=== PATIENT | female | born 1955 | race Caucasian/White ===

== ENCOUNTER → 2018-12-15 23:55 | Outpatient (CLI) | payer OTHER, SELFPAY ==
[2018-11-06 15:00] VITALS: BMI 27.1
[2018-12-16 00:50] LABS: Thyroid Stim Hormone (TSH) 0.26 uIU/mL (0.358-3.74)
== END ==
PROVIDERS: Family Provider Nurse Practitioner; PCP Nurse Practitioner; Referring Provider Nurse Practitioner; Visit Provider Nurse Practitioner
DX: E03.9 Hypothyroidism, unspecified (principal)
CPT/HCPCS: 84443

== ENCOUNTER → 2019-11-30 | Outpatient (CLI) | payer OTHER, SELFPAY ==
[2019-11-30 15:01] VITALS: BMI 27.6
[2019-11-30 22:26] LABS: Absolute Lymphocyte Count 2.88 X10^3/uL (0.83-4.51); Basophil# 0.08 X10^3/uL; Eosinophil# 0.31 X10^3/uL; Hematocrit 40.4 % (37-47); Hemoglobin 14.1 g/dL (12.0-15.0); Lymphocyte # 2.88 X10^3/ul (4.0); Lymphocyte % 36.9 % (19-41); Mean Corp Hgb Conc 34.9 g/dL (32-36); Mean Corpuscular Hgb 33.6 pg (27.0-32.0); Mean Corpuscular Volume 96.2 fL (81-99); Mean Platelet Vol. 11.5 fl (6.2-12.0); Monocyte# 0.52 X10^3/uL; Monocyte% 6.7 % (0-10); NRBC Flagged by Analyzer 0 % (0-5); Neutrophil % 51.3 % (47-70); Platelet Count 251 K/mm3 (150-450); RBC Distribution Width CV 12.9 % (11.6-14.6); RBC Distribution Width SD 44.3 fl (35.1-43.9); White Blood Count 7.8 K/mm3 (4.4-11.0)
[2019-11-30 22:47] LABS: AST(SGOT) 18 U/L (15-37); Alanine Aminotransfer ALT/SGPT 22 U/L (13-56); Albumin, Serum 3.8 g/dL (3.2-5.0); Alkaline Phosphatase 79 U/L (45-117); Anion Gap 6 (5-15); BUN 11 mg/dL (7-18); BUN/Creat Ratio 13.8 RATIO (10-20); Calcium,Total 9.3 mg/dL (8.5-10.1); Chloride 105 mmol/L (98-107); Cholesterol 273 mg/dL (200); EST Glomerular Filtration Rate 77 mL/min (>60); Est Glom Filt Rate - Afr Amer 93 mL/min (>60); Globulin 3.7 g/dL (2.2-4.2); Glucose 99 mg/dL (74-106); High Density Lipoprotein 68 mg/dL; Potassium 4.2 mmol/L (3.5-5.1); Protein, Total 7.5 g/dL (6.4-8.2); Sodium Level 140 mmol/L (136-145); Thyroid Stim Hormone (TSH) 0.49 uIU/mL (0.358-3.74); Triglycerides 138 mg/dL; Very Low Density Lipoprotein 28 mg/dL (5-40)
== END | disposition home or self-care (01) ==
PROVIDERS: Visit Provider Nurse Practitioner
DX: E03.9 Hypothyroidism, unspecified (principal)
CPT/HCPCS: 80053; 80061; 84443; 85025

== ENCOUNTER → 2020-12-15 22:15 | Outpatient (CLI) | payer OTHER, SELFPAY ==
[2020-12-15 17:58] VITALS: BMI 27.3
== END ==
PROVIDERS: Referring Provider Nurse Practitioner; Visit Provider Nurse Practitioner
DX: E03.9 Hypothyroidism, unspecified (principal)
CPT/HCPCS: 84443

== ENCOUNTER → 2021-11-16 | Outpatient (CLI) | payer MEDICARE, SELFPAY ==
[2021-11-16 22:06] LABS: Absolute Lymphocyte Count 2.97 X10^3/uL (0.83-4.51); Absolute Neutrophil Count 3.3 X10^3/uL (2.0-7.7); Basophil# 0.08 X10^3/uL; Basophil% 1.1 % (0-1); Eosinophil# 0.27 X10^3/uL; Eosinophils% 3.9 % (0-5); Hematocrit 40.9 % (37-47); Hemoglobin 14.4 g/dL (12.0-15.0); Lymphocyte # 2.97 X10^3/ul (0.83-4.51); Lymphocyte % 42.6 % (19-41); Mean Corp Hgb Conc 35.2 g/dL (32-36); Mean Corpuscular Hgb 33.2 pg (27.0-32.0); Mean Corpuscular Volume 94.2 fL (81-99); Mean Platelet Vol. 11.2 fl (6.2-12.0); Monocyte# 0.38 X10^3/uL; Monocyte% 5.4 % (0-10); NRBC Flagged by Analyzer 0 % (0-5); Neutrophil # 3.27 X10^3/uL (2.7-7.7); Neutrophil % 46.9 % (47-70); Platelet Count 268 K/mm3 (150-450); RBC Distribution Width SD 44.4 fl (35.1-43.9); Red Blood Count 4.34 M/mm3 (4.2-5.4)
[2021-11-16 22:36] LABS: ALB/GLOB Ratio 1.1 RATIO (0.9-2.4); AST(SGOT) 19 U/L (15-37); Alanine Aminotransfer ALT/SGPT 24 U/L (13-56); Albumin, Serum 3.8 g/dL (3.2-5.0); Alkaline Phosphatase 78 U/L (45-117); Anion Gap 4 (5-15); BUN 15 mg/dL (7-18); BUN/Creat Ratio 17.1 RATIO (10-20); Calcium,Total 9.3 mg/dL (8.5-10.1); Chloride 105 mmol/L (98-107); Cholesterol 294 mg/dL (200); Creatinine, Serum 0.88 mg/dL (0.55-1.02); EST Glomerular Filtration Rate 69 mL/min (>60); Est Glom Filt Rate - Afr Amer 83 mL/min (>60); Globulin 3.6 g/dL (2.2-4.2); Glucose 99 mg/dL (74-106); High Density Lipoprotein 65 mg/dL; Protein, Total 7.4 g/dL (6.4-8.2); Sodium Level 137 mmol/L (136-145); Triglycerides 184 mg/dL; Very Low Density Lipoprotein 37 mg/dL (5-40)
[2021-11-16 22:37] LABS: Thyroid Stim Hormone (TSH) 1.09 uIU/mL (0.358-3.74)
== END | disposition home or self-care (01) ==
PROVIDERS: Visit Provider Nurse Practitioner
DX: E78.5 Hyperlipidemia, unspecified (principal); E03.9 Hypothyroidism, unspecified
CPT/HCPCS: 80053; 80061; 84443; 85025

== ENCOUNTER → 2022-11-06 | Outpatient (CLI) | payer MEDICARE, SELFPAY ==
[2022-11-06 20:48] LABS: Absolute Lymphocyte Count 2.84 X10^3/uL (0.83-4.51); Absolute Neutrophil Count 3.4 X10^3/uL (2.0-7.7); Basophil# 0.08 X10^3/uL; Basophil% 1.1 % (0-1); Eosinophil# 0.27 X10^3/uL; Eosinophils% 3.8 % (0-5); Hematocrit 44.9 % (37-47); Hemoglobin 15.8 g/dL (12.0-15.0); Lymphocyte # 2.84 X10^3/ul (0.83-4.51); Lymphocyte % 40.1 % (19-41); Mean Corp Hgb Conc 35.2 g/dL (32-36); Mean Corpuscular Hgb 33.1 pg (27.0-32.0); Mean Corpuscular Volume 94.1 fL (81-99); Mean Platelet Vol. 11.3 fl (6.2-12.0); Monocyte# 0.46 X10^3/uL; Monocyte% 6.5 % (0-10); NRBC Flagged by Analyzer 0 % (0-5); Neutrophil # 3.42 X10^3/uL (2.7-7.7); Neutrophil % 48.4 % (47-70); Platelet Count 261 K/mm3 (150-450); RBC Distribution Width CV 13.1 % (11.6-14.6); RBC Distribution Width SD 44.7 fl (35.1-43.9); Red Blood Count 4.77 M/mm3 (4.2-5.4); White Blood Count 7.1 K/mm3 (4.4-11.0)
[2022-11-06 21:09] LABS: AST(SGOT) 18 U/L (15-37); Alanine Aminotransfer ALT/SGPT 26 U/L (13-56); Albumin, Serum 3.8 g/dL (3.2-5.0); Alkaline Phosphatase 89 U/L (45-117); Anion Gap 6 (5-15); BUN 12 mg/dL (7-18); BUN/Creat Ratio 14.1 RATIO (10-20); Calcium,Total 9.7 mg/dL (8.5-10.1); Chloride 105 mmol/L (98-107); Cholesterol 289 mg/dL (200); Creatinine, Serum 0.85 mg/dL (0.55-1.02); EST Glomerular Filtration Rate 71 mL/min (>60); Est Glom Filt Rate - Afr Amer 86 mL/min (>60); Globulin 3.7 g/dL (2.2-4.2); Glucose 99 mg/dL (74-106); High Density Lipoprotein 66 mg/dL; Potassium 5.1 mmol/L (3.5-5.1); Protein, Total 7.5 g/dL (6.4-8.2); Sodium Level 139 mmol/L (136-145); Triglycerides 181 mg/dL; Very Low Density Lipoprotein 36 mg/dL (5-40)
[2022-11-08 07:08] LABS: HEPATITIS B SURFACE AG Negative (Negative); Hep B Surface Antibodies Non Reactive (.); Hepatitis B Core Ab Total Negative (Negative)
== END | disposition home or self-care (01) ==
PROVIDERS: Visit Provider Nurse Practitioner
DX: E03.9 Hypothyroidism, unspecified (principal); E78.5 Hyperlipidemia, unspecified; G47.00 Insomnia, unspecified; Z20.5 Contact with and (suspected) exposure to viral hepatitis
CPT/HCPCS: 80053; 80061; 84443; 85025; 86704; 86705; 86706; 86707; 86803; 87340; 87350

== ENCOUNTER → 2023-12-03 | Outpatient (CLI) | payer MEDICARE, SELFPAY ==
[2023-12-03 22:23] LABS: Absolute Lymphocyte Count 2.89 X10^3/uL (0.83-4.51); Absolute Neutrophil Count 3.9 X10^3/uL (2.0-7.7); Basophil# 0.07 X10^3/uL; Basophil% 0.9 % (0-1); Eosinophil# 0.24 X10^3/uL; Eosinophils% 3.2 % (0-5); Hematocrit 41.9 % (37-47); Hemoglobin 14.7 g/dL (12.0-15.0); Lymphocyte # 2.89 X10^3/ul (0.83-4.51); Lymphocyte % 38.4 % (19-41); Mean Corp Hgb Conc 35.1 g/dL (32-36); Mean Corpuscular Hgb 33.8 pg (27.0-32.0); Mean Corpuscular Volume 96.3 fL (81-99); Mean Platelet Vol. 12.6 fl (6.2-12.0); Monocyte# 0.42 X10^3/uL; Monocyte% 5.6 % (0-10); NRBC Flagged by Analyzer 0 % (0-5); Neutrophil % 51.8 % (47-70); POSITIVE COUNT YES; Platelet Count 148 K/mm3 (150-450); RBC Distribution Width CV 14.1 % (11.6-14.6); Red Blood Count 4.35 M/mm3 (4.2-5.4); White Blood Count 7.5 K/mm3 (4.4-11.0)
[2023-12-03 22:30] LABS: Differential Indicated SCAN CRITERIA MET
[2023-12-03 22:46] LABS: ALB/GLOB Ratio 1.1 RATIO (0.9-2.4); AST(SGOT) 17 U/L (15-37); Alanine Aminotransfer ALT/SGPT 19 U/L (13-56); Albumin, Serum 3.7 g/dL (3.2-5.0); Alkaline Phosphatase 78 U/L (45-117); Anion Gap 4 (5-15); BUN 12 mg/dL (7-18); BUN/Creat Ratio 14.8 RATIO (10-20); Calcium,Total 9.3 mg/dL (8.5-10.1); Chloride 106 mmol/L (98-107); Cholesterol 265 mg/dL (200); Creatinine, Serum 0.81 mg/dL (0.55-1.02); EST Glomerular Filtration Rate 75 mL/min (>60); Est Glom Filt Rate - Afr Amer 91 mL/min (>60); Globulin 3.5 g/dL (2.2-4.2); Glucose 103 mg/dL (74-106); High Density Lipoprotein 56 mg/dL; Potassium 4.6 mmol/L (3.5-5.1); Protein, Total 7.2 g/dL (6.4-8.2); Sodium Level 138 mmol/L (136-145); Thyroid Stim Hormone (TSH) 0.74 uIU/mL (0.358-3.74); Triglycerides 164 mg/dL; Very Low Density Lipoprotein 33 mg/dL (5-40)
[2023-12-03 23:02] LABS: Differential Comment SCANNED
== END | disposition home or self-care (01) ==
PROVIDERS: Visit Provider Nurse Practitioner
DX: E03.9 Hypothyroidism, unspecified (principal); E78.5 Hyperlipidemia, unspecified
CPT/HCPCS: 80053; 80061; 84443; 85025

== ENCOUNTER → 2024-11-01 | Outpatient (REF) | payer MEDICARE, SELFPAY ==
[2024-11-01 23:36] LABS: Absolute Lymphocyte Count 3.06 X10^3/uL (0.83-4.51); Absolute Neutrophil Count 3.2 X10^3/uL (2.0-7.7); Basophil# 0.09 X10^3/uL; Basophil% 1.3 % (0-1); Eosinophil# 0.24 X10^3/uL; Eosinophils% 3.4 % (0-5); Hematocrit 42.3 % (37-47); Hemoglobin 15.1 g/dL (12.0-15.0); Lymphocyte # 3.06 X10^3/ul (0.83-4.51); Lymphocyte % 43.7 % (19-41); Mean Corp Hgb Conc 35.7 g/dL (32-36); Mean Corpuscular Hgb 33.3 pg (27.0-32.0); Mean Corpuscular Volume 93.2 fL (81-99); Mean Platelet Vol. 11.6 fl (6.2-12.0); Monocyte# 0.44 X10^3/uL; Monocyte% 6.3 % (0-10); NRBC Flagged by Analyzer 0 % (0-5); Neutrophil # 3.16 X10^3/uL (2.7-7.7); Neutrophil % 45.2 % (47-70); Platelet Count 253 K/mm3 (150-450); RBC Distribution Width CV 13.1 % (11.6-14.6); RBC Distribution Width SD 44.4 fl (35.1-43.9); Red Blood Count 4.54 M/mm3 (4.2-5.4)
[2024-11-01 23:53] LABS: ALB/GLOB Ratio 1.5 RATIO (0.9-2.4); AST(SGOT) 24 U/L (<=31); Alanine Aminotransfer ALT/SGPT 19 U/L (<=34); Albumin, Serum 4.4 g/dL (3.4-4.8); Alkaline Phosphatase 85 U/L (35-104); Anion Gap 10 (5-15); BUN 10 mg/dL (4-19); BUN/Creat Ratio 12.7 RATIO (10-20); Carbon Dioxide 26.2 mmol/L (21.0-32.0); Chloride 102 mmol/L (98-108); Cholesterol 297 mg/dL (<=200); EST Glomerular Filtration Rate 80 (>60); Glucose 101 mg/dL (70-99); High Density Lipoprotein 75 mg/dL; Low Density Lipoprotein Calc. 197 mg/dL; Potassium 4.4 mmol/L (3.3-5.1); Protein, Total 7.4 g/dL (5.9-8.4); Sodium Level 139 mmol/L (133-145); Total Bilirubin 0.35 mg/dL (0.00-1.30); Triglycerides 128 mg/dL; Very Low Density Lipoprotein 26 mg/dL (5-40); cholesterol:hdl ratio screen 3.98
== END ==
LOC: OLS.AHF 23:08
PROVIDERS: Visit Provider Nurse Practitioner
DX: E03.9 Hypothyroidism, unspecified (principal); E78.5 Hyperlipidemia, unspecified; R51.9 Headache, unspecified
CPT/HCPCS: 80053; 80061; 84443; 85025

== ENCOUNTER → 2025-03-11 | Outpatient (CLI) | payer MEDICARE, SELFPAY ==
--- OUTSIDE RECORDS SUMMARY | 2025-03-11 22:46 | XMS RPT_ITS | CCD ---
Author Organization [facility] Care Team Providers Care Student Union Consultant Name Role Phone Sujatha Masterson Unavailable Gil Ashford LPN Unavailable UnavailDavidson Pastor Unavailable Unavailable Sujatha Masterson Unavailable Lety Schneider Unavailable Hoang CLERK ENTRY LEVEL.RETAIL GROCER, Vernon L Primary Care Provide r Bolton CLERK ENTRY LEVEL.RETAIL GROCER, Vernon L Primary Care Provide r Bolton CLERK ENTRY LEVEL.RETAIL GROCER, Vernon L Primary Care Provide r Bolton CLERK ENTRY LEVEL.RETAIL GROCER, Vernon L Primary Care Provide r Soheila Zuleta Unavailable Unavailable Brigid Bailon MD Unavailable Brigid Bailon MD Unavailable Chandler Red PT Unavailable HOANG, VERNON L Primary Care Unavailable BRIGID BAILON Admitting Unavailable BRIGID BAILON Attending Unavailable BOLTON, VERNON L Primary Care Unavailable DARIEN VASQUEZ Consulting Unavailable BOLTON, VERNON L Primary Care Unavailable SUJATHA MASTERSON Referring Unavailab le BOLTON, VERNON L Primary Care Unavailable DENNIS BUTTS Referring Unavailable BOLTON, VERNON L Primary Care Unavailable BRIGID BAILON Referring Unavailable BOLTON, VERNON L Primary Care Unavailable HEIDI WADDELL Referring Unavailvictorino e BOLTON, VERNON L Primary Care Unavailable BOLTON, VERNON L Primary Care Unavailable KATHLEEN PARKER Admitting Unavailable BOLTON, VERNON L Primary Care Unavailable ELENA, KATHLEEN D Attending Unavailable BOLTON, VERNON L Primary Care Unavailable ELENA, KATHLEEN D Attending Unavailable ELENA, KATHLEEN D Admitting Unavailable Bolton LIFE EDUCATOR, Vernon Attending Unavailable Bolton LIFE EDUCATOR, Vernon Attending Unavailable BRIGID BAILON Attending Unavailable BOLTON, VERNON L Primary Care Unavailable BOLTON, VERNON L Primary Care Unavailable DENNIS BUTTS Attending Unavailable BOLTON, VERNON L Primary Care Unavailable JOHANNY SANTANA Attending Unavailable HILARIO CUMMINGS Attending Unavailable BOLTON, VERNON L Primary Care Unavailable BOLTON, VERNON L Primary Care Unavailable ELENA, KATHLEEN D Attending Unavailable BOLTON, VERNON L Primary Care Unavailable ELENA, KATHLEEN D Attending Unavailable BOLTON, VERNON L Primary Care Unavailable BIRGID BAILON Attending Unavailable BOLTON, VERNON L Primary Care Unavailable BRIGID BAILON Attending Unavailable BOLTON, VERNON L Primary Care Unavailable BOLTON, VERNON L Primary Care Unavailable BRIGID BAILON Attending Unavailable ELENA, KATHLEEN D Attending Unavailable ELENA, KATHLEEN D Referring Unavailable BOLTON, VERNON L Primary Care Unavailable ELENA, KATHLEEN D Referring Unavailable BRIGID BAILON Attending Unavailable BOLTON, VERNON L Primary Care Unavailable ELENA, KATHLEEN D Referring Unavailable BOLTON, VERNON L Primary Care Unavailable ELENA, KATHLEEN D Attending Unavailable ELENA, KATHLEEN D Referring Unavailable BOLTON, VERNON L Primary Care Unavailable ELENA, KATHLEEN D Attending Unavailable BOLTON, VERNON L Primary Care Unavailable BOLTON, VERNON L Primary Care Unavailable ELENA, KATHLEEN D Attending Unavailable ELENA, KATHLEEN D Referring Unavailable BOLTON, VERNON L Primary Care Unavailable ELENA, KATHLEEN D Attending Unavailable ELENA, KATHLEEN D Referring Unavailable BOLTON, VERNON L Primary Care Unavailable ELENA, KATHLEEN D Attending Unavailable ELENA, KATHLEEN D Referring Unavailable BOLTON, VERNON L Primary Care Unavailable Allergies Allergy Classification Reported Allergen(s) Allergy Type Date of Onset Reaction(s) Facility Bee pollen (1 source) Bee pollen Drug Allergy 04-26-20 18 Anaphylaxis [facility] Corticosteroids (2 sources) Cortisone Drug Allergy 04-26-20 18 Anaphylaxis [facility] nickel (1 source) nickel Drug Allergy 09-17-19 24 Rash [facility] (1 source) Azithromycin Drug Allergy 01-18-20 21 [facility] Work Phone: (20 sources) Cortisone; Translations: [CORTISONE] Drug Allergy 04-26-20 18 Anaphylaxis [facility] (1 source) Indomethacin Drug Allergy 01-18-20 Swelling [facility] Work Phone: (1 source) Meperidine Drug Allergy 01-18-20 21 Other [facility] Work Phone: (1 source) Morphine Drug Allergy 01-18-20 21 Hives [facility] Work Phone: (1 source) Piroxicam Drug Allergy 01-18-20 Swelling [facility] Work Phone: (20 sources) WASPS; Translations: [WASPS] Allergy to substance 12-13-19 Shortness of Breath [facility] (20 sources) Bee pollen; Translations: [BEE POLLEN] Drug Allergy 04-26-20 Anaphylaxis [facility] (20 sources) Betamethasone; Translations: [BETAMETHASONE DIPROPIONATE] Drug Allergy 04-26-20 18 Anaphylaxis [facility] (20 sources) Glucocorticoid preparation; Translations: [CORTICOSTEROIDS (GLUCOCORTICOIDS) ] Drug Allergy 04-26-20 Anaphylaxis [facility] (20 sources) Non-steroidal anti-inflammatory agent; Translations: [NSAIDS (NON-STEROIDAL ANTI-INFLAMMATORY DRUG)] Drug Intolerance 04-26-20 Swelling [facility] (20 sources) Dexamethasone Phos-Lidocaine; Translations: [DEXAMETHASONE PHOS-LIDOCAINE] Drug Allergy 04-26-20 18 Anaphylaxis [facility] (20 sources) Morphinan opioid; Translations: [OPIOIDS - MORPHINE ANALOGUES] Drug Intolerance 09-17-19 Mental Status Change [facility] (20 sources) nickel; Translations: [NICKEL] Drug Allergy 09-17-19 24 Rash [facility] (1 source) Azithromycin Drug Allergy 01-18-20 [facility] (1 source) Cortisone Drug Allergy 01-18-20 [facility] (1 source) Indomethacin Drug Allergy 01-18-20 [facility] (1 source) Meperidine Drug Allergy 01-18-20 [facility] (1 source) Morphine Drug Allergy 01-18-20 [facility] (1 source) Piroxicam Drug Allergy 01-18-20 21 [facility] (1 source) venom-wasp Drug allergy (disorder) 04-15-20 22 [facility] Medications Current Medications Medication Drug Class(es) Dates Sig (Normalized) Sig (Original) albuterol 0.83 mg/ml inhalation solution (4 sources) beta2-Adrenergic Agonist Start: 12-15-2020 End: 11-16-2021 take 2.5 mg by inhalation every four hours Albuterol Sulfate Active 2.5 MG INHALATION Q4H 75 November 16, 2021 4:26pm Start: 09-15-2019 End: 11-30-2019 take 2.5 mg by inhalation every four hours Albuterol Sulfate Discontinued 2.5 MG INHALATION Q4H 75 September 15, 2019 8:39pm November 30, 2019 3:03pm apixaban 2.5 mg oral tablet (12 sources) Factor Xa Inhibitor Start: 03-17-2024 End: 04-16-2024 take 1 tablet by mouth twice daily apixaban (ELIQUIS) 2.5 mg tab(s) Take 1 tablet by mouth two times a day. 60 tablet 03/17/2024 04/16/2024 Active ascorbic acid 500 mg oral tablet (20 sources) Vitamin C Start: 03-17-2024 End: 03-31-2024 take 1 tablet by mouth twice daily at mealtime ascorbic acid, vitamin C, (VITAMIN C) 500 mg tablet Take 1 tablet by mouth two times a day with meals for 27 doses. 27 tablet 03/17/2024 11:14 AM EDT 03/17/2024 Active benoxinate hydrochloride 4 mg/ml / fluorescein sodium 3 mg/ml ophthalmic solution (8 sources) Diagnostic Dye Start: 11-02-2024 End: 11-02-2024 fluorescein-trung xinate 0.3-0.4 % 1 drop (FLURESS) Start: 11-02-2024 End: 11-02-2024 1 drop, BOTH EYES, DIRECT ED, Starting on Fri11/02/24 at 0930, Until Fri11/02/24 at 2129, Administer for applanation tonometry. In the event of a Fluress shortage, administer Salma-Fluor 1 drop into both eyes as directed for applanation tonometry Start: 08-02-2024 End: 08-02-2024 fluorescein-benoxinate 0.3-0 .4 % 1 Drop (FLURESS) Start: 06-28-2024 End: 06-28-2024 fluorescein-benoxinate 0.3-0 .4 % 1 Drop (FLURESS) Start: 06-28-2024 End: 06-28-2024 1 Drop, BOTH EYES, DIRECT ED, Starting on Fri06/28/24 at 0930, Until Fri06/28/24 at 212, Administer for applanation tonometry. In the event of a Fluress shortage, administer Salma-Fluor 1 drop into both eyes as directed for applanation tonometry Start: 06-22-2024 End: 06-22-2024 fluorescein-benoxinate 0.3-0 .4 % 1 Drop (FLURESS) Start: 06-22-2024 End: 06-22-2024 1 Drop, BOTH EYES, DIRECT ED, Starting on Fri06/22/24 at 0900, Until Fri06/22/24 at 2058, Administer for applanation tonometry. In the event of a Fluress shortage, administer Colona-Fluor 1 drop into both eyes as directed for applanation tonometry Start: 05-03-2024 End: 05-03-2024 fluorescein-benoxinate 0.3-0 .4 % 1 Drop (FLURESS) docusate sodium 100 mg oral capsule (12 sources) Start: 03-17-2024 End: 04-16-2024 take 1 capsule by mouth every twelve hours as needed docusate sodium (COLACE) 100 mg capsule Take 1 capsule by mouth two times a day as needed for constipation. 60 capsule 03/17/2024 04/16/2024 Active hydrOXYzine hydrochloride 10 mg oral tablet (20 sources) Antihistamine Start: 12-03-2023 take 1 tablet by mouth three to four times daily as needed for anxiety hydrOXYzine HCl (ATARAX) 10 mg tablet TAKE 1 TABLET BY MOUTH 3 TO 4 times DAILY NEEDED for anxiety 12/03/2023 Active Start: 08-09-2020 End: 02-27-2021 take 10 mg by mouth three to four times daily Hydroxyzine Hcl Active 10 MG PO 3 to 4 times per day February 27, 2021 4:38pm Start: 03-27-2020 End: 06-22-2020 take 10 mg by mouth three times daily Hydroxyzine Hcl Discontinued 10 MG PO THREE TIMES A DAY March 27, 2020 7:48pm June 22, 2020 1:07pm Start: 08-12-2019 End: 11-30-2019 take 10 mg by mouth three times daily Hydroxyzine Hcl Discontinued 10 MG PO THREE TIMES A DAY August 12, 2019 5:26pm November 30, 2019 3:03pm ibuprofen 200 mg oral tablet (20 sources) Nonsteroidal Anti-inflammatory Drug Start: 12-12-2016 take 400 mg by mouth at bedtime Ibuprofen Active 400 MG PO AT BEDTIME December 12, 2016 12:16pm End: 03-17-2024 Ibuprofen 200 mg cap Take by mouth every 6 hours as needed. 03/17/2024 Discontinued Comment on above: Take by mouth every 6 hours as needed. ipratropium bromide 0.2 mg/ml inhalation solution (2 sources) Anticholinergic Start: 021 End: take 1 mL by inhalation every six hours Ipratropium Cameron Active 2.5 ML INHALATION EVERY 6 HOURS 62.5 November 16, 2021 4:26pm ketorolac tromethamine 5 mg/ml ophthalmic solution (20 sources) Nonsteroidal Anti-inflammatory Drug, Cyclooxygenase Inhibitor Start: 024 End: 025 take 1 drop(s) into the eye(s) twice daily keTORolac (ACULAR) 0.5 % ophthalmic solution Use 1 Drop in the left eye two times a day. 5 mL 1 06/16/2024 07/16/2024 Active Start: 05-03-2024 take 1 drop(s) into the eye(s) twice daily keTORolac (ACULAR) 0.5 % ophthalmic solution Use 1 Drop in the right eye two times a day. 05/03/2024 Active Start: 05-03-2024 End: 06-02-2024 take 1 drop(s) into the eye(s) twice daily keTORolac (ACULAR) 0.5 % ophthalmic solution Use 1 Drop in the right eye two times a day. 5 mL 1 05/03/2024 06/02/2024 Active levothyroxine sodium 0.125 mg oral tablet (20 sources) l-Thyroxine Start: 12-12-2016 End: 11-19-2021 take 1 tablet by mouth once daily Levothyroxine (Synthroid) 125 mcg tablet Active 125 MCG PO daily November 19, 2021 5:19pm take 1 tablet by anastasia th once daily before breakfast levothyroxine (SYNTHROID) 112 mcg tablet Take 112 mcg by mouth daily before breakfast. Active Comment on above: Take 112 mcg by mout h daily before breakfast. montelukast 10 mg oral tablet (3 sources) Leukotriene Receptor Antagonist Start: take 10 mg by mouth at bedtime Montelukast Active 10 MG PO AT BEDTIME December 15, 2020 6:12pm Start: 08-25-2018 End: 11-30-2019 take 10 mg by mouth once daily in the evening Montelukast Discontinued 10 MG PO EVERY EVENING September 14, 2019 6:24pm November 30, 2019 3:04pm mupirocin 0.02 mg/mg topical ointment (2 sources) RNA Synthetase Inhibitor Antibacterial Start: 02-25-2024 End: 03-01-2024 mupirocin (BACTROBAN) 2 % ointment Indications: Pre-op evaluation two times a day for 5 days. Apply 0.5 inch with cotton swab (Q-tip) to each nostril in the morning and evening for 5 days prior to and including day of surgery. 22 g 02/25/2024 03/01/2024 Active naproxen 500 mg delayed release oral tablet (20 sources) Nonsteroidal Anti-inflammatory Drug Start: 06-14-2024 take 1 tablet by mouth every twelve hours as needed Naproxen SR (EC-NAPROSYN) 500 mg EC tablet Take 1 tablet by mouth two times a day as needed (for pain. Take with food.). 60 tablet 06/14/2024 Active Start: 02-06-2016 EC-NAPROSYN 50 0 MG TBEC take one daily by mouth as needed for pain NAPROXEN [id number] Sujatha Masterson Start: 02-06-2016 EC-NAPROSYN 50 0 MG TBEC take one daily by mouth as needed for pain NAPROXEN [id number] Sujatha Masterson ofloxacin 3 mg/ml ophthalmic solution (20 sources) Quinolone Antimicrobial Start: 06-16-2024 take 1 drop(s) into the eye(s) four times daily ofloxacin (OCUFLOX) 0.3 % ophthalmic solution Use 1 Drop in the left eye four times daily. Start 1 day before surgery 5 mL 1 06/16/2024 Active Start: 05-03-2024 End: 05-10-2024 take 1 drop(s) into the eye(s) four times daily ofloxacin (OCUFLOX) 0.3 % ophthalmic solution Use 1 Drop in the right eye four times daily for 7 days. Start one day before surgery 5 mL 1 05/03/2024 05/10/2024 Start: 11-06-2018 End: 01-05-[address] P OTIC TWICE A DAY November 06, 2018 3:07pm January 05, 2019 7:41pm R ear OFLOXACIN OPHTHA LMIC Use in eyes. Active phenylephrine hydrochloride 25 mg/ml ophthalmic solution (1 source) alpha-1 Adrenergic Agonist Start: 05-03-2024 End: 05-03-2024 PHENYLephrine 2.5 % 1 Drop (AK-DILATE, SHANNON-SYNEPHRINE) polyethylene glycol 3350 95330 mg powder for oral solution (11 sources) Osmotic Laxative Start: 03-17-2024 End: 03-31-2024 polyethylene glycol 3350 (MIRALAX) 17 gram/dose powder Take 17 g by mouth once daily as needed for constipation for up to 10 days. Dissolve dose in 4 - 8 ounces of liquid and take as directed. 238 g 03/17/2024 03/31/2024 Active prednisoLONE acetate 10 mg/ml ophthalmic suspension (20 sources) Corticosteroid Start: 05-03-2024 End: 07-16-2024 prednisoLONE acetate (PRED FORTE) 1 % ophthalmic suspension Use 1 Drop in the right eye four times daily. 05/03/2024 Active proparacaine hydrochloride 5 mg/ml ophthalmic solution (5 sources) Local Anesthetic Start: 08-02-2024 End: 08-02-2024 proparacaine 0.5 % 1 Drop (ALCAINE) Start: 06-28-2024 End: 06-28-2024 proparacaine 0.5 % 1 Drop (A LCAINE) Start: 06-28-2024 End: 06-28-2024 1 Drop, BOTH EYES, DIRECT ED, Starting on Fri06/28/24 at 0930, Until Fri06/28/24 at 2128, Administer for pneumo tonometry, tonopen tonometry, or pachymetry. In the event of a proparacaine shortage, administer tetracaine 0.5% ophthalmic drops 1 drop in the left eye as directed for pneumo tonometry, tonopen tonometry, or pachymetry Start: 06-22-2024 End: 06-22-2024 proparacaine 0.5 % 1 Drop (A LCAINE) Start: 06-22-2024 End: 06-22-2024 1 Drop, BOTH EYES, DIRECT ED, Starting on Fri06/22/24 at 0900, Until Fri06/22/24 at 2058, Administer for pneumo tonometry, tonopen tonometry, or pachymetry. In the event of a proparacaine shortage, administer tetracaine 0.5% ophthalmic drops 1 drop in the left eye as directed for pneumo tonometry, tonopen tonometry, or pachymetry tropicamide 10 mg/ml ophthalmic solution (5 sources) Anticholinergic Start: 11-02-2024 End: 11-02-2024 tropicamide 1 % 1 drop (MYDRIACYL) Start: 11-02-2024 End: 11-02-2024 1 drop, BOTH EYES, DIRECT ED, Starting on Fri11/02/24 at 0930, Until Fri11/02/24 at 2128, Administer for dilation Start: 06-28-2024 End: 06-28-2024 tropicamide 1 % 1 Drop (MYDR IACYL) Start: 06-28-2024 End: 06-28-2024 1 Drop, LEFT EYE, DIRECTE D, Starting on Fri06/28/24 at 0930, Until Fri06/28/24 at 2128, Administer for dilation Start: 05-03-2024 End: 05-03-2024 tropicamide 1 % 1 Drop (MYDR IACYL) Completed/Discontinued Medications Medication Drug Class(es) Dates Sig (Normalized) Sig (Original) acetaminophen 500 mg oral tablet (6 sources) Start: 03-17-2024 End: 03-23-2024 take 2 tablets by mouth every eight hours as needed acetaminophen (TYLENOL) 500 mg tablet Take 2 tablets by mouth every 8 hours as needed for pain. 90 tablet 03/17/2024 03/23/2024 Discontinued acetaminophen 325 mg / HYDROcodone bitartrate 5 mg oral tablet (7 sources) Opioid Agonist Start: 03-23-2024 End: 03-30-2024 take 1-2 tablets by mouth every six hours as needed for pain HYDROcodone-acetami nophen (NORCO) 5-325 mg per tablet Indications: S/P total knee arthroplasty, right Take 1-2 tablets by mouth every 6 hours as needed for pain for up to 7 days. 50 tablet 03/23/2024 03/30/2024 Start: 12-18-2016 End: 01-05-2019 take 1 tablet by mouth every six hours as needed Hydrocodone-Acetaminophen Discontinued 1 - 2 TABLET PO EVERY 6 HOURS NEEDED December 18, 2016 10:41am January 05, 2019 7:40pm acetaminophen 250 mg / ibuprofen 125 mg oral tablet (5 sources) Nonsteroidal Anti-inflammatory Drug End: 05-26-2024 take 1 tablet by mouth twice daily ibuprofen-acetaminophen (ADVIL DUAL ACTION) 125-250 mg tab Take 1 tablet by mouth two times a day. 05/26/2024 Discontinued amoxicillin 875 mg / clavulanate 125 mg oral tablet (7 sources) Penicillin-class Antibacterial Start: 03-27-2020 End: 06-22-2020 take 1 tablet by mouth twice daily Amoxicillin-Pot Clavulanate Discontinued 1 TABLET PO TWICE A DAY March 27, 2020 7:46pm June 22, 2020 1:07pm Start: 05-08-2019 End: 11-30-2019 take 1 tablet by mouth twice daily Amoxicillin-Pot Clavulanate Discontinued 1 TABLET PO TWICE A DAY October 13, 2019 4:07pm November 30, 2019 3:03pm Start: 02-19-2018 End: 01-05-2019 take 1 tablet by mouth twice daily Amoxicillin-Pot Clavulanate Discontinued 1 TABLET PO TWICE A DAY November 06, 2018 3:08pm January 05, 2019 7:40pm cefdinir 300 mg oral capsule (1 source) Cephalosporin Antibacterial Start: 06-19-2021 End: 11-16-2021 take 300 mg by mouth twice daily Cefdinir Discontinued 300 MG PO TWICE A DAY June 19, 2021 4:31pm November 16, 2021 4:21pm ciprofloxacin 500 mg oral tablet (1 source) Quinolone Antimicrobial Start: 06-25-2021 End: 11-16-2021 take 1 tablet by mouth twice daily Ciprofloxacin Hcl (Cipro) 500 mg tablet Discontinued 500 MG PO TWICE A DAY June 25, 2021 1:50pm November 16, 2021 4:21pm cyclobenzaprine hydrochloride 10 mg oral tablet (20 sources) Muscle Relaxant Start: 05-17-2022 End: 03-17-2024 take 1 tablet by mouth three times daily cyclobenzaprine (FLEXERIL) 10 mg tablet Take 1 tablet by mouth three times daily. 20 tablet 1 05/17/2022 03/17/2024 Discontinued Comment on above: Take 1 tablet by [facility] three times daily. 2 ml sodium hyaluronate 10 mg/ml prefilled syringe (20 sources) Start: 09-05-2023 End: 09-05-2023 sodium hyaluronate 20 mg injection (EUFLEXXA) Start: 03-03-2023 End: 03-03-2023 Sodium Hyaluronate 30 mg (OR THOVISC) Start: 02-24-2023 End: 02-24-2023 Sodium Hyaluronate 30 mg (OR THOVISC) Start: 02-17-2023 End: 02-17-2023 Sodium Hyaluronate 30 mg (OR THOVISC) Start: 07-31-2022 End: 07-31-2022 Sodium Hyaluronate 30 mg (OR THOVISC) Start: 07-19-2022 End: 07-19-2022 Sodium Hyaluronate 30 mg (OR THOVISC) Start: 01-24-2021 End: 01-24-2021 Euflexxa (sodium hyaluronate (viscosup)) Discontinued 10 MG INTRAARTIC ONCE January 24, 2021 7:44am January 24, 2021 7:57am Start: 01-17-2021 End: 01-17-2021 Euflexxa (sodium hyaluronate (viscosup)) Discontinued 10 MG INTRAARTIC ONCE January 17, 2021 7:56am January 17, 2021 8:11am Start: 01-10-2021 End: 01-10-2021 Euflexxa (sodium hyaluronate (viscosup)) Discontinued 10 MG INTRAARTIC ONCE January 10, 2021 3:43pm January 10, 2021 4:03pm Start: 07-06-2020 End: 07-06-2020 Euflexxa (sodium hyaluronate (viscosup)) Discontinued 10 MG INTRAARTIC ONCE July 06, 2020 1:39pm July 06, 2020 2:02pm Start: 06-22-2020 End: 06-22-2020 Euflexxa (sodium hyaluronate (viscosup)) Discontinued 10 MG INTRAARTIC ONCE June 22, 2020 12:49pm June 22, 2020 1:34pm Start: 06-15-2020 End: 06-15-2020 Euflexxa (sodium hyaluronate (viscosup)) Discontinued 20 MG INTRAARTIC ONCE June 15, 2020 9:05am June 15, 2020 9:20am Start: 12-30-2019 End: 12-30-2019 Euflexxa (sodium hyaluronate (viscosup)) Discontinued 10 MG INTRAARTIC ONCE December 30, 2019 8:36am December 30, 2019 8:49am Start: 12-23-2019 End: 12-23-2019 Euflexxa (sodium hyaluronate (viscosup)) Discontinued 10 MG INTRAARTIC ONCE December 23, 2019 8:28am December 23, 2019 8:38am Start: 12-16-2019 End: 12-16-2019 Euflexxa (sodium hyaluronate (viscosup)) Discontinued 30 MG INTRAARTIC ONCE December 16, 2019 8:04am December 16, 2019 8:17am Start: 04-29-2019 End: 04-29-2019 Euflexxa (sodium hyaluronate (viscosup)) Discontinued 10 MG INTRAARTIC ONCE April 29, 2019 2:36pm April 29, 2019 3:01pm Start: 04-22-2019 End: 04-22-2019 Euflexxa (sodium hyaluronate (viscosup)) Discontinued 10 MG INTRAARTIC ONCE April 22, 2019 2:55pm April 22, 2019 3:21pm Start: 04-15-2019 End: 04-15-2019 Euflexxa (sodium hyaluronate (viscosup)) Discontinued 10 MG INTRAARTIC ONCE April 15, 2019 3:42pm April 15, 2019 4:23pm Start: 05-19-2018 End: 05-19-2018 ORTHOVISC (sodium hyaluronat e (viscosup)) 30 mg/2 mL intra-articular syringe Discontinued 30 MG INTRAARTIC ONCE May 19, 2018 2:15pm May 19, 2018 2:43pm Start: 05-12-2018 End: 05-12-2018 ORTHOVISC (sodium hyaluronat e (viscosup)) 30 mg/2 mL intra-articular syringe Discontinued 30 MG INTRAARTIC ONCE May 12, 2018 8:57am May 12, 2018 9:28am Start: 10-30-2017 End: 10-30-2017 hyaluronate sod, cross-linke d 30 mg/3 mL intra-articular syringe Discontinued 3 ML INTRAARTIC ONCE October 30, 2017 1:43pm October 30, 2017 2:21pm Start: 10-23-2017 End: 10-23-2017 hyaluronate sod, cross-linke d 30 mg/3 mL intra-articular syringe Discontinued 3 ML INTRAARTIC ONCE October 23, 2017 9:09am October 23, 2017 9:25am Start: 10-14-2017 End: 10-14-2017 hyaluronate sod, cross-linke d 30 mg/3 mL intra-articular syringe Discontinued 3 ML INTRAARTIC ONCE October 14, 2017 2:31pm October 14, 2017 2:45pm 2 ml hylan g-f 20 8 mg/ml prefilled syringe (2 sources) Start: 09-19-2023 End: 09-19-2023 hylan G-F 20 2 mL injection (SYNVISC) Start: 09-05-2023 End: 09-05-2023 hylan G-F 20 2 mL injection (SYNVISC) levoFLOXacin 500 mg oral tablet (3 sources) Quinolone Antimicrobial Start: 12-15-2020 End: 06-19-2021 take 500 mg by mouth once daily Levofloxacin Discontinued 500 MG PO DAILY December 15, 2020 6:16pm June 19, 2021 4:30pm Start: 10-29-2019 End: 11-30-2019 take 1 tablet by mouth once daily Levofloxacin (Levaquin) 500 mg tablet Discontinued 500 MG PO DAILY October 29, 2019 11:04am November 30, 2019 3:03pm Start: 09-14-2019 End: 10-13-2019 take 1 tablet by mouth once daily Levofloxacin (Levaquin) 500 mg tablet Discontinued 500 MG PO DAILY September 14, 2019 6:25pm October 13, 2019 4:09pm meloxicam 15 mg oral tablet (7 sources) Nonsteroidal Anti-inflammatory Drug Start: 05-26-2024 End: 06-25-2024 take 1 tablet by mouth once daily meloxicam (MOBIC) 15 mg tablet Take 1 tablet by mouth once daily. 30 tablet 05/26/2024 06/25/2024 oseltamivir 75 mg oral capsule (1 source) Neuraminidase Inhibitor Start: 09-03-2018 End: 09-13-2018 take 75 mg by mouth once daily Oseltamivir Discontinued 75 MG PO DAILY 04 15September 03, 2018 7:25pm September 13, 2018 1:09am polymyxin b 70680 unt/ml / trimethoprim 1 mg/ml ophthalmic solution (1 source) Dihydrofolate Reductase Inhibitor Antibacterial, Polymyxin-class Antibacterial Start: 08-09-2020 End: 12-15-2020 Polymyxin B Sulf-Trimethoprim (Polytrim) 10,000 unit- 1 mg/mL drops Discontinued 2 DRP OPHTHALMIC Q4H August 09, 2020 8:09pm December 15, 2020 6:11pm To the Right eye while awake; do not exceed 6 doses in 24 hours 20 ml ropivacaine hydrochloride 5 mg/ml injection (1 source) Amide Local Anesthetic Start: 07-31-2022 End: 07-31-2022 ropivacaine (PF) 5 mg/mL (0.5 %) 8 mL injection (NAROPIN) Start: 07-31-2022 End: 07-31-2022 ropivacaine (PF) 5 mg/mL (0. 5 %) 8 mL injection (NAROPIN) traMADol hydrochloride 50 mg oral tablet (6 sources) Opioid Agonist Start: 03-17-2024 End: 03-24-2024 take 1-2 tablets by mouth every six hours as needed for pain traMADol (ULTRAM) 50 mg tablet Indications: S/P total knee arthroplasty, right Take 1-2 tablets by mouth every 6 hours as needed for pain for up to 7 days. 50 tablet 03/17/2024 03/23/2024 Discontinued 1 ml triamcinolone acetonide 40 mg/ml injection (2 sources) Corticosteroid Start: 07-31-2022 End: 07-31-2022 triamcinolone acetonide 80 mg injection (KeNALog 40) Start: 01-05-2019 End: 11-30-2019 Triamcinolone Acetonide Disc ontinued 1 APPLIC TOPICAL daily January 05, 2019 7:43pm November 30, 2019 3:04pm Problems Active Problems Problem Classification Problem Date Documented Date Episodic/Chronic Blindness and vision defects (2 sources) Bilateral myopia of eyes; Translations: [Myopia, bilateral] 11-20-2023 Episodic Cataract (14 sources) Nuclear sclerosis; Translations: [Age-related nuclear cataract, bilateral] Onset: 06-09-2024 11-20-2023 Chronic Chronic obstructive pulmonary disease and bronchiectasis (1 source) Bronchitis; Translations: [Bronchitis, not specified as acute or chronic] Episodic Complications of surgical procedures or medical care (20 sources) Postoperative hypothyroidism; Translations: [Postprocedural hypothyroidism] Onset: 02-24-2024 02-24-2024 Chronic Disorders of lipid metabolism (20 sources) Hyperlipidemia; Translations: [Hyperlipidemia, unspecified] Onset: 02-24-2024 02-24-2024 Chronic Headache; including migraine (1 source) Frequent headache; Translations: [Frequent headaches] Episodic Headache; including migraine (1 source) Headache; including migraine; Translations: [Headache, unspecified] Onset: 11-05-2024 Open wounds of extremities (2 sources) Open wound of lower leg with complication; Translations: [Unspecified open wound, unspecified lower leg, subsequent encounter] Episodic Osteoarthritis (20 sources) Osteoarthritis of knee; Translations: [Localized, primary osteoarthritis] Onset: 12-26-2015 03-26-2016 Chronic Other aftercare (2 sources) Patient encounter status; Translations: [Aftercare following joint replacement surgery] 06-02-2024 Chronic Other connective tissue disease (20 sources) History of total knee arthroplasty; Translations: [Presence of right artificial knee joint] Onset: 03-17-2024 03-17-2024 Chronic Other connective tissue disease (2 sources) Presence of right artificial knee joint; Translations: [Status post total right knee replacement] Onset: 03-17-2024 Chronic Other eye disorders (3 sources) Bilateral vitreous degeneration of eyes; Translations: [Vitreous degeneration, bilateral] 11-20-2023 Chronic Other eye disorders (1 source) Vitreous degeneration, bilateral; Translations: [Vitreous degeneration, bilateral] Onset: 11-02-2024 Chronic Other eye disorders (1 source) Pain in eye; Translations: [Ocular pain, right eye] Episodic Other eye disorders (1 source) Contact lens related corneal abrasion; Translations: [Corneal disorder due to contact lens, right eye] Episodic Other eye disorders (3 sources) Conjunctival cyst of left eye; Translations: [Conjunctival cysts, left eye] 07-20-2024 Episodic Other eye disorders (1 source) Conjunctival cysts, left eye; Translations: [Conjunctival cyst of left eye] Onset: 11-02-2024 Episodic Other inflammatory condition of skin (1 source) Pruritus of skin; Translations: [Pruritus, unspecified] Episodic Other injuries and conditions due to external causes (1 source) Open wound with complication; Translations: [Other injury of unspecified body region, initial encounter] Episodic Other lower respiratory disease (1 source) Cough; Translations: [Cough] Episodic Other non-traumatic joint disorders (1 source) Pain in right hip joint; Translations: [Pain in right hip] Episodic Other non-traumatic joint disorders (3 sources) Pain in right knee; Translations: [Pain in joint, lower leg] Onset: 03-29-2024 Episodic Other non-traumatic joint disorders (3 sources) Hip pain; Translations: [Pain in right hip] 05-17-2022 Episodic Other non-traumatic joint disorders (1 source) Pain in right hip; Translations: [Pain in right hip] Onset: 06-14-2024 Episodic Other upper respiratory infections (1 source) Acute maxillary sinusitis; Translations: [Acute maxillary sinusitis, unspecified] Episodic Otitis media and related conditions (4 sources) Acute left otitis media; Translations: [Otitis media, unspecified, left ear] Episodic Residual codes; unclassified (1 source) Insomnia; Translations: [Insomnia, unspecified] Episodic Substance-related disorders (20 sources) Nicotine dependence; Translations: [Nicotine dependence, cigarettes, uncomplicated] Onset: 02-25-2024 02-25-2024 Chronic Thyroid disorders (20 sources) Hypothyroidism; Translations: [Hypothyroidism, unspecified] Onset: 12-11-2023 02-24-2024 Chronic Past or Other Problems Problem Classification Problem Date Documented Da te Episodic/Chronic Allergic reactions (20 sources) Contact dermatitis; Translations: [Unspecified contact dermatitis, unspecified cause] Onset: 11-17-2023 09-22-2023 Episodic Joint disorders and dislocations; trauma-related (20 sources) Other tear of medial meniscus, current injury, left knee, initial encounter; Translations: [Other tear of lateral meniscus, current injury, left knee, initial encounter] Onset: 03-26-2016 03-26-2016 Episodic Other aftercare (4 sources) Surgical follow-up; Translations: [Encounter for other specified surgical aftercare] Onset: 01-02-2017 01-02-2017 Episodic Other bone disease and musculoskeletal deformities (20 sources) Chondromalacia; Translations: [Chondromalacia, left knee] Onset: 05-14-2016 05-14-2016 Episodic Other circulatory disease (20 sources) Elevated blood-pressure reading without diagnosis of hypertension; Translations: [Elevated blood-pressure reading, without diagnosis of hypertension] Onset: 02-25-2024 02-25-2024 Episodic Other circulatory disease (1 source) Elevated blood-pressure reading, without diagnosis of hypertension; Translations: [Elevated BP without diagnosis of hypertension] Onset: 02-25-2024 Episodic Other connective tissue disease (20 sources) Synovial cyst of popliteal space [Galvin], left knee; Translations: [Synovial cyst of popliteal space [Galvin], left knee] Onset: 05-14-2016 05-14-2016 Episodic Other non-traumatic joint disorders (20 sources) Knee pain; Translations: [Pain in left knee] Onset: 12-26-2015 03-26-2016 Episodic Results Test Name Value Interpretation Reference Range Facility CBC W/Diff, Automatedon - Absolute Lymph 3.06 X10 3/uL Normal 0.83-4.51 [facility] Comment on above: Performed By: #### L 501.9520, L500.4050, L500.4100, L100.0100 #### [facility] [place], [address] Absolute Neut 3.2 X10 3/uL Normal 2.0-7.7 [facility] Comment on above: Performed By: #### L 501.9520, L500.4050, L500.4100, L100.0100 #### [facility] [address] [place], [address] Basophils/100 WBC (Bld) 1.3 % High 0-1 [facility] Comment on above: Performed By: #### L 501.9520, L500.4050, L500.4100, L100.0100 #### [facility] [address] [place], [address] Eosinophils/100 WBC (Bld) 3.4 % Normal 0-5 [facility] Comment on above: Performed By: #### L 501.9520, L500.4050, L500.4100, L100.0100 #### [facility] [address] [place], [address] Erythrocyte distribution width (RBC) [Ratio] 13.1 % Normal 11.6-14.6 [facility] Comment on above: Performed By: #### L 501.9520, L500.4050, L500.4100, L100.0100 #### [facility] [address] [place], [address] Hematocrit (Bld) [Volume fraction] 42.3 % Normal 37-47 [facility] Comment on above: Performed By: #### L 501.9520, L500.4050, L500.4100, L100.0100 #### [facility] [address] [place], [address] Hemoglobin (Bld) [Mass/Vol] 15.1 g/dL High 12.0-15.0 [facility] Comment on above: Performed By: #### L 501.9520, L500.4050, L500.4100, L100.0100 #### [facility] [address] [place], [address] IG% 0.100 Normal 0.0-0.9 [facility] Comment on above: Result Comment: IG% - Immature Granulocytes (promyelocytes, myelocytes and metamyelocytes) > 1% indicates that a LEFT SHIFT is Present. Performed By: #### L 501.9520, L500.4050, L500.4100, L100.0100 #### [facility] [address] [place], [address] Lymphocytes/100 WBC (Bld) 43.7 % High 19-41 [facility] Comment on above: Performed By: #### L 501.9520, L500.4050, L500.4100, L100.0100 #### [facility] [address] [place], [address] MCH (RBC) [Entitic mass] 33.3 pg High 27.0-32.0 [facility] Comment on above: Performed By: #### L 501.9520, L500.4050, L500.4100, L100.0100 #### [facility] [address] [place], [address] MCHC (RBC) [Mass/Vol] 35.7 g/dL Normal 32-36 [facility] Comment on above: Performed By: #### L 501.9520, L500.4050, L500.4100, L100.0100 #### [facility] [address] [place], [address] MCV (RBC) [Entitic vol] 93.2 fL Normal 81-99 [facility] Comment on above: Performed By: #### L 501.9520, L500.4050, L500.4100, L100.0100 #### [facility] [address] [place], [address] Monocytes/100 WBC (Bld) 6.3 % Normal 0-10 [facility] Comment on above: Performed By: #### L 501.9520, L500.4050, L500.4100, L100.0100 #### [facility] [address] [place], [address] Neutrophils/100 WBC (Bld) 45.2 % Low 47-70 [facility] Comment on above: Performed By: #### L 501.9520, L500.4050, L500.4100, L100.0100 #### [facility] [address] [place], [address] Nucleated RBC (Bld) [#/Vol] 0 10*3/uL Normal 0-5 [facility] Comment on above: Performed By: #### L 501.9520, L500.4050, L500.4100, L100.0100 #### [facility] [address] [place], [address] Platelet mean volume (Bld) [Entitic vol] 11.6 fL Normal 6.2-12.0 [facility] Comment on above: Performed By: #### L 501.9520, L500.4050, L500.4100, L100.0100 #### [facility] [address] [place], [address] Platelets (Bld) [#/Vol] 253 10*3/uL Normal 150-450 [facility] Comment on above: Performed By: #### L 501.9520, L500.4050, L500.4100, L100.0100 #### [facility] [address] [place], [address] RBC (Bld) [#/Vol] 4.54 10*6/uL Normal 4.2-5.4 [facility] Comment on above: Performed By: #### L 501.9520, L500.4050, L500.4100, L100.0100 #### [facility] [address] [place], [address] RDW SD 44.4 fl High 35.1-43.9 [facility] Comment on above: Performed By: #### L 501.9520, L500.4050, L500.4100, L100.0100 #### [facility] [address] [place], [address] WBC (Bld) [#/Vol] 7.0 10*3/uL Normal 4.4-11.0 [facility] Comment on above: Performed By: #### L 501.9520, L500.4050, L500.4100, L100.0100 #### [facility] [address] [place], [address] Comprehensive Metabolic Prof scon 11-01-2024 Albumin [Mass/Vol] 4.4 g/dL Normal 3.4-4.8 [facility] Comment on above: Performed By: #### L 501.9520, L500.4050, L500.4100, L100.0100 #### [facility] [address] [place], [address] Albumin/Globulin [Mass ratio] 1.5 {ratio} Normal 0.9-2.4 [facility] Comment on above: Performed By: #### L 501.9520, L500.4050, L500.4100, L100.0100 #### [facility] [address] [place], [address] ALK PHOS 85 U/L Normal 35-104 [facility] Comment on above: Performed By: #### L 501.9520, L500.4050, L500.4100, L100.0100 #### [facility] [address] [place], [address] ALT [Catalytic activity/Vol] 19 U/L Normal <=34 [facility] Comment on above: Performed By: #### L 501.9520, L500.4050, L500.4100, L100.0100 #### [facility] [address] [place], [address] AST [Catalytic activity/Vol] 24 U/L Normal <=31 [facility] Comment on above: Performed By: #### L 501.9520, L500.4050, L500.4100, L100.0100 #### [facility] [address] [place], [address] Bilirubin [Mass/Vol] 0.35 mg/dL Normal 0.00-1.30 [facility] Comment on above: Performed By: #### L 501.9520, L500.4050, L500.4100, L100.0100 #### [facility] [address] [place], [address] BUN/CRE 12.7 RATIO Normal 10-20 [facility] Comment on above: Performed By: #### L 501.9520, L500.4050, L500.4100, L100.0100 #### [facility] [address] [place], [address] Calcium [Mass/Vol] 10.0 mg/dL Normal 7.6-11.0 [facility] Comment on above: Performed By: #### L 501.9520, L500.4050, L500.4100, L100.0100 #### [facility] [address] [place], [address] Chloride [Moles/Vol] 102 mmol/L Normal 98-108 [facility] Comment on above: Performed By: #### L 501.9520, L500.4050, L500.4100, L100.0100 #### [facility] [address] [place], [address] CO2 [Moles/Vol] 26.2 mmol/L Normal 21.0-32.0 [facility] Comment on above: Performed By: #### L 501.9520, L500.4050, L500.4100, L100.0100 #### [facility] [address] [place], [address] Creatinine [Mass/Vol] 0.80 mg/dL Normal 0.70-1.20 [facility] Comment on above: Performed By: #### L 501.9520, L500.4050, L500.4100, L100.0100 #### [facility] [address] [place], [address] GAP 10 Normal 5-15 [facility] Comment on above: Performed By: #### L 501.9520, L500.4050, L500.4100, L100.0100 #### [facility] [address] [place], [address] GFR/1.73 sq M.predicted among non-blacks MDRD (S/P/Bld) [Vol rate/Area] 80 mL/min/{1.73_m2} Normal >60 [facility] Comment on above: Result Comment: mL/m in/1.73m2 CKD-EPI Creatinine Equation (2020) Performed By: #### L 501.9520, L500.4050, L500.4100, L100.0100 #### [facility] [address] [place], [address] Globulin (S) [Mass/Vol] 3.0 g/dL Normal 2.2-4.2 [facility] Comment on above: Performed By: #### L 501.9520, L500.4050, L500.4100, L100.0100 #### [facility] [address] [place], [address] Glucose [Mass/Vol] 101 mg/dL High 70-99 [facility] Comment on above: Performed By: #### L 501.9520, L500.4050, L500.4100, L100.0100 #### [facility] [address] [place], [address] Potassium [Moles/Vol] 4.4 mmol/L Normal 3.3-5.1 [facility] Comment on above: Performed By: #### L 501.9520, L500.4050, L500.4100, L100.0100 #### [facility] [address] [place], [address] Sodium [Moles/Vol] 139 mmol/L Normal 133-145 [facility] Comment on above: Performed By: #### L 501.9520, L500.4050, L500.4100, L100.0100 #### [facility] [address] [place], [address] T PROT 7.4 g/dL Normal 5.9-8.4 [facility] Comment on above: Performed By: #### L 501.9520, L500.4050, L500.4100, L100.0100 #### [facility] [address] [place], [address] Urea nitrogen [Mass/Vol] 10 mg/dL Normal 4-19 [facility] Comment on above: Performed By: #### L 501.9520, L500.4050, L500.4100, L100.0100 #### [facility] [address] [place], [address] Lipid Profileon 11-01-2024 CHOL:HDL 3.98 Normal [facility] Comment on above: Performed By: #### L 501.9520, L500.4050, L500.4100, L100.0100 #### [facility] [address] [place], [address] Cholesterol [Mass/Vol] 297 mg/dL High <=200 [facility] Comment on above: Result Comment: Chol esterol level, Desirable <200 mg/dL Borderline high cholesterol 200-239 mg/dL High cholesterol >=240 mg/dL Recommendations of the NCEP Adult Treatment Panel for the following risk-cutoff thresholds for the [place] population. Performed By: #### L 501.9520, L500.4050, L500.4100, L100.0100 #### [facility] [address] [place], [address] Cholesterol in HDL [Mass/Vol] 75 mg/dL Normal [facility] Comment on above: Result Comment: [place] onal Cholesterol Education Program (NCEP) guidelines: <40 mg/dL: Low HDL-cholesterol (major risk factor for CHD) >= 60 mg/dL: High HDL-cholesterol (negative risk factor for CHD) HDL-cholesterol is affected by a number of factors, e.g. smoking, exercise, hormones, sex and age. Performed By: #### L 501.9520, L500.4050, L500.4100, L100.0100 #### [facility] [address] [place], [address] Cholesterol in LDL [Mass/Vol] 197 mg/dL Normal [facility] Comment on above: Result Comment: Bord wogawj=998-295 mg/dL Higher Hzdy=901 mg/dL or greater Performed By: #### L 501.9520, L500.4050, L500.4100, L100.0100 #### [facility] [address] [place], [address] Cholesterol in VLDL [Mass/Vol] 26 mg/dL Normal 5-40 [facility] Comment on above: Performed By: #### L 501.9520, L500.4050, L500.4100, L100.0100 #### [facility] [address] [place], [address] Triglyceride [Mass/Vol] 128 mg/dL Normal [facility] Comment on above: Result Comment: The drugs N-Acetylcysteine and Metamizole may falsely depress this assay. Normal range: <150 mg/dL Borderline High: 150-199 mg/dL High: 200-499 mg/dL Very High: >500 mg/dL Performed By: #### L 501.9520, L500.4050, L500.4100, L100.0100 #### [facility] [address] [place], [place], [address] Thyroid Stim Hormone (TSH)on 11-01-2024 TSH 1.280 uIU/mL Normal 0.300-4.200 [facility] Comment on above: Performed By: #### L 501.9520, L500.4050, L500.4100, L100.0100 #### [facility] [address] [place], [address] CNOVon 07-30-2024 CNOV Office Visit (ORNA ) LEILANI FARRAR ([id number]) 1955 F Date Time Provider Department 07/30/24 8:15 AM BRIGID BAILON During your visit today, we recorded the following information about you: Brigid Bailon MD 08/27/2024 10:[address] BAILON- POST-OP KNEE ======== Post-Op F/U Office Visit ======== Leilani Farrar presents today for a 4-1/2 months status post Right TKA. Post-operative recovery was uneventful. Patient's rating of condition: improving Comments: None Does the Pt. still experience pain? PAIN EVALUATION 07/30/2024 0804 Pain Location: Knee-Right Description: Pressure Frequency: Intermittent Functional difficulties: Stair climbing Physical Therapy: Yes Pain Medication: None Ambulating with assistance. Medications and Allergies reviewed and verified. ======== EXAM: ======== GEN: AANDO x3, NAD SKIN:Appropriate postop appearance Incision intact Incision well healed RightKnee: ROM: Flexion/Extension:0 degrees to 110 degrees Pain with ROM:No Mal-alignment: No Effusion: None Tender to palpation of the medial joint line(s). Stability:Anterior/Pos terior- Yes, stable and Varus/Valgus- Yes, stable Quad strength: normal HIP: range of motion no loss ROM NV: intact and Raghu's negative ======== IMAGING: ======== Xrays: No x-rays today ====== IMPRESSION/PLAN: ====== 68 year old female s/p Right TKA At normal post-operative stage of recovery. Plan: 1. Continue independent range of motion/strengthening exercises 2. Continue total knee precautions 3. Follow-up in 8 months for repeat clinical evaluation or sooner should she develop any new orthopedic issues Brigid Bailon MD Electronic Signature Allergies As of Date: 07/30/2024 Noted Allergy Reaction BEE POLLEN 04/26/2018 10 - Anaphylaxis CORTISONE 04/26/2018 10 - Anaphylaxis NARCOTICS (OPIOIDS - MORPHINE LEO*09/17/2023 1 - Mental Status Change Comments: Can only tolerate vicodin NICKEL 09/17/2023 2 - Rash Comments: Nickel, bridger silver, some gold NSAIDS (NON-STEROIDAL ANTI-INFLAM*04/26/2018 7 - Swelling Comments: Tolerated Toradol 03/16/24 STEROIDS (BETAMETHASONE DIPROPION*04/26/2018 10 - Anaphylaxis STEROIDS (CORTICOSTEROIDS (GLUCOC*04/26/2018 10 - Anaphylaxis STEROIDS (DEXAMETHASONE PHOS-LIDO*04/26/2018 10 - Anaphylaxis WASPS 12/12/2016 12 - Shortness of Breath Date Reviewed: 07/20/2024 Reviewed by: Johanny Santana OD - Fully Assessed Reason for Visit: Established Patient [175] Follow Up [171] Post Op [174] Knee Replacement [363] Primary Visit Diagnosis:Aftercare following right knee joint replacement surgery [Z47.1, Z96.651] Prescriptions as of 08/27/2024 - ofloxacin (OCUFLOX) 0.3 % ophthalmic solution Use 1 Drop in the left eye four times daily. Start 1 day before surgery - Naproxen SR (EC-NAPROSYN) 500 mg EC tablet Take 1 tablet by mouth two times a day as needed (for pain. Take with food.). - keTORolac (ACULAR) 0.5 % ophthalmic solution Use 1 Drop in the right eye two times a day. - prednisoLONE acetate (PRED FORTE) 1 % ophthalmic suspension Use 1 Drop in the right eye four times daily. - OFLOXACIN OPHTHALMIC Use in eyes. - ascorbic acid, vitamin C, (VITAMIN C) 500 mg tablet Take 1 tablet by mouth two times a day with meals for 27 doses. - hydrOXYzine HCl (ATARAX) 10 mg tablet TAKE 1 TABLET BY MOUTH 3 TO 4 times DAILY NEEDED for anxiety - levothyroxine (SYNTHROID) 112 mcg tablet Take 112 mcg by mouth daily before breakfast. Problem List As Of Date 07/30/2024 Noted Resolved Primary osteoarthritis of right knee [M17.11] 08/02/2022 Hyperlipidemia [E78.5] 02/24/2024 Hypothyroidism [E03.9] 12/11/2023 Postoperative hypothyroidism [E89.0] 02/24/2024 Cigarette nicotine dependence [F17.210] 02/25/2024 Elevated BP without diagnosis of hypertension [*02/25/2024 S/P total knee arthroplasty, right [Z96.651] 03/17/2024 Idiopathic urticaria [L50.1] 05/24/2024 Encounter Status:Closed by BRIGID BAILON on 08/27/24 [facility] 07-19-2024 [facility] LEILANI FARRAR ([id number]) 1955 F Date Time Provider Department 07/19/24 KATHLEEN PARKER OPHTCR During your visit today, we recorded the following information about you: Fredo Tejada 07/19/2024 9:15 AM Signed Patient states OS was bubbling on the white of the eye, appeared to jose like a blister. She states OS bloodshot, blurry and watering. She reports no pain or discharge. Please advise, thank you. Millie Harris 07/19/2024 12:42 PM Signed Appt scheduled with Dr. Santana for 07/20/24. Allergies As of Date: 07/19/2024 Noted Allergy Reaction BEE POLLEN 04/26/2018 10 - Anaphylaxis CORTISONE 04/26/2018 10 - Anaphylaxis NARCOTICS (OPIOIDS - MORPHINE LEO*09/17/2023 1 - Mental Status Change Comments: Can only tolerate vicodin NICKEL 09/17/2023 2 - Rash Comments: Nickel, bridger silver, some gold NSAIDS (NON-STEROIDAL ANTI-INFLAM*04/26/2018 7 - Swelling Comments: Tolerated Toradol 03/16/24 STEROIDS (BETAMETHASONE DIPROPION*04/26/2018 10 - Anaphylaxis STEROIDS (CORTICOSTEROIDS (GLUCOC*04/26/2018 10 - Anaphylaxis STEROIDS (DEXAMETHASONE PHOS-LIDO*04/26/2018 10 - Anaphylaxis WASPS 12/12/2016 12 - Shortness of Breath Date Reviewed: 07/17/2024 Reviewed by: April Mayorga, PATRIZIA - Fully Assessed Reason for Visit: Patient Question [5007] Prescriptions as of 07/27/2024 - ofloxacin (OCUFLOX) 0.3 % ophthalmic solution Use 1 Drop in the left eye four times daily. Start 1 day before surgery - Naproxen SR (EC-NAPROSYN) 500 mg EC tablet Take 1 tablet by mouth two times a day as needed (for pain. Take with food.). - keTORolac (ACULAR) 0.5 % ophthalmic solution Use 1 Drop in the right eye two times a day. - prednisoLONE acetate (PRED FORTE) 1 % ophthalmic suspension Use 1 Drop in the right eye four times daily. - OFLOXACIN OPHTHALMIC Use in eyes. - ascorbic acid, vitamin C, (VITAMIN C) 500 mg tablet Take 1 tablet by mouth two times a day with meals for 27 doses. - hydrOXYzine HCl (ATARAX) 10 mg tablet TAKE 1 TABLET BY MOUTH 3 TO 4 times DAILY NEEDED for anxiety - levothyroxine (SYNTHROID) 112 mcg tablet Take 112 mcg by mouth daily before breakfast. Problem List As Of Date 07/19/2024 Noted Resolved Primary osteoarthritis of right knee [M17.11] 08/02/2022 Hyperlipidemia [E78.5] 02/24/2024 Hypothyroidism [E03.9] 12/11/2023 Postoperative hypothyroidism [E89.0] 02/24/2024 Cigarette nicotine dependence [F17.210] 02/25/2024 Elevated BP without diagnosis of hypertension [*02/25/2024 S/P total knee arthroplasty, right [Z96.651] 03/17/2024 Idiopathic urticaria [L50.1] 05/24/2024 Encounter Status:Closed by FREDO TEJADA on 07/27/24 [facility] Musa 07-17-2024 [facility] LEILANI [facility]ARRAR ([id number]) 1955 F Date Time Provider Department 07/17/24 [facility] During your visit today, we recorded the following information about you: Je Washington MD 07/17/2024 10:02 AM Signed Patient notes development of nasal chemosis in the left eye. She noticed it yesterday. She feels it has gotten flatter today but may be more spread out away from the colored part. She denies pain, but feels her distance vision is slightly less crisp. She notes she is using prednisolone + ketorolac. Discussed importance of continuing these drops. Recommended supplementing with artificial tears. Discussed that area should continue to resolve with conservative management. Instructed patient to call in if she notices any worsening of symptoms, development of pain, or significant vision changes. Je Washington MD Ophthalmology Resident, PGY-3 Allergies As of Date: 07/17/2024 Noted Allergy Reaction BEE POLLEN 04/26/2018 10 - Anaphylaxis CORTISONE 04/26/2018 10 - Anaphylaxis NARCOTICS (OPIOIDS - MORPHINE LEO*09/17/2023 1 - Mental Status Change Comments: Can only tolerate vicodin NICKEL 09/17/2023 2 - Rash Comments: Nickel, bridger silver, some gold NSAIDS (NON-STEROIDAL ANTI-INFLAM*04/26/2018 7 - Swelling Comments: Tolerated Toradol 03/16/24 STEROIDS (BETAMETHASONE DIPROPION*04/26/2018 10 - Anaphylaxis STEROIDS (CORTICOSTEROIDS (GLUCOC*04/26/2018 10 - Anaphylaxis STEROIDS (DEXAMETHASONE PHOS-LIDO*04/26/2018 10 - Anaphylaxis WASPS 12/12/2016 12 - Shortness of Breath Date Reviewed: 07/17/2024 Reviewed by: April Mayorga RN - Fully Assessed Prescriptions as of 07/17/2024 - ofloxacin (OCUFLOX) 0.3 % ophthalmic solution Use 1 Drop in the left eye four times daily. Start 1 day before surgery - Naproxen SR (EC-NAPROSYN) 500 mg EC tablet Take 1 tablet by mouth two times a day as needed (for pain. Take with food.). - keTORolac (ACULAR) 0.5 % ophthalmic solution Use 1 Drop in the right eye two times a day. - prednisoLONE acetate (PRED FORTE) 1 % ophthalmic suspension Use 1 Drop in the right eye four times daily. - OFLOXACIN OPHTHALMIC Use in eyes. - ascorbic acid, vitamin C, (VITAMIN C) 500 mg tablet Take 1 tablet by mouth two times a day with meals for 27 doses. - hydrOXYzine HCl (ATARAX) 10 mg tablet TAKE 1 TABLET BY MOUTH 3 TO 4 times DAILY NEEDED for anxiety - levothyroxine (SYNTHROID) 112 mcg tablet Take 112 mcg by mouth daily before breakfast. Problem List As Of Date 07/17/2024 Noted Resolved Primary osteoarthritis of right knee [M17.11] 08/02/2022 Hyperlipidemia [E78.5] 02/24/2024 Hypothyroidism [E03.9] 12/11/2023 Postoperative hypothyroidism [E89.0] 02/24/2024 Cigarette nicotine dependence [F17.210] 02/25/2024 Elevated BP without diagnosis of hypertension [*02/25/2024 S/P total knee arthroplasty, right [Z96.651] 03/17/2024 Idiopathic urticaria [L50.1] 05/24/2024 Encounter Status:Closed by JE WASHINGTON on 07/17/24 [facility] ANES POSTPROC EVALon 024 ANES POSTPROC EVAL HNO ID: [id number] Author: MYNOR PATEL MD Service: Anesthesiology Author Type: Anesthesiologist Type: Anesthesia Postprocedure Evaluation Filed: 06/21/2024 11:46 Note Text: POST ANESTHESIA EVALUATION NOTE : 1955 Procedure Summary Date: 06/21/24 Room / Location: [address] Anesthesia Start: 1100 Anesthesia Stop: 1123 Procedures: PHACOEMULSIFICATION CATARACT IMPLANT INTRAOCULAR LENS W/O ENDOSCOPIC CYCLOPHOTOCOAGULATION (Left: Eye) OPHTHALMIC BIOMETRY BY PARTIAL COHERENCE INTERFEROMETRY W/INTRAOCULAR LENS POWER CALCULATION (Left: Eye) REFRACTIVE SERVICES RELATED TO INTRAOCCULAR LENS IMPLANT (Left: Eye) Diagnosis: Nuclear sclerosis of both eyes (Nuclear sclerosis of both eyes [H25.13]) Surgeons: Kathleen Parker MD Responsible Provider: Mynor Patel MD Anesthesia Type: MAC ASA Status: 2 Anesthesia Type: MAC Last Vitals Vitals Value Taken Time BP 140/73 06/21/24 1138 Temp 36.1 ?C (97 ?F) 06/21/24 1121 HR SpO2 59 06/21/24 1138 Resp 16 06/21/24 1138 SpO2 100 % 06/21/24 1138 Post Anesthesia Patient Status Patient Evaluation: PACU. PACU/ICU Patient Condition: stable. Anticipated Disposition: phase 2 then home. Neurological Status: aware and responsive. Pulmonary Status: breathing comfortably on room air Airway Control: returned to baseline unsupported. Cardiovascular Status: stable. Pain Management: clinically adequate Postoperative Hydration: acceptable. Intraoperative Events: no significant anesthesia events Recommendation: continue current plan of care and further care per PACU/ICU/floor team. Anesthesia Observations No Documentation SIGNATURE: Mynor Patel MD PATIENT NAME: Leilani Farrar DATE: June 21, 2024 TIME: 11:46 AM CSN: [id number] [facility] ANES PRE-OPon 06-21-2024 ANES PRE-OP HNO ID: [id number] Author: MYNOR PATEL MD Service: Anesthesiology Author Type: Anesthesiologist Type: Anesthesia Preprocedure Evaluation Filed: 06/21/2024 10:03 Note Text: ANESTHESIOLOGY DAY OF SURGERY NOTE : 1955 Procedure Information Date/Time: 06/21/24 1105 Procedures: PHACOEMULSIFICATION CATARACT IMPLANT INTRAOCULAR LENS W/O ENDOSCOPIC CYCLOPHOTOCOAGULATION (Left: Eye) OPHTHALMIC BIOMETRY BY PARTIAL COHERENCE INTERFEROMETRY W/INTRAOCULAR LENS POWER CALCULATION (Left: Eye) REFRACTIVE SERVICES RELATED TO INTRAOCCULAR LENS IMPLANT (Left: Eye) Location: [address] / [facility] Surgeons: Kathleen Parker MD Estimated body mass index is 24.62 kg/m? as calculated from the following: Height as of 05/24/24: 165.1 cm (5' 5). Weight as of 05/24/24: 67.1 kg (147 lb 14.9 oz). Most recent hematocrit and potassium results: Hematocrit 37.2 03/17/2024 Potassium 4.2 03/17/2024 Relevant Problems ENDO (+) Hypothyroidism (+) Postoperative hypothyroidism I - PHYSICAL EVALUATION AIRWAY Patient intubated: No. Tracheostomy tube not present Mallampati: II. TM distance: >3 FB. Neck ROM: full ROM without neurological symptoms. Mouth opening: adequate. Short neck: no. Thick neck: no Ferguson present: no DENTAL Dental findings: teeth intact. Additional exam findings: yes. CARDIOVASCULAR Normal cardiovascular observations. Rhythm: regular Rate: normal PULMONARY Normal pulmonary observations. Breath sounds clear to auscultation. II - ANESTHESIA PLAN ASA Score: 2 Anesthetic Plan: MAC NPO Status: adequate Beta Remigio Monitoring Plan Monitoring plan: Standard ASA. Post Procedure Analgesic Plan Postoperative analgesic plan: multimodal analgesia. Informed Consent Anesthetic risks, benefits, alternatives, personnel and consent discussed: yes. Patient / Responsible [employer] Party agrees to proceed: yes Patient / Surrogate agrees to blood products: blood products not planned Significant changes in the patient condition since the History and Physical, not otherwise documented in primary service progress note: no. Potential Anesthesia issues that may suggest increased risk of complications or contraindication to planned procedure: none. Vitals Value Taken Time BP 155/92 06/21/24946 Pulse 60 06/21/24946 Resp 16 06/21/24946 Temp 36.5 ?C (97.7 ?F) 06/21/24946 SpO2 100 % 06/21/24946 Facility-Administered Medications as of 06/21/2024 Medication Dose Route Frequency lactated ringers iv infusion 30 mL/hr INTRAVENOUS CONTINUOUS [COMPLETED] topical mac solution 1 mL 1 mL RIGHT EYE ONCE moxifloxacin intraocular injection 5 mg/mL (PF) 0.1 mL RIGHT EYE As Directed [COMPLETED] topical mac solution 1 mL 1 mL RIGHT EYE ONCE Outpatient Medications as of 06/21/2024 Medication Sig hydrOXYzine HCl (ATARAX) 10 mg tablet TAKE 1 TABLET BY MOUTH 3 TO 4 times DAILY NEEDED for anxiety levothyroxine (SYNTHROID) 112 mcg tablet Take 112 mcg by mouth daily before breakfast. keTORolac (ACULAR) 0.5 % ophthalmic solution Use 1 Drop in the right eye two times a day. prednisoLONE acetate (PRED FORTE) 1 % ophthalmic suspension Use 1 Drop in the right eye four times daily. ascorbic acid, vitamin C, (VITAMIN C) 500 mg tablet Take 1 tablet by mouth two times a day with meals for 27 doses. (Patient not taking: Reported on 05/03/2024) I have interviewed and examined the patient. I have reviewed the medical record and/or the pre-anesthesia evaluation, pertinent labs, and test results. This contains updated information obtained within 48 hours of Surgery/Procedure. SIGNATURE: Mynor Patel MD PATIENT NAME: Leilani Farrar DATE: June 21, 2024 TIME: 10:03 AM CSN: [id number] [facility] OPERATIVE NOon 06-21-2024 OPERATIVE NO HNO ID: [id number] Author: KATHLEEN PARKER MD Service: ? Author Type: Physician Type: Operative Report Filed: 06/21/2024 11:22 Note Text: [place] [id number] [place] OPERATIVE REPORT LOG ID: [id number] Surgery/Procedure Date: 06/21/2024 Incision/Procedure Start Time: 11:05 AM Incision Close/Procedure End Time: 11:19 AM NAME: Leilani Harris [facility] #: [id number] Surgeon(s)/Procedurali st(s) and Line Dancer(s): Surgeons and Role: * Kathleen Parker MD - Primary ANESTHESIA: Monitored Anesthesia Care OPERATIONS: Phacoemulsification with Posterior Chamber Lens Implant Left eye. PREOPERATIVE DIAGNOSIS: Nuclear Sclerotic Cataract, Left Eye. POSTOPERATIVE DIAGNOSIS: Nuclear Sclerotic Cataract, Left Eye. OPERATIVE INDICATIONS: The patient has a history of progressive visual loss, severely limiting activities of daily living. Preoperative visual acuity was significantly reduced. There was evidence of a visually significant cataract. Based upon the clinical examination and discussion with the patient, there was substantial evidence that cataract surgery would significantly improve the patient's vision, and thereby, improve quality of life. Potential risks, benefits, alternatives, personnel and complications of cataract extraction with lens implantation were explained to the patient who appeared to understand and asked that I proceed with plans for cataract surgery. OPERATIVE PROCEDURE: The patient was admitted to the operating suite where intravenous access was obtained and appropriate monitors placed.The patient was pretreated with tropicamide 0.5%, cyclopentolate 0.5%, phenylephrine 2.5 %, and nonsteroidal antiinflammatory eyedrops. The local anesthetic comprised of 4% Xylocaine was applied topically to the eye. The patient was prepped and draped in routine fashion for intraocular surgery. The eyelid speculum was placed. A stab incision paracentesis was created, through which 1 mL of nonpreserved Xylocaine 1% and Viscoat were injected. Using a 2.4 mm keratome, a clear corneal incision was made. Using a bent 27-gauge cystotome needle, the anterior capsule was opened centrally. Utrata forceps were used to create a continuous, curvilinear capsulorrhexis. Balanced salt solution was used to create a hydrodissection plane. The lens nucleus was then phacoemulsified. Irrigation-aspiration was then performed using the I/A unit. All cortical lens material was removed without difficulty. Provisc was then used to inflate the capsular bag and a posterior chamber intraocular lens was inserted into the capsular bag and rotated into position. Viscoelastic was removed from the anterior segment using the irrigation-aspiration unit. The corneal stroma was hydrated at the wound margins. Moxifloxacin in 0.1 mL of normal saline was injected into the anterior chamber. The wound was checked for its integrity and was water-tight. The eyelid speculum was removed. Topical timolol and maxitrol was placed onto the eye. The patient tolerated the procedure well and was discharged from the operating room and transferred to the recovery area in good condition. I have reviewed the images and report from the Ophthalmic Biometry June 21, 2024 to determine the Intraocular lens Power Calculation for the IOL lens implant. I have interpreted and agree with the calculation of the IOL as listed below. Implant Name Type Inv. Item Serial No. Claim Investigator Lot No. LRB No. Used Action Model No. TECNIS EYHANCE W/TECNIS SIMPLICITY IOL 17.5D Intraocular Lens [id number] [employer] Left 1 Implanted [id number] Estimated Blood Loss: None Specimens: None Drains: None Complications: None Closure Technique: Primary Participation: I/primary surgeon/proceduralist performed the entire procedure. Kathleen Parker MD 06/21/2024 , 11:22 AM [facility] 06-14-2024 [facility] Office Visit (CARLANA ) LEILANI FARRAR ([id number]) 1955 F Date Time Provider Department 06/14/24 1:45 PM BRIGID BAILON During your visit today, we recorded the following information about you: Brigid Bailon MD 07/12/2024 9:[address] BAILON- POST-OP KNEE ======== Post-Op F/U Office Visit ======== Leilani Frarar presents today for a 13 weeks status post Right TKA. Post-operative recovery was uneventful. Patient's rating of condition: worsening Comments: She feels as if the knee is becoming more stiff she is losing motion. She stopped taking her Mobic last week. She completed her physical therapy 3 days ago Does the Pt. still experience pain? PAIN EVALUATION 06/14/2024 1346 Pain Location: Knee-Right Description: Pressure;Stiffness;Sha rp;Shooting Frequency: Intermittent Intervention/Comfort measure: Exercise;Heat mobic-stopped taking it on 06/08/24 Comments: PT completed on 06/11/24 Functional difficulties: Prolonged standing, Stair climbing, and Walking Physical Therapy: Completed course of therapy Pain Medication: Yes Ambulating without assistance. Medications and Allergies reviewed and verified. ======== EXAM: ======== GEN: AANDO x3, NAD SKIN:Appropriate postop appearance Incision intact Incision well healed RightKnee: ROM: Flexion/Extension:0 degrees to 105 degrees Pain with ROM:No Mal-alignment: No Effusion: None Tender to palpation of the medial joint line(s). Stability:Anterior/Pos terior- Yes, stable and Varus/Valgus- Yes, stable Quad strength: normal HIP: range of motion mild decreased range of motion particularly to internal/external rotation NV: intact and Raghu's negative ======== IMAGING: ======== XR KNEE POST OP 3V AP/LAT/MERCHANT RIGHT Narrative: * * *Final Report* * * DATE OF EXAM: Jun 14 2024 2:19PM HIEN 5209 - XR KNEE 3V AP/LAT/MERCHANT RT / PROCEDURE REASON: Z96.651-Status post total right knee replacement * * * * Physician Interpretation * * * * EXAM(s): XR KNEE 3V AP/LAT/MERCHANT RT EXAM DATE/TIME: 06/14/2024 2:19 PM HISTORY: 68 years old Clinical information: Status post total right knee replacement right knee post op evaluation TECHNIQUE: Images: XR KNEE 3V AP/LAT/MERCHANT RT Comparison: 03/29/2024 RESULT: Findings: Right :No fractures or dislocations are seen. The components of the RIGHT total knee arthroplasty appear stable.. There is no evidence of loosening of the components. There is a low erosive change in the distal medial femur just proximal to the knee component of the arthroplasty Left :No fractures or dislocations are seen. Severe narrowing of the medial compartment Impression: IMPRESSION: 1. Small lucency in the distal medial femur of the RIGHT knee etiology uncertain discussed 2. RIGHT total knee arthroplasty appears stable Harbor Department Manager: LINDA Transcribe Date/Time: Jun 14 2024 4:51P Dictated by : EZIO MCKEON DO This examination was interpreted and the report reviewed and electronically signed by: EZIO MCKEON DO on Jun 14 2024 4:55PM EST XR HIP GENERAL 3V PELV/AP/LAT RIGHT Narrative: * * *Final Report* * * DATE OF EXAM: Jun 14 2024 2:19PM HIEN 5352 - XR HIP 3V PELV+ AP/LAT RT / PROCEDURE REASON: M25.551-Pain in right hip * * * * Physician Interpretation * * * * Pelvis and right hip HISTORY: Indication: Pain in right hip TECHNIQUE: Images: XR HIP 3V PELV+ AP/LAT RT Comparison: 05/17/2022 RESULT: Findings: Moderate bony demineralization. Marked disc space narrowing L5-S1 level. Pelvis: No fractures or dislocations are seen. Mild narrowing of the LEFT hip joint. Right hip: No fractures or dislocations are seen. There is marked narrowing of the RIGHT hip joint. Impression: IMPRESSION: Marked degenerative changes in the RIGHT hip Harbor Department Manager: LINDA Transcribe Date/Time: Jun 14 2024 4:50P Dictated by : EZIO MCKEON DO This examination was interpreted and the report reviewed and electronically signed by: EZIO MCKEON DO on Jun 14 2024 4:51PM EST ====== IMPRESSION/PLAN: ====== 68 year old female s/p Right TKA Slow post-operative recovery. Some of her symptoms may be referred from the osteoarthritis of her right hip. I have recommended that we start her back up on her Naprosyn which she reports has provided her with better relief in the past. Would also have her continue her independent range of motion/strengthening exercises. Will repeat clinical evaluation .If the hip remains a concern, consideration for image guided corticosteroid injection will be given. Plan: 1. As noted above 2. Follow-up for repeat c (more content not included)... Normal [facility] No Panel Informationon 06-14 Radiology Study observation (narrative) [facility] XR HIP 3V PELV+ AP/LAT RTon 06-14-2024 XR HIP 3V PELV+ AP/LAT RT * * *Final Report* * * DATE OF EXAM: Jun 14 2024 2:19PM HIEN 5352 - XR HIP 3V PELV+ AP/LAT RT / PROCEDURE REASON: M25.551-Pain in right hip * * * * Physician Interpretation * * * * Pelvis and right hip HISTORY: Indication: Pain in right hip TECHNIQUE: Images: XR HIP 3V PELV+ AP/LAT RT Comparison: 05/17/2022 RESULT: Findings: Moderate bony demineralization. Marked disc space narrowing L5-S1 level. Pelvis: No fractures or dislocations are seen. Mild narrowing of the LEFT hip joint. Right hip: No fractures or dislocations are seen. There is marked narrowing of the RIGHT hip joint. IMPRESSION: Marked degenerative changes in the RIGHT hip Harbor Department Manager: PSCB Transcribe Date/Time: Jun 14 2024 4:50P Dictated by : EZIO MCKEON DO This examination was interpreted and the report reviewed and electronically signed by: EZIO MCKEON DO on Jun 14 2024 4:51PM EST [id number] [facility] XR KNEE 3V AP/LAT/MERCHANT R Ton 06-14-2024 XR KNEE 3V AP/LAT/MERCHANT RT * * *Final Report* * * DATE OF EXAM: Jun 14 2024 2:19PM HIEN 5209 - XR KNEE 3V AP/LAT/MERCHANT RT / PROCEDURE REASON: Z96.651-Status post total right knee replacement * * * * Physician Interpretation * * * * EXAM(s): XR KNEE 3V AP/LAT/MERCHANT RT EXAM DATE/TIME: 06/14/2024 2:19 PM HISTORY: 68 years old Clinical information: Status post total right knee replacement right knee post op evaluation TECHNIQUE: Images: XR KNEE 3V AP/LAT/MERCHANT RT Comparison: 03/29/2024 RESULT: Findings: Right :No fractures or dislocations are seen. The components of the RIGHT total knee arthroplasty appear stable.. There is no evidence of loosening of the components. There is a low erosive change in the distal medial femur just proximal to the knee component of the arthroplasty Left :No fractures or dislocations are seen. Severe narrowing of the medial compartment IMPRESSION: 1. Small lucency in the distal medial femur of the RIGHT knee etiology uncertain discussed 2. RIGHT total knee arthroplasty appears stable Harbor Department Manager: LINDA Transcribe Date/Time: Jun 14 2024 4:51P Dictated by : EZIO MCKEON DO This examination was interpreted and the report reviewed and electronically signed by: EZIO MCKEON DO on Jun 14 2024 4:55PM EST [id number] [facility] XR Knee AP and Lateral and M erchantson 06-14-2024 IMPRESSION: 1. Small lucency in the distal medial femur of the RIGHT knee etiology uncertain discussed 2. RIGHT total knee arthroplasty appears stable Harbor Department Manager: LINDA Transcribe Date/Time: Jun 14 2024 4:51P Dictated by : EZIO MCKEON DO This examination was interpreted and the report reviewed and electronically signed by: EZIO MCKEON DO on Jun 14 2024 4:55PM EST [facility] * * *Final Report* * * DATE OF EXAM: Jun 14 2024 2:19PM HIEN 5209 - XR KNEE 3V AP/LAT/MERCHANT RT / PROCEDURE REASON: Z96.651-Status post total right knee replacement * * * * Physician Interpretation * * * * EXAM(s): XR KNEE 3V AP/LAT/MERCHANT RT EXAM DATE/TIME: 06/14/2024 2:19 PM HISTORY: 68 years old Clinical information: Status post total right knee replacement right knee post op evaluation TECHNIQUE: Images: XR KNEE 3V AP/LAT/MERCHANT RT Comparison: 03/29/2024 RESULT: Findings: Right :No fractures or dislocations are seen. The components of the RIGHT total knee arthroplasty appear stable.. There is no evidence of loosening of the components. There is a low erosive change in the distal medial femur just proximal to the knee component of the arthroplasty Left :No fractures or dislocations are seen. Severe narrowing of the medial compartment [facility] * * *Final Report* * * DATE OF EXAM: Jun 14 2024 2:19PM HIEN 5209 - XR KNEE 3V AP/LAT/MERCHANT RT / PROCEDURE REASON: Z96.651-Status post total right knee replacement * * * * Physician Interpretation * * * * EXAM(s): XR KNEE 3V AP/LAT/MERCHANT RT EXAM DATE/TIME: 06/14/2024 2:19 PM HISTORY: 68 years old Clinical information: Status post total right knee replacement right knee post op evaluation TECHNIQUE: Images: XR KNEE 3V AP/LAT/MERCHANT RT Comparison: 03/29/2024 RESULT: Findings: Right :No fractures or dislocations are seen. The components of the RIGHT total knee arthroplasty appear stable.. There is no evidence of loosening of the components. There is a low erosive change in the distal medial femur just proximal to the knee component of the arthroplasty Left :No fractures or dislocations are seen. Severe narrowing of the medial compartment IMPRESSION IMPRESSION: 1. Small lucency in the distal medial femur of the RIGHT knee etiology uncertain discussed 2. RIGHT total knee arthroplasty appears stable Harbor Department Manager: PSCB Transcribe Date/Time: Jun 14 2024 4:51P Dictated by : EZIO MCKEON DO This examination was interpreted and the report reviewed and electronically signed by: EZIO MCKEON DO on Jun 14 2024 4:55PM [facility] XR Knee AP and Lateral and M erchantsOrdered By: [facility] Provider on 06-14-2024 [facility] XR Pelvis and Hip - right AP and Lateral frogon 06-14-2024 IMPRESSION: Marked degenerative changes in the RIGHT hip Harbor Department Manager: LINDA Transcribe Date/Time: Jun 14 2024 4:50P Dictated by : EZIO MCKEON DO This examination was interpreted and the report reviewed and electronically signed by: EZIO MCKEON DO on Jun 14 2024 4:51PM EST [facility] * * *Final Report* * * DATE OF EXAM: Jun 14 2024 2:19PM MDO 5352 - XR HIP 3V PELV+ AP/LAT RT / PROCEDURE REASON: M25.551-Pain in right hip * * * * Physician Interpretation * * * * Pelvis and right hip HISTORY: Indication: Pain in right hip TECHNIQUE: Images: XR HIP 3V PELV+ AP/LAT RT Comparison: 05/17/2022 RESULT: Findings: Moderate bony demineralization. Marked disc space narrowing L5-S1 level. Pelvis: No fractures or dislocations are seen. Mild narrowing of the LEFT hip joint. Right hip: No fractures or dislocations are seen. There is marked narrowing of the RIGHT hip joint. [facility] Provider, Cc [facility] - 06/14/2024 * * *Final Report* * * DATE OF EXAM: Jun 14 2024 2:19PM MDO [id number] - XR HIP 3V PELV+ AP/LAT RT / PROCEDURE REASON: M25.551-Pain in right hip * * * * Physician Interpretation * * * * Pelvis and right hip HISTORY: Indication: Pain in right hip TECHNIQUE: Images: XR HIP 3V PELV+ AP/LAT RT Comparison: 05/17/2022 RESULT: Findings: Moderate bony demineralization. Marked disc space narrowing L5-S1 level. Pelvis: No fractures or dislocations are seen. Mild narrowing of the LEFT hip joint. Right hip: No fractures or dislocations are seen. There is marked narrowing of the RIGHT hip joint. IMPRESSION IMPRESSION: Marked degenerative changes in the RIGHT hip [place] Department Manager: LINDA Transcribe Date/Time: Jun 14 2024 4:50P Dictated by : EZIO MCKEON DO This examination was interpreted and the report reviewed and electronically signed by: EZIO MCKEON DO on Jun 14 2024 4:51PM EST [facility] ANES POSTPROC EVALon 024 ANES POSTPROC EVAL HNO ID: [id number] Author: MYNOR PATEL MD Service: Anesthesiology Author Type: Anesthesiologist Type: Anesthesia Postprocedure Evaluation Filed: 06/09/2024 10:49 Note Text: POST ANESTHESIA EVALUATION NOTE : 1955 Procedure Summary Date: 06/09/24 Room / Location: [address] / [facility] Anesthesia Start: 957 Anesthesia Stop: 1020 Procedures: PHACOEMULSIFICATION CATARACT IMPLANT INTRAOCULAR LENS W/O ENDOSCOPIC CYCLOPHOTOCOAGULATION (Right: Eye) OPHTHALMIC BIOMETRY BY PARTIAL COHERENCE INTERFEROMETRY W/INTRAOCULAR LENS POWER CALCULATION (Right: Eye) REFRACTIVE SERVICES RELATED TO INTRAOCCULAR LENS IMPLANT (Right: Eye) Diagnosis: Nuclear sclerosis of both eyes Cortical age-related cataract of both eyes (Nuclear sclerosis of both eyes [H25.13]) (Cortical age-related cataract of both eyes [H25.013]) Surgeons: Kathleen Parker MD Responsible Provider: Mynor Patel MD Anesthesia Type: MAC ASA Status: 2 Anesthesia Type: MAC Last Vitals Vitals Value Taken Time BP 102/92 06/09/24 1040 Temp 36.5 ?C (97.7 ?F) 06/09/24 1022 HR SpO2 62 06/09/24 1040 Resp 15 06/09/24 1040 SpO2 100 % 06/09/24 1040 Post Anesthesia Patient Status Patient Evaluation: PACU. PACU/ICU Patient Condition: stable. Anticipated Disposition: phase 2 then home. Neurological Status: aware and responsive. Pulmonary Status: breathing comfortably on room air Airway Control: returned to baseline unsupported. Cardiovascular Status: stable. Pain Management: clinically adequate Postoperative Hydration: acceptable. Intraoperative Events: no significant anesthesia events Recommendation: continue current plan of care and further care per PACU/ICU/floor team. Anesthesia Observations No Documentation SIGNATURE: Mynor Patel MD PATIENT NAME: Leilani Farrar DATE: June 09, 2024 TIME: 10:49 AM CSN: [id number] [facility] ANES PRE-OPon 06-09-2024 ANES PRE-OP HNO ID: [id number] Author: MYNOR PATEL MD Service: Anesthesiology Author Type: Anesthesiologist Type: Anesthesia Preprocedure Evaluation Filed: 06/09/2024 09:25 Note Text: ANESTHESIOLOGY DAY OF SURGERY NOTE : 1955 Procedure Information Date/Time: 06/09/24 0953 Procedures: PHACOEMULSIFICATION CATARACT IMPLANT INTRAOCULAR LENS W/O ENDOSCOPIC CYCLOPHOTOCOAGULATION (Right: Eye) OPHTHALMIC BIOMETRY BY PARTIAL COHERENCE INTERFEROMETRY W/INTRAOCULAR LENS POWER CALCULATION (Right: Eye) REFRACTIVE SERVICES RELATED TO INTRAOCCULAR LENS IMPLANT (Right: Eye) Location: [address] / [facility] Surgeons: Kathleen Parker MD Estimated body mass index is 24.62 kg/m? as calculated from the following: Height as of 05/24/24: 165.1 cm (5' 5). Weight as of 05/24/24: 67.1 kg (147 lb 14.9 oz). Most recent hematocrit and potassium results: Hematocrit 37.2 03/17/2024 Potassium 4.2 03/17/2024 Relevant Problems ENDO (+) Hypothyroidism (+) Postoperative hypothyroidism I - PHYSICAL EVALUATION AIRWAY Patient intubated: No. Tracheostomy tube not present Mallampati: II. TM distance: >3 FB. Neck ROM: full ROM without neurological symptoms. Mouth opening: adequate. Short neck: no. Thick neck: no Ferguson present: no DENTAL Dental findings: teeth intact. Additional exam findings: yes. CARDIOVASCULAR Normal cardiovascular observations. Rhythm: regular Rate: normal PULMONARY Normal pulmonary observations. Breath sounds clear to auscultation. II - ANESTHESIA PLAN ASA Score: 2 Anesthetic Plan: MAC NPO Status: adequate Beta Remigio Monitoring Plan Monitoring plan: Standard ASA. Post Procedure Analgesic Plan Postoperative analgesic plan: multimodal analgesia. Informed Consent Anesthetic risks, benefits, alternatives, personnel and consent discussed: yes. Patient / Responsible Green Party agrees to proceed: yes Patient / Surrogate agrees to blood products: blood products not planned Significant changes in the patient condition since the History and Physical, not otherwise documented in primary service progress note: no. Potential Anesthesia issues that may suggest increased risk of complications or contraindication to planned procedure: none. Vitals Value Taken Time BP 152/87 06/09/24 0920 Pulse 86 06/09/24 0920 Resp 18 06/09/24 0920 Temp 36.3 ?C (97.3 ?F) 06/09/24 0920 SpO2 100 % 06/09/24 0920 Facility-Administered Medications as of 06/09/2024 Medication Dose Route Frequency lactated ringers iv infusion 30 mL/hr INTRAVENOUS CONTINUOUS [COMPLETED] topical mac solution 1 mL 1 mL RIGHT EYE ONCE moxifloxacin intraocular injection 5 mg/mL (PF) 0.1 mL RIGHT EYE As Directed Outpatient Medications as of 06/09/2024 Medication Sig hydrOXYzine HCl (ATARAX) 10 mg tablet TAKE 1 TABLET BY MOUTH 3 TO 4 times DAILY NEEDED for anxiety levothyroxine (SYNTHROID) 112 mcg tablet Take 112 mcg by mouth daily before breakfast. ascorbic acid, vitamin C, (VITAMIN C) 500 mg tablet Take 1 tablet by mouth two times a day with meals for 27 doses. (Patient not taking: Reported on 05/03/2024) I have interviewed and examined the patient. I have reviewed the medical record and/or the pre-anesthesia evaluation, pertinent labs, and test results. This contains updated information obtained within 48 hours of Surgery/Procedure. SIGNATURE: Mynor Patel MD PATIENT NAME: Leilani Farrar DATE: June 09, 2024 TIME: 9:24 AM CSN: [id number] [facility] OPERATIVE NOon 06-09-2024 OPERATIVE NO HNO ID: [id number] Author: KATHLEEN PARKER MD Service: ? Author Type: Physician Type: Operative Report Filed: 06/09/2024 10:22 Note Text: OPERATIVE REPORT LOG ID: [id number] Surgery/Procedure Date: 06/09/2024 Incision/Procedure Start Time: 10:03 AM Incision Close/Procedure End Time: 10:17 AM NAME: Leilani Farrar CLINIC #: [id number] Surgeon(s)/Procedurali st(s) and Line Dancer(s): Surgeons and Role: * Kathleen Parker MD - Primary ANESTHESIA: Monitored Anesthesia Care OPERATIONS: Phacoemulsification with Posterior Chamber Lens Implant Right eye. PREOPERATIVE DIAGNOSIS: Nuclear Sclerotic Cataract, Right Eye. POSTOPERATIVE DIAGNOSIS: Nuclear Sclerotic Cataract, Right Eye. OPERATIVE INDICATIONS: The patient has a history of progressive visual loss, severely limiting activities of daily living. Preoperative visual acuity was significantly reduced. There was evidence of a visually significant cataract. Based upon the clinical examination and discussion with the patient, there was substantial evidence that cataract surgery would significantly improve the patient's vision, and thereby, improve quality of life. Potential risks, benefits, alternatives, personnel and complications of cataract extraction with lens implantation were explained to the patient who appeared to understand and asked that I proceed with plans for cataract surgery. OPERATIVE PROCEDURE: The patient was admitted to the operating suite where intravenous access was obtained and appropriate monitors placed.The patient was pretreated with tropicamide 0.5%, cyclopentolate 0.5%, phenylephrine 2.5 %, and nonsteroidal antiinflammatory eyedrops. The local anesthetic comprised of 4% Xylocaine was applied topically to the eye. The patient was prepped and draped in routine fashion for intraocular surgery. The eyelid speculum was placed. A stab incision paracentesis was created, through which 1 mL of nonpreserved Xylocaine 1% and Viscoat were injected. Using a 2.4 mm keratome, a clear corneal incision was made. Using a bent 27-gauge cystotome needle, the anterior capsule was opened centrally. Utrata forceps were used to create a continuous, curvilinear capsulorrhexis. Balanced salt solution was used to create a hydrodissection plane. The lens nucleus was then phacoemulsified. Irrigation-aspiration was then performed using the I/A unit. All cortical lens material was removed without difficulty. Provisc was then used to inflate the capsular bag and a posterior chamber intraocular lens was inserted into the capsular bag and rotated into position. Viscoelastic was removed from the anterior segment using the irrigation-aspiration unit. The corneal stroma was hydrated at the wound margins. Moxifloxacin in 0.1 mL of normal saline was injected into the anterior chamber. The wound was checked for its integrity and was water-tight. The eyelid speculum was removed. Topical timolol and maxitrol was placed on the eye. The patient tolerated the procedure well and was discharged from the operating room and transferred to the recovery area in good condition. I have reviewed the images and report from the Ophthalmic Biometry June 09, 2024 to determine the Intraocular lens Power Calculation for the IOL lens implant. I have interpreted and agree with the calculation of the IOL as listed below. Implant Name Type Inv. Item Serial No. Claim Investigator Lot No. LRB No. Used Action Model No. TECNIS EYHANCE W/TECNIS SIMPLICITY IOL 17.5D Implant [id number] [employer] Right 1 Implanted [id number] Estimated Blood Loss: None Specimens: None Drains: None Complications: None Participation: I/primary surgeon/proceduralist performed the entire procedure. Kathleen Parker MD 06/09/2024 , 10:22 AM [facility] 05-27-2024 CNP Telephone (OPHTCR) LEILANI FARRAR ([id number]) 1955 F Date Time Provider Department 05/27/24 GAVI LUNDY OPHTCR During your visit today, we recorded the following information about you: Rayna Richmond 05/27/2024 11:04 AM Signed Patient called and stated she is having cataract surgery 06-09-2024 She had a knee replacement surgery a month ago and is currently having swelling , unable to bend she started physical therapy including using a pushing and pulling machine ( 20lbs weights) and electro therapy she would like to know if she is ok to do at least the electro therapy or does she have to reschedule cataract surgery ?? Rayna Quinones 05/28/2024 3:49 PM Signed Spoke with the patent per Dr Chavez no need to reschedule cataract surgery Brigitte Richmond Allergies As of Date: 05/27/2024 Noted Allergy Reaction BEE POLLEN 04/26/2018 10 - Anaphylaxis CORTISONE 04/26/2018 10 - Anaphylaxis NARCOTICS (OPIOIDS - MORPHINE LEO*09/17/2023 1 - Mental Status Change Comments: Can only tolerate vicodin NICKEL 09/17/2023 2 - Rash Comments: Nickel, bridger silver, some gold NSAIDS (NON-STEROIDAL ANTI-INFLAM*04/26/2018 7 - Swelling Comments: Tolerated Toradol 03/16/24 STEROIDS (BETAMETHASONE DIPROPION*04/26/2018 10 - Anaphylaxis STEROIDS (CORTICOSTEROIDS (GLUCOC*04/26/2018 10 - Anaphylaxis STEROIDS (DEXAMETHASONE PHOS-LIDO*04/26/2018 10 - Anaphylaxis WASPS 12/12/2016 12 - Shortness of Breath Date Reviewed: 05/24/2024 Reviewed by: Roselyn Reagan APRN.RETAIL GROCER - Fully Assessed Reason for Visit: Patient Question [2885] Prescriptions as of 05/28/2024 - meloxicam (MOBIC) 15 mg tablet Take 1 tablet by mouth once daily. - keTORolac (ACULAR) 0.5 % ophthalmic solution Use 1 Drop in the right eye two times a day. - prednisoLONE acetate (PRED FORTE) 1 % ophthalmic suspension Use 1 Drop in the right eye four times daily. - ascorbic acid, vitamin C, (VITAMIN C) 500 mg tablet Take 1 tablet by mouth two times a day with meals for 27 doses. - hydrOXYzine HCl (ATARAX) 10 mg tablet TAKE 1 TABLET BY MOUTH 3 TO 4 times DAILY NEEDED for anxiety - levothyroxine (SYNTHROID) 112 mcg tablet Take 112 mcg by mouth daily before breakfast. Problem List As Of Date 05/27/2024 Noted Resolved Primary osteoarthritis of right knee [M17.11] 08/02/2022 Hyperlipidemia [E78.5] 02/24/2024 Hypothyroidism [E03.9] 12/11/2023 Postoperative hypothyroidism [E89.0] 02/24/2024 Cigarette nicotine dependence [F17.210] 02/25/2024 Elevated BP without diagnosis of hypertension [*02/25/2024 S/P total knee arthroplasty, right [Z96.651] 03/17/2024 Idiopathic urticaria [L50.1] 05/24/2024 Encounter Status:Closed by RAYNA RICHMOND on 05/28/24 [facility] 05-25-2024 DIPTI Telephone (ME2E) LEILANI FARRAR ([id number]) 1955 F Date Time Provider Department 05/25/24 BRIGID BAILON ME2E During your visit today, we recorded the following information about you: Soheila Pisano PSS 05/25/2024 8:39 AM Signed Pt calling to discuss her recovery. She still has quite a bit of swelling that is impeding her ROM. Swelling up into her thigh and she is wondering if you would order an anti-inflammatory for her. She is taking the ibuprofen duel, but it doesn't seem to be working too much. She is getting frustrated with her recovery and is willing to be seen if need be since she doesn't have an appt until 06/14. DDM on chart Dennis Butts PA-C 05/26/2024 2:01 PM Signed Discussed with patient on the phone. She reports recent overactivity (cleaning carpet, moving furniture, etc.) Recommend knee sleeve and initiating anti-inflammatory. Discussed with patient she has NSAIDs listed as allergy in chart. The patient states she has previously tolerated taking meloxicam without issue. Meloxicam Rx has been sent to her requested pharmacy. Allergies As of Date: 05/25/2024 Noted Allergy Reaction BEE POLLEN 04/26/2018 10 - Anaphylaxis CORTISONE 04/26/2018 10 - Anaphylaxis NARCOTICS (OPIOIDS - MORPHINE LEO*09/17/2023 1 - Mental Status Change Comments: Can only tolerate vicodin NICKEL 09/17/2023 2 - Rash Comments: Nickel, bridger silver, some gold NSAIDS (NON-STEROIDAL ANTI-INFLAM*04/26/2018 7 - Swelling Comments: Tolerated Toradol 03/16/24 STEROIDS (BETAMETHASONE DIPROPION*04/26/2018 10 - Anaphylaxis STEROIDS (CORTICOSTEROIDS (GLUCOC*04/26/2018 10 - Anaphylaxis STEROIDS (DEXAMETHASONE PHOS-LIDO*04/26/2018 10 - Anaphylaxis WASPS 12/12/2016 12 - Shortness of Breath Date Reviewed: 05/24/2024 Reviewed by: Roselyn Reagan APRN.RETAIL GROCER - Fully Assessed Reason for Visit: Patient Question [8037] Order(s):Order #: [id number] Prescriptions as of 05/31/2024 - meloxicam (MOBIC) 15 mg tablet Take 1 tablet by mouth once daily. - keTORolac (ACULAR) 0.5 % ophthalmic solution Use 1 Drop in the right eye two times a day. - prednisoLONE acetate (PRED FORTE) 1 % ophthalmic suspension Use 1 Drop in the right eye four times daily. - ascorbic acid, vitamin C, (VITAMIN C) 500 mg tablet Take 1 tablet by mouth two times a day with meals for 27 doses. - hydrOXYzine HCl (ATARAX) 10 mg tablet TAKE 1 TABLET BY MOUTH 3 TO 4 times DAILY NEEDED for anxiety - levothyroxine (SYNTHROID) 112 mcg tablet Take 112 mcg by mouth daily before breakfast. Problem List As Of Date 05/25/2024 Noted Resolved Primary osteoarthritis of right knee [M17.11] 08/02/2022 Hyperlipidemia [E78.5] 02/24/2024 Hypothyroidism [E03.9] 12/11/2023 Postoperative hypothyroidism [E89.0] 02/24/2024 Cigarette nicotine dependence [F17.210] 02/25/2024 Elevated BP without diagnosis of hypertension [*02/25/2024 S/P total knee arthroplasty, right [Z96.651] 03/17/2024 Idiopathic urticaria [L50.1] 05/24/2024 Prescriptions ordered this encounter Disp Refills Start End MELOXICAM 15 MG TABLET 30 t* 0 05/26/2024 06/25/2024 Route: ORAL Sig: Take 1 tablet by mouth once daily. Medications Discontinued During This Encounter Prescriptions - ibuprofen-acetaminophe n (ADVIL DUAL ACTION) 125-250 mg tab (Discontinued) Reported on 05/24/2024 Encounter Status:Closed by SOHEILA PISANO on 05/31/24 [facility] HISTORY PHYSICALon HISTORY PHYSICAL HNO ID: [id number] Author: ROSELYN REAGAN APRN.RETAIL GROCER Service: ? Author Type: Nurse Practitioner Type: H&P Filed: 05/24/2024 11:25 Note Text: [facility] HISTORY AND PHYSICAL EXAMINATION SERVICE DATE: 05/24/2024 SERVICE TIME: 11:25 AM PRIMARY CARE PHYSICIAN: Vernon Bolton APRN.RETAIL GROCER Assessment Patient has the following medical conditions which may affect jenelle-operative course: Hyperlipidemia Assessment: Compliant on statin therapy. Encouraged lifestyle modifications. Hypothyroidism Assessment: Compliant on levothyroxine. Denies recent dose adjustments. Following with PCP. S/p thyroidectomy. Idiopathic urticaria Assessment: chronic, on atarax. Cigarette nicotine dependence Assessment: Smokes 1/2/day. Advised cessation. No smoking DOS. Fontanez Activity Status Index: METS: Walk indoors, such as around the house (1.75 METs) Do light work around the house, such as dusting or washing dishes (2.70 METs) Take care of self; that is eating, dressing, bathing, using the toilet (2.75 METs) Walk a block or two on level ground (2.75 METs) Do moderate work around the house, such as vacuuming, sweeping floors, or carrying in groceries (3.50 METs) Do yardwork, such as raking leaves, weeding, or pushing a power mower (4.50 METs) Have sexual relations (5.25 METs) Climb a flight of stairs or walk up a hill (5.50 METs) DASI Score: 28.7 Patient denies any chest pain or undue shortness of breath with the above physical activity. Clinical Frailty Scale: 3. Well, with treated comorbid disease STOP-Bang Score: Patient over 50 years old Denies snoring loudly Denies feeling tired, fatigued, or sleepy during the daytime Has not been observed to stop breathing or choking/gasping during sleep Denies having high blood pressure BMI less than or equal to 35 kg/m2 Does not have a large neck Non-male patient STOP-Bang Score: 1 ANESTHESIA FINDINGS: Intubation History: No history of difficult intubation. No abnormal airway history Significant Anesthesia Considerations: none Airway History: No history of difficult airway No abnormal airway history I - PHYSICAL EVALUATION AIRWAY Patient intubated: No. Tracheostomy tube not present Mallampati: IV. TM distance: >3 FB. Neck ROM: full ROM without neurological symptoms. Mouth opening: adequate. Short neck: no. Thick neck: no Microretrognathia/Micr onagthia/Recessed Chin: No DENTAL Dental findings: missing tooth/teeth. II - ANESTHESIA PLAN Anesthetic plan additional comments: *PACC/TCI - anesthesia choice. Beta Remigio Monitoring Plan Post Procedure Analgesic Plan Prepared for Surgery: optimally prepared for surgery. CONSULTS: Patient does not require consults for optimization at this time Planned Anesthetic: anesthesia choice The Following Tests/Procedures Have Been Initiated: No orders of the defined types were placed in this encounter. REASON FOR VISIT: Leilani Farrar is a 68 year old female who is scheduled for * No surgery found * at the request of Kathleen Cobb MD for consultation. My final recommendation will be communicated back to the requesting physician by way of shared medical record or letter. Subjective The patient has the following: COVID-19 Immunization Status Overdue - Covid-19 Vaccine (2023- season) Never done No completion, postpone, frequency change, or communication history exists for this topic. CHIEF COMPLAINT: cataract HPI: Patient is a 68 year old female presenting with b/l catarcts for the past 2 years. C/o blurry vision, floaters, difficulty seeing at night, halos. Denies any eye injury or infection. Patient denies other specific radiating, alleviating, or aggravating factors. REVIEW OF SYSTEMS: General: No weight loss, malaise or fevers. Neurological: Negative for: dementia, headaches, impaired sensorium, peripheral neuropathy, seizures, TIA and strokes. Respiratory: Positive for: tobacco use. Negative for: asthma, bronchitis, COPD, current cough, bronchodilator used daily for the last 3 months, dyspnea, home oxygen, orthopnea, pneumonia within 6 weeks, URI < 2 weeks and obstructive sleep apnea. Cardiovascular: Denies dizziness or syncope. Positive for: hyperlipidemia Negative for: abdominal aortic aneurysm, AICD/PPM, angina, anticoagulation therapy, arrhythmia, atrial fibrillation, CAD, chest pain, CHF, congenital heart defect, DVT/PE, hypertension, recent UT, murmur/valvular heart disease, PTCA, PVD, open heart surgery and valve surgery. GI: Negative for: abdominal pain, GERD, GI bleed <30 days, hepatitis, liver disease, nausea and vomiting. : Denies kidney disease Negative for: on dialysis, dysuria, frequent urination, hematuria, renal failure and urinary tract infection. 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 Endocrine: Pos (more content not included)... [facility] 05-10-2024 [facility] Telephone (ME2E) VALERIELEILANI Cavazos ([id number]) 1955 F Date Time Provider Department 05/10/24 BRIGID BAILON During your visit today, we recorded the following information about you: Soheila Pisano, PSS 05/10/2024 8:13 AM Signed Lauren developed an abscess tooth over weekend. Dentist put her on Amox 1500 and most likely will need to pull the tooth at her appt today. She is wondering if this antibiotic is ok or if you would like her on something else. Please advise. Thanks. Dennis Butts PA-C 05/10/2024 11:35 AM Signed We will defer treatment of dental abscess to dentist. Soheila Pisano PSS 05/10/2024 11:42 AM Signed Patient notified. She just got back from dentist and will be having a root canal tomorrow. Allergies As of Date: 05/10/2024 Noted Allergy Reaction BEE POLLEN 04/26/2018 10 - Anaphylaxis CORTISONE 04/26/2018 10 - Anaphylaxis NARCOTICS (OPIOIDS - MORPHINE LEO*09/17/2023 1 - Mental Status Change Comments: Can only tolerate vicodin NICKEL 09/17/2023 2 - Rash Comments: Nickel, bridger silver, some gold NSAIDS (NON-STEROIDAL ANTI-INFLAM*04/26/2018 7 - Swelling Comments: Tolerated Toradol 03/16/24 STEROIDS (BETAMETHASONE DIPROPION*04/26/2018 10 - Anaphylaxis STEROIDS (CORTICOSTEROIDS (GLUCOC*04/26/2018 10 - Anaphylaxis STEROIDS (DEXAMETHASONE PHOS-LIDO*04/26/2018 10 - Anaphylaxis WASPS 12/12/2016 12 - Shortness of Breath Date Reviewed: 05/05/2024 Reviewed by: Yelena Alvarenga OCCA - Fully Assessed Reason for Visit: Patient Question [6407] Prescriptions as of 05/12/2024 - ibuprofen-acetaminophe n (ADVIL DUAL ACTION) 125-250 mg tab Take 1 tablet by mouth two times a day. - keTORolac (ACULAR) 0.5 % ophthalmic solution Use 1 Drop in the right eye two times a day. - prednisoLONE acetate (PRED FORTE) 1 % ophthalmic suspension Use 1 Drop in the right eye four times daily. - ascorbic acid, vitamin C, (VITAMIN C) 500 mg tablet Take 1 tablet by mouth two times a day with meals for 27 doses. - hydrOXYzine HCl (ATARAX) 10 mg tablet TAKE 1 TABLET BY MOUTH 3 TO 4 times DAILY NEEDED for anxiety - levothyroxine (SYNTHROID) 112 mcg tablet Take 112 mcg by mouth daily before breakfast. Problem List As Of Date 05/10/2024 Noted Resolved Primary osteoarthritis of right knee [M17.11] 08/02/2022 Hyperlipidemia [E78.5] 02/24/2024 Hypothyroidism [E03.9] 12/11/2023 Postoperative hypothyroidism [E89.0] 02/24/2024 Cigarette nicotine dependence [F17.210] 02/25/2024 Elevated BP without diagnosis of hypertension [*02/25/2024 S/P total knee arthroplasty, right [Z96.651] 03/17/2024 Encounter Status:Closed by SOHEILA PISANO on 05/12/24 [facility] 05-05-2024 [facility] Office Visit (ORCM ) LEILANI FARRAR ([id number]) 1955 F Date Time Provider Department 05/05/24 4:15 PM BRIGID BAILON During your visit today, we recorded the following information about you: Brigid Bailon MD 06/02/2024 5:[address] BAILON- POST-OP KNEE ======== Post-Op F/U Office Visit ======== Leilani Farrar presents today for a 7 weeks status post Right TKA. Post-operative recovery was uneventful. Patient's rating of condition: improving Comments: Patient is experiencing some sciatica type pain in the posterior pelvis Does the Pt. still experience pain? PAIN EVALUATION 05/05/2024 1609 Pain Level: 0 Pain Location: Knee-Right Functional difficulties: Stair climbing Physical Therapy: Yes Pain Medication: None narcotic ambulating without assistance. Medications and Allergies reviewed and verified. ======== EXAM: ======== GEN: AANDO x3, NAD SKIN:Appropriate postop appearance Incision intact Incision well healed RightKnee: ROM: Flexion/Extension:0 degrees to 105 degrees Pain with ROM:No Mal-alignment: No Effusion: None Tender to palpation of the medial and patellofemoral joint line(s). Stability:Anterior/Pos terior- Yes, stable and Varus/Valgus- Yes, stable Quad strength: normal HIP: range of motion no loss ROM NV: intact and Raghu's negative ======== IMAGING: ======== Xrays: No x-rays today ====== IMPRESSION/PLAN: ====== 68 year old female s/p Right TKA At normal post-operative stage of recovery. Plan: 1. Continue range of motion/strengthening exercises 2. Continue total knee precautions 3. Follow-up 7 weeks for repeat clinical evaluation Brigid Bailon MD Electronic Signature Referring Provider: KATHLEEN PARKER [[id number]] Allergies As of Date: 05/05/2024 Noted Allergy Reaction BEE POLLEN 04/26/2018 10 - Anaphylaxis CORTISONE 04/26/2018 10 - Anaphylaxis NARCOTICS (OPIOIDS - MORPHINE LEO*09/17/2023 1 - Mental Status Change Comments: Can only tolerate vicodin NICKEL 09/17/2023 2 - Rash Comments: Nickel, bridger silver, some gold NSAIDS (NON-STEROIDAL ANTI-INFLAM*04/26/2018 7 - Swelling Comments: Tolerated Toradol 03/16/24 STEROIDS (BETAMETHASONE DIPROPION*04/26/2018 10 - Anaphylaxis STEROIDS (CORTICOSTEROIDS (GLUCOC*04/26/2018 10 - Anaphylaxis STEROIDS (DEXAMETHASONE PHOS-LIDO*04/26/2018 10 - Anaphylaxis WASPS 12/12/2016 12 - Shortness of Breath Date Reviewed: 05/05/2024 Reviewed by: Yelena Alvarenga OCCA - Fully Assessed Reason for Visit: Post Op [174] Knee Replacement [363] Primary Visit Diagnosis:Aftercare following right knee joint replacement surgery [Z47.1, Z96.651] Prescriptions as of 06/02/2024 - meloxicam (MOBIC) 15 mg tablet Take 1 tablet by mouth once daily. - keTORolac (ACULAR) 0.5 % ophthalmic solution Use 1 Drop in the right eye two times a day. - prednisoLONE acetate (PRED FORTE) 1 % ophthalmic suspension Use 1 Drop in the right eye four times daily. - ascorbic acid, vitamin C, (VITAMIN C) 500 mg tablet Take 1 tablet by mouth two times a day with meals for 27 doses. - hydrOXYzine HCl (ATARAX) 10 mg tablet TAKE 1 TABLET BY MOUTH 3 TO 4 times DAILY NEEDED for anxiety - levothyroxine (SYNTHROID) 112 mcg tablet Take 112 mcg by mouth daily before breakfast. Problem List As Of Date 05/05/2024 Noted Resolved Primary osteoarthritis of right knee [M17.11] 08/02/2022 Hyperlipidemia [E78.5] 02/24/2024 Hypothyroidism [E03.9] 12/11/2023 Postoperative hypothyroidism [E89.0] 02/24/2024 Cigarette nicotine dependence [F17.210] 02/25/2024 Elevated BP without diagnosis of hypertension [*02/25/2024 S/P total knee arthroplasty, right [Z96.651] 03/17/2024 Disposition: Return in about 7 weeks (around 06/23/2024). Follow-up and Disposition History for Encounter Date Provider Department Center 05/05/2024 [id number] BAILON [facility] Encounter Status:Closed by BRIGID BAILON on 06/02/24 Normal [facility] CORNEAL TOPOGRAPHY PENTACAM OU (BOTH EYES)on 05-03-2024 [facility] Radiology Study observation (narrative) [facility] IOL BIOMETRY W/ IOL CALC OU (BOTH EYES)on 05-03-2024 [facility] Radiology Study observation (narrative) [facility] OCT MACULA CIRRUS OU (BOTH E YES)on 05-03-2024 [facility] Radiology Study observation (narrative) [facility] CNOVon 03-29-2024 CNOV Office Visit (SEBASTIÁN ) LEILANI FARRAR ([id number]) 1955 F Date Time Provider Department 03/29/24 1:00 PM DENNIS BUTTS During your visit today, we recorded the following information about you: Dennis Butts PA-C 03/29/2024 1:39 PM Signed Post-op Office Visit Leilani Farrar 68 year old March 29, 2024 12:56 PM Surgery Date: 03/16/2024 History: Leilani Harris Valeriedirk is now 2 weeks out from robotic assisted right TKA. Post-operative course has been without complication. No readmissions. The patient was discharged from [facility] to home with home health care on 03/17/2024. Subjective: Patient reports mild knee pain. Overall is doing well. Using walker ambulatory aid She is taking Hibernia one to two times per day. Patients rates her condition as improving. Reports compliance with DVT ppx (eliquis). Participating in home PT. Objective: Right knee: Ambulates with walker Incision well-approximated, no drainage, well-healing. Suture tails trimmed today. Knee ROM 2 - 90 degrees Distally DP/PT palpable Distally SILT S/S/SP/DP/T intact at baseline Distally DF/PF motor intact at baseline Negative raghu/calf tenderness Xrays: Well-positioned total knee replacement in appropriate alignment with no evidence of loosening Assessment and Plan: 68 year old female 2 weeks status post robotic assisted right total knee arthroplasty - continue ice, rest, and use of non-narcotic analgesia as needed - reviewed antibiotic prophylactic protocols - discussed home exercises and therapy - continue Eliquis DVT prophylaxis for 4 weeks total - WBAT on operative extremity - discussed driving requirement: 4 weeks post-op, off narcotic pain medication, adequate brake time - follow up in 4 weeks for repeat clinical evaluation with Dr. Bailon Normal post-operative course discussed with patient. Patient reassured and supported. All questions answered. Rolo Butts PA-C Orthopaedic Surgery Allergies As of Date: 03/29/2024 Noted Allergy Reaction BEE POLLEN 04/26/2018 10 - Anaphylaxis CORTISONE 04/26/2018 10 - Anaphylaxis NARCOTICS (OPIOIDS - MORPHINE LEO*09/17/2023 1 - Mental Status Change Comments: Can only tolerate vicodin NICKEL 09/17/2023 2 - Rash Comments: Nickel, bridger silver, some gold NSAIDS (NON-STEROIDAL ANTI-INFLAM*04/26/2018 7 - Swelling Comments: Tolerated Toradol 03/16/24 STEROIDS (BETAMETHASONE DIPROPION*04/26/2018 10 - Anaphylaxis STEROIDS (CORTICOSTEROIDS (GLUCOC*04/26/2018 10 - Anaphylaxis STEROIDS (DEXAMETHASONE PHOS-LIDO*04/26/2018 10 - Anaphylaxis WASPS 12/12/2016 12 - Shortness of Breath Date Reviewed: 03/26/2024 Reviewed by: Chandler Red, PT - Fully Assessed Reason for Visit: Established Patient [175] Follow Up [171] Knee Replacement [363] Post Op [174] Primary Visit Diagnosis:S/P total knee arthroplasty, right [Z96.651] Order(s):CONSULT TO PHYSICAL THERAPY [0633] Order #: [id number]: 1 FUTURE Prescriptions as of 03/29/2024 - HYDROcodone-acetaminop hen (NORCO) 5-325 mg per tablet Take 1-2 tablets by mouth every 6 hours as needed for pain for up to 7 days. - apixaban (ELIQUIS) 2.5 mg tab(s) Take 1 tablet by mouth two times a day. - ascorbic acid, vitamin C, (VITAMIN C) 500 mg tablet Take 1 tablet by mouth two times a day with meals for 27 doses. - docusate sodium (COLACE) 100 mg capsule Take 1 capsule by mouth two times a day as needed for constipation. - polyethylene glycol 3350 (MIRALAX) 17 gram/dose powder Take 17 g by mouth once daily as needed for constipation for up to 10 days. Dissolve dose in 4 - 8 ounces of liquid and take as directed. - hydrOXYzine HCl (ATARAX) 10 mg tablet TAKE 1 TABLET BY MOUTH 3 TO 4 times DAILY NEEDED for anxiety - levothyroxine (SYNTHROID) 112 mcg tablet Take 112 mcg by mouth daily before breakfast. Problem List As Of Date 03/29/2024 Noted Resolved Primary osteoarthritis of right knee [M17.11] 08/02/2022 Hyperlipidemia [E78.5] 02/24/2024 Hypothyroidism [E03.9] 12/11/2023 Postoperative hypothyroidism [E89.0] 02/24/2024 Cigarette nicotine dependence [F17.210] 02/25/2024 Elevated BP without diagnosis of hypertension [*02/25/2024 S/P total knee arthroplasty, right [Z96.651] 03/17/2024 Encounter Status:Closed by DENNIS BUTTS on 03/29/24 [facility] XR KNEE 3V AP/LAT/MERCHANT R Ton 03-29-2024 XR KNEE 3V AP/LAT/MERCHANT RT * * *Final Report* * * DATE OF EXAM: Mar 29 2024 12:44PM HIEN 5209 - XR KNEE 3V AP/LAT/MERCHANT RT / PROCEDURE REASON: M25.561-Right knee pain, unspecified chronicity * * * * Physician Interpretation * * * * EXAM(s): XR KNEE 3V AP/LAT/MERCHANT RT EXAM DATE/TIME: 03/29/2024 12:44 PM HISTORY: 68 years old Clinical information: Right knee pain, unspecified chronicity Follow-up for right knee replacement Bilateral wt bearing AP and bilateral merchant TECHNIQUE: Images: XR KNEE 3V AP/LAT/MERCHANT RT Comparison: 03/16/2024. RESULT: Findings: Right :No fractures or dislocations are seen. The components of the RIGHT total knee arthroplasty appear stable.. There is no evidence of loosening of the components. Left :No fractures or dislocations are seen. Marked narrowing of the medial compartment Small tubular device is seen projecting over the LEFT knee in the merchants view. It is not present on the AP view. IMPRESSION: 1. Findings as discussed in results portion of report 2. Small tubular device is seen projecting over the LEFT knee and one view only. Harbor Department Manager: PSCB Transcribe Date/Time: Mar 31 2024 4:27P Dictated by : EZIO MCKEON DO This examination was interpreted and the report reviewed and electronically signed by: EZIO MCKEON DO on Mar 31 2024 4:29PM EST [id number] [facility] 03-23-2024 [facility] Telephone (ME2E) LEILANI FARRAR ([id number]) 1955 F Date Time Provider Department 03/23/24 BRIGID BAILON ME2E During your visit today, we recorded the following information about you: Soheila Pisano, SHARDA 03/23/2024 10:24 AM Signed Leilani calling to see if she can get something else for pain. Tramadol is making her sick to her stomach. She has had norco in past and it worked well and wondering if that could be called to her DDM on chart. She also c/o difficult sleeping and swelling in her foot. Swelling was fine when woke up but gets worse as she is up and moving. Trying to elevate during day but hasn't been able to get comfortable with just taking tylenol. Please advise. Dennis Butts PA-C 03/23/2024 11:18 AM Signed Discontinue tramadol. PDMP website reviewed and validated. Patient has been compliant and taking medication appropriately without evidence of suspicious activity. Will send Hibernia Rx. Please remind patient Hibernia has Tylenol in the ingredient list. She must be careful not to exceed 3000mg (3 grams) of Tylenol, from all sources, within a single 24-hr period. Rolo Butts PA-C March 23, 2024 11:16 AM Soheila Pisano PSS 03/23/2024 11:25 AM Signed Pt notified and is agreeable. Allergies As of Date: 03/23/2024 Noted Allergy Reaction BEE POLLEN 04/26/2018 10 - Anaphylaxis CORTISONE 04/26/2018 10 - Anaphylaxis NARCOTICS (OPIOIDS - MORPHINE LEO*09/17/2023 1 - Mental Status Change Comments: Can only tolerate vicodin NICKEL 09/17/2023 2 - Rash Comments: Nickel, bridger silver, some gold NSAIDS (NON-STEROIDAL ANTI-INFLAM*04/26/2018 7 - Swelling Comments: Tolerated Toradol 03/16/24 STEROIDS (BETAMETHASONE DIPROPION*04/26/2018 10 - Anaphylaxis STEROIDS (CORTICOSTEROIDS (GLUCOC*04/26/2018 10 - Anaphylaxis STEROIDS (DEXAMETHASONE PHOS-LIDO*04/26/2018 10 - Anaphylaxis WASPS 12/12/2016 12 - Shortness of Breath Date Reviewed: 03/22/2024 Reviewed by: Chandler Red, PT - Fully Assessed Reason for Visit: Patient Question [1507] Primary Visit Diagnosis:S/P total knee arthroplasty, right [Z96.651] Order(s):Order #: [id number] Prescriptions as of 03/23/2024 - HYDROcodone-acetaminop hen (NORCO) 5-325 mg per tablet Take 1-2 tablets by mouth every 6 hours as needed for pain for up to 7 days. - apixaban (ELIQUIS) 2.5 mg tab(s) Take 1 tablet by mouth two times a day. - ascorbic acid, vitamin C, (VITAMIN C) 500 mg tablet Take 1 tablet by mouth two times a day with meals for 27 doses. - docusate sodium (COLACE) 100 mg capsule Take 1 capsule by mouth two times a day as needed for constipation. - polyethylene glycol 3350 (MIRALAX) 17 gram/dose powder Take 17 g by mouth once daily as needed for constipation for up to 10 days. Dissolve dose in 4 - 8 ounces of liquid and take as directed. - hydrOXYzine HCl (ATARAX) 10 mg tablet TAKE 1 TABLET BY MOUTH 3 TO 4 times DAILY NEEDED for anxiety - levothyroxine (SYNTHROID) 112 mcg tablet Take 112 mcg by mouth daily before breakfast. Problem List As Of Date 03/23/2024 Noted Resolved Primary osteoarthritis of right knee [M17.11] 08/02/2022 Hyperlipidemia [E78.5] 02/24/2024 Hypothyroidism [E03.9] 12/11/2023 Postoperative hypothyroidism [E89.0] 02/24/2024 Cigarette nicotine dependence [F17.210] 02/25/2024 Elevated BP without diagnosis of hypertension [*02/25/2024 S/P total knee arthroplasty, right [Z96.651] 03/17/2024 Prescriptions ordered this encounter Disp Refills Start End HYDROCODONE 5 MG-ACETAMINOPHEN 325 M* 50 t* 0 03/23/2024 03/30/2024 Route: ORAL Sig: Take 1-2 tablets by mouth every 6 hours as needed for pain for up to 7 days. Medications Discontinued During This Encounter Prescriptions - traMADol (ULTRAM) 50 mg tablet (Discontinued) Take 1-2 tablets by mouth every 6 hours as needed for pain for up to 7 days. - acetaminophen (TYLENOL) 500 mg tablet (Discontinued) Take 2 tablets by mouth every 8 hours as needed for pain. Encounter Status:Closed by SOHEILA PISANO on 03/23/24 Normal [facility] CNCOon 03-18-2024 CNCO Letter Text Normal [facility] Basic metabolic 2000 panelon 03-17-2024 Anion gap [Moles/Vol] 9 mmol/L Normal 8-15 [facility] Comment on above: Order Comment: Speci men Type: BLOOD SPECIMENOrdering Facility: [facility] Address: [address] [place] [address] Performed By: #### 2 4321-2 ####[facility] LABORATORYCLIA [id number] [place] [address] [place] Calcium [Mass/Vol] 8.7 mg/dL Normal 8.5-10.2 [facility] Comment on above: Order Comment: Speci men Type: BLOOD SPECIMENOrdering Facility: [facility] Address: [address] [place] [address] Performed By: #### 2 4321-2 ####[facility] LABORATORYCLIA [id number] [address] Chloride [Moles/Vol] 103 mmol/L Normal 98-107 [facility] Comment on above: Order Comment: Speci men Type: BLOOD SPECIMENOrdering Facility: [facility] Address: [address] [place] [address] Performed By: #### 2 4321-2 ####[facility] LABORATORYCLIA [id number] [address] CO2 [Moles/Vol] 25 mmol/L Normal 22-30 [facility] Comment on above: Order Comment: Mariama men Type: BLOOD SPECIMENOrdering Facility: [facility] Address: [address] [place] [address] Performed By: #### 2 4321-2 ####[facility] LABORATORYCLIA [id number] [address] Creatinine [Mass/Vol] 0.78 mg/dL Normal 0.58-0.96 [facility] Comment on above: Order Comment: Speci men Type: BLOOD SPECIMENOrdering Facility: [facility] Address: [address] [place] [address] Performed By: #### 2 4321-2 ####ON[facility] LABORATORYCLIA [id number] [address] Creatinine and Glomerular filtration rate.predicted panel (S/P/Bld) 83 mL/min/1.73m??? Normal >=60 [facility] Comment on above: Order Comment: Mariama men Type: BLOOD SPECIMENOrdering Facility: [facility] Address: [address] [place] [address] Result Comment: Marie mated Glomerular Filtration Rate (eGFR) is calculated using the 2020 CKD-EPI creatinine equation. This equation utilizes serum creatinine, sex, and age as parameters. The creatinine assay has traceable calibration to isotope dilution-mass spectrometry. Refer to KDIGO guidelines for clinical interpretation. In patients with unstable renal function, e.g. those with acute kidney injury, the eGFR may not accurately reflect actual GFR. Performed By: #### 2 4321-2 ####NOL[facility] LABORATORYCLIA [id number] [place] [id number] [place] Glucose [Mass/Vol] 120 mg/dL High 74-99 [facility] Comment on above: Order Comment: Mariama newell Type: BLOOD SPECIMENOrdering Facility: [facility] Address: [address] [place] [address] Result Comment: The [place] Diabetes Association (ADA) provides guidance for cutoff values for fasting glucose and random glucose. The ADA defines fasting as no caloric intake for at least 8 hours. Fasting plasma glucose results between 100 to 125 mg/dL indicate increased risk for diabetes (prediabetes). Fasting plasma glucose results greater than or equal to 126 mg/dL meet the criteria for diagnosis of diabetes. In the absence of unequivocal hyperglycemia, results should be confirmed by repeat testing. In a patient with classic symptoms of hyperglycemia or hyperglycemic crisis, random plasma glucose results greater than or equal to 200 mg/dL meet the criteria for diagnosis of diabetes. Reference: Standards of Medical Care in Diabetes 2016, [place] [employer] Association. Diabetes Care. 2016.39(Suppl 1). Performed By: #### 2 4321-2 ####NOLAN LABORATORYCLIA [id number] [place] [address] [place] Potassium [Moles/Vol] 4.2 mmol/L Normal 3.7-5.1 [facility] Comment on above: Order Comment: Mariama newell Type: BLOOD SPECIMENOrdering Facility: [facility] Address: [address] [place] [address] Performed By: #### 2 4321-2 ####NOLAN LABORATORYCLIA [id number] [place] [id number] [place] Sodium [Moles/Vol] 137 mmol/L Normal 136-144 [facility] Comment on above: Order Comment: Mariama newell Type: BLOOD SPECIMENOrdering Facility: [facility] Address: [address] [place] [address] Performed By: #### 2 4321-2 ####NOLAN LABORATORYCLIA [id number] [place] [address] [place] Urea nitrogen [Mass/Vol] 10 mg/dL Normal 7-21 [facility] Comment on above: Order Comment: Speci men Type: BLOOD SPECIMENOrdering Facility: [facility] Address: [facility] [place] [address] Performed By: #### 2 4321-2 ####[facility] LABORATORYCLIA [id number] [place] [address] [place] CASE MANAGEMon 03-17-2024 CASE MANAGEM HNO ID: [id number] Author: RITA KUMARI RN Service: ? Author Type: Registered Nurse Type: Care Mgt Progress Note Filed: 03/17/2024 09:54 Note Text: CARE MANAGEMENT DISCHARGE NOTE SERVICE DATE: March 17, 2024 SERVICE TIME: 9:53 AM Admission Date: 03/16/2024 LOS: 0 days Discharge Arrangement Discharge Arrangement: Home with Home Health Services Arranged Medical Services: Skilled Home Health Care Type: Home Health Agency, Physical Therapy Provider Name: [facility] Caregiver Assessment Caregiver is ready, willing and able to meet the patient's needs as recommended by the inter-professional team: Yes Name of Caregiver: Transportation Arrangements Transportation Arrangements: Car- to transport Handoff Communication: Handoff to: Primary Care Physician Primary Care Physician Name/Phone: Vernon Bolton, CLERK ENTRY LEVEL- [phone] Additional Information: Discharge order written for today. [facility] will be seeing the patient for Home PT with a start of care date within 24-48 hours. Notified [facility] of the patients discharge home today. Discharge Information Row Name Admission (Current) from 03/16/[address] Agency [facility] Home Care Start of Care -- Within 24-48 hours SIGNATURE: Rita Kumari RN PATIENT NAME: Leilani Farrar DATE: March 17, 2024 TIME: 9:53 AM CONTACT #: [phone] Normal [facility] CASE MGT INIT VERÓNICAdru 2023 CASE MGT INIT VERÓNICA HNO ID: [id number] Author: RITA KUMARI RN Service: ? Author Type: Registered Nurse Type: Care Mgt Initial Assessment Filed: 03/17/2024 09:19 Note Text: CARE MANAGEMENT: ASSESSMENT AND DISCHARGE PLAN SERVICE DATE: March 17, 2024 SERVICE TIME: 8:48 AM PCP: Vernon Bolton APRN.CNP Primary Contact: Extended Emergency Contact Information Primary Emergency Contact: Matthew Farrar Address: [address] [place] [id number] [facility] Mobile Relation: Spouse Admission Status: Ambulatory Surgery Insurance Provider: [employer] PPO Discharge Planning requested by: Per Department Practice Potential Transition Plans Home OT/PT Advance Directives Current Advance Directive: Health Care Power of Cat Swamper In Chart: No Current Living Arrangements and Support Lives with: Spouse/significant other Type of Residence: Private Residence (House) Does the patient have to climb stairs at home?: Yes;stairs outside the home Support: Spouse/significant other How do you manage to accomplish the following: Independent: Ambulation;Bathe/Showe r;Dress;Meals/Meal Prep;Going to the bathroom;Medication Management;Transportat ion to appointments/community Current Services/Equipment Current Post-Acute Service(s): DME Current DME Type: Walker, Cane, Crutches, Other: See Comment (3 in 1 commode) Discharge Planning Patient Goal(s): Be able to go home Gruver of Choice Explained: Gruver of Choice Given: Yes Level of Care Discussed: Home Care Are you interested in bedside delivery of your medications? Yes Discharge Planning Participant(s): Patient Patient/Family Comments: Caregiver Assessment: Caregiver is ready, willing and able to meet the patient's needs as recommended by the inter-professional team: Yes Name of Caregiver: Transport at Discharge: Transportation Arrangements: Car Needs Prior to Discharge: Needs Prior to Discharge: Other: See Comment (Accepting [facility]) Post-Acute Discharge Plan: Review of the chart and met with the patient. The patient lives with her in a ranch home. PT- Home PT. Discussed PT recommendations with the patient. Referral to [facility]. department will continue to follow for DC needs. 9:19 am- [facility] able to accept. SIGNATURE: Rita Kumari RN PATIENT NAME: Leilani Farrar DATE: March 17, 2024 TIME: 8:48 AM CONTACT #: [phone] [facility] CBC panel Auto (Bld)on 03-17 Erythrocyte distribution width (RBC) [Ratio] 13.0 % Normal 11.5-15.0 [facility] Comment on above: Order Comment: Speci men Type: BLOOD SPECIMEN Ordering Facility: [facility] Address: [address] [place] [address] Performed By: #### 5 8410-2 #### [facility] CLIA [id number] [address] Hematocrit (Bld) [Volume fraction] 37.2 % Normal 36.0-46.0 [facility] Comment on above: Order Comment: Speci men Type: BLOOD SPECIMEN Ordering Facility: [facility] Address: [address] [place] [address] Performed By: #### 5 8410-2 #### [facility] CLIA [id number] [address] [facility] Hemoglobin (Bld) [Mass/Vol] 12.9 g/dL Normal 11.5-15.5 [facility] Comment on above: Order Comment: Speci men Type: BLOOD SPECIMEN [facility] [facility] Address: [address] [place] [address] Performed By: #### 5 8410-2 #### [facility] CLIA [id number] [address] MCH (RBC) [Entitic mass] 31.8 pg Normal 26.0-34.0 [facility] Comment on above: Order Comment: Speci men Type: BLOOD SPECIMEN Ordering Facility: [facility] Address: [address] [place] [address] Performed By: #### 5 8410-2 #### [facility] CLIA [id number] [address] MCHC (RBC) [Mass/Vol] 34.7 g/dL Normal 30.5-36.0 [facility] Comment on above: Order Comment: Speci men Type: BLOOD SPECIMEN Ordering Facility: [facility] Address: [address] [place] [address] Performed By: #### 5 8410-2 #### [facility] CLIA [id number] [address] [place] [address] [place] MCV (RBC) [Entitic vol] 91.6 fL Normal 80.0-100.0 [facility] Comment on above: Order Comment: Speci men Type: BLOOD SPECIMEN Ordering Facility: [facility] Address: [address] [place] [address] Performed By: #### 5 8410-2 #### [facility] CLIA [id number] [address] [place] [address] [place] Nucleated RBC (Bld) [#/Vol] 10*3/uL Normal <0.01 [facility] Comment on above: Order Comment: Speci men Type: BLOOD SPECIMEN Ordering Facility: [facility] Address: [address] [place] [address] Performed By: #### 5 8410-2 #### [facility] CLIA [id number] [address] [place] Platelet mean volume (Bld) [Entitic vol] 11.1 fL Normal 9.0-12.7 [facility] Comment on above: Order Comment: Speci men Type: BLOOD SPECIMEN Ordering Facility: [facility] Address: [address] [place] [address] Performed By: #### 5 8410-2 #### [facility] CLIA [id number] [address] [place] Platelets (Bld) [#/Vol] 215 10*3/uL Normal 150-400 [facility] Comment on above: Order Comment: Speci men Type: BLOOD SPECIMEN Ordering Facility: [facility] Address: [address] [place] [address] Performed By: #### 5 8410-2 #### [facility] CLIA [id number] [address] [place] [address] [place] RBC (Bld) [#/Vol] 4.06 10*6/uL Normal 3.90-5.20 [facility] Comment on above: Order Comment: Speci men Type: BLOOD SPECIMEN Ordering Facility: [facility] Address: [address] [place] [address] Performed By: #### 5 8410-2 #### [facility] CLIA [id number] [address] [place] [address] [place] WBC (Bld) [#/Vol] 6.40 10*3/uL Normal 3.70-11.00 [facility] Comment on above: Order Comment: Speci men Type: BLOOD SPECIMEN Ordering Facility: [facility] Address: [address] [place] [address] Performed By: #### 5 8410-2 #### [facility] CLIA [id number] [address] [place] [address] [facility] [place] CNCOon 03-17-2024 CNCO Letter Text Normal [facility] CNDSon 03-17-2024 CNDS HNO ID: [id number] Author: BRIGID BAILON MD Service: Orthopaedic Surgery Author Type: Physician Line Dancer Type: Discharge Summary Filed: 03/18/2024 10:35 Note Text: Attestation signed by Brigid Bailon MD at 03/18/2024 10:35 AM Agree with above DISCHARGE SUMMARY PATIENT NAME: Leilani Farrar ADMISSION DATE: 03/16/2024 DISCHARGE DATE: 03/17/2024 PATIENT DISCHARGE SUMMARY C O N F I D E N T I A L I N F O R M A T I O N The following is a brief overview of your hospitalization. Some of the information contained on this summary may be confidential. This information should be kept in your records and should be shared with your regular doctor. These instructions explain what you or your home health care physician need to do to continue your care at home or at another healthcare facility Please go over these instructions with your nurse and home health care physician. If you are not sure about something, please ask. Highest Readmission Risk Score: 11 The 30 day readmissions risk score is derived from an internally validated risk model which evaluates patient level characteristics, utilization history, medication orders and lab results up until the day of discharge. Patients with a score of 40 or above are considered highest risk for readmission. Specific patient level drivers will be listed at the bottom of the summary. The 30 day readmissions risk score is derived from an internally validated risk model which evaluates patient level characteristics, utilization history, medication orders and lab results up until the day of discharge. Patients with a score of 40 or above are considered highest risk for readmission. Where I Will be Going after Discharge: Home with Home Health My Condition at Discharge: Stable PRINCIPAL DIAGNOSIS: (Reason after study for this admission): Procedure(s): ROBOTIC ASSISTED TOTAL KNEE ARTHROPLASTY OTHER DIAGNOSES: Patient Active Hospital Problem List: No active hospital problems. OPERATIONS PERFORMED: Procedure(s): ROBOTIC ASSISTED TOTAL KNEE ARTHROPLASTY My Doctors and Medical Team: My Main Hospital Doctor: Brigid Will MD PHYSICAL EXAM: See daily progress note Vitals: BP 118/63 Pulse 68 Temp 36.8 ?C (98.2 ?F) (Axillary) Resp 18 SpO2 97% SUMMARY OF WHAT HAPPENED WHILE PATIENT WAS IN THE HOSPITAL: The patient was followed by Dr. Bailon in clinic for right knee osteoarthritis. It was determined the patient would benefit from right total knee arthroplasty. The procedure, its risks, benefits, and potential complications were discussed in detail prior to surgery. The patient conveyed understanding of all topics and consented to surgery. The patient was admitted to the hospital. Underwent an elective right total knee arthroplasty on 03/16/[address] Bailon. The patient tolerated the procedure well and was returned to the Post Anesthesia Care Unit in stable condition. Vital signs per PACU protocol. VTE risk assessment performed. O2 therapy monitored by Respiratory Therapy to include incentive spirometry, ADL, wound and support per physician order set postop protocol. PT and OT to evaluate and treat. IV antibiotics, antiemetics, Eliquis for DVT prophylaxis and pain medication were given. The patient progressed with physical therapy. Lab values and vital signs were monitored and remained stable. The incision remained clean, dry and intact. Thigh and calf are not swollen. No signs of DVT or infection. The patient progressed with physical therapy towards goal of safety and independence. Patient was determined safe for discharge to home with home health care on 03/17/2024. TREATMENT / WOUND CARE: If you have any concerns about your wound, please contact the office. Keep wound and incision area clean and dry. You may remove your dressing on POD #7-10 (7 to 10 days after surgery). If it remains drainage-free, you may leave the dressing off, keeping the wound open to air. If there is any drainage please contact the office You may not submerge the wound under standing water for 6 weeks time after surgery (i.e. no baths, no hot tubs, no swimming pools). Do not rub the wound, but rather pat dry. If you have non-absorbable sutures in place, these will be taken out on your 1st follow-up appointment. Observe the wound for signs of infection, including increased redness, swelling, or persistent drainage around the incision site. It is normal for your wound to be warmer immediately after surgery (even up to 4-6 weeks after surgery). If you begin to experience fevers, chills, night sweats, or flu-like symptoms and your wound shows signs concerning for woun (more content not included)... Normal [facility] 03-17-2024 [facility] Telephone ([facility]) LEILANI FARRAR ([id number]) 1955 F Date Time Provider Department 03/17/24 [facility] During your visit today, we recorded the following information about you: Aime Fajardo PSS 03/17/2024 10:27 AM Signed Date/Time: 03/17/2024 10:26 AM Spoke with Patient @ phone #: - Preferred # for contact: Have you received help from a home care company in the last 60 days? no Are you agreeable to [facility] services? Yes What address will we be seeing you at? [address] [facility] [address] Do you have any upcoming appointments or things we need to schedule around? No Do you have a teachable CG or can you manage your care independently? Yes spouse and sister in law will help patient at home Allergies As of Date: 03/17/2024 Noted Allergy Reaction BEE POLLEN 04/26/2018 10 - Anaphylaxis CORTISONE 04/26/2018 10 - Anaphylaxis NARCOTICS (OPIOIDS - MORPHINE LEO*09/17/2023 1 - Mental Status Change Comments: Can only tolerate vicodin NICKEL 09/17/2023 2 - Rash Comments: Nickel, bridger silver, some gold NSAIDS (NON-STEROIDAL ANTI-INFLAM*04/26/2018 7 - Swelling Comments: Tolerated Toradol 03/16/24 STEROIDS (BETAMETHASONE DIPROPION*04/26/2018 10 - Anaphylaxis STEROIDS (CORTICOSTEROIDS (GLUCOC*04/26/2018 10 - Anaphylaxis STEROIDS (DEXAMETHASONE PHOS-LIDO*04/26/2018 10 - Anaphylaxis WASPS 12/12/2016 12 - Shortness of Breath Date Reviewed: 03/17/2024 Reviewed by: Laura Lai, RN - Fully Assessed Reason for Visit: Home Care [4073] Cmt: Confirmation Call Prescriptions as of 03/17/2024 - acetaminophen (TYLENOL) 500 mg tablet Take 2 tablets by mouth every 8 hours as needed for pain. - apixaban (ELIQUIS) 2.5 mg tab(s) Take 1 tablet by mouth two times a day. - ascorbic acid, vitamin C, (VITAMIN C) 500 mg tablet Take 1 tablet by mouth two times a day with meals for 27 doses. - docusate sodium (COLACE) 100 mg capsule Take 1 capsule by mouth two times a day as needed for constipation. - traMADol (ULTRAM) 50 mg tablet Take 1-2 tablets by mouth every 6 hours as needed for pain for up to 7 days. - polyethylene glycol 3350 (MIRALAX) 17 gram/dose powder Take 17 g by mouth once daily as needed for constipation for up to 10 days. Dissolve dose in 4 - 8 ounces of liquid and take as directed. - hydrOXYzine HCl (ATARAX) 10 mg tablet TAKE 1 TABLET BY MOUTH 3 TO 4 times DAILY NEEDED for anxiety - levothyroxine (SYNTHROID) 112 mcg tablet Take 112 mcg by mouth daily before breakfast. Facility-Administered Medications as of 03/17/2024 - hydrOXYzine HCl 10 mg tab(s) (ATARAX) - acetaminophen 1,000 mg tab(s) (TYLENOL) - ondansetron orally disintegrating 4 mg tab(s) (ZOFRAN ODT) - ondansetron (PF) 4 mg injection (ZOFRAN) - magnesium hydroxide 400 mg/5 mL 30 mL (MOM) - bisacodyl EC 10 mg tab(s) (DULCOLAX) - aluminum-magnesium hydroxide-simethicone 200-200-20 mg/5 mL 30 mL - ascorbic acid (vitamin C) 500 mg tab(s) (VITAMIN C) - docusate sodium 100 mg cap(s) (COLACE) - senna 17.2 mg tab(s) (SENOKOT) - apixaban 2.5 mg tab(s) (ELIQUIS) - lactated ringers iv infusion - HYDROmorphone 0.4 mg injection (DILAUDID) - keTORolac 15 mg injection (Toradol) - traMADol 50-100 mg tab(s) (ULTRAM) Problem List As Of Date 03/17/2024 Noted Resolved Primary osteoarthritis of right knee [M17.11] 08/02/2022 Hyperlipidemia [E78.5] 02/24/2024 Hypothyroidism [E03.9] 12/11/2023 Postoperative hypothyroidism [E89.0] 02/24/2024 Cigarette nicotine dependence [F17.210] 02/25/2024 Elevated BP without diagnosis of hypertension [*02/25/2024 S/P total knee arthroplasty, right [Z96.651] 03/17/2024 Encounter Status:Closed by AIME FAJARDO on 03/17/24 [facility] CONSULT PROGon 03-17-2024 CONSULT PROG HNO ID: [id number] Author: NAYANA PEÑA MD Service: General Internal Medicine Author Type: Physician Type: Consult Progress Note Filed: 03/17/2024 09:42 Note Text: INTERNAL MEDICINE CONSULT PROGRESS NOTE Subjective INTERVAL HPI: Feels better No nausea, fever Pain controlled MEDICATIONS: Reviewed Current Facility-Administered Medications Medication Dose Route Frequency hydrOXYzine HCl 10 mg tab(s) (ATARAX) 10 mg ORAL q 6 H PRN acetaminophen 1,000 mg tab(s) (TYLENOL) 1,000 mg ORAL q 8 H ondansetron orally disintegrating 4 mg tab(s) (ZOFRAN ODT) 4 mg ORAL q 6 H PRN Or ondansetron (PF) 4 mg injection (ZOFRAN) 4 mg INTRAVENOUS q 6 H PRN magnesium hydroxide 400 mg/5 mL 30 mL (MOM) 30 mL ORAL DAILY PRN [START ON 03/18/2024] bisacodyl EC 10 mg tab(s) (DULCOLAX) 10 mg ORAL DAILY aluminum-magnesium hydroxide-simethicone 200-200-20 mg/5 mL 30 mL 30 mL ORAL q 2 H PRN ascorbic acid (vitamin C) 500 mg tab(s) (VITAMIN C) 500 mg ORAL BID w MEALS docusate sodium 100 mg cap(s) (COLACE) 100 mg ORAL BID senna 17.2 mg tab(s) (SENOKOT) 17.2 mg ORAL AT BEDTIME apixaban 2.5 mg tab(s) (ELIQUIS) 2.5 mg ORAL BID lactated ringers iv infusion 100 mL/hr INTRAVENOUS CONTINUOUS HYDROmorphone 0.4 mg injection (DILAUDID) 0.4 mg INTRAVENOUS q 3 H PRN keTORolac 15 mg injection (Toradol) 15 mg INTRAVENOUS q 6 H PRN traMADol 50-100 mg tab(s) (ULTRAM) 50-100 mg ORAL q 6 H PRN Objective PHYSICAL EXAM: BP 118/63 Pulse 68 Temp (Src) 98.2 (Axillary) Resp 18 SpO2 97% O2 Therapy: Room Air Physical Exam Performed: LUNGS: Lungs clear to auscultation, Good diaphragmatic excursion CARDIAC: Normal S1 and S2; no rubs, murmurs, or gallops ABDOMEN: Abdomen soft, non-tender, BS normal, No masses or organomegaly EXTREMITIES: Extremities normal, no deformities, edema, clubbing or skin discoloration. Good capillary refill., No ulcers WOUND: Clean, dry and intact DATA: Diagnostic tests reviewed for today's visit: Most recent labs Impression/Recommendat ions Active Problems: OA knee s/p R TKR Nicotine dependence Hyperlipidemia Hypothyroidism PLAN: Pain control PT/OT DVT prophylaxis Resume home meds Monitor clinically Medically ready for discharge Patient and RN SIGNATURE: Nayana Peña MD PATIENT NAME: Leilani Farrar DATE: March 17, 2024 TIME: 9:40 AM [facility] THERAPY NTon 03-17-2024 THERAPY NT HNO ID: [id number] Author: ROLAN KHAN PTA Service: Physical Therapy Author Type: Drilling Engineering Manager Type: Therapy (PT/OT/Speech/Resp) Filed: 03/17/2024 08:20 Note Text: Attestation signed by Maya Hong PT at 03/17/2024 4:27 PM I reviewed and agree with the documentation corresponding to this therapy visit. SIGNATURE: MAYA HONG, PT DATE: March 17, 2024 TIME: 4:27 PM Physical Therapy Treatment Summary SERVICE DATE: 03/17/2024 SERVICE TIME: 723 to 746 ROOM: [id number] PT 6 Clicks Score: 23 Total Joint Replacement Discharge Readiness: Cleared from Physical Therapy DISCHARGE RECOMMENDATIONS Home PT Recommended Discharge Disposition Comments: to ensure safety with all mobility in home setting, functional progression of ROM and strengthening post- R TKA Recommended Discharge Equipment: No equipment needs anticipated ASSESSMENT Response to Therapy Interventions: Good Participation in Activities, Improved Tolerance for Activity, On-Track to Achieve Discharge Goals, Pain Patient successfully able to progress ambulation distance and initiate stair training with no adverse effects. Patient slightly impulsive and requires no more than SBA-CGA with all functional mobility and gait training. Patient is safe for DC home. PRECAUTIONS Fall Risk, Lines/Tubes/Drains, Weight Bearing Restrictions, Total Knee Replacement, Other: See Comments, Impulsive with Activity standard Right Lower Extremity Weight Bearing Status: WBAT CURRENT HOSPITAL COURSE Pt admitted for primary OA of R knee, s/p robotic assisted R TKA Relevant Past Medical History: corneal abrasion, myopia, thyroid disease HOME LIVING Patient Lives With: Spouse Assistance Available: 24-Hour (between spouse and sister in law (spouse retired)) Entry To Home: Stairs, With Rail Number Of Stairs Into Home: 5 (2 railings, can reach and utilize simultaneously) Number Of Stairs To Bed/Bath: 0 Tub/Shower Type: walk in shower on main level, + grab bars and hand held shower Laundry: main level, spouse can assist as needed Equipment Owned: Grab Bars- Shower, Hand Held Shower, Cane, Crutch(es), Walker- Wheeled, Commode- 3 in 1 PRIOR FUNCTIONAL LEVEL Within Functional Limits 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 Ok per RN. THERAPY DIAGNOSIS Reduced mobility-other TREATMENT INTERVENTIONS Therapeutic Exercise (15468), Therapeutic Activity (80474), Gait Training (34355) Timed Code Treatment (minutes): 23 Skilled Treatment Time (minutes): 23 Therapeutic Exercise (53231) Treatment Minutes: 10 $ Therapeutic Exercise (38517) Billed Units: 1 unit Exercise Heel Slides (number of reps): x10 on surgical leg LAQ (number of reps): x10 on surgical leg Exercise: Reviewed HEP, patient verbalizes understanding Therapeutic Activity (36407) Treatment Minutes: 3 $ Therapeutic Activity (75266) Billed Units: 0 units Gait Training (89222) Treatment Minutes: 10 $ Gait Training (73004) Billed Units: 1 unit TRAINING AND EDUCATION PROVIDED Advanced Balance Activities, Anatomy and Impact on Deficits, Assistive Device Use, Bed Mobility, Benefits of In-Hospital Mobility, Car Transfers, Discharge Planning, Equipment, Exercise Program, Expected Functional Level, Falls Prevention, Gait Pattern, Reduction of Deviations, Handout Issued, Home Set-up/Modifications, Home Safety, Positioning, Patient Exercise/Therapy Program Support Needs, Role of Physical Therapy, Stair Navigation, Standing Balance THERAPEUTIC SKILLS USED Activity Dosing, Cues for Sequencing/Proper Technique for Activity, Cuing Tactile, Facilitation of Joint Range of Motion, Movement Facilitation, Muscle Activation Facilitation, Physical Assist, Postural Alignment Correction FUNCTIONAL STATUS Bed Mobility Supine To Sit: Contact Guard Assistance HOB flat, no use of rails Sit to Supine: Additional Information Patietn in bed side chair at end of treatment Scooting: Stand By Assistance in sitting forward to EOB Transfers Sit To Stand: Stand By Assistance x1 trial from chair Stand To Sit: Stand By Assistance Cues for safe approach, vinson dplacement and controlled/eccentric Bed to Chair Gait Stand By Assistance Step-to gait, cues for upright posture, safety. Patient noted to be slightly impulsive Gait Device: Wheeled Walker General Deviations/Observation s: Rekha decreased, Step length decreased Gait Distance (feet): 70'x1 Gait Deviations Right Lower Extremity: Foot clearance decreased, Heel strike during i (more content not included)... [facility] THERAPY NT HNO ID: [id number] Author: GISSELLE MCKEON OT/L Service: ? Author Type: Occupational Therapist Type: Therapy (PT/OT/Speech/Resp) Filed: 03/17/2024 08:44 Note Text: Summary: OT Evaluation Occupational Therapy Evaluation Summary SERVICE DATE: 03/17/2024 SERVICE TIME: 4 to 08 ROOM: [place] [address] OT 6 Clicks Score: 21 Total Joint Replacement Discharge Readiness: Cleared from Occupational Therapy DISCHARGE RECOMMENDATIONS Home Anticipated Discharge Needs: Supervision at Home, Physical Assist at Home Physical Assist at Home for: Cleaning, Laundry, Meals, Self Care, Shopping, Transportation Supervision at Home due to: Decreased safety awareness Recommended Discharge Equipment: Shower Chair, Patient to Obtain ASSESSMENT Response to Therapy Interventions: Good Participation in Activities, On-Track to Achieve Discharge Goals, Pain OT provided patient with total knee handout and educated on use of DME, pt is intermittently impulsive throughout session requiring cueing/re-instruction to maintain safety/precautions throughout, pt reports no quesions/concerns for d/c home, pain well-controlled PRECAUTIONS Fall Risk, Lines/Tubes/Drains, Weight Bearing Restrictions, Total Knee Replacement, Other: See Comments, Impulsive with Activity standard Right Lower Extremity Weight Bearing Status: WBAT CURRENT HOSPITAL COURSE Pt admitted for primary OA of R knee, s/p robotic assisted R TKA Relevant Past Medical History: corneal abrasion, myopia, thyroid disease HOME LIVING Patient Lives With: Spouse Assistance Available: 24-Hour (between spouse and sister in law (spouse retired)) Entry To Home: Stairs, With Rail Number Of Stairs Into Home: 5 (2 railings, can reach and utilize simultaneously) Number Of Stairs To Bed/Bath: 0 Tub/Shower Type: walk in shower on main level, + grab bars and hand held shower Laundry: main level, spouse can assist as needed Equipment Owned: Grab Bars- Shower, Hand Held Shower, Cane, Crutch(es), Walker- Wheeled, Commode- 3 in 1 PRIOR FUNCTIONAL LEVEL Within Functional Limits GUM REMOVER pt reports indep with amb without device, was however wearing a hinged knee brace for support due to instability and pain from R TKA OA; indep with ADLs, IADLs, + driving, sleeps in regular flat bed, retired, denies any falls in the past 6 months Baseline Cognition: Oriented to self, Oriented to time, Oriented to place, Oriented to situation SUBJECTIVE RN cleared to work with, patient pleasant and agreeable to this session COGNITION Responsiveness: Alert, Awake Follows Commands: 2-step Commands, Cueing Needed Cueing to Follow Commands: Minimum Executive Function Deficits: Safety Awareness, Insight to Deficits THERAPY DIAGNOSIS Reduced mobility-other, Decreased activities of daily living (ADL), Muscle Weakness (generalized) TREATMENT INTERVENTIONS Evaluation Skilled Treatment Time (minutes): 19 TRAINING AND EDUCATION PROVIDED Activity Adaptation/Dietary Cook y Strategies, Adaptive Equipment/DME, Benefits of In-Hospital Mobility, Bed Mobility, Command Following, Discharge Planning, Expected Functional Level, Functional Mobility Involving ADLs, Grooming Tasks, Insight into Deficits, Lower Extremity Bathing, Lower Extremity Dressing, Memory/Attention, Positioning, Precautions/Restrictio ns, Role of Occupational Therapy, Safety/Judgment, Pain Management, Sitting Balance to Improve [place] with ADLs/Self-Care, Standing Balance to Improve [place] with ADLs/Self-Care, Toileting , Transfer - Sit to Stand, Transfer - Toilet/Commode, Upper Extremity Dressing THERAPEUTIC SKILLS USED Activity Dosing, Cues for Sequencing/Proper Technique for Activity, Cuing Tactile, Cuing Verbal, Cuing Visual, Facilitation of Joint Range of Motion, Movement Facilitation, Muscle Activation Facilitation, Physical Assist, Task Analysis Learning, Teach-Back for Education, Therapeutic Use of Self FUNCTIONAL STATUS Activities of Daily Living Assist Level Additional Information Feeding Independent Grooming Contact Guard Assistance, Additional Information standing at the sink/counter Bathing Upper Body Stand By Assistance Bathing Lower Body Contact Guard Assistance Dressing Upper Body Stand By Assistance Dressing Lower Body Contact Guard Assistance Toileting Stand By Assistance Mobility Assist Level Additional Information Bed Mobility Supine To Sit: Additional Information Pt sitting in the chair upon OT arrival Sit To Supine: Additional Information Pt sitting in the chair upon OT departure Sit to Stand Contact Guard Assistance, Additional Information From chair and commode to FWW level, pt is impulsive with activity, requires cueing for positioning within walker and pushing off of stable surfaces Stand (more content not included)... [facility] POSTPROC EVAL HNO ID: [id number] Author: ALIDA NELSON MD Service: Anesthesiology Author Type: Anesthesiologist Type: Anesthesia Postprocedure Evaluation Filed: 03/16/2024 14:21 Note Text: POST ANESTHESIA EVALUATION NOTE : 1955 Procedure Summary Date: 03/16/24 Room / Location: [place] OR04 / [place] Anesthesia Start: 1045 Anesthesia Stop: 1302 Procedure: ROBOTIC ASSISTED TOTAL KNEE ARTHROPLASTY (Right: Knee) Diagnosis: Primary osteoarthritis of right knee (Primary osteoarthritis of right knee [M17.11]) Surgeons: Brigid Bailon MD Responsible Provider: Alida Nelson MD Anesthesia Type: general, regional ASA Status: 3 Anesthesia Type: general, regional Airway Type: LMA Last Vitals Vitals Value Taken Time BP 165/87 03/16/24 1415 Temp 36.7 ?C (98.1 ?F) 03/16/24 1300 Pulse 69 03/16/24 1420 Resp 18 03/16/24 1420 SpO2 100 % 03/16/24 1420 Vitals shown include unfiled device data. Post Anesthesia Patient Status Patient Evaluation: PACU. PACU/ICU Patient Condition: stable. Anticipated Disposition: inpatient floor planned admission. Neurological Status: aware and responsive. Pulmonary Status: breathing comfortably on room air Airway Control: returned to baseline unsupported. Cardiovascular Status: stable. Pain Management: clinically adequate - multimodal analgesia pain management approach Postoperative Hydration: acceptable. Intraoperative Events: no significant anesthesia events Post Operative Nausea/Vomiting Status: no significant post operative nausea or vomiting Recommendation: continue current plan of care and further care per PACU/ICU/floor team. Anesthesia Observations No Documentation SIGNATURE: Alida Nelson MD PATIENT NAME: Leilani Farrar DATE: March 16, 2024 TIME: 2:21 PM CSN: [id number] [facility] ANES PRE-OPon 03-16-2024 ANES PRE-OP HNO ID: [id number] Author: ALIDA NELSON MD Service: Anesthesiology Author Type: Anesthesiologist Type: Anesthesia Preprocedure Evaluation Filed: 03/16/2024 09:31 Note Text: ANESTHESIOLOGY DAY OF SURGERY NOTE : 1955 Procedure Information Date/Time: 03/16/24 1015 Procedure: ROBOTIC ASSISTED TOTAL KNEE ARTHROPLASTY (Right: Knee) Location: [place] OR04 / [place] OR Surgeons: Brigid Bailon MD Estimated body mass index is 25.39 kg/m? as calculated from the following: Height as of 02/25/24: 165.1 cm (5' 5). Weight as of 02/25/24: 69.2 kg (152 lb 8.9 oz). Most recent hematocrit and potassium results: Hematocrit 45.4 02/25/2024 Potassium 5.2 02/25/2024 Relevant Problems No relevant active problems I - PHYSICAL EVALUATION AIRWAY Patient intubated: No. Tracheostomy tube not present Mallampati: II. TM distance: >3 FB. Neck ROM: full ROM without neurological symptoms. Mouth opening: adequate. Short neck: no. Thick neck: no DENTAL Dental findings: teeth intact. Additional exam findings: no II - ANESTHESIA PLAN ASA Score: 3 Anesthetic Plan: general and regional Airway type: LMA The patient is a current smoker. NPO Status: adequate Anesthetic plan additional comments: She refuses spinal and after several surgeries her BP drops to 50 and she only responds when she actually gets up . Plan intra-op ketamine and IM ephedrine if needed. Beta Remigio Monitoring Plan Monitoring plan: Standard ASA. Post Procedure Analgesic Plan Postoperative analgesic plan: parenteral or oral opioids, peripheral nerve block and multimodal analgesia. Informed Consent Anesthetic risks, benefits, alternatives and personnel discussed. Consent obtained from: patient. Anesthetic risks, benefits, alternatives, personnel and consent discussed: yes. Patient / Responsible [employer] Party agrees to proceed: yes Patient / Surrogate agrees to blood products: yes DNR status not reviewed with patient and/or family prior to surgery. Significant changes in the patient condition since the History and Physical, not otherwise documented in primary service progress note: no. Potential Anesthesia issues that may suggest increased risk of complications or contraindication to planned procedure: none. Vitals Value Taken Time BP 138/78 03/16/24 0853 Pulse 62 03/16/2428 Resp 35 03/16/24927 Temp 36 ?C (96.8 ?F) 03/16/24 0853 SpO2 100 % 03/16/2428 Vitals shown include unfiled device data. Facility-Administered Medications as of 03/16/2024 Medication Dose Route Frequency lactated ringers iv infusion 5-30 mL/hr INTRAVENOUS CONTINUOUS NaCl 0.9% iv flush bag 20 mL INTRAVENOUS PRN ceFAZolin iv piggyback 2 g in D5W (iso-osmotic) 100 mL (ANCEF) 2 g INTRAVENOUS Pre-Op Once tranexamic acid (CYKLOKAPRON) in NaCl 0.7% 1,000 mg 100 mL 1,000 mg INTRAVENOUS Pre-Op Once tranexamic acid (CYKLOKAPRON) in NaCl 0.7% 1,000 mg 100 mL 1,000 mg INTRAVENOUS ONCE [COMPLETED] acetaminophen 1,000 mg tab(s) (TYLENOL) 1,000 mg ORAL Pre-Op Once [COMPLETED] promethazine 12.5 mg tab(s) (PHENERGAN) 12.5 mg ORAL Pre-Op Once lactated ringers iv infusion 30 mL/hr INTRAVENOUS CONTINUOUS midazolam (PF) 2 mg injection (VERSED) 2 mg INTRAVENOUS ONCE Outpatient Medications as of 03/16/2024 Medication Sig hydrOXYzine HCl (ATARAX) 10 mg tablet TAKE 1 TABLET BY MOUTH 3 TO 4 times DAILY NEEDED for anxiety levothyroxine (SYNTHROID) 112 mcg tablet Take 112 mcg by mouth daily before breakfast. cyclobenzaprine (FLEXERIL) 10 mg tablet Take 1 tablet by mouth three times daily. (Patient not taking: Reported on 02/25/2024) Ibuprofen 200 mg cap Take by mouth every 6 hours as needed. (Patient not taking: Reported on 02/11/2024) I have interviewed and examined the patient. I have reviewed the medical record and/or the pre-anesthesia evaluation, pertinent labs, and test results. This contains updated information obtained within 48 hours of Surgery/Procedure. SIGNATURE: Alida Nelson MD PATIENT NAME: Leilani Farrar DATE: March 16, 2024 TIME: 9:30 AM CSN: [id number] [facility] BRIEF OP NOTon 03-16-2024 BRIEF OP NOT HNO ID: [id number] Author: BRIGID BAILON MD Service: Orthopaedic Surgery Author Type: Physician Type: Brief Op Note Filed: 03/16/2024 13:14 Note Text: TOTAL KNEE ARTHROPLASTY BRIEF OPERATIVE / PROCEDURE NOTE LOG ID: [id number] Surgery/Procedure Date: 03/16/2024 Incision/Procedure Start Time: 11:12 AM Incision Close/Procedure End Time: 12:50 PM Surgeon(s)/Procedurali st(s) and Line Dancer(s): Surgeons and Role: * Brigid Bailon MD - Primary Physician Line Dancer: Minerva Gr PA-C; Tin Null PA-C Procedure(s): Procedure(s) (LRB): ROBOTIC ASSISTED TOTAL KNEE ARTHROPLASTY (Right) Anesthesia: General Peripheral Block Type: Saphenous/Adductor Approach: Median parapatellar Findings: full thickness osteoarticular lateral compartment and patellofemoral joint 10 degree fixed valgus contracture Estimated Blood Loss: 30 mls Specimens: bone cuttings Complications: None Closure Technique: Primary Total Joint Arthroplasty (TJA) Surgical Risk Procedure: Primary total Knee replacement Date assessed: risk assessed on 02/11/2024 02/11/2024 TJA Risk Procedure Primary total Knee replacement Estimated Length of Stay (# of days) 1 Chance of NOT Returning Home at Discharge 6.81 30 Day Chance of Readmission 1.29 Implant: * No implants in log * Bearing Surface: Fixed Fixation: Cementless SSI Risk Factors: Previous surgery Constraint: Retaining Option for Deep [facility]/AP Constrained Other: None Pre-Op/Pre-Procedure Diagnosis: Primary osteoarthritis of right knee [M17.11] Post-Op/Post-Procedure Diagnosis: Primary osteoarthritis of right knee [M17.11] Weight Bearing Status: Weight Bearing As Tolerated Patient was accompanied to the next level of care by a licensed practitioner from the surgical team pending completion of this brief op note (or operative note) SIGNATURE: Brigid Bailon MD PATIENT NAME: Leilani Farrar DATE: March 16, 2024 TIME: 12:42 PM [facility] CONSULTon 03-16-2024 CONSULT HNO ID: [id number] Author: NAYANA PEÑA MD Service: General Internal Medicine Author Type: Physician Type: Consults Filed: 03/16/2024 16:51 Note Text: INTERNAL MEDICINE INITIAL CONSULT SERVICE DATE: 03/16/2024 SERVICE TIME: 4:48 PM REASON FOR CONSULT: Medical management REQUESTING PHYSICIAN: Brigid Bailon MD Subjective CHIEF COMPLAINT: Knee pain HPI: This is a 68 year old female who presents with knee pain for an elective R TKA that was done today. The post-op course so far has been uneventful. Pain is controlled. No nausea, vomiting, fever, difficulty breathing. PAST MEDICAL HISTORY No date: Astigmatism No date: Corneal abrasion, right No date: Myopia No date: Presbyopia of both eyes No date: Thyroid disease PAST SURGICAL HISTORY No date: ORTHOPEDICS SURGERY HX Comment: shoulder,knees,foot,ca rpal tunnel,trigger finger No date: THYROIDECTOMY FAMILY HISTORY Problem Relation Age of Onset Anesthesia Problems No Family History Social History Tobacco Use Smoking status: Every Day Current packs/day: 0.50 Average packs/day: 0.5 packs/day for 40.1 years (20.0 ttl pk-yrs) Types: Cigarettes Start date: 02/25/1984 Smokeless tobacco: Never Tobacco comments: 0.5 pack a day Substance Use Topics Alcohol use: No Comment: 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 , Disp: , Rfl: , 03/16/2024 cyclobenzaprine (FLEXERIL) 10 mg tablet, Take 1 tablet by mouth three times daily. (Patient not taking: Reported on 02/25/2024), Disp: 20 tablet, Rfl: 1, Unknown Ibuprofen 200 mg cap, Take by mouth every 6 hours as needed. (Patient not taking: Reported on 02/11/2024), Disp: , Rfl: , Unknown Current Facility-Administered Medications Medication Dose Route Frequency hydrOXYzine HCl 10 mg tab(s) (ATARAX) 10 mg ORAL q 6 H PRN acetaminophen 1,000 mg tab(s) (TYLENOL) 1,000 mg ORAL q 8 H ondansetron orally disintegrating 4 mg tab(s) (ZOFRAN ODT) 4 mg ORAL q 6 H PRN Or ondansetron (PF) 4 mg injection (ZOFRAN) 4 mg INTRAVENOUS q 6 H PRN [START ON 03/17/2024] magnesium hydroxide 400 mg/5 mL 30 mL (MOM) 30 mL ORAL DAILY PRN [START ON 03/18/2024] bisacodyl EC 10 mg tab(s) (DULCOLAX) 10 mg ORAL DAILY aluminum-magnesium hydroxide-simethicone 200-200-20 mg/5 mL 30 mL 30 mL ORAL q 2 H PRN [START ON 03/17/2024] ascorbic acid (vitamin C) 500 mg tab(s) (VITAMIN C) 500 mg ORAL BID w MEALS [START ON 03/17/2024] docusate sodium 100 mg cap(s) (COLACE) 100 mg ORAL BID senna 17.2 mg tab(s) (SENOKOT) 17.2 mg ORAL AT BEDTIME [START ON 03/17/2024] apixaban 2.5 mg tab(s) (ELIQUIS) 2.5 mg ORAL BID lactated ringers iv infusion 100 mL/hr INTRAVENOUS CONTINUOUS ceFAZolin iv piggyback 1 g in D5W (iso-osmotic) 50 mL (ANCEF) 1 g INTRAVENOUS q 8 HR HYDROmorphone 0.4 mg injection (DILAUDID) 0.4 mg INTRAVENOUS q 3 H PRN keTORolac 15 mg injection (Toradol) 15 mg INTRAVENOUS q 6 H PRN traMADol 50-100 mg tab(s) (ULTRAM) 50-100 mg ORAL q 6 H PRN . ALLERGIES Allergen Reactions Bee Pollen Anaphylaxis Cortisone Anaphylaxis Narcotics [Opioids * Mental Status Change Can only tolerate vicodin Nickel Rash Nickel, bridger silver, some gold Nsaids (Non-Steroid* Swelling Tolerated Toradol 03/16/24 Steroids [Betametha* Anaphylaxis Steroids [Corticost* Anaphylaxis Steroids [Dexametha* Anaphylaxis Wasps Shortness of Breath REVIEW OF SYSTEMS: All systems reviewed and negative except as noted above. Objective PHYSICAL EXAM: BP 131/69 Pulse 66 Temp (Src) 97.7 (Oral) Resp 16 SpO2 98% O2 Therapy: Room Air, Liters: 2 GENERAL: Alert, no distress, cooperative SKIN: Skin color, texture, turgor normal. No rashes or lesions. HEAD/SINUSES: No significant findings EYES: PERRLA, EOMI EARS: External ears normal, canals clear NOSE: Nares normal. Septum midline. OROPHARYNX: Lips, mucosa, and tongue normal. Teeth and gums normal. Oropharynx normal. NECK: No jugulovenous distention, No carotid bruits, Carotid pulse normal contour, Supple BACK: Back symmetric, Normal curvature, ROM normal, No CVAT. LUNGS: Lungs clear to auscultation, Good diaphragmatic excursion CARDIAC: Normal S1 and S2; no rubs, murmurs, or gallops ABDOMEN: Abdomen soft, non-tender, BS normal, No masses or organomegaly EXTREMITIES: Extremities normal, no deformities, edema, clubbing or skin discoloration. Good capillary refill., No ulcers NEURO: Cranial nerves II-XII intact PULSES: 2+ radial, 2+ carotid WOUND: Clean, dry and intact DATA: Diagnostic tests reviewed for today's visit: Most recent labs Most recent imaging Most recent EKG Impression/Recommendat ions Active Problems: OA knee s/p R TKR Nicotine dependence Hyperlipidemia Hypothyroidism PL (more content not included)... Normal [facility] Hematocrit Auto (Bld) [Volum e fraction]on 03-16-2024 Hematocrit (Bld) [Volume fraction] 40.3 % Normal 36.0-46.0 [facility] Comment on above: Order Comment: Madisoni osiris Type: BLOOD SPECIMENOrdering Facility: [facility] Address: [address] [place] [address] Performed By: #### 7 18-7, 4544-3 ####[facility]ORY[facility] [id number] [address] OF [place] Hgb Bld-mCncon 03-16-2024 Hemoglobin (Bld) [Mass/Vol] 13.7 g/dL Normal 11.5-15.5 [facility] Comment on above: Order Comment: Mariama newell Type: BLOOD SPECIMENOrdering Facility: [facility] Address: [address] [place] [address] Performed By: #### 7 18-7, 4544-3 ####[facility]ORYCLIA [id number] [place] [id number] [place] NURSING PROGon 03-16-2024 NURSING PROG HNO ID: [id number] Author: REED CANCHOLA, PATRIZIA Service: ? Author Type: Registered Nurse Type: Nursing Progress Note Filed: 03/16/2024 10:42 Note Text: Dr. nelson at bedside for Right adductor nerve block. RN at bedside, pt monitored throughout, BP 138/65 Pulse 60 Temp 36 ?C (96.8 ?F) (Temporal) Resp 28 SpO2 100% .Pt tolerated procedure without difficulty. Normal [facility] OPERATIVE NOon 03-16-2024 OPERATIVE NO HNO ID: [id number] Author: BRIGID BAILON MD Service: Orthopaedic Surgery Author Type: Physician Type: Operative Report Filed: 03/18/2024 13:43 Note Text: [facility] OPERATIVE REPORT PATIENT NAME: Leilani Farrar CSN: [id number] LOG ID: [id number] Surgery Date: 03/16/2024 Surgeon(s) and Line Dancer(s): Surgeons and Role: * Brigid Bailon MD - Primary- surgeon * Tin Null PA -[employer] Consultant No qualified orthopedic resident available. The PA was utilized for soft tissue retraction and to hold the limb in proper alignment to allow me to correctly implant the final arthroplasty components. BMI: Estimated body mass index is 25.39 kg/m? as calculated from the following: Height as of 02/25/24: 165.1 cm (5' 5). Weight as of 02/25/24: 69.2 kg (152 lb 8.9 oz). Procedure(s): Procedure(s) (LRB): ROBOTIC ASSISTED TOTAL KNEE ARTHROPLASTY (Right) Anesthesia: General Incision Start: 11:12 AM Incision Stop: 12:50 PM Attestation: I was present for all of the critical portions of the operation and performed all critical portions. The resident/fellow/PA assisted during exposure, implantation of the device, and deep closure. The PA /TANK WELDER performed the closure of the subcutaneous tissue and skin. I was scrubbed from skin incision through the closure of the extensor mechanism and was immediately available for the duration of the entire case. Preop Diagnosis: Pre-Op Diagnosis Codes: * Primary osteoarthritis of right knee [M17.11] Postop Diagnosis: Same as Pre-Op Diagnosis Codes: * Primary osteoarthritis of right knee [M17.11] Implants: Implant Name Type Inv. Item Serial No. Claim Investigator Lot No. LRB No. Used Action BASEPLATE TRIATHALON 4 TRITANIUM TIBIAL COATED STERILE KNEE - [id number] Joint - Knee BASEPLATE TRIATHALON 4 TRITANIUM TIBIAL COATED STERILE KNEE [facility] [id number] Right 1 Implanted COMPONENT TRIATHLON 4 PA FEMORAL CRUCIATE RETAIN BEAD KNEE RIGHT - [id number] Joint - Knee COMPONENT TRIATHLON 4 PA FEMORAL CRUCIATE RETAIN BEAD KNEE RIGHT [facility] [id number] Right 1 Implanted COMPONENT TRITANIUM 29MM METAL 9MM PATELLAR ASYMMETRIC KNEE - [id number] Joint - Knee COMPONENT TRITANIUM 29MM METAL 9MM PATELLAR ASYMMETRIC KNEE [facility] [id number] Right 1 Implanted INSERT TRIATHLON 4 12MM TIBIAL BEARING CONDYLAR STABILIZE STERILE KNEE - [id number] Joint - Knee INSERT TRIATHLON 4 12MM TIBIAL BEARING CONDYLAR STABILIZE STERILE KNEE [facility] [id number] Right 1 Implanted OPERATIVE INDICATIONS: The patient has a long history of progressive right knee pain, arthritis, and degeneration. Non-operative treatment has been attempted but has not improved or controlled the symptoms and pain that occurs during normal daily activities. Knee motion has also become limited and is restricting the patient. Total knee arthroplasty was recommended. The risks, benefits and potential complications of the arthroplasty surgery were discussed with the patient in detail. Specific details of the surgical procedure, hospitalization, recovery, rehabilitation, and long-term precautions were also presented. Pre-operative teaching was provided. Implant/prosthesis selection wasoutlined, and the many options available were explained; the final choice will be made at the time of the procedure to match the anatomy and condition of the bone, ligaments, tendons, and muscles. The patient was evaluated medically for pre-operative optimization, and risk assessment. Jenelle-operative blood management and the potential for blood transfusion were discussed with risks and options clearly outlined. Understanding of all topics was conveyed to me by the patient pre-operatively, and patient consent was given to proceed with the robotically assisted right total knee replacement. OPERATIVE PROCEDURE: The patient was identified and brought into the Operating Room by the anesthesia and nursing teams. Anesthesia was successfully performed. The patient was then positioned supine on the operating room table, and all bony prominences were padded. Intravenous antibiotic prophylaxis dosing was confirmed. A tourniquet was applied to the upper thigh. A full knee exam was done after anesthesia was in full effect. The patient had developed a valgus deformity in the knee from cartilage wear and bone loss. Flexion contracture was mild. The leg was prepped and draped in the usual sterile fashion. A surgical time-out was performed immediately preceding the incision with all personnel in the operating room; the patient identity was again confirmed, the correct knee surgical site and extremity were identified and confirmed, X-rays were reviewed, and availability of the appropriate surgical equipment was established. A surgical time-out was performed immediately preceding the incision with all personnel in the operating room; the patient identity was again confirmed, the [facility] (more content not included)... Normal [facility] SURGICAL PATHOLOGYon 024 CASE REPORT [facility] Comment on above: Order Comment: Madisoni osiris Type: TISSUE SPECIMENOrdering Facility: [facility] Address: [address] [place] [address] Result Comment: Surg ica Pathology Report Case: [id number] Authorizing Provider: Brigid Bailon MD Collected: 03/16/2024 09:11 AM Ordering Location: [facility] Surgery Received: 03/16/2024 01:51 PM Pathologist: Hilario Paredes MD Specimen: Knee, Right, Arthroplasty, right knee bone cuttings Performed By: #### S ####[facility] [id number] [address] [facility]FF[facility] [id number] [address] OF [place] CLINICAL HISTORY [facility] Comment on above: Order Comment: Mariama newell Type: TISSUE SPECIMENOrdering Facility: [facility] Address: [address] [place] [address] Result Comment: Pre- op diagnosis: Primary osteoarthritis of right knee [M17.11] Performed By: #### S ####[facility] [id number] [address] LABCLIA [id number] [address] FINAL DIAGNOSIS [facility] Comment on above: Order Comment: Mariama newell Type: TISSUE SPECIMENOrdering Facility: [facility] Address: [address] [place] [address] Result Comment: A. R ight knee, arthroplasty: - Degenerative joint disease. Performed By: #### S ####[facility] [id number] [address] [facility] [address]C[facility] LABCLIA [id number] [address] FINAL PERFORMING LAB Normal [facility] Comment on above: Order Comment: Mariama newell Type: TISSUE SPECIMENOrdering Facility: [facility] Address: [address] [place] [address] Result Comment: Diag nostic interpretation performed at [place] [address] CLIA# [id number] Supervisor Porcelain Department: Mac Donnelly M.D. Performed By: #### S ####[facility] LABORATORYCLIA [id number] [place] [id number] [facility] LABCLIA [id number] [address] GROSS DESCRIPTION [facility] Comment on above: Order Comment: Mariama newell Type: TISSUE SPECIMENOrdering Facility: [facility] Address: [address] [place] [address] Result Comment: Myles Cavazos roselyn, Right, Arthroplasty Received in formalin labeled right knee bone cuttings is a 8.7 x 6.9 x 3.5 cm aggregate of bone and cartilage. The identifiable tibail plateau and fragments consistent with femoral condyles display pitting on the articular surfaces. Eburnation is also identified on the articular surface of the tibial plateau. Pulp Machine Operator sections are submitted as follows: A1. Tibial plateau, after decalcification A2. Femoral condyles, after decalcification [place] [address] JXM 03/16/24 4:53 PM Performed By: #### S ####[facility]ITAL[facility] [id number] [place] [id number] [facility] LABCLIA [id number] [address] THERAPY NTon 03-16-2024 THERAPY NT HNO ID: [id number] Author: VALERIE CAMPOS, PT Service: Physical Therapy Author Type: Physical Therapist Type: Therapy (PT/OT/Speech/Resp) Filed: 03/16/2024 17:44 Note Text: Summary: PT evaluation Physical Therapy Evaluation Summary SERVICE DATE: 03/16/2024 SERVICE TIME: 1629 to 1715 ROOM: [place] [address] PT 6 Clicks Score: 19 Total Joint Replacement Discharge Readiness: Pending Physical Therapy Clearance DISCHARGE RECOMMENDATIONS Home PT Recommended Discharge Disposition Comments: to ensure safety with all mobility in home setting, functional progression of ROM and strengthening post- R TKA Recommended Discharge Equipment: No equipment needs anticipated ASSESSMENT Response to Therapy Interventions: Good Participation in Activities, Improved Tolerance for Activity, On-Track to Achieve Discharge Goals, Pain, Notable Progression with Functional Activities/Skills, Requires Additional Time to Complete Activities pt is pleasant and cooperative throughout, slight impulsive at times briefly, assist x 1 with FWW, appropriately follows cues overall throughout; overall reports tolerable R knee pain, denies lightheadedness/dizzin ess with vitals stable; family present initially for a period of time and supportive and attentive to pt needs PRECAUTIONS Fall Risk, Lines/Tubes/Drains, Weight Bearing Restrictions, Total Knee Replacement, Other: See Comments standard Right Lower Extremity Weight Bearing Status: WBAT CURRENT HOSPITAL COURSE Pt admitted for primary OA of R knee, s/p robotic assisted R TKA Relevant Past Medical History: corneal abrasion, myopia, thyroid disease HOME LIVING Patient Lives With: Spouse Assistance Available: 24-Hour (between spouse and sister in law (spouse retired)) Entry To Home: Stairs, With Rail Number Of Stairs Into Home: 5 (2 railings, can reach and utilize simultaneously) Number Of Stairs To Bed/Bath: 0 Tub/Shower Type: walk in shower on main level, + grab bars and hand held shower Laundry: main level, spouse can assist as needed Equipment Owned: Grab Bars- Shower, Hand Held Shower, Cane, Crutch(es), Walker- Wheeled, Commode- 3 in 1 PRIOR FUNCTIONAL LEVEL Within Functional Limits GUM REMOVER pt reports indep with amb without device, was however wearing a hinged knee brace for support due to instability and pain from R TKA OA; indep with ADLs, IADLs, + driving, sleeps in regular flat bed, retired, denies any falls in the past 6 months SUBJECTIVE Pt sitting up in bed eating dinner, pleasant and cooperative, no acute distress noted, reports 5/10 pain at rest, up to 8/10 with attempts for movement of R LE in supine position, described as cramping primarily R calf, ortho LIFE EDUCATOR aware per RN and feels is it related to limited mobility, described to improve with movement, cleared for PT THERAPY DIAGNOSIS Reduced mobility-other TREATMENT INTERVENTIONS Evaluation, Therapeutic Exercise (59412), Therapeutic Activity (52741), Gait Training (61973) Timed Code Treatment (minutes): 31 Skilled Treatment Time (minutes): 46 Completes 15 repetitions (unless otherwise indicated) of the following supine therapeutic exercises on R LE with assistance as indicated: ankle pumps ( B, no assistance), quad sets x 3-5 second hold with minimal tactile cues as well as cues to avoid ankle substitution, glut sets x 3-5 second hold, heel slides (AROM only, contact assistance), SAQs (minimal assistance), hip abduction with quad set (minimal assistance) , SLR with quad set (minimal assistance). verbal, visual and tactile cues throughout for technique, deep breathing/relaxation and for patient to assist as able throughout. Requires assistance as indicated secondary to recent surgery and functional weakness. Appropriately follows cues throughout. *Rest breaks provided throughout secondary to pain. Education to patient on benefits/rationale for exercises Skilled judgment was provided in selection of appropriate interventions. Issued to patient handout of total joint packet supine TKA exercises for post-acute stay with frequency, repetitions and techniques indicated. Education to patient on safe techniques and functional progression. Patient verbalizes understanding. Provided written instruction for home exercise program to facilitate proper performance and compliance. TRAINING AND EDUCATION PROVIDED Anatomy and Impact on Deficits, Assistive Device Use, Bed Mobility, Benefits of In-Hospital Mobility, Discharge Planning, Equipment, Exercise Program, Expected Functional Level, Falls Prevention, Gait Pattern, Reduction of Deviations, Handout Issued, Home Safety, Modalities, Precautions/Restrictio ns, Role of Physical Therapy, Standing Balance, Transfers, Stair Navigation, Treatment Protocol THERAPEUTIC SKILLS (more content not included)... [facility] XR KNEE 2V AP/LAT RTon 03-16 XR KNEE 2V AP/LAT RT * * *Final Report* * * DATE OF EXAM: Mar 16 2024 1:35PM MDX 5207 - XR KNEE 2V AP/LAT RT / PROCEDURE REASON: Post Operative Assessment * * * * Physician Interpretation * * * * EXAM(s): XR KNEE 2V AP/LAT RT..... HISTORY: 68 years old Clinical information: Post Operative Assessment POST OP LEFT KNEE TECHNIQUE: Images: XR KNEE 2V AP/LAT RT Comparison: 09/05/2023. RESULT: Findings: Interval placement of RIGHT total knee Arthroplasty. The components of the arthroplasty are in good alignment with respect to bones and each other. No fractures or dislocations are seen. * There is a tubular shaped structure projecting along the lateral aspect of the proximal fibula. I am uncertain what this represents. Clinical correlation IMPRESSION: 1. Findings as discussed in results portion of report 2. Tubular shaped structure projecting along the lateral aspect of the proximal tibia. Clinical correlation recommended Harbor Department Manager: LINDA Transcribe Date/Time: Mar 16 2024 1:51P Dictated by : EZIO MCKEON DO This examination was interpreted and the report reviewed and electronically signed by: EZIO MCKEON DO on Mar 18 2024 2:59PM EST [id number] [facility] Basic metabolic 2000 panelon 02-25-2024 Anion gap [Moles/Vol] 8 mmol/L 8 - 15 mmol/L [facility] Calcium [Mass/Vol] 9.7 mg/dL 8.5 - 10. 2 mg/dL [facility] Chloride [Moles/Vol] 103 mmol/L 98 - 10 7 mmol/L [facility] CO2 [Moles/Vol] 28 mmol/L 22 - 30 mmol/L [facility] Creatinine [Mass/Vol] 0.78 mg/dL 0.58 - 0.96 mg/dL [facility] GFR/1.73 sq M.predicted among non-blacks MDRD (S/P/Bld) [Vol rate/Area] 83 mL/min/{1.73_m2} - PINF [facility] Comment on above: Estimated Glomerular Filtration Rate (eGFR) is calculated using the 2020 CKD-EPI creatinine equation. This equation utilizes serum creatinine, sex, and age as parameters. The creatinine assay has traceable calibration to isotope dilution-mass spectrometry. Refer to KDIGO guidelines for clinical interpretation. In patients with unstable renal function, e.g. those with acute kidney injury, the eGFR may not accurately reflect actual GFR. Glucose [Mass/Vol] 103 mg/dL High 74 - 99 mg/dL [facility] Comment on above: The [place] Diab[employer] Association (ADA) provides guidance for cutoff values for fasting glucose and random glucose. The ADA defines fasting as no caloric intake for at least 8 hours. Fasting plasma glucose results between 100 to 125 mg/dL indicate increased risk for diabetes (prediabetes). Fasting plasma glucose results greater than or equal to 126 mg/dL meet the criteria for diagnosis of diabetes. In the absence of unequivocal hyperglycemia, results should be confirmed by repeat testing. In a patient with classic symptoms of hyperglycemia or hyperglycemic crisis, random plasma glucose results greater than or equal to 200 mg/dL meet the criteria for diagnosis of diabetes. Reference: Standards of Medical Care in Diabetes 2016, [place] [employer]. Diabetes Care. 2016.39(Suppl 1). Interpretation and review of laboratory results Abnormal [facility] Potassium [Moles/Vol] 5.2 mmol/L High 3.7 - 5.1 mmol/L [facility] Sodium [Moles/Vol] 139 mmol/L 136 - 144 mmol/L [facility] Urea nitrogen [Mass/Vol] 9 mg/dL 7 - 21 mg/dL [facility] Anion gap [Moles/Vol] 8 mmol/L Normal 8-15 [facility] Comment on above: Order Comment: Speci men Type: BLOOD SPECIMENOrdering Facility: [facility] Address: [address] [address] Performed By: #### 2 4321-2 ####[facility] LABORATORYCLIA [id number] [place] [address] [place] Calcium [Mass/Vol] 9.7 mg/dL Normal 8.5-10.2 [facility] Comment on above: Order Comment: Speci men Type: BLOOD SPECIMENOrdering Facility: [facility] Address: [facility] [place] [address] Performed By: #### 2 4321-2 ####NOLAN LABORATORYCLIA [id number] [place] [address] [facility] [place] Chloride [Moles/Vol] 103 mmol/L Normal 98-107 [facility] Comment on above: Order Comment: Speci men Type: BLOOD SPECIMENOrdering Facility: [facility] Address: [address] [place] [address] Performed By: #### 2 4321-2 ####NOLAN LABORATORYCLIA [id number] [place] [address] [place] CO2 [Moles/Vol] 28 mmol/L Normal 22-30 [facility] Comment on above: Order Comment: Speci men Type: BLOOD SPECIMENOrdering Facility: [facility] Address: [address] [place] [address] Performed By: #### 2 4321-2 ####NOLAN LABORATORYCLIA [id number] [address] STATES [place] Creatinine [Mass/Vol] 0.78 mg/dL Normal 0.58-0.96 [facility] Comment on above: Order Comment: Speci men Type: BLOOD SPECIMENOrdering Facility: [facility] Address: [address] [place] [address] Performed By: #### 2 4321-2 ####NOLAN LABORATORYCLIA [id number] [address] Creatinine and Glomerular filtration rate.predicted panel (S/P/Bld) 83 mL/min/1.73m??? Normal >=60 [facility] Comment on above: Order Comment: Speci men Type: BLOOD SPECIMENOrdering Facility: [facility] Address: [address] [place] [address] Result Comment: Marie mated Glomerular Filtration Rate (eGFR) is calculated using the 2020 CKD-EPI creatinine equation. This equation utilizes serum creatinine, sex, and age as parameters. The creatinine assay has traceable calibration to isotope dilution-mass spectrometry. Refer to KDIGO guidelines for clinical interpretation. In patients with unstable renal function, e.g. those with acute kidney injury, the eGFR may not accurately reflect actual GFR. Performed By: #### 2 4321-2 ####NOLAN LABORATORYCLIA [id number] [place] [address] [place] Glucose [Mass/Vol] 103 mg/dL High 74-99 [facility] Comment on above: Order Comment: Mariama newell Type: BLOOD SPECIMENOrdering Facility: [facility] Address: [address] [place] [address] Result Comment: The [place] Diabetes Association (ADA) provides guidance for cutoff values for fasting glucose and random glucose. The ADA defines fasting as no caloric intake for at least 8 hours. Fasting plasma glucose results between 100 to 125 mg/dL indicate increased risk for diabetes (prediabetes). Fasting plasma glucose results greater than or equal to 126 mg/dL meet the criteria for diagnosis of diabetes. In the absence of unequivocal hyperglycemia, results should be confirmed by repeat testing. In a patient with classic symptoms of hyperglycemia or hyperglycemic crisis, random plasma glucose results greater than or equal to 200 mg/dL meet the criteria for diagnosis of diabetes. Reference: Standards of Medical Care in Diabetes 2016, [place] Diabetes [employer]. Diabetes Care. 2016.39(Suppl 1). Performed By: #### 2 4321-2 ####NOLAN LABORATORYCLIA [id number] [place] [address] [place] Potassium [Moles/Vol] 5.2 mmol/L High 3.7-5.1 [facility] Comment on above: Order Comment: Mariama newell Type: BLOOD SPECIMENOrdering Facility: [facility] Address: [address] [id number] Performed By: #### 2 4321-2 ####NOLAN LABORATORYCLIA [id number] [place] [address] [place] Sodium [Moles/Vol] 139 mmol/L Normal 136-144 [facility] Comment on above: Order Comment: Mariama newell Type: BLOOD SPECIMENOrdering Facility: [facility] Address: [address] [place] [address] Performed By: #### 2 4321-2 ####FULT[facility] LABORATORYCLIA [id number] [address] STATES [facility] Urea nitrogen [Mass/Vol] 9 mg/dL Normal - [facility] Comment on above: Order Comment: Speci men Type: BLOOD SPECIMENOrdering Facility: [facility] Address: [address] [place] [address] Performed By: #### 2 4321-2 ####FULTONDALE LABORATORYCLIA [id number] [address] STATES OF [facility] CBC W Auto Differential pane l (Bld)on 02-25-2024 Basophils (Bld) [#/Vol] 0.06 10*3/uL [facility] Basophils/100 WBC (Bld) 1.0 % [facility] Differential cell count method Nom (Bld) Auto [facility] Eosinophils (Bld) [#/Vol] 0.17 10*3/uL [facility] Eosinophils/100 WBC (Bld) 2.9 % [facility] Erythrocyte distribution width (RBC) [Ratio] 13.2 % 11.5 - 15.0 % [facility] Hematocrit (Bld) [Volume fraction] 45.4 % 36.0 - 46.0 % [facility] Hemoglobin (Bld) [Mass/Vol] 15.5 g/dL 11.5 - 15.5 g/dL [facility] Immature granulocytes (Bld) [#/Vol] [facility] Immature granulocytes/100 WBC (Bld) 0.2 % [facility] Lymphocytes (Bld) [#/Vol] 2.03 10*3/uL [facility] Lymphocytes/100 WBC (Bld) 35.2 % [facility] MCH (RBC) [Entitic mass] 31.8 pg 26.0 - 34.0 pg [facility] MCHC (RBC) [Mass/Vol] 34.1 g/dL 30.5 - 36.0 g/dL [facility] MCV (RBC) [Entitic vol] 93.0 fL 80.0 - 100.0 fL [facility] Monocytes (Bld) [#/Vol] 0.31 10*3/uL [facility] Monocytes/100 WBC (Bld) 5.4 % [facility] Neutrophils (Bld) [#/Vol] 3.19 10*3/uL [facility] Neutrophils/100 WBC (Bld) 55.3 % [facility] Nucleated RBC (Bld) [#/Vol] NINF [facility] Nucleated RBC/100 WBC (Bld) [Ratio] 0.0 % /100 WBC [facility] Platelet mean volume (Bld) [Entitic vol] 11.9 fL 9.0 - 12.7 fL [facility] Platelets (Bld) [#/Vol] 252 10*3/uL [facility] RBC (Bld) [#/Vol] 4.88 10*6/uL 3.90 - 5.2 0 m/uL [facility] WBC (Bld) [#/Vol] 5.77 10*3/uL [facility] Basophils (Bld) [#/Vol] 0.06 10*3/uL Normal <0.11 [facility] Comment on above: Order Comment: Speci men Type: BLOOD SPECIMENOrdering Facility: [facility] Address: [address] [place] [address] Performed By: #### 5 7021-8 ####NOLAN LABORATORYCLIA [id number] [place] [address] [place] Basophils/100 WBC (Bld) 1.0 % Normal [facility] Comment on above: Order Comment: Speci men Type: BLOOD SPECIMENOrdering Facility: [facility] Address: [address] [place] [address] Performed By: #### 5 7021-8 ####NOLAN LABORATORYCLIA [id number] [place] [address] [place] Differential cell count method Nom (Bld) Auto Normal [facility] Comment on above: Order Comment: Speci men Type: BLOOD SPECIMENOrdering Facility: [facility] Address: [address] [place] [address] Performed By: #### 5 7021-8 ####NOLAN LABORATORYCLIA [id number] [place] [address] [place] Eosinophils (Bld) [#/Vol] 0.17 10*3/uL Normal <0.46 [facility] Comment on above: Order Comment: Speci men Type: BLOOD SPECIMENOrdering Facility: [facility] Address: [address] [place] [address] Performed By: #### 5 7021-8 ####NOLAN LABORATORYCLIA [id number] [place] [address] [place] Eosinophils/100 WBC (Bld) 2.9 % Normal [facility] Comment on above: Order Comment: Speci men Type: BLOOD SPECIMENOrdering Facility: [facility] Address: [address] [place] [address] Performed By: #### 5 7021-8 ####NOLAN LABORATORYCLIA [id number] [address] [place] Erythrocyte distribution width (RBC) [Ratio] 13.2 % Normal 11.5-15.0 [facility] Comment on above: Order Comment: Speci men Type: BLOOD SPECIMENOrdering Facility: [facility] Address: [address] [place] [address] Performed By: #### 5 7021-8 ####NOLAN LABORATORYCLIA [id number] [address] [place] Hematocrit (Bld) [Volume fraction] 45.4 % Normal 36.0-46.0 [facility] Comment on above: Order Comment: Speci men Type: BLOOD SPECIMENOrdering Facility: [facility] Address: [address] [place] [address] Performed By: #### 5 7021-8 ####NOLAN LABORATORYCLIA [id number] [place] [address] [place] Hemoglobin (Bld) [Mass/Vol] 15.5 g/dL Normal 11.5-15.5 [facility] Comment on above: Order Comment: Speci men Type: BLOOD SPECIMENOrdering Facility: [facility] Address: [address] [place] [address] Performed By: #### 5 7021-8 ####NOLAN LABORATORYCLIA [id number] [address] OF [place] Immature granulocytes (Bld) [#/Vol] 10*3/uL Normal <0.10 [facility] Comment on above: Order Comment: Speci men Type: BLOOD SPECIMENOrdering Facility: [facility] Address: [address] [place] [address] Performed By: #### 5 7021-8 ####NOLAN LABORATORYCLIA [id number] [address] Immature granulocytes/100 WBC (Bld) 0.2 % Normal [facility] Comment on above: Order Comment: Speci men Type: BLOOD SPECIMENOrdering Facility: [facility] Address: [address] [place] [address] Performed By: #### 5 7021-8 ####NOLAN LABORATORYCLIA [id number] [address] [place] Lymphocytes (Bld) [#/Vol] 2.03 10*3/uL Normal 1.00-4.00 [facility] Comment on above: Order Comment: Speci men Type: BLOOD SPECIMENOrdering Facility: [facility] Address: [address] [place] [address] Performed By: #### 5 7021-8 ####NOLAN LABORATORYCLIA [id number] [address] Lymphocytes/100 WBC (Bld) 35.2 % Normal [facility] Comment on above: Order Comment: Speci men Type: BLOOD SPECIMENOrdering Facility: [facility] Address: [address] [place] [address] Performed By: #### 5 7021-8 ####NOLAN LABORATORYCLIA [id number] [address] STATES [facility] MCH (RBC) [Entitic mass] 31.8 pg Normal 26.0-34.0 [facility] Comment on above: Order Comment: Speci men Type: BLOOD SPECIMENOrdering Facility: [facility] Address: [address] [place] [address] Performed By: #### 5 7021-8 ####NOLAN LABORATORYCLIA [id number] [address] MCHC (RBC) [Mass/Vol] 34.1 g/dL Normal 30.5-36.0 [facility] Comment on above: Order Comment: Speci men Type: BLOOD SPECIMENOrdering Facility: [facility] Address: [address] [place] [address] Performed By: #### 5 7021-8 ####NOLAN LABORATORYCLIA [id number] [place] [address] [place] MCV (RBC) [Entitic vol] 93.0 fL Normal 80.0-100.0 [facility] Comment on above: Order Comment: Speci men Type: BLOOD SPECIMENOrdering Facility: [facility] Address: [address] [place] [address] Performed By: #### 5 7021-8 ####NOLAN LABORATORYCLIA [id number] [place] [address] [place] Monocytes (Bld) [#/Vol] 0.31 10*3/uL Normal <0.87 [facility] Comment on above: Order Comment: Speci men Type: BLOOD SPECIMENOrdering Facility: [facility] Address: [address] [place] [address] Performed By: #### 5 7021-8 ####NOLAN LABORATORYCLIA [id number] [place] [address] [place] Monocytes/100 WBC (Bld) 5.4 % Normal [facility] Comment on above: Order Comment: Speci men Type: BLOOD SPECIMENOrdering Facility: [facility] Address: [address] [place] [address] Performed By: #### 5 7021-8 ####NOLAN LABORATORYCLIA [id number] [place] [address] [place] Neutrophils (Bld) [#/Vol] 3.19 10*3/uL Normal 1.45-7.50 [facility] Comment on above: Order Comment: Speci men Type: BLOOD SPECIMENOrdering Facility: [facility] Address: [address] [place] [address] Performed By: #### 5 7021-8 ####NOLAN LABORATORYCLIA [id number] [place] [address] [place] Neutrophils/100 WBC (Bld) 55.3 % Normal [facility] Comment on above: Order Comment: Speci men Type: BLOOD SPECIMENOrdering Facility: [facility] Address: [address] [place] [address] Performed By: #### 5 7021-8 ####NOLAN LABORATORYCLIA [id number] [place] [address] [place] Nucleated RBC (Bld) [#/Vol] 10*3/uL Normal <0.01 [facility] Comment on above: Order Comment: Speci men Type: BLOOD SPECIMENOrdering Facility: [facility] Address: [address] [place] [address] Performed By: #### 5 7021-8 ####NOLAN LABORATORYCLIA [id number] [place] [address] [place] Nucleated RBC/100 WBC (Bld) [Ratio] 0.0 /100 WBC Normal [facility] Comment on above: Order Comment: Speci men Type: BLOOD SPECIMENOrdering Facility: [facility] Address: [address] [place] [address] Performed By: #### 5 7021-8 ####NOLAN LABORATORYCLIA [id number] [place] [address] [place] Platelet mean volume (Bld) [Entitic vol] 11.9 fL Normal 9.0-12.7 [facility] Comment on above: Order Comment: Speci men Type: BLOOD SPECIMENOrdering Facility: [facility] Address: [address] [place] [address] Performed By: #### 5 7021-8 ####NOLAN LABORATORYCLIA [id number] [place] [address] [place] Platelets (Bld) [#/Vol] 252 10*3/uL Normal 150-400 [facility] Comment on above: Order Comment: Speci men Type: BLOOD SPECIMENOrdering Facility: [facility] Address: [address] [place] [address] Performed By: #### 5 7021-8 ####NOLAN LABORATORYCLIA [id number] [place] [address] [place] RBC (Bld) [#/Vol] 4.88 10*6/uL Normal 3.90-5.20 [facility] Comment on above: Order Comment: Speci men Type: BLOOD SPECIMENOrdering Facility: [facility] Address: [address] [place] [id number] Performed By: #### 5 7021-8 ####NOLAN LABORATORYCLIA [id number] [place] [address] [facility] [place] WBC (Bld) [#/Vol] 5.77 10*3/uL Normal 3.70-11.00 [facility] Comment on above: Order Comment: Speci men Type: BLOOD SPECIMENOrdering Facility: [facility] Address: [address] [place], [place] [address] Performed By: #### 5 7021-8 ####NOLAN LABORATORYCLIA [id number] [address] CNPNon 02-25-2024 CNPN Telephone (ME2E) LEILANI FARRAR ([id number]) 1955 F Date Time Provider Department 02/25/24 BRIGID BAILON KS2E During your visit today, we recorded the following information about you: Soheila Pisano PSS 03/01/2024 9:25 AM Signed TOTAL JOINT COMPLETE CARE PROGRAM PRE-OPERATIVE TEACHING Service Date: 02/25/2024 Service Time: 9:03 AM Date of : 1955 Gender: female Date of Surgery: 03/16/24 Procedure: Right Total Knee Replacement Complete Care Program was discussed with the patient: Therapeutic Case Manager Identification: Patient identified a home health care physician to help when discharged to home: and sister in law. Home Environment: Home Layout: 2 story, Entry Steps: 5 with bilat rails, Bedroom Location: 1st floor, Bathroom Location: 1st floor, and walk in shower. Pt owns potty chair, grab bars in shower, walker, crutches, cane. Discussed with patient importance of attending joint education class and provided date and times of class: YES declined Patient received Joint Education Binder: Yes Patient plans discharge home with [facility] [place]. SIGNATURE: SHARDA Mendoza PATIENT NAME: Leilani Farrar DATE: February 25, 2024 TIME: 10:01 AM Allergies As of Date: 02/25/2024 Noted Allergy Reaction BEE POLLEN 04/26/2018 10 - Anaphylaxis CORTISONE 04/26/2018 10 - Anaphylaxis NARCOTICS (OPIOIDS - MORPHINE LEO*09/17/2023 1 - Mental Status Change Comments: Can only tolerate vicodin NICKEL 09/17/2023 2 - Rash Comments: Nickel, bridger silver, some gold NSAIDS (NON-STEROIDAL ANTI-INFLAM*04/26/2018 7 - Swelling STEROIDS (BETAMETHASONE DIPROPION*04/26/2018 10 - Anaphylaxis STEROIDS (CORTICOSTEROIDS (GLUCOC*04/26/2018 10 - Anaphylaxis STEROIDS (DEXAMETHASONE PHOS-LIDO*04/26/2018 10 - Anaphylaxis WASPS 12/12/2016 12 - Shortness of Breath Date Reviewed: 02/25/2024 Reviewed by: Heidi Waddell PA-C - Fully Assessed Reason for Visit: Pre-Op Teaching [134] Prescriptions as of 03/01/2024 - mupirocin (BACTROBAN) 2 % ointment two times a day for 5 days. Apply 0.5 inch with cotton swab (Q-tip) to each nostril in the morning and evening for 5 days prior to and including day of surgery. - hydrOXYzine HCl (ATARAX) 10 mg tablet TAKE 1 TABLET BY MOUTH 3 TO 4 times DAILY NEEDED for anxiety - cyclobenzaprine (FLEXERIL) 10 mg tablet Take 1 tablet by mouth three times daily. - Ibuprofen 200 mg cap Take by mouth every 6 hours as needed. - levothyroxine (SYNTHROID) 112 mcg tablet Take 112 mcg by mouth daily before breakfast. Problem List As Of Date 02/25/2024 Noted Resolved Primary osteoarthritis of right knee [M17.11] 08/02/2022 Hyperlipidemia [E78.5] 02/24/2024 Hypothyroidism [E03.9] 12/11/2023 Postoperative hypothyroidism [E89.0] 02/24/2024 Cigarette nicotine dependence [F17.210] 02/25/2024 Elevated BP without diagnosis of hypertension [*02/25/2024 Encounter Status:Closed by SOHEILA PISANO on 03/01/24 Normal [facility] ECG COMPLETEon 02-25-2024 Atrial Rate 59 BPM [facility] Calculated P [place] 60 degrees [facility] Calculated R [place] 10 degrees [facility] Calculated T [place] 40 degrees [facility] P-R Interval 140 ms [facility] QRS Duration 80 ms [facility] QT Interval 430 ms [facility] QTC Calculation (Bazett) 425 ms [facility] Ventricular Rate 59 BPM [facility] SINUS BRADYCARDIA POSSIBLE LEFT ATRIAL ENLARGEMENT LOW VOLTAGE QRS BORDERLINE ECG NO PREVIOUS ECGS AVAILABLE Confirmed by MD HIGHTOWER QARAB ([id number]) on 02/25/2024 4:11:09 PM [facility] NAME : ROXANNE FARRAR PID : [id number] : 1955 Gender : Female Race : ORD : [id number] Procedure Date : Feb 25 2024 09:09:40 Edit Date : Feb 25 2024 16:11:10 Diagnosis: SINUS BRADYCARDIA POSSIBLE LEFT ATRIAL ENLARGEMENT LOW VOLTAGE QRS BORDERLINE ECG NO PREVIOUS ECGS AVAILABLE Confirmed by MD HIGHTOWER QARAB ([id number]) on 02/25/2024 4:11:09 PM Test Reason : [facility] Location : [address] [place] [address] Overread By : MD HIGHTOWER QARAB Edited By : MD HIGHTOWER QARAB Referred By : BRIGID BAILON Acquired by : TAYLER [facility] ECG COMPLETE Ventricular Rate : 5 9 BPM Atrial Rate : 59 BPM P-R Interval : 140 ms QRS Duration : 80 ms Q-T Interval : 430 ms QTC Calculation(Bazett) : 425 ms Calculated P [place] : 60 degrees Calculated R [place] : 10 degrees Calculated T [place] : 40 degrees SINUS BRADYCARDIA POSSIBLE LEFT ATRIAL ENLARGEMENT LOW VOLTAGE QRS BORDERLINE ECG NO PREVIOUS ECGS AVAILABLE Confirmed by MD HIGHTOWER QARAB ([id number]) on 02/25/2024 4:11:09 PM NAME : VALERIEDirkLEILANI PID : [id number] : 1955 Gender : Female Race : ORD : [id number] Procedure Date : Feb 25 2024 09:09:40 Edit Date : Feb 25 2024 16:11:10 Diagnosis: SINUS BRADYCARDIA POSSIBLE LEFT ATRIAL ENLARGEMENT LOW VOLTAGE QRS BORDERLINE ECG NO PREVIOUS ECGS AVAILABLE Confirmed by MD HIGHTOWER QARAB ([id number]) on 02/25/2024 4:11:09 PM Test Reason : [facility] Location : 10 : PAT/LB Overread By : MD HIGHTOWER QARAB Edited By : MD HIGHTOWER QARAB Referred By : BRIGID BAILON Acquired by : TAYLER [facility] CT KNEE WO IVCON RTon 2023 CT KNEE WO IVCON RT * * *Final Report* * * DATE OF EXAM: Feb 24 2024 9:06AM [facility] [place] - [place] KNEE WO IVCON RT / PROCEDURE REASON: multiple diagnoses * * * * Physician Interpretation * * * * EXAMINATION: CT KNEE WO IVCON RT PATIENT/TECHNOLOGIST PROVIDED HISTORY: RT [place] KNEE CLINICAL HISTORY: 68 years old Female with Primary osteoarthritis of right knee. Preoperative testing. [place] protocol for robotic assisted total knee arthroplasty TECHNIQUE: CT RIGHT knee without contrast [facility] protocol, knee 0.62 mm axial slices, hip and ankle 2.5 mm axial slices obtained for the purposes of presurgical planning. CT Radiation dose: Integrated Dose-length product (DLP) for this visit = 1291 mGy*cm. CT Dose Reduction Employed: Automated exposure control(AEC) and iterative recon COMPARISON: Radiographs 09/05/2023 RESULT: Limited CT images for the purposes of presurgical planning. Right knee: Tricompartmental osteoarthritis, severe in the lateral compartment and moderate-severe in the medial and patellar femoral compartments. Chondrocalcinosis. Moderate joint effusion with calcifications. Right hip: Moderate-severe RIGHT hip osteoarthritis. Degenerative changes at the pubic symphysis with chondrocalcinosis. Calcifications in the RIGHT proximal hamstring tendons. Area of fatty atrophy within the RIGHT rectus femoris muscle. Sigmoid diverticulosis. Right ankle and imaged foot: Osteoarthritis with degenerative subchondral cystic change at the tibiotalar joint. Productive changes at the medial malleolus. First MTP osteoarthritis. Ossification in the proximal plantar fascia. Calcaneal spurs. [employer] Developer: No significant finding. IMPRESSION: Limited CT images for the purposes of presurgical planning. [place] Department Manager: LINDA Transcribe Date/Time: Feb 25 2024 1:49P Dictated by : STARR COFFMAN DO This examination was interpreted and the report reviewed and electronically signed by: STARR COFFMAN DO on Feb 25 2024 1:54PM EST [id number] Normal [facility] HISTORY PHYSICALon HISTORY PHYSICAL HNO ID: [id number] Author: HEIDI WADDELL PA-C Service: ? Author Type: Physician Line Dancer Type: H&P Filed: 02/25/2024 13:42 Note Text: HISTORY AND PHYSICAL EXAMINATION SERVICE DATE: 02/25/2024 SERVICE TIME: 1:41 PM PRIMARY CARE PHYSICIAN: Vernon Bolton APRN.RETAIL GROCER REASON FOR VISIT: Leilani Farrar is a 68 year old female who is scheduled for ROBOTIC ASSISTED TOTAL KNEE ARTHROPLASTY - Right at the request of Brigid Mukherjee MD for consultation. My final recommendation will be communicated back to the requesting physician by way of shared medical record or letter. Subjective The patient has the following: ACTIVE PROBLEM LIST Primary Osteoarthritis of Right Knee Hyperlipidemia Hypothyroidism Postoperative Hypothyroidism Cigarette Nicotine Dependence Elevated Bp Without Diagnosis of Hypertension COVID-19 Immunization Status Overdue - Covid-19 Vaccine ( season) Never done No completion, postpone, frequency change, or communication history exists for this topic. CHIEF COMPLAINT: pre op HPI: Leilani Farrar is a 68 year old female presenting for pre-anesthesia consultation. Pt has history of right knee OA. Above procedure recommended to manage symptoms. Procedure scheduled on 03/16 at [facility]. REVIEW OF SYSTEMS: General: No weight loss, malaise or fevers. Neurological: Negative for: headaches, peripheral neuropathy, seizures, TIA and strokes. Respiratory: Negative for: asthma, COPD, current cough, dyspnea, home oxygen, tobacco use, URI < 2 weeks and obstructive sleep apnea. Cardiovascular: Denies dizziness or syncope. Palpitations occ Positive for: hyperlipidemia Negative for: AICD/PPM, arrhythmia, CAD, chest pain, CHF, DVT/PE, recent UT, murmur/valvular heart disease, open heart surgery and valve surgery. GI: Negative for: abdominal pain, GERD, GI bleed <30 days, hepatitis, liver disease, nausea and vomiting. : Denies kidney disease Negative for: dysuria, frequent urination, hematuria and urinary tract infection. Endocrine: Positive for: hypothyroidism. Negative for: diabetes mellitus and hyperthyroidism. Hematology: Negative for: anemia, bruises/bleeds easily, factor V Leiden, hemophilia, thrombocytopenia and von Willebrand disease. Oncology: No history of CA metastasis, chemo within 30 days, or radiotherapy within 90 days. No history of oncological symptoms or problems. Psych: Negative for: anxiety, bipolar disorder and depression. Musculoskeletal: See HPI. Skin: Negative for lesions, rash and itching. PAST MEDICAL HISTORY No date: Astigmatism No date: Corneal abrasion, right No date: Myopia No date: Presbyopia of both eyes No date: Thyroid disease PAST SURGICAL HISTORY No date: ORTHOPEDICS SURGERY HX Comment: shoulder,knees,foot,ca rpal tunnel,trigger finger No date: THYROIDECTOMY FAMILY HISTORY Problem Relation Age of Onset Anesthesia Problems No Family History Social History Tobacco Use Smoking status: Every Day Current packs/day: 0.50 Average packs/day: 0.5 packs/day for 40.0 years (20.0 ttl pk-yrs) Types: Cigarettes Start date: 02/25/1984 Smokeless tobacco: Never Tobacco comments: 0.5 pack a day Substance Use Topics Alcohol use: No Comment: 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 Taking Yes mupirocin (BACTROBAN) 2 % ointment two times a day for 5 days. Apply 0.5 inch with cotton swab (Q-tip) to each nostril in the morning and evening for 5 days prior to and including day of surgery. cyclobenzaprine (FLEXERIL) 10 mg tablet Take 1 tablet by mouth three times daily. Patient not taking: Reported on 02/25/2024 Not Taking Ibuprofen 200 mg cap Take by mouth every 6 hours as needed. Patient not taking: Reported on 02/11/2024 Not Taking No medication comments found. ALLERGIES Allergen Reactions Bee Pollen Anaphylaxis Cortisone Anaphylaxis Narcotics [Opioids * Mental Status Change Can only tolerate vicodin Nickel Rash Nickel, bridger silver, some gold Nsaids (Non-Steroid* Swelling Steroids [Betametha* Anaphylaxis Steroids [Corticost* Anaphylaxis Steroids [Dexametha* Anaphylaxis Wasps Shortness of Breath Objective PHYSICAL EXAM: General: alert and oriented and healthy appearance. Pertinent negatives noted - not distressed. Skin: normal color, no rash or lesions. HEENT: EOM intact, pupils equal round and pupils reactive to light. Pertinent negatives noted - no carotid bruit. Cardiovascular: regular rate and rhythm, normal S1 and S2, no rub, murmurs, or gallop. Respiratory: normal breath sounds, no wheezes or crackles. No chest (more content not included)... Normal [facility] 02-17-2024 [facility] Telephone (pluriSelectNA) LEILANI FARRAR ([id number]) 1955 F Date Time Provider Department 02/17/24 BRIGID BAILON During your visit today, we recorded the following information about you: Tiffanie Loja 02/17/2024 10:[address] order and schedule ct scan for 03/16/24 Rt tka [place]. Dennis Butts PA-C 02/17/2024 11:[address] order entered. Deep Aleman 02/17/2024 11:28 AM Signed Patient scheduled for CT on 02/24/2024 Deep Aleman Allergies As of Date: 02/17/2024 Noted Allergy Reaction BEE POLLEN 04/26/2018 10 - Anaphylaxis CORTISONE 04/26/2018 10 - Anaphylaxis NARCOTICS (OPIOIDS - MORPHINE LEO*09/17/2023 1 - Mental Status Change Comments: Can only tolerate vicodin NICKEL 09/17/2023 2 - Rash Comments: Nickel, bridger silver, some gold NSAIDS (NON-STEROIDAL ANTI-INFLAM*04/26/2018 7 - Swelling STEROIDS (BETAMETHASONE DIPROPION*04/26/2018 10 - Anaphylaxis STEROIDS (CORTICOSTEROIDS (GLUCOC*04/26/2018 10 - Anaphylaxis STEROIDS (DEXAMETHASONE PHOS-LIDO*04/26/2018 10 - Anaphylaxis WASPS 12/12/2016 12 - Shortness of Breath Date Reviewed: 02/11/2024 Reviewed by: Yelena Alvarenga OCCA - Fully Assessed Reason for Visit: Appointment [186] Primary Visit Diagnosis:Primary osteoarthritis of right knee [M17.11] Other Visit Diagnosis:Preoperative testing [Z01.818] Order(s):CT KNEE WO IVCON RIGHT [[id number]] Order #: [id number] FUTURE Prescriptions as of 02/17/2024 - hydrOXYzine HCl (ATARAX) 10 mg tablet TAKE 1 TABLET BY MOUTH 3 TO 4 times DAILY NEEDED for anxiety - cyclobenzaprine (FLEXERIL) 10 mg tablet Take 1 tablet by mouth three times daily. - Ibuprofen 200 mg cap Take by mouth every 6 hours as needed. - levothyroxine (SYNTHROID) 112 mcg tablet Take 112 mcg by mouth daily before breakfast. Problem List As Of Date 02/17/2024 Noted Resolved Primary osteoarthritis of right knee [M17.11] 08/02/2022 Encounter Status:Closed by DEEP ALEMAN on 02/17/24 [facility] 02-11-2024 CNOV Office Visit (ORMDNA ) LEILANI FARRAR ([id number]) 1955 F Date Time Provider Department 02/11/24 8:15 AM BRIGID BAILON During your visit today, we recorded the following information about you: Brigid Bailon MD 03/02/2024 2:20 PM Signed CONSULT ORTHOPAEDIC: KNEE PRIMARY CARE PHYSICIAN: Vernon Bolton APRN.RETAIL GROCER REFERRING PROVIDER: No referring provider defined for this encounter. ASSESSMENT AND PLAN Impression: Right Knee Severe Degenerative Osteoarthritis, Primary Diagnoses: Osteoarthritis right knee Based upon the evaluation today and after discussions with Leilani Juanjanetdirk, Leilani Farrar has significant, worsening pain at the knee. This pain is increased with activity and weight bearing, and interferes with activities of daily living. These symptoms have continued despite a number of non-surgical measures, including a trial of oral pain medication and attempted physical therapy/ structured exercise program and/or use of an assistive device/ bracing (for at least 12 weeks unless the patient was unable to tolerate these measures as discussed above). At this point, the patient will not benefit from further PT due to the severity of their condition. The patient's physical examination is consistent with limitations in range of motion, pain with passive range of motion, crepitus, and effusion/ synovitis. These examination findings are corroborated by imaging findings of joint space narrowing, periarticular osteophyte formation, and subchondral sclerosis. The patient has been treated by the practice and all reasonable treatments have failed to control the disease, which causes significant pain and limits activities of daily living. The patient has failed conservative treatment and joint replacement surgery was discussed and agreed upon by both provider and patient. We will proceed with surgical management to improve function and relieve pain refractory to non-surgical measures. Right Primary Total Knee Arthroplasty as evidenced by progressive symptoms. Progressive Symptoms Include: Pain impacting sleep or causing fatigue Pain worsened by weight bearing Pain effecting living situation Pain limiting ability to stay fit and healthy. Surgery Details Date and Location: At [facility] on date to be determined. Implants: Deb Robotic: Yes Predicted LOS: 1 day (Outpatient candidate) Informed consent obtained in the office today. The risks and benefits of surgery were discussed at length including but not limited to the risks of infection, bleeding, nerve or blood vessel injury, deep venous thrombosis, pulmonary embolism, arthrofibrosis, reflex sympathetic dystrophy, , paralysis, knee or patellar dislocation, extensor mechanism injury, bone fracture, component loosening or failure requiring re-operation or amputation. Informed consent was obtained and the patient was scheduled for surgery. We also discussed fixation strategies including cement and cementless fixation and advantages and disadvantages of each. We discussed the details of the surgery as well as rehabilitation. All questions were answered, and the patient wishes to proceed with surgery.. The patient has been ordered: Office Visit on 02/11/24 hydrOXYzine HCl (ATARAX) 10 mg tablet No orders placed today. CONSULTS: IMPACT/PACE Consult for preoperative clearance. Total Joint Arthroplasty: Risk Calculator Leilani Farrar has a 6.81% chance of NOT returning home at discharge for a Primary total Knee replacement. Leilani's estimated Length of Stay is 1 day (Outpatient candidate). Leilani's 30 day chance of readmission is 1.29%. Readmission Probability 1.29 % (within 30 days following surgery) Estimated LOS 1 day Discharge Disposition Probability D/C to Home 93.19 % D/C to SNF 6.81 % These calculations are based on the following factors: - 68 years of age - sex is not male - BMI of 25.39 kg/m2 - NarxCare score of 0 - 0 hospitalizations in the last 12 months - no history of heart disease - no history of diabetes - no history of COPD - no history of anemia - preoperative ambulation: impaired community distances - 5 step(s) to enter home - bed location is on the first floor - bath location is on the first floor - caregiver is consistent - home is not more than 150 miles away - PROMIS-10 Mental Health T score not available - Marital status: Risk Factors for Total Knee Arthroplasty (TKA) Major Risk Factors Obesity normal High: BMI > 40 Moderate: BMI 30-40 Normal: BMI < 30 Diabetes normal High: A1C > 8 Moderate: A1C 7-8 Normal: A1C < 7 Hx of DVT / PE normal High: dx of DVT / PE Normal: no dx of DVT / PE Smoking High Risk High: Current smoker Normal: Non smoker Narcotics Use normal High:NarxCare >=300 Moderate: 100-299 Normal: 0-99 Depression Unknow (more content not included)... Normal [facility] CBC W/Diff, Automatedon - SMEAR COMMENT SCANNED Normal [facility] Comment on above: Performed By: #### L 501.9520, L100.0100, L500.4100, L500.4050 #### [facility] [address] [place], [place], [id number] Comprehensive Metabolic Prof ilon 12-03-2023 Albumin [Mass/Vol] 3.7 g/dL Normal 3.2-5.0 [facility] Comment on above: Performed By: #### L 501.9520, L100.0100, L500.4100, L500.4050 #### [facility] [address] [place], [address] Albumin/Globulin [Mass ratio] 1.1 {ratio} Normal 0.9-2.4 [facility] Comment on above: Performed By: #### L 501.9520, L100.0100, L500.4100, L500.4050 #### [facility] [address] [place], [address] ALK P 78 U/L Normal 45-117 [facility] Comment on above: Performed By: #### L 501.9520, L100.0100, L500.4100, L500.4050 #### [facility] [address] [place], [address] ALT [Catalytic activity/Vol] 19 U/L Normal 13-56 [facility] Comment on above: Performed By: #### L 501.9520, L100.0100, L500.4100, L500.4050 #### [facility] [address] [place], [address] AST [Catalytic activity/Vol] 17 U/L Normal 15-37 [facility] Comment on above: Performed By: #### L 501.9520, L100.0100, L500.4100, L500.4050 #### [facility] [address] [place], [address] Bilirubin [Mass/Vol] 0.30 mg/dL Normal 0.20-1.00 [facility] Comment on above: Result Comment: For patients on eltrombopag therapy, use of Dimension Rogers TBIL is not recommended. Performed By: #### L 501.9520, L100.0100, L500.4100, L500.4050 #### [facility] [address] [place], [address] BUN/CRE 14.8 RATIO Normal 10-20 [facility] Comment on above: Performed By: #### L 501.9520, L100.0100, L500.4100, L500.4050 #### [facility] [address] [place], [address] CA,Total 9.3 mg/dL Normal 8.5-10.1 [facility] Comment on above: Performed By: #### L 501.9520, L100.0100, L500.4100, L500.4050 #### [facility] [address] [place], [address] Chloride [Moles/Vol] 106 mmol/L Normal 98-107 [facility] Comment on above: Performed By: #### L 501.9520, L100.0100, L500.4100, L500.4050 #### [facility] [address] [place], [address] CO2 [Moles/Vol] 28.0 mmol/L Normal 21.0-32.0 [facility] Comment on above: Performed By: #### L 501.9520, L100.0100, L500.4100, L500.4050 #### [facility] [address] [place], [address] Creatinine [Mass/Vol] 0.81 mg/dL Normal 0.55-1.02 [facility] Comment on above: Result Comment: The validity of the calculated GFR GFRAA in patients over 70 years has not been determined. Clinical correlation is essential. Performed By: #### L 501.9520, L100.0100, L500.4100, L500.4050 #### [facility] [address] [place], [address] EST GFR - AA 91 mL/min Normal >60 [facility] Comment on above: Result Comment: Afri can Yemeni GFR Calc Performed By: #### L 501.9520, L100.0100, L500.4100, L500.4050 #### [facility] [address] [place], [address] GAP 4 Low 5-15 [facility] Comment on above: Performed By: #### L 501.9520, L100.0100, L500.4100, L500.4050 #### [facility] [address] [place], [address] GFR/1.73 sq M.predicted among non-blacks MDRD (S/P/Bld) [Vol rate/Area] 75 mL/min/{1.73_m2} Normal >60 [facility] Comment on above: Result Comment: Non- GFR Calc Performed By: #### L 501.9520, L100.0100, L500.4100, L500.4050 #### [facility] [address] [place], [address] Globulin (S) [Mass/Vol] 3.5 g/dL Normal 2.2-4.2 [facility] Comment on above: Performed By: #### L 501.9520, L100.0100, L500.4100, L500.4050 #### [facility] [address] [place], [address] Glucose [Mass/Vol] 103 mg/dL Normal 74-106 [facility] Comment on above: Result Comment: Fast ing Glucose result from 100 to 125 mg/dL suggests IMPAIRED HOMEOSTASIS per A.D.A. criteria. Performed By: #### L 501.9520, L100.0100, L500.4100, L500.4050 #### [facility] [address] [place], [address] Potassium [Moles/Vol] 4.6 mmol/L Normal 3.5-5.1 [facility] Comment on above: Performed By: #### L 501.9520, L100.0100, L500.4100, L500.4050 #### [facility] [address] [place], [address] Sodium [Moles/Vol] 138 mmol/L Normal 136-145 [facility] Comment on above: Performed By: #### L 501.9520, L100.0100, L500.4100, L500.4050 #### [facility] [address] [place], [address] T PROT 7.2 g/dL Normal 6.4-8.2 [facility] Comment on above: Performed By: #### L 501.9520, L100.0100, L500.4100, L500.4050 #### [facility] [address] [place], [address] Urea nitrogen [Mass/Vol] 12 mg/dL Normal 7-18 [facility] Comment on above: Performed By: #### L 501.9520, L100.0100, L500.4100, L500.4050 #### [facility] [address] [place], [address] Lipid Profileon 12-03-2023 Cholesterol [Mass/Vol] 265 mg/dL High 200 [facility] Comment on above: Result Comment: <200 mg/dL Desirable 200-240 mg/dL Borderline >240 mg/dL High Risk Performed By: #### L 501.9520, L100.0100, L500.4100, L500.4050 #### [facility] [address] [place], [address] Cholesterol in HDL [Mass/Vol] 56 mg/dL Normal [facility] Comment on above: Result Comment: The drugs N-Acetylcysteine and Metamizole may falsely depress this assay. Reference Range HDL <40 mg/dL Low HDL Cholesterol HDL >or= 60 mg/dL High HDL Cholesterol Performed By: #### L 501.9520, L100.0100, L500.4100, L500.4050 #### [facility] [address] [place], [address] Cholesterol in LDL [Mass/Vol] 176 mg/dL High 0-130 [facility] Comment on above: Performed By: #### L 501.9520, L100.0100, L500.4100, L500.4050 #### [facility] [address] [place], [address] Cholesterol in VLDL [Mass/Vol] 33 mg/dL Normal 5-40 [facility] Comment on above: Performed By: #### L 501.9520, L100.0100, L500.4100, L500.4050 #### [facility] [address] [place], [address] Triglyceride [Mass/Vol] 164 mg/dL Normal [facility] Comment on above: Result Comment: The drugs N-Acetylcysteine and Metamizole may falsely depress this assay. Serum Triglycerides Reference Interval Normal <150 mg/dL Borderline high 150 - 199 mg/dL High 200 - 499 mg/dL Very High > or = 500 mg/dL Performed By: #### L [id number], L100.0100, L500.4100, L500.4050 #### [facility] [address] [place], [address] Thyroid Stim Hormone (TSH)on 12-03-2023 TSH 0.74 uIU/mL Normal 0.358-3.74 [facility] Comment on above: Performed By: #### L [id number], L100.0100, L500.4100, L500.4050 #### [facility] [address] [place], [address] CNOVon 11-21-2023 CNOV Office Visit (DERMMN ) LEILANI FARRAR ([id number]) 1955 F Date Time Provider Department 11/21/23 10:30 AM HILARIO CUMMINGS DERMMN During your visit today, we recorded the following information about you: Hilario Cummings MD 12/10/2023 11:10 AM Signed Department of Dermatology [facility]. 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 Medication Management: N/A -Discussed that sensitivity of patch testing is not 100%. -Also discussed possibility that nickel senescence could have occurred. -Would avoid scrubbing all ink from back and watch for a delayed reaction as this can occur with metals. If testing remains negative, options include: 1) Serum test for nickel allergy (not covered by insurance, ~$600) 2) Per patient preference, presume nickel allergy despite negative testing and opt for nickel-free joint 3) Opt for joint with trace nickel Additional instructions: Patient Instructions Thank you for allowing us to perform patch testing for you! It has been a pleasure to meet you. Our entire staff hopes that the information we discovered during your patch testing will help your referring physician or other health care provider to better plan any needed future treatment. We recommend that you make sure you arrange follow-up with your referring provider in the next several months to discuss your results. While you can certainly shower after today's visit, we recommend that you avoid scrubbing the ink off the back for the next several days. In the rare chance that a new reaction occurs (a late reaction), residual ink can help us identify the allergen. If you notice a new small area of rash within the patch testing sites, please take several photos of the area and contact our office for additional instructions. Our telephone number is [phone]. My patch testing was negative. Now what? Negative patch testing means that we either: 1) found no positive reactions, or 2) there were no reactions that are relevant for your current problem. In these situations, the patch testing did not identify an allergic cause of your current or past dermatology problem. While this can be frustrating, be assured that your test administrator or referring provider can make use of this information as your future treatment is planned. It can help rule-out certain causes for your problem, and allow other treatments to be considered. We recommend that you follow-up with the doctor or other medical provider who referred you for patch testing for ongoing follow-up. If you were referred from an office from a specialty other than dermatology and you would like to see a test administrator for your ongoing skin complaint, we recommend you discuss an appointment with our front office java developer ([id number]) before you leave the building today. Return for follow up with Dr. Bailon. ____ CC: Final patch test reading and interpretation. HPI: Ms. Farrar presents for final patch test reading. Patches removed 2 days ago. Tolerated the patch test process well. No flare of dermatitis. PMH: Unchanged from previous visit ROS: Patient feels generally well. No additional skin complaints. PE: Patient appears generally well. Results from Patch Tests are documented in the photos and in the Results Smartform links below. 48 hour photograph hyperlinks (if submitted by patient or obtained in the office: On patient's phone Photographs from today's visit (96 hours) Hyperlinks to Results Smartform: Allergy Testing Row Name 11/21/23 1053 11/19/23 1055 Test Information Select Antigens Select -MO Select -MO Environmental Allergen Environmental Allergen -- -MO -- Environmental Allergen -- -MO -- All Metals Tray Vancomycin 10% aq. Negative -MO Negative -MO Tobramycin 20% aq Negative -MO Negative -MO Benzoyl peroxide 1% pet. Negative -MO Negative -MO Hydroquinone 1% pet. Negative -MO Negative -MO N,C-gdtpropc-j-toluidi ne 2% pet. Negative -MO Negative -MO Ethyl cyanoacrylate 10% pet. Negative -MO Negative -MO Aluminum chloride hexahydrate 2% Negative -MO Negative -MO Aluminum hydroxide 10% pet. Negative -MO Negative -MO Potassium dichromate 0.5% pet. Negative -MO Negative -MO Copper (II) Sulfate Pentahydrate 2% pet Negative -MO Negative -MO Gallium Oxide 1% pet Negative -MO Negative -MO Ferric (III) Chloride 2% aq Negative -MO Negative -MO Ethyl acrylate 0.1% pet. Negative -MO Negative -MO Molybdenum Chloride 0.5% pet. Negative -MO Negative -MO Ammonium Heptamolybdate (IV) 1% pet Negative -MO Negative -MO Nickel Sulfate Hexahydrate 5% pet. Negative -MO Negative -MO Niobium (V) Chloride 0.2% pet Negative -MO Negative - (more content not included)... Normal [facility] CNOVon 11-17-2023 CNOV Office Visit (DERMMN ) LEILANI FARRAR ([id number]) 1955 F Date Time Provider Department 11/17/23 10:30 AM NURSE PATCH TEST DERMMN During your visit today, we recorded the following information about you: Lucila Calero RN 11/17/2023 10:48 AM Signed Patient presents today for patch test application. A total of 44 patches applied to patient's upper back. Advised patient to keep back dry until after Friday appointment. Patch test procedure and removal of patches reviewed. Print offs of instruction provided to patient. All questions/concerns addressed. Lucila Calero RN Allergies As of Date: 11/17/2023 Noted Allergy Reaction BEE POLLEN 04/26/2018 10 - Anaphylaxis CORTISONE 04/26/2018 10 - Anaphylaxis NARCOTICS (OPIOIDS - MORPHINE LEO*09/17/2023 1 - Mental Status Change Comments: Can only tolerate vicodin NICKEL 09/17/2023 2 - Rash Comments: Nickel, bridger silver, some gold NSAIDS (NON-STEROIDAL ANTI-INFLAM*04/26/2018 7 - Swelling STEROIDS (BETAMETHASONE DIPROPION*04/26/2018 10 - Anaphylaxis STEROIDS (CORTICOSTEROIDS (GLUCOC*04/26/2018 10 - Anaphylaxis STEROIDS (DEXAMETHASONE PHOS-LIDO*04/26/2018 10 - Anaphylaxis WASPS 12/12/2016 12 - Shortness of Breath Date Reviewed: 11/17/2023 Reviewed by: Lucila Calero RN - Fully Assessed Reason for Visit: Patch Testing (allergy) [1102] Primary Visit Diagnosis:Contact dermatitis and other eczema, due to unspecified cause [L25.9] Prescriptions as of 11/17/2023 - cyclobenzaprine (FLEXERIL) 10 mg tablet Take 1 tablet by mouth three times daily. - Ibuprofen 200 mg cap Take by mouth every 6 hours as needed. - levothyroxine (SYNTHROID) 112 mcg tablet Take 112 mcg by mouth daily before breakfast. Problem List As Of Date 11/17/2023 Noted Resolved Primary osteoarthritis of right knee [M17.11] 08/02/2022 Encounter Status:Closed by LUCILA CALERO on 11/17/23 [facility] XR KNEE 4V AP/PA BOTH+LAT/ME R RTon 09-05-2023 XR KNEE 4V AP/PA BOTH+LAT/QUINN RT * * *Final Report* * * DATE OF EXAM: Sep 05 2023 9:25AM HIEN Beavers - XR KNEE 4V AP/PA BOTH+LAT/QUINN RT / PROCEDURE REASON: M17.11-Primary osteoarthritis of right knee * * * * Physician Interpretation * * * * PROCEDURE: Right knee INDICATION: Primary osteoarthritis of right knee .RIGHT KNEE PAIN TECHNIQUE: XR KNEE 4V AP/PA BOTH+LAT/QUINN RT COMPARISON: 05/18/2021 FINDINGS: Severe lateral joint compartment narrowing with bcio-eg-mqqu and remodeling. Moderate medial and patellofemoral joint compartment narrowing. Tricompartment spur formation and chondrocalcinosis. No fracture. Small joint effusion. Left knee osteoarthrosis with significant medial joint compartment narrowing. IMPRESSION: Advanced tricompartment osteoarthritis, only slightly progressed since previous. Harbor Department Manager: PSCB Transcribe Date/Time: Sep 05 2023 9:45A Dictated by : RAJ PHILIP MD This examination was interpreted and the report reviewed and electronically signed by: RAJ PHILIP MD on Sep 05 2023 9:46AM EST [id number] [facility] XR Knee - right 4 Viewson * * *Final Report* * * DATE OF EXAM: Sep 05 2023 9:25AM HIEN Beavers - XR KNEE 4V AP/PA BOTH+LAT/QUINN RT / PROCEDURE REASON: M17.11-Primary osteoarthritis of right knee * * * * Physician Interpretation * * * * PROCEDURE: Right knee INDICATION: Primary osteoarthritis of right knee .RIGHT KNEE PAIN TECHNIQUE: XR KNEE 4V AP/PA BOTH+LAT/QUINN RT COMPARISON: 05/18/2021 FINDINGS: Severe lateral joint compartment narrowing with xbfq-gq-eusm and remodeling. Moderate medial and patellofemoral joint compartment narrowing. Tricompartment spur formation and chondrocalcinosis. No fracture. Small joint effusion. Left knee osteoarthrosis with significant medial joint compartment narrowing. [facility] Provider, Osmani Marie Lockney - 09/05/2023 * * *Final Report* * * DATE OF EXAM: Sep 05 2023 9:25AM HIEN 5203 - XR KNEE 4V AP/PA BOTH+LAT/QUINN RT / PROCEDURE REASON: M17.11-Primary osteoarthritis of right knee * * * * Physician Interpretation * * * * PROCEDURE: Right knee INDICATION: Primary osteoarthritis of right knee .RIGHT KNEE PAIN TECHNIQUE: XR KNEE 4V AP/PA BOTH+LAT/QUINN RT COMPARISON: 05/18/2021 FINDINGS: Severe lateral joint compartment narrowing with trqz-lv-styp and remodeling. Moderate medial and patellofemoral joint compartment narrowing. Tricompartment spur formation and chondrocalcinosis. No fracture. Small joint effusion. Left knee osteoarthrosis with significant medial joint compartment narrowing. IMPRESSION IMPRESSION: Advanced tricompartment osteoarthritis, only slightly progressed since previous. Harbor Department Manager: LINDA Transcribe Date/Time: Sep 05 2023 9:45A Dictated by : RAJ PHILIP MD This examination was interpreted and the report reviewed and electronically signed by: RAJ PHILIP MD on Sep 05 2023 9:46AM EST [facility] Radiology Study observation (narrative) [facility] XR Knee - right 4 ViewsOrder ed By: Ccf Provider on 09-05-2023 [facility] XR HIP GENERAL 3V PELV/AP/LA T RIGHTon 05-17-2022 [facility] XR Pelvis and Hip - right AP and Lateral frogon 05-17-2022 IMPRESSION: Degenerative changes as discussed Harbor Department Manager: LINDA Transcribe Date/Time: May 17 2022 12:05P Dictated by : EZIO MCKEON DO This examination was interpreted and the report reviewed and electronically signed by: EZIO MCKEON DO on May 17 2022 12:05PM EST [facility] * * *Final Report* * * DATE OF EXAM: May 17 2022 10:47AM MDO 5352 - XR HIP 3V PELV+ AP/LAT RT / PROCEDURE REASON: M25.551-Pain in right hip * * * * Physician Interpretation * * * * Pelvis and right hip HISTORY: Indication: Pain in right hip TECHNIQUE: Images: XR HIP 3V PELV+ AP/LAT RT Comparison: None. RESULT: Findings: Pelvis: No fractures or dislocations are seen. Mild narrowing of both hip joints. Right hip: No fractures or dislocations are seen. Mild spurring around the superior lateral inferior medial aspect of the RIGHT hip joint. [facility] Provider, Osmani [facility] - 05/17/2022 * * *Final Report* * * DATE OF EXAM: May 17 2022 10:47AM MDO 5352 - XR HIP 3V PELV+ AP/LAT RT / PROCEDURE REASON: M25.551-Pain in right hip * * * * Physician Interpretation * * * * Pelvis and right hip HISTORY: Indication: Pain in right hip TECHNIQUE: Images: XR HIP 3V PELV+ AP/LAT RT Comparison: None. RESULT: Findings: Pelvis: No fractures or dislocations are seen. Mild narrowing of both hip joints. Right hip: No fractures or dislocations are seen. Mild spurring around the superior lateral inferior medial aspect of the RIGHT hip joint. IMPRESSION IMPRESSION: Degenerative changes as discussed Harbor Department Manager: LINDA Transcribe Date/Time: May 17 2022 12:05P Dictated by : EZIO MCKEON DO This examination was interpreted and the report reviewed and electronically signed by: EZIO MCKEON DO on May 17 2022 12:05PM EST [facility] Radiology Study observation (narrative) [facility] XR Pelvis and Hip - right AP and Lateral frogOrdered By: Ccf Provider on 05-17-2022 [facility] Absolute lymphocyte counton 11-16-2021 Lymphocytes Auto (Unsp spec) [#/Vol] 2.97 10*3/uL 0.83-4.51 [facility] Work Phone: Basophil percentageon 2021 Basophils/100 WBC (Bld) 1.1 % 0-1 [facility] Work Phone: Bilirubin [Mass/Vol] 0.40 mg/dL 0.20-1.00 [facility] Work Phone: Comment on above: For patients on eltr ombopag therapy, use of Dimension Rogers TBIL is not recommended. Chloride [Moles/Vol] 105 mmol/L 98-107 [facility] Work Phone: Cholesterol [Mass/Vol] 294 mg/dL <200 [facility] Work Phone: Comment on above: <200 mg/dL Desirable 200-240 mg/dL Borderline >240 mg/dL High Risk Eosinophils/100 WBC (Bld) 3.9 % 0-5 [facility] Work Phone: Glucose [Mass/Vol] 99 mg/dL 74-106 [facility] Work Phone: Neutrophils (Bld) [#/Vol] 3.3 10*3/uL 2.0-7.7 [facility] Work Phone: Neutrophils/100 WBC (Bld) 46.9 % 47-70 [facility] Work Phone: Potassium [Moles/Vol] 5.0 mmol/L 3.5-5.1 [facility] Work Phone: Protein [Mass/Vol] 7.4 g/dL 6.4-8.2 [facility] Work Phone: Sodium [Moles/Vol] 137 mmol/L 136-145 [facility] Work Phone: Triglyceride [Mass/Vol] 184 mg/dL [facility] Work Phone: Comment on above: The drugs N-Acetylcy steine and Metamizole may falsely depress this assay.Serum Triglycerides Reference Interval Normal <150 mg/dL Borderline high 150 - 199 mg/dL High 200 - 499 mg/dL Very High > or = 500 mg/dL WBC (Bld) [#/Vol] 7.0 10*3/uL 4.4-11.0 [facility] Work Phone: Blood erythrocytes count (nu mber/volume)on 11-16-2021 RBC (Bld) [#/Vol] 4.34 10*6/uL 4.2-5.4 [facility] Work Phone: Blood hemoglobin measurement (mass/volume)on 11-16-2021 Hemoglobin (Bld) [Mass/Vol] 14.4 g/dL 12.0-15.0 [facility] Work Phone: Blood lymphocytes/100 leukoc yteson 11-16-2021 Lymphocytes/100 WBC (Bld) 42.6 % 19-41 [facility] Work Phone: Blood monocytes/100 leukocyt eson 11-16-2021 Monocytes/100 WBC (Bld) 5.4 % 0-10 [facility] Work Phone: Blood platelet mean volumeon 11-16-2021 Platelet mean volume (Bld) [Entitic vol] 11.2 fL 6.2-12.0 [facility] Work Phone: Determination of erythrocyte mean corpuscular volume (MCV)on 11-16-2021 MCV (RBC) [Entitic vol] 94.2 fL 81-99 [facility] Work Phone: Hematocrit Auto (Bld) [Volum e fraction]on 11-16-2021 Hematocrit (Bld) [Volume fraction] 40.9 % 37-47 [facility] Work Phone: Laboratory - Chemistry and C hemistry - challengeon 11-16-2021 ALP [Catalytic activity/Vol] 78 U/L 45-117 [facility] Work Phone: ALT [Catalytic activity/Vol] 24 U/L 13-56 [facility] Work Phone: CO2 [Moles/Vol] 28.0 mmol/L 21.0-32.0 [facility] Work Phone: Globulin (S) [Mass/Vol] 3.6 g/dL 2.2-4.2 [facility] Work Phone: Urea nitrogen/Creatinine [Mass ratio] 17.1 mg/mg 10-20 [facility] Work Phone: Laboratory - Hematology and Cell countson 11-16-2021 Erythrocyte distribution width (RBC) [Entitic vol] 44.4 fL 35.1-43.9 [facility] Work Phone: Erythrocyte distribution width (RBC) [Ratio] 13.0 % 11.6-14.6 [facility] Work Phone: Immature granulocytes/100 WBC (Bld) 0.100 % 0.0-0.9 [facility] Work Phone: Comment on above: IG% - Immature Granu locytes (promyelocytes, myelocytes and metamyelocytes) > 1% indicates that a LEFT SHIFT is Present. MCH (RBC) [Entitic mass] 33.2 pg 27.0-32.0 [facility] Work Phone: Nucleated RBC/100 WBC (Bld) [Ratio] 0 % 0-5 [facility] Work Phone: MCHC Auto (RBC) [Mass/Vol]on 11-16-2021 MCHC (RBC) [Mass/Vol] 35.2 g/dL 32-36 [facility] Work Phone: No Panel Informationon 11-16 Estimated GFR (MDRD) Amer 83 mL/min >60 [facility] Work Phone: Comment on above: GFR Calc Estimated GFR (MDRD) Non-Af Amer 69 mL/min >60 [facility] Work Phone: Comment on above: Non- GFR Calc Thyroid Stimulating Hormone (TSH) 1.09 uIU/mL 0.358-3.74 [facility] Work Phone: Platelets bldon 11-16-2021 Platelets (Bld) [#/Vol] 268 10*3/uL 150-450 [facility] Work Phone: Serum or plasma albumin nitin urement (mass/volume)on 11-16-2021 Albumin [Mass/Vol] 3.8 g/dL 3.2-5.0 [facility] Work Phone: Serum or plasma albumin/glob ulin mass ratioon 11-16-2021 Albumin/Globulin [Mass ratio] 1.1 {ratio} 0.9-2.4 [facility] Work Phone: Serum or plasma calcium nitin urement (mass/volume)on 11-16-2021 Calcium [Mass/Vol] 9.3 mg/dL 8.5-10.1 [facility] Work Phone: Serum or plasma cholesterol in HDL measurement (mass/volume)on 11-16-2021 Cholesterol in HDL [Mass/Vol] 65 mg/dL [facility] Work Phone: Comment on above: The drugs N-Acetylcy steine and Metamizole may falsely depress this assay. Reference Range HDL <40 mg/dL Low HDL Cholesterol HDL >or= 60 mg/dL High HDL Cholesterol Serum or plasma cholesterol in VLDL measurement (mass/volume)on 11-16-2021 Cholesterol in VLDL [Mass/Vol] 37 mg/dL 5-40 [facility] Work Phone: Serum or plasma creatinine m easurement (mass/volume)on 11-16-2021 Creatinine [Mass/Vol] 0.88 mg/dL 0.55-1.02 [facility] Work Phone: Comment on above: The validity of the calculated GFR & GFRAA in patients over 70 years has not been determined. Clinical correlation is essential. Serum or plasma low density lipoprotein (LDL) cholesterol measurement (mass/volume)on 11-16-2021 Cholesterol in LDL [Mass/Vol] 192 mg/dL 0-130 [facility] Work Phone: Serum or plasma urea nitroge n measurement (mass/volume)on 11-16-2021 Urea nitrogen [Mass/Vol] 15 mg/dL 7-18 [facility] Work Phone: Thin prep Papanicolaou smear with manual screeningon 11-16-2021 Thin prep Papanicolaou smear with manual screening 19 U/L 15-37 [facility] Work Phone: Thin prep Papanicolaou smear with manual screening 4 5-15 [facility] Work Phone: Phone Msgon 11-12-2019 Phone Msg - From: Lydia Rudd To: ESLI FUNEZ DO; Sent: 11/11/2019 14:42:11 EDT 09-09-19 CALLING FOR RESULTS OF CT (RESULTS IN POWERCHART) SHE IS NOT SURE IS YOU WANT TO SEE HER OR NOT. LEILANI - [phone] OK TO LEAVE MESSAGE From: ELSI FUNEZ DO To: Lydia Rudd; Sent: 11/12/2019 11:39:31 EDT Subject: RE: CT scan was normal we should recheck her in 3 months 11/12/19 - ADVISED PATIENT (DIANE) Normal [facility] CT BRAIN HEAD WO CONTRASTon 11-07-2019 CT BRAIN HEAD WO CONTRAST Clinical Indication: Right-sided hearing loss/tinnitus Comparison study: None Thin section continuous spiral images of the brain were obtained from the base of the skull to the vertex without the administration of contrast material. The study was reviewed in both soft tissue and bone windows. Coronal and sagittal reconstructions were performed. Findings: Brain The humza calvarium is unremarkable. The temporal bone is normal in appearance, the mastoid air cells are clear. There is no evidence of intra-axial or extra-axial density to suggest hemorrhage. There is no evidence of intra-axial mass or edema. The ventricles are midline and are non-dilated. The sulci and sylvian fissures are intact and normal in appearance. There are no low attenuation areas to suggest infarction. Total exposure DLP: 505.30 mGy-cm Impression: Negative unenhanced CT scan of the brain. Electronically signed by: Norberto Wing MD 11/07/2019 12:34 PM CDT [facility] Comment on above: Order Comment: Order ed on Fin# [id number] Result Comment: Tech nologist: DW Dictated By: NORBERTO WING MD Signed By: NORBERTO WING MD Signed Out: 11/07/19 13:34:29 Phone Msgon 09-20-2019 Phone Msg - From: Deep Carty To: ELSI FUNEZ DO; Sent: 09/20/2019 12:13:25 EDT Subject: ct question You ordered a ct of the brain. She now has bronchitis. How long should she wait to have this done? l.v. 09-09-19 (ok to leave message) From: ELSI FUNEZ DO To: Deep Carty; Sent: 09/20/2019 12:41:07 EDT Subject: RE: ct question at least 2 weeks after she is better from the bronchitis Spoke to patient. She will schedule the ct when she feels better. Normal [facility] Office Visiton 01-30-2017 Documentation of current medications (procedure) Done Invalid Interpretation Code [facility] Work Phone: Protein mass conc Done Invalid Interpretation Code [facility] Work Phone: Protein mass conc yes Invalid Interpretation Code [facility] Work Phone: Smoking cessation education (procedure) yes Invalid Interpretation Code [facility] Work Phone: Tobacco smoking status NHIS Current every day smoker Invalid Interpretation Code [facility] Work Phone: Tobacco use CPHS Current every day smoker Invalid Interpretation Code [facility] Work Phone: Office Visiton 01-02-2017 Documentation of current medications (procedure) Done Invalid Interpretation Code [facility] Work Phone: Smoking cessation education (procedure) yes Invalid Interpretation Code [facility] Work Phone: Tobacco use CPHS Current every day smoker Invalid Interpretation Code [facility] Work Phone: Microbiology: Culture, Body Fluidon 01-01-2017 body fluid culture . Invalid Interpretation Code [facility] Work Phone: CUBF . Invalid Interpretation Code [facility] Work Phone: Microbiology: (P) Culture, B yulia Fluidon 12-27-2016 CUBF . [facility] Work Phone: Microbiology: (P) Culture, B yulia Fluidon 12-26-2016 CUBF . [facility] Work Phone: Microbiology: (P) Culture, B yulia Fluidon 12-25-2016 CUBF . [facility] Work Phone: Microbiology: (P) Culture, B yulia Fluidon 12-24-2016 body fluid culture . Invalid Interpretation Code [facility] Work Phone: Microbiology: (P) Culture, B yulia Fluidon 12-20-2016 body fluid culture Cult, AnaerobicNo growth in 48 hours. Invalid Interpretation Code [facility] Work Phone: Microbiology: (P) Culture, B yulia Fluidon 12-19-2016 CUBF . [facility] Work Phone: Lab Report: (P) Body Fluid C ell Count+Diffon 12-18-2016 BF MN WBC% 70.0 % Invalid Interpretation Code [facility] Work Phone: BF PMN WBC% 30.0 % Invalid Interpretation Code [facility] Work Phone: BFTC# 0.086 10 3/ul High 0.000-0.000 [facility] ([place], [place]) [facility] Work Phone: Cell Count, Synovial Fluid 0.086 10 3/ul High 0.000-0.000 [facility] Work Phone: mononuclear cells, synovial fluid as percent of leukocytes 70.0 % Invalid Interpretation Code [facility] Work Phone: neutrophils, polymorphonuclear as percent of synovial fluid leukocytes 30.0 % Invalid Interpretation Code [facility] Work Phone: WBC Manual cnt #/vol (Body fld) 0.080 10 3/UL Invalid Interpretation Code [facility] Work Phone: Lab Report: Body Fluid Cell Count+Diffon 12-18-2016 BFM 2ND SPEC SEE COMMENT Invalid Interpretation Code [facility] Work Phone: GE use only - for LinkLogic import when terms are not otherwise specified SEE COMMENT Invalid Interpretation Code [facility] Work Phone: Lymphocytes/100 leukocytes 67 % Invalid Interpretation Code [facility] Work Phone: Lymphocytes/100 WBC (Bld) 67 % [facility] Work Phone: MONO/BF 7 % Invalid Interpretation Code [facility] Work Phone: Monocytes/100 leukocytes 7 % Invalid Interpretation Code [facility] Work Phone: neutrophils, polymorphonuclear as percent of body fluid leukocytes 27 % Invalid Interpretation Code [facility] Work Phone: PMN 27 % Invalid Interpretation Code [facility] Work Phone: Microbiology: (P) Culture, B yulia Fluidon 12-18-2016 CUBF . [facility] Work Phone: Replaced Document: (P) Body Fluid Cell Count+Diffon 12-18-2016 Appearance Nom (Body fld) SL CLDY Invalid Interpretation Code [facility] Work Phone: color, body fluid LT YEL Invalid Interpretation Code [facility] Work Phone: COLOR/BF LT YEL Invalid Interpretation Code [facility] Work Phone: Erythrocytes (RBC) 22 /mm3 Invalid Interpretation Code [facility] Work Phone: RBC Manual cnt #/vol (Body fld) 22 /mm3 Invalid Interpretation Code [facility] Work Phone: source of sample OTHER Invalid Interpretation Code [facility] Work Phone: SOURCE/BF OTHER Invalid Interpretation Code [facility] Work Phone: Office Visiton 12-03-2016 Documentation of current medications (procedure) Done Invalid Interpretation Code [facility] Work Phone: Protein mass conc Done [facility] Work Phone: Protein mass conc yes [facility] Work Phone: Smoking cessation education (procedure) yes Invalid Interpretation Code [facility] Work Phone: Tobacco smoking status NHIS Current every day smoker [facility] Work Phone: Tobacco use CPHS Current every day smoker Invalid Interpretation Code [facility] Work Phone: Office Visiton 11-14-2016 Tobacco smoking status NHIS Current every day smoker [facility] Work Phone: Office Visiton 11-05-2016 Documentation of current medications (procedure) Done Invalid Interpretation Code [facility] Work Phone: Smoking cessation education (procedure) yes Invalid Interpretation Code [facility] Work Phone: Tobacco use CPHS Current every day smoker Invalid Interpretation Code [facility] Work Phone: Office Visiton 10-29-2016 Documentation of current medications (procedure) Done Invalid Interpretation Code [facility] Work Phone: Smoking cessation education (procedure) yes Invalid Interpretation Code [facility] Work Phone: Tobacco use CPHS Current every day smoker Invalid Interpretation Code [facility] Work Phone: Microbiology: Culture, Body Fluidon 05-28-2016 body fluid culture Body Fluid CultNO GROWTH IN 14 DAYS Invalid Interpretation Code [facility] Work Phone: CUBF Body Fluid CultNO GROWTH IN 14 DAYS [facility] Work Phone: Lab Report: GLUCOSE, SYNOVIA L FLUIDon 05-16-2016 GE use only - for LinkLogic import when terms are not otherwise specified 107 mg/dL Invalid Interpretation Code . [facility] Work Phone: GLU, SYN FLD 107 mg/dL . [facility] Work Phone: Lab Report: (P) Synovial Flu id RBC, WBC AND Diffon 05-14-2016 Erythrocytes (RBC) 0.58690 10*6/uL High 0 [facility] Work Phone: SYNOVIAL RBC 18 /uL High 0 [facility] Work Phone: SYNOVIAL WBC 0.2350 10 3UL High 0.000-0.002 [facility] Work Phone: WBC, Fluid 0.2350 10 3UL High 0.000-0.002 [facility] Work Phone: Cell Count, Synovial Fluid 0.2510 10 3 uL High 0.000-0.000 [facility] Work Phone: mononuclear cells, synovial fluid as percent of leukocytes 73.6 % Invalid Interpretation Code [facility] Work Phone: neutrophils, polymorphonuclear as percent of synovial fluid leukocytes 26.4 % Invalid Interpretation Code [facility] Work Phone: SYBF MN WBC% 73.6 % [facility] Work Phone: SYBF PMN WBC% 26.4 % [facility] Work Phone: SYN Tot Cell Ct 0.2510 10 3 uL High 0.000-0.000 [facility] Work Phone: Lab Report: Crystals, Body F luidon 05-14-2016 crystals, body fluid SYNOVIAL Invalid Interpretation Code [facility] Work Phone: CRYSTALS/BF SYNOVIAL Invalid Interpretation Code [facility] Work Phone: PATH REV Will follow Invalid Interpretation Code [facility] Work Phone: Pathology comment Will follow Invalid Interpretation Code [facility] Work Phone: Replaced Document: Synovial Fluid RBC, WBC AND Diffon 05-14-2016 appearance, body fluid Sl hazy CLEAR [facility] Work Phone: color, synovial fluid Yellow Invalid Interpretation Code Pale Yellow [facility] Work Phone: Lymphocytes/100 leukocytes 32 % Invalid Interpretation Code [facility] Work Phone: Lymphocytes/100 WBC (Bld) 32 % [facility] Work Phone: Monocytes 56 % Invalid Interpretation Code [facility] Work Phone: Monocytes (Bld) [#/Vol] 56 % [facility] Work Phone: NEUTROPHIL 12 % Invalid Interpretation Code 0-25 [facility] Work Phone: neutrophils as percent of body fluid leukocytes 12 % Invalid Interpretation Code 0-25 [facility] Work Phone: source of sample LT KNEE Invalid Interpretation Code [facility] Work Phone: SYNOVIAL COLOR Yellow Invalid Interpretation Code Pale Yellow [facility] Work Phone: SYNOVIAL SOURCE LT KNEE [facility] Work Phone: Replaced Document: (P) Synov ial Fluid RBC, WBC AND Diffon 02-06-2016 OTHER CELL /SYN 61 % Invalid Interpretation Code [facility] Work Phone: other Cells 61 % Invalid Interpretation Code [facility] Work Phone: body fluids, viscosity Liquid Invalid Interpretation Code [facility] Work Phone: VISCOSITY/SYFL Liquid Invalid Interpretation Code [facility] Work Phone: No Panel Information [facility] Vital Signs Date Time Vital Sign Value Performing Clinician Facility 05-24-2024 11:03-0500 Body height 165.1 cm Pacc 1 Work Phone: [facility] 05-24-2024 11:03-0500 Body mass index (BMI) [Ratio] 24.62 kg/m2 Pacc 1 Work Phone: [facility] 05-24-2024 11:03-0500 Body temperature 97.11 [degF] Pacc 1 Work Phone: [facility] 05-24-2024 11:03-0500 Body weight 67.1 kg Pacc 1 Work Phone: [facility] 05-24-2024 11:03-0500 Diastolic blood pressure 79 mm[Hg] Pacc 1 Work Phone: [facility] 05-24-2024 11:03-0500 Heart rate 72 /min Pacc 1 Work Phone: [facility] 05-24-2024 11:03-0500 Respiratory rate 16 /min Pacc 1 Work Phone: [facility] 05-24-2024 11:03-0500 SaO2% (BldA) [Mass fraction] 97 % Pacc 1 Work Phone: [facility] 05-24-2024 11:03-0500 Systolic blood pressure 145 mm[Hg] Pacc 1 Work Phone: [facility] 04-02-2024 09:32-0400 Body temperature 98.2 [degF] Chandler Rufener PT Work Phone: [facility] 04-02-2024 09:32-0400 Diastolic blood pressure 70 mm[Hg] Chandler Rufener PT Work Phone: [facility] 04-02-2024 09:32-0400 Heart rate 72 /min Chandler Rufener PT Work Phone: [facility] 04-02-2024 09:32-0400 Respiratory rate 16 /min Chandler Rufener PT Work Phone: [facility] 04-02-2024 09:32-0400 SaO2% (BldA) [Mass fraction] 98 % Chandler Rufener PT Work Phone: [facility] 04-02-2024 09:32-0400 Systolic blood pressure 128 mm[Hg] Chandler Rufener PT Work Phone: [facility] 03-30-2024 14:45-0400 Diastolic blood pressure 74 mm[Hg] Prinston Pruitt [employer] Work Phone: [facility] 03-30-2024 14:45-0400 Heart rate 80 /min Prinston Pruitt [employer] Work Phone: [facility] 03-30-2024 14:45-0400 Respiratory rate 18 /min Prinston Pruitt [employer] Work Phone: [facility] 03-30-2024 14:45-0400 SaO2% (BldA) [Mass fraction] 98 % Prinston Pruitt [employer] Work Phone: [facility] 03-30-2024 14:45-0400 Systolic blood pressure 124 mm[Hg] Prinston Pruitt [employer] Work Phone: [facility] 03-30-2024 14:16-0400 Body temperature 98.4 [degF] Prinston Pruitt [employer] Work Phone: [facility] 03-26-2024 09:43-0400 Body temperature 98.2 [degF] Chandler Rufener PT Work Phone: [facility] 03-26-2024 09:43-0400 Diastolic blood pressure 72 mm[Hg] Chandler Rufener PT Work Phone: [facility] 03-26-2024 09:43-0400 Heart rate 77 /min Chandler Rufener PT Work Phone: [facility] 03-26-2024 09:43-0400 Respiratory rate 16 /min Chandler Rufener PT Work Phone: [facility] 03-26-2024 09:43-0400 SaO2% (BldA) [Mass fraction] 98 % Chandler Rufener PT Work Phone: [facility] 03-26-2024 09:43-0400 Systolic blood pressure 124 mm[Hg] Chnadler Rufener PT Work Phone: [facility] 03-24-2024 09:38-0400 Body temperature 97.81 [degF] Chandler Rufener PT Work Phone: [facility] 03-24-2024 09:38-0400 Diastolic blood pressure 70 mm[Hg] Chandler Rufener PT Work Phone: [facility] 03-24-2024 09:38-0400 Heart rate 72 /min Chandler Rufener PT Work Phone: [facility] 03-24-2024 09:38-0400 Respiratory rate 16 /min Chandler Rufener PT Work Phone: [facility] 03-24-2024 09:38-0400 SaO2% (BldA) [Mass fraction] 98 % Chandler Rufener PT Work Phone: [facility] 03-24-2024 09:38-0400 Systolic blood pressure 128 mm[Hg] Chandler Rufener PT Work Phone: [facility] 03-22-2024 10:37-0400 Body temperature 97.81 [degF] Chandler Rufener PT Work Phone: [facility] 03-22-2024 10:37-0400 Diastolic blood pressure 78 mm[Hg] Chandler Rufener PT Work Phone: [facility] 03-22-2024 10:37-0400 Heart rate 77 /min Chandler Rufener PT Work Phone: [facility] 03-22-2024 10:37-0400 Respiratory rate 16 /min Chandler Rufener PT Work Phone: [facility] 03-22-2024 10:37-0400 SaO2% (BldA) [Mass fraction] 98 % Chandler Rufener PT Work Phone: [facility] 03-22-2024 10:37-0400 Systolic blood pressure 132 mm[Hg] Chandler Rufener PT Work Phone: [facility] 03-20-2024 10:30-0400 Body temperature 98.29 [degF] Chantal Merna [employer] Work Phone: [facility] 03-20-2024 10:30-0400 Diastolic blood pressure 78 mm[Hg] Chantal Merna [employer] Work Phone: [facility] 03-20-2024 10:30-0400 Heart rate 88 /min Chantal Merna [employer] Work Phone: [facility] 03-20-2024 10:30-0400 Respiratory rate 18 /min Chantal Merna [employer] Work Phone: [facility] 03-20-2024 10:30-0400 SaO2% (BldA) [Mass fraction] 98 % Chantal Merna [employer] Work Phone: [facility] 03-20-2024 10:30-0400 Systolic blood pressure 130 mm[Hg] Chantal Merna [employer] Work Phone: [facility] 03-18-2024 11:33-0400 Diastolic blood pressure 70 mm[Hg] Chandler Rufener PT Work Phone: [facility] 03-18-2024 11:33-0400 Heart rate 78 /min Chandler Rufener PT Work Phone: [facility] 03-18-2024 11:33-0400 Respiratory rate 16 /min Chandler Dylonfener PT Work Phone: [facility] 03-18-2024 11:33-0400 SaO2% (BldA) [Mass fraction] 98 % Chandler Rufener PT Work Phone: [facility] 03-18-2024 11:33-0400 Systolic blood pressure 132 mm[Hg] Chandler Rufener PT Work Phone: [facility] 03-18-2024 11:02-0400 Body temperature 97.7 [degF] Chandler Rufener PT Work Phone: [facility] 02-25-2024 09:41-0400 Diastolic blood pressure 77 mm[Hg] Pacc 2 Work Phone: [facility] 02-25-2024 09:41-0400 Systolic blood pressure 146 mm[Hg] Pacc 2 Work Phone: [facility] 02-25-2024 09:20-0400 Body height 165.1 cm Pacc 2 Work Phone: [facility] 02-25-2024 09:20-0400 Body mass index (BMI) [Ratio] 25.39 kg/m2 Pacc 2 Work Phone: [facility] 02-25-2024 09:20-0400 Body temperature 98.2 [degF] Pacc 2 Work Phone: [facility] 02-25-2024 09:20-0400 Body weight 69.2 kg Pacc 2 Work Phone: [facility] 02-25-2024 09:20-0400 Heart rate 67 /min Pacc 2 Work Phone: [facility] 02-25-2024 09:20-0400 Respiratory rate 16 /min Pacc 2 Work Phone: [facility] 02-25-2024 09:20-0400 SaO2% (BldA) [Mass fraction] 98 % Pacc 2 Work Phone: [facility] 09-17-2023 08:30-0400 Body height 165.1 cm Brigid Bailon MD Work Phone: [facility] 09-17-2023 08:30-0400 Body weight 70 kg Brigid Bailon MD Work Phone: [facility] 11-16-2021 16:19-0400 Body height 161.93 cm [facility] Work Phone: 11-16-2021 16:19-0400 Body mass index (BMI) [Ratio] 27.1 kg/m2 [facility] Work Phone: 11-16-2021 16:19-0400 Body temperature 97.7 [degF] [facility] Work Phone: 11-16-2021 16:19-0400 Body weight 71.21 kg [facility] Work Phone: 11-16-2021 16:19-0400 Diastolic blood pressure 70 mm[Hg] [facility] Work Phone: 11-16-2021 16:19-0400 Heart rate 78 /min [facility] Work Phone: 11-16-2021 16:19-0400 Respiratory rate 18 /min [facility] Work Phone: 11-16-2021 16:19-0400 SaO2% (BldA) [Mass fraction] 96 % [facility] Work Phone: 11-16-2021 16:19-0400 Systolic blood pressure 140 mm[Hg] [facility] Work Phone: 12-26-2015 10:21-0400 BMI (Body Mass Index) 29.62 kg/m2 Gil Ashford LPN [facility] Work Phone: 12-26-2015 10:21-0400 Body weight 80.74 kg Sujatha Masterson [facility] Work Phone: 12-26-2015 10:040 Height 165.1 cm Gil Ashford [employer] [facility] Work Phone: 12-26-2015 10: Weight 80.74 kg Gil Ashford [employer] Work Phone: Encounters Encounter Date Encounter Type Care Provider Facility Start: 11-02-2024 End: 11-02-2024 Patient encounter procedure Kathleen Parker MD Work Phone: Ophthalmology Comment on above: Pseudophakia of both eyes (Primary Dx); Conjunctival cyst of left eye; Vitreous degeneration, bilateral Start: 11-02-2024 End: 11-02-2024 ambulatory VERNON L BOLTON Facility:[facility] Start: 11-01-2024 End: 11-01-2024 ambulatory Vernon Bolton [employer] Facility:[facility] Start: 08-02-2024 End: 08-02-2024 ambulatory VERNON L BOLTON Facility:[facility] Start: 08-02-2024 End: 08-02-2024 Patient encounter procedure Kathleen Parker MD Work Phone: Ophthalmology Comment on above: Pseudophakia of both eyes (Primary Dx); Conjunctival cyst of left eye Start: 07-30-2024 End: 07-30-2024 ambulatory VERNON L BOLTON Facility:[facility] Start: 07-30-2024 End: 07-30-2024 Patient encounter procedure Brigid Bailon MD Work Phone: Orthopaedics Comment on above: Aftercare following right knee joint replacement surgery (Primary Dx) Start: 07-20-2024 End: 07-20-2024 ambulatory VERNON L BOLTON Facility:[facility] Start: 07-20-2024 End: 07-20-2024 Patient encounter procedure Johanny Santana OD Work Phone: Ophthalmology Comment on above: Presence of intraocu lar lens (Primary Dx); Conjunctival cyst of left eye Start: 07-19-2024 End: 07-27-2024 Telephone encounter Kathleen Parker MD Work Phone: Ophthalmology Comment on above: Patient Question Start: 07-17-2024 End: 07-17-2024 ambulatory April Mayorga RN NURSE LACQUER SIZER Comment on above: Eye Problem Start: 07-17-2024 End: 07-17-2024 Telephone encounter Je Washington MD Work Phone: Ophthalmology Start: 06-28-2024 End: 06-28-2024 ambulatory KATHLEEN PARKER Facility:[facility] Start: 06-28-2024 End: 06-28-2024 Patient encounter procedure Kathleen Parker MD Work Phone: Ophthalmology Comment on above: Pseudophakia of both eyes (Primary Dx) Start: 06-22-2024 End: 06-22-2024 ambulatory KATHLEEN PARKER Facility:[facility] Start: 06-22-2024 End: 06-22-2024 Patient encounter procedure Kathleen Parker MD Work Phone: Ophthalmology Comment on above: Pseudophakia (Primar y Dx) Start: 06-21-2024 End: 06-21-2024 ambulatory VERNON BOLTON Facility:[facility] Start: 06-16-2024 End: 06-16-2024 ambulatory KATHLEEN PARKER Facility:[facility] Start: 06-16-2024 End: 06-16-2024 Patient encounter procedure Kathleen Parker MD Work Phone: Ophthalmology Comment on above: Pseudophakia (Primar y Dx) Start: 06-14-2024 End: 06-14-2024 Subsequent hospital visit by physician Radio Esquivel [facility] Work Phone: Radiology Comment on above: Status post total ri ght knee replacement [Z96.651] Start: 06-14-2024 End: 06-14-2024 ambulatory VERNON BOLTON Facility:[facility] Start: 06-14-2024 End: 06-14-2024 Patient encounter procedure Brigid Bailon MD Work Phone: Orthopaedics Comment on above: Status post total ri ght knee replacement (Primary Dx); Pain in right hip Start: 06-10-2024 End: 06-10-2024 ambulatory KATHLEEN PARKER Facility:[facility] Start: 06-10-2024 End: 06-10-2024 Patient encounter procedure Kathleen Parker MD Work Phone: Ophthalmology Comment on above: Pseudophakia (Primar y Dx) Start: 06-09-2024 End: 06-09-2024 ambulatory KATHLEEN PARKER Facility:[facility] Start: 05-27-2024 End: 05-28-2024 Telephone encounter Gavi Freeman MD Work Phone: Ophthalmology Comment on above: Patient Question Start: 05-25-2024 End: 05-31-2024 Telephone encounter Brigid Bailon MD Work Phone: [address] Comment on above: Patient Question Start: 05-24-2024 End: 05-24-2024 Admission to establishment [place] [id number] Work Phone: Pre Anesthesia Start: 05-24-2024 End: 05-24-2024 Anesthesia consultation [place] [id number] Work Phone: Pre Anesthesia Comment on above: Pre-op evaluation (P rimary Dx); Hyperlipidemia, unspecified hyperlipidemia type; Postoperative hypothyroidism; Idiopathic urticaria; Cigarette nicotine dependence without complication Start: 05-24-2024 End: 05-24-2024 Preprocedural examination done [place] [id number] Work Phone: [facility] Work Phone: Start: 05-24-2024 End: 05-24-2024 ambulatory VERNON Harris BOLTON Facility:[facility] Start: 05-24-2024 Encounter for other preprocedural examination VERNON [facility] Start: 05-17-2024 End: 05-17-2024 ambulatory VERNON BOLTON Facility:[facility] Start: 05-10-2024 End: 05-12-2024 Telephone encounter Brigid Bailon MD Work Phone: [address] Comment on above: Patient Question Start: 05-05-2024 End: 05-05-2024 ambulatory KATHLEEN PARKER Facility:[facility] Start: 05-05-2024 End: 05-05-2024 Patient encounter procedure Brigid Bailon MD Work Phone: Orthopaedics Comment on above: Aftercare following right knee joint replacement surgery (Primary Dx) Start: 05-03-2024 End: 05-03-2024 Patient encounter procedure Kathleen Parker MD Work Phone: Ophthalmology Comment on above: Nuclear sclerosis of both eyes (Primary Dx); Cortical age-related cataract of both eyes; Vitreous degeneration, bilateral Start: 05-03-2024 End: 05-03-2024 ambulatory KATHLEEN PARKER Facility:[facility] Start: 04-26-2024 ambulatory VERNON BOLTON [facility] ity:[facility] Start: 04-02-2024 End: 04-02-2024 Home visit Chandler Red PT Work Phone: [facility] Comment on above: PT AGENCY DC W VISIT Start: 03-30-2024 End: 03-30-2024 Home visit Pippa Pruitt GUM REMOVER Work Phone: [facility] Comment on above: GUM REMOVER ROUTINE Start: 03-29-2024 End: 03-29-2024 Patient encounter procedure Dennis Butts PA-C Work Phone: Orthopaedics Comment on above: S/P total knee arthr oplasty, right (Primary Dx) Start: 03-29-2024 End: 03-29-2024 ambulatory VERNON BOLTON Facility:[facility] Start: 03-29-2024 End: 03-29-2024 Subsequent hospital visit by physician [facility] Work Phone: Radiology Comment on above: Right knee pain, uns pecified chronicity [M25.561] Start: 03-26-2024 End: 03-26-2024 Home visit Chandler Red PT Work Phone: [facility] Comment on above: PT ROUTINE Start: 03-24-2024 End: 03-24-2024 Home visit Chandler Red PT Work Phone: [facility] Comment on above: PT ROUTINE Start: 03-23-2024 End: 03-23-2024 Telephone encounter Brigid Bailon MD Work Phone: [address] Comment on above: Patient Question Start: 03-22-2024 End: 03-22-2024 Home visit Chandler Red PT Work Phone: [facility] Comment on above: PT ROUTINE Start: 03-20-2024 End: 03-20-2024 Home visit Chantal Bauman GUM REMOVER Work Phone: [facility] Comment on above: GUM REMOVER ROUTINE Start: 03-19-2024 End: 03-19-2024 Home visit Elvira Lopez RN Work Phone: [facility] Comment on above: CARE COORDINATION Start: 03-18-2024 End: 03-18-2024 Home visit Chandler Red PT Work Phone: [facility] Comment on above: PT SOC Start: 03-17-2024 End: 03-17-2024 Telephone encounter Aime Fajardo PSS [facility] Comment on above: Home Care (Confirmat ion Call ) Start: 03-16-2024 End: 03-17-2024 ambulatory BRIGID BAILON Facility:[facility] Start: 02-25-2024 End: 03-01-2024 Telephone encounter Brigid Bailon MD Work Phone: [address] Comment on above: Pre-Op Teaching Start: 02-25-2024 End: 02-25-2024 Admission to establishment [place] [id number] Work Phone: Pre Anesthesia Start: 02-25-2024 End: 02-25-2024 Anesthesia consultation [place] [phone] Work Phone: Pre Anesthesia Comment on above: Pre-op evaluation (P rimary Dx); Postoperative hypothyroidism; Cigarette nicotine dependence without complication; Elevated BP without diagnosis of hypertension; Hyperlipidemia, unspecified hyperlipidemia type Start: 02-25-2024 End: 02-25-2024 Preprocedural examination done [place] [id number] Work Phone: [facility] Work Phone: Start: 02-25-2024 End: 02-25-2024 ambulatory HEIDI Pereira RAMIRO Facility:[facility] Start: 02-24-2024 ambulatory DENNIS BUTTS Facility:[facility] Start: 02-24-2024 Encounter for other preprocedural examination VERNON BOLTON [facility] Start: 02-24-2024 End: 02-24-2024 Patient encounter status [facility] Start: 02-24-2024 End: 02-24-2024 Subsequent hospital visit by physician [facility] Radiology Comment on above: Primary osteoarthrit is of right knee [M17.11] Start: 02-17-2024 Patient encounter status Shantell Bailon MD Work Phone: [facility] Start: 02-17-2024 Telephone encounter Brigid Bailon MD Work Phone: Orthopaedics Comment on above: Appointment Start: 02-16-2024 Orders Only Brigid valdez MD Work Phone: Orthopaedics Comment on above: Primary osteoarthrit is of right knee (Primary Dx) Start: 02-11-2024 End: 02-11-2024 ambulatory VERNON BOLTON Facility:[facility] Start: 02-11-2024 End: 02-11-2024 Patient encounter procedure Brigid Bailon MD Work Phone: Orthopaedics Comment on above: Primary osteoarthrit is of right knee (Primary Dx) Start: 12-03-2023 End: 12-03-2023 ambulatory Vernon Bolton LIFE EDUCATOR Facility:[facility] Start: 11-21-2023 End: 11-21-2023 Patient encounter procedure Hilario Cummings MD Work Phone: Dermatology Comment on above: 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); History of nickel allergy Start: 11-21-2023 End: 11-21-2023 ambulatory HILARIO CUMMINGS Facility:[facility] Start: 11-20-2023 End: 11-20-2023 ambulatory KATHLEEN PARKER Facility:[facility] Start: 11-20-2023 End: 11-20-2023 Patient encounter procedure Kathleen Parker MD Work Phone: Ophthalmology Comment on above: Nuclear sclerosis of both eyes (Primary Dx); Cortical age-related cataract of both eyes; Vitreous degeneration, bilateral; Myopia of both eyes; Presbyopia Start: 11-17-2023 End: 11-17-2023 Patient encounter procedure Nurse Patch Test Work Phone: Dermatology Comment on above: Contact dermatitis a nd other eczema, due to unspecified cause (Primary Dx) Start: 11-17-2023 End: 11-17-2023 ambulatory VERNON BOLTON Facility:[facility] Start: 09-22-2023 End: 09-22-2023 Patient encounter procedure Hilario Cummings MD Work Phone: Dermatology Comment on above: Contact dermatitis a nd other eczema, due to unspecified cause (Primary Dx) Start: 09-19-2023 Telephone encounter Brigid Bailon MD Work Phone: Orthopaedics Start: 09-19-2023 End: 09-19-2023 Patient encounter procedure Sujatha Masterson DO Work Phone: Orthopaedics Comment on above: Primary osteoarthrit is of right knee (Primary Dx) Start: 09-18-2023 Telephone encounter Hilario dietrich MD Work Phone: Dermatology Start: 09-17-2023 End: 09-17-2023 Patient encounter procedure Brigid Bailon MD Work Phone: Orthopaedics Comment on above: History of metal all ergy (Primary Dx); Primary osteoarthritis of right knee Start: 09-05-2023 End: 09-05-2023 Patient encounter procedure Sujatha Masterson DO Work Phone: Orthopaedics Comment on above: Primary osteoarthrit is of right knee (Primary Dx) Start: 09-05-2023 ambulatory SUJATHA Manuel acility:[facility] Start: 09-05-2023 End: 09-05-2023 Subsequent hospital visit by physician [facility] Es[facility] Work Phone: Radiology Comment on above: Primary osteoarthrit is of right knee [M17.11] Start: 08-07-2023 Telephone encounter Sujatha Albrechtcarloesteban DO Work Phone: Orthopaedics Comment on above: Injections Start: 03-03-2023 End: 03-03-2023 Patient encounter procedure Nidia Humphreys PA-C Work Phone: Orthopaedics Comment on above: Primary osteoarthrit is of right knee (Primary Dx) Start: 02-24-2023 End: 02-24-2023 Patient encounter procedure Nidia Conneri PA-C Work Phone: Orthopaedics Comment on above: Primary osteoarthrit is of right knee (Primary Dx) Start: 02-17-2023 End: 02-17-2023 Patient encounter procedure Nidia Humphreys PA-C Work Phone: Orthopaedics Comment on above: Primary osteoarthrit is of right knee (Primary Dx) Start: 02-06-2023 Telephone encounter Sujatha Ramirez Aleja DO Work Phone: [facility] Comment on above: Patient Question Start: 07-26-2022 End: 07-26-2022 Patient encounter procedure Sujatha Ramirez Aleja DO Work Phone: Orthopaedics Comment on above: Chronic pain of righ t knee (Primary Dx); Arthritis of knee Start: 07-19-2022 End: 07-19-2022 Patient encounter procedure Emilyparag Masterson DO Work Phone: Orthopaedics Comment on above: Arthritis of knee (P rimary Dx); Primary osteoarthritis of right hip Start: 06-18-2022 Telephone encounter Emilyparag Masterson DO Work Phone: [facility] Comment on above: Patient Question Start: 06-03-2022 Telephone encounter Emilyparag Masterson DO Work Phone: Orthopaedics Comment on above: Injections (/) Start: 05-17-2022 End: 05-17-2022 Patient encounter procedure Emilyparag Masterson DO Work Phone: Orthopaedics Comment on above: Pain in right hip (P rimary Dx); Arthritis of knee; Primary osteoarthritis of right hip Start: 05-17-2022 End: 05-17-2022 Subsequent hospital visit by physician [facility] Work Phone: Radiology Comment on above: Pain in right hip [M 25.551] Start: 11-16-2021 End: 11-16-2021 Patient encounter procedure [facility], Specimen Procedures Date Procedure Procedure Detail Performing Clinician Start: 06-14-2024 Radex hip unilateral with pelvis 2-3 views Brigid Bailon MD Work Phone: Start: 05-03-2024 IOL BIOMETRY W/ IOL CALC OU (BOTH EYES) Kathleen Parker MD Work Phone: Start: 05-03-2024 End: 05-03-2024 Computerized ophthalmic imaging retina Kathleen Parker MD Work Phone: Start: 02-25-2024 Ecg routine ecg w/le ast 12 lds i&r only Heidi Waddell PACristinaC Work Phone: Start: 09-19-2023 Arthrocentesis aspir &/inj major jt/bursa w/o us Sujatha Masterson DO Work Phone: Start: 09-05-2023 Arthrocentesis aspir &/inj major jt/bursa w/o us Sujatha Masterson DO Work Phone: Start: 09-05-2023 Radiologic exam knee complete 4/more views Sujatha Masterson DO Work Phone: Start: 03-03-2023 Arthrocentesis aspir &/inj major jt/bursa w/o us Nidia Humphreys PA-C Work Phone: Start: 02-24-2023 Arthrocentesis aspir &/inj major jt/bursa w/o us Nidia Humphreys PA-C Work Phone: Start: 02-17-2023 Arthrocentesis aspir &/inj major jt/bursa w/o us Nidia Humphreys PA-C Work Phone: Start: 07-31-2022 Arthrocentesis aspir &/inj major jt/bursa w/o us Sujatha Ramirez Heroesteban DO Work Phone: Start: 07-19-2022 Arthrocentesis aspir &/inj major jt/bursa w/o us Sujatha Albrechtcarloesteban DO Work Phone: Start: 05-17-2022 Radex hip unilateral with pelvis 2-3 views Emilyparag Masterson DO Work Phone: Start: 11-14-2016 End: 11-14-2016 Documentation of current medications Sujatha Masterson Start: 11-14-2016 End: 11-14-2016 Smoking cessation education Suajtha webster Start: 07-22-2016 End: 07-29-2016 Arthrocentesis aspir&/inj major jt/bursa w/o us Hank Arteaga Work Phone: Start: 07-22-2016 End: 07-29-2016 Drain/inject, joint/bursa Hank Arteaga Work Phone: Start: 05-14-2016 End: 12-19-2016 *BFRW - Body Fluid RBC, WBC & DIFF Sujatha Masterson Work Phone: Start: 05-14-2016 End: 12-19-2016 Bacteria identified in Body fluid by Culture Sujatha Masterson Work Phone: Start: 05-14-2016 End: 12-19-2016 Crystals [type] in Body fluid by Light microscopy Sujatha Masterson Work Phone: Start: 05-14-2016 End: 12-19-2016 Glucose [Mass/volume] in Body fluid Sujatha Masterson Work Phone: Start: 05-14-2016 End: 12-19-2016 Protein [Mass/volume] in Body fluid Sujatha Masterson Work Phone: Start: 05-14-2016 End: 12-19-2016 *BFRW - Body Fluid RBC, WBC & DIFF Sujatha Masterson Work Phone: Start: 05-14-2016 End: 12-19-2016 Bacteria identified in Body fluid by Culture Sujatha Masterson Work Phone: Start: 05-14-2016 End: 12-19-2016 Crystals [type] in Body fluid by Light microscopy Sujatha Masterson Work Phone: Start: 05-14-2016 End: 12-19-2016 Glucose Sujatha Lam i Work Phone: Start: 05-14-2016 End: 12-19-2016 Glucose [Mass/volume] in Body fluid Sujatha Masterson Work Phone: Start: 05-14-2016 End: 12-19-2016 Protein in fluid Sujatha Albrechtjavier tommy Work Phone: Start: 03-26-2016 End: 05-16-2016 Mri any jt lower extrem w/o contrast matrl Sujatha Masterson Work Phone: Start: 03-26-2016 End: 05-16-2016 Radiologic exam knee complete 4/more views Sujatha Ramirez Aleja Work Phone: Start: 03-26-2016 End: 05-16-2016 Mri jnt of lwr extre w/o dye Sujatha Ramirez Aleja Work Phone: Start: 03-26-2016 End: 05-16-2016 X-ray exam, knee, 4 or more Emilyparag connolly Work Phone: Start: 02-06-2016 End: 05-16-2016 *BFRW - Body Fluid RBC, WBC & DIFF Sujatha Albrechtdanyelle Work Phone: Start: 02-06-2016 End: 05-16-2016 Bacteria identified in Body fluid by Culture Emilyparag Masterson Work Phone: Start: 02-06-2016 End: 05-16-2016 Crystals [type] in Body fluid by Light microscopy Sujatha Albrechtdanyelle Work Phone: Start: 02-06-2016 End: 05-16-2016 Glucose [Mass/volume] in Body fluid Sujatha Ramirez Aleja Work Phone: Start: 02-06-2016 End: 05-16-2016 Protein [Mass/volume] in Body fluid Emilyparag Masterson Work Phone: Start: 02-06-2016 End: 05-16-2016 *BFRW - Body Fluid RBC, WBC & DIFF Emilyparag Masterson Work Phone: Start: 02-06-2016 End: 05-16-2016 Bacteria identified in Body fluid by Culture Sujatha Masterson Work Phone: Start: 02-06-2016 End: 05-16-2016 Crystals [type] in Body fluid by Light microscopy Sujatha Masterson Work Phone: Start: 02-06-2016 End: 05-16-2016 Glucose Emilyparag Lam tommy Work Phone: Start: 02-06-2016 End: 05-16-2016 Glucose [Mass/volume] in Body fluid Emilyparag Masterson Work Phone: Start: 02-06-2016 End: 05-16-2016 Protein in fluid Sujatha Lam i Work Phone: Start: 12-26-2015 End: 02-06-2016 Radiologic exam knee complete 4/more views Sujatha Masterson Work Phone: Start: 12-26-2015 End: 02-06-2016 X-ray exam, knee, 4 or more Sujatha connolly Work Phone: Plan of Treatment Date Care Activity Detail Author Start: 04-26-2028 Urine microalbumin profile [facility] Start: 03-17-2027 Diabetes Screening Diabetes Screening [facility] Start: 02-24-2027 Diabetes Screening Diabetes Screening [facility] Start: 11-08-2025 End: 11-08-2025 Patient encounter procedure 11/08/2025 10:30 AM EDT Office Visit [facility] Ophthalmology [address] [place] [address] Kathleen Parker MD [address] [place] [address] Return for 1 year dfe/refract . Ophthalmology Comment on above: Return for 1 year dfe/refract . Start: 03-30-2025 End: 03-30-2025 Patient encounter procedure 03/30/2025 9:15 AM EDT Office Visit Orthopaedics [address] [address] Brigid Bailon MD [address] [address] 8 mo follow up- Rt [place]ka [place] 03/16/24 Orthopaedics Comment on above: 8 mo follow up- Rt tka [place] 03/16/24 Start: 11-02-2024 End: 11-02-2024 Patient encounter procedure 11/02/2024 9:15 AM EDT Office Visit [facility] Ophthalmology [address] [place] [address] Kathleen Parker MD [address] [place] [address] 3 months dfe . Ophthalmology Comment on above: 3 months dfe . Start: 08-02-2024 End: 08-02-2024 Patient encounter procedure 08/02/2024 9:30 AM EST Office Visit [facility] Op[facility]mology [address] [place] [address] Kathleen Parker MD [address] [place] [address] Return for 4 weeks va/ta/refarct . Ophthalmology Comment on above: Return for 4 weeks va/ta/refarct . Start: 07-30-2024 End: 07-30-2024 Patient encounter procedure 07/30/2024 8:15 AM EST Office Visit Orthopaedics [address] [address] Brigid Bailon MD [address] [address] [address] [facility] 03/16/24 Orthopaedics Comment on above: post op Rt tka [facility] 03/16/24 Start: 07-07-2024 Advance Directive Discussion Advance Directive Discussion [facility] Start: 06-28-2024 End: 06-28-2024 Patient encounter procedure 06/28/2024 9:15 AM EST Office Visit [facility] Ophthalmology [address] [place] [address] Kathleen Parker MD [address] [place] [address] 1 Week Post OP Ophthalmology Comment on above: 1 Week Post OP Start: 06-22-2024 End: 06-22-2024 Patient encounter procedure Ophthalmolog y Comment on above: 1 Day Post OP Start: 06-21-2024 End: 06-21-2024 Admission to same day surgery center [facility] Comment on above: PHACOEMULSIFICATION CATARACT IMPLANT INT RAOCULAR LENS W/O ENDOSCOPIC CYCLOPHOTOCOAGULATION Start: 06-21-2024 End: 06-21-2024 Oph bmtry prtl coher intrfrmtry io lens pwr binh [facility] Start: 06-21-2024 Subsequent hospital visit by physician [facility] Comment on above: Nuclear sclerosis of both eyes [H25.13] Start: 06-21-2024 End: 06-21-2024 Unlisted ophthalmological service/procedure [facility] Start: 06-21-2024 End: 06-21-2024 Xcapsl ctrc rmvl insj io lens prosth w/o ecp [facility] Start: 06-16-2024 End: 06-16-2024 Patient encounter procedure 06/16/2024 8:15 AM EST Office Visit [facility] Ophthalmology [address] [place] [address] Kathleen Parker MD [address] [facility] [address] [place] [address] 1 Week Post OP Ophthalmology Comment on above: 1 Week Post OP Start: 06-14-2024 End: 06-14-2024 Patient encounter procedure 06/14/2024 1:45 PM EST Office Visit Orthopaedics [facility] [address] [address] Brigid Bailon MD [address] [address] 3rd post op Rt tka [facility] 03/16/24 Orthopaedics Comment on above: 3rd post op Rt tka [facility] 03/16/24 Start: 06-10-2024 End: 06-10-2024 Patient encounter procedure 06/10/2024 8:15 AM EST Office Visit [facility] Ophthalmology [address] [address] Kathleen Parker MD [address] [address] 1 Day Post OP Ophthalmology Comment on above: 1 Day Post OP Start: 06-09-2024 End: 06-09-2024 Admission to same day surgery center [facility] Comment on above: PHACOEMULSIFICATION CATARACT IMPLANT INT RAOCULAR LENS W/O ENDOSCOPIC CYCLOPHOTOCOAGULATION Start: 06-09-2024 End: 06-09-2024 Oph bmtry prtl coher intrfrmtry io lens pwr binh [facility] Start: 06-09-2024 Subsequent hospital visit by physician [facility] Comment on above: Nuclear sclerosis of both eyes [H25.13], Cortical age-related cataract of both eyes [H25.013] Start: 06-09-2024 End: 06-09-2024 Unlisted ophthalmological service/procedure [facility] Start: 06-09-2024 End: 06-09-2024 Xcapsl ctrc rmvl insj io lens prosth w/o ecp [facility] Start: 05-24-2024 End: 05-24-2024 Admission to same day surgery center 05/24/2024 11:20 AM EST PAT Pre Anesthesia [address] [place] [address] 1, Pacc [place] [address] [place] [address] PACC // Prior to Cataract Surgery Pre Anesthesia Comment on above: PACC // Prior to Cataract Surgery Start: 05-17-2024 End: 05-17-2024 Patient encounter procedure 05/17/2024 1:15 PM EST Office [place] [address] Pre registration prior to catarac surgery [employer] [facility] Comment on above: Pre registration prior to catarac surger y Start: 05-05-2024 End: 05-05-2024 Patient encounter procedure 05/05/2024 4:15 PM EDT Office Visit Orthopaedics [address] [id number] Brigid Bailon MD [address] [id number] 2nd post op Rt tka [facility] 03/16/24 Orthopaedics Comment on above: 2nd post op Rt tka [facility] 03/16/24 Start: 05-03-2024 End: 05-03-2024 Patient encounter procedure Ophthalmolog y Comment on above: Ultrasound // DFE // Patient to see Dr Doris mulligan after measurements Review measurements / sign consents Start: 04-26-2024 End: 04-26-2024 Patient encounter procedure 04/26/2024 2:45 PM EDT Office Visit Orthopaedics [address] [address] Brigid Bailon MD [address] [id number] 2nd post op Rt [place] 03/16/24 Orthopaedics Comment on above: 2nd post op Rt tka [place] 03/16/24 Start: 03-29-2024 End: 03-29-2024 Patient encounter procedure Orthopaedics Comment on above: 1st post op Rt tka [facility] 03/16/24 R knee Start: 03-16-2024 End: 03-16-2024 Admission to same day surgery center 03/16/2024 10:15 AM EDT - 03/16/2024 1:09 PM EDT Surgery [facility] Surgery [address] [place] [address] Brigid Bailon MD [address] [address] ROBOTIC ASSISTED TOTAL KNEE ARTHROPLASTY [facility] Surgery Comment on above: ROBOTIC ASSISTED TOTAL KNEE ARTHROPLASTY Start: 03-16-2024 End: 03-16-2024 Arthrp kne condyle&platu medial&lat compartments ROBOTIC ASSISTED TOTAL KNEE ARTHROPLASTY Primary osteoarthritis of right knee 03/16/2024 10:15 AM EDT ME OR Start: 03-16-2024 Subsequent hospital visit by physician [facility] Surgery Comment on above: Primary osteoarthritis of right knee [M1 7.11] Start: 03-07-2024 Covid-19 Vaccine ( season) Covid-19 Vaccine ( season) [facility] Start: 03-07-2024 Covid-19 Vaccine ( season) Covid-19 Vaccine ( season) [facility] Start: 03-07-2024 Influenza vaccination [facility] Start: 02-25-2024 End: 02-25-2024 Anesthesia consultation 02/25/2024 9:20 AM EDT PAT Pre Anesthesia [address] [place] [address] 2, Pacc [place] [address] [place] [address] Pre-op evaluation (Primary Dx) Pre Anesthesia Comment on above: Pre-op evaluation (Primary Dx) Start: 02-24-2024 End: 02-24-2024 Patient encounter procedure 02/24/2024 9:00 AM EDT Appointment Radiology [address] [place] [address] R KNEE Radiology Comment on above: [place] [facility] R KNEE Start: 11-21-2023 End: 11-21-2023 Patient encounter procedure 11/21/2023 10:30 AM EDT Office Visit Dermatology [address] [address] [place] [address] [place] [address] patch testing Dermatology Comment on above: patch testing Start: 11-20-2023 End: 11-20-2023 Patient encounter procedure 11/20/2023 9:30 AM EDT Office Visit [facility] Ophthalmology [address] [facility] [address] [place] [address] Katlheen Parker MD [address] [facility] [address] [place] [address] DFE REF - cat eval holley pt Ophthalmology Comment on above: DFE REF - cat eval holley pt Start: 07-07-2023 Advance Directive Discussion Advance Directive Discussion [facility] Start: 07-07-2023 Behavioral Health Screening Behavioral Health Screening [facility] Start: 07-07-2023 Depression Assessment Depression Assessment [facility] Start: 03-07-2023 Covid-19 Vaccine ( season) Covid-19 Vaccine ( season) [facility] Start: 03-07-2023 Influenza vaccination [facility] Start: 07-07-2022 ADVANCE DIRECTIVE DISCUSSION ADVANCE DIRECTIVE DISCUSSION [facility] Start: 07-07-2022 DEPRESSION ASSESSMENT DEPRESSION ASSESSMENT [facility] Start: 03-07-2022 Influenza vaccination INFLUENZA (#1) [facility] Start: 2021 ADVANCE DIRECTIVE DISCUSSION ADVANCE DIRECTIVE DISCUSSION [facility] Start: 2021 BONE DENSITY BONE DENSITY [facility] Start: 2021 Screening for osteoporosis Bone Density Screening [facility] Start: 07-07-2021 DEPRESSION ASSESSMENT DEPRESSION ASSESSMENT [facility] Start: 01-30-2017 End: 01-30-2017 Appointment Appointment [facility] Work Phone: Start: 01-02-2017 End: 01-02-2017 Appointment Appointment [facility] Work Phone: Start: 12-18-2016 End: 12-18-2016 Appointment Appointment [facility] Work Phone: Start: 12-03-2016 End: 12-03-2016 Appointment Appointment [facility] Work Phone: Start: 11-14-2016 End: 11-14-2016 Appointment Appointment [facility] Work Phone: Start: 2016 RSV Vaccine (1 - 1-dose 60+ series) RSV Vaccine (1 - 1-dose 60+ series) [facility] Start: 2016 RSV Vaccine (1 - Risk 60-74 years 1-dose series) RSV Vaccine (1 - Risk 60-74 years 1-dose series) [facility] Start: 05-14-2016 End: 12-19-2016 *BFRW - Body Fluid RBC, WBC & DIFF *BFRW - Body Fluid RBC, WBC & DIFF [facility] Work Phone: Start: 05-14-2016 End: 12-19-2016 Bacteria identified Cx Nom (Body fld) *CUBF- Culture, Body Fluid [facility] Work Phone: Start: 05-14-2016 End: 12-19-2016 Crystals LM Nom (Body fld) *PATRICIA - Crystals, Body Fluid [facility] Work Phone: Start: 05-14-2016 End: 12-19-2016 Glucose mass conc (Body fld) *GLUBF - Glucose, Body Fluid [facility] Work Phone: Start: 05-14-2016 End: 12-19-2016 Protein mass conc (Body fld) *PROBF - Protein, Body Fluid [facility] Work Phone: Start: 05-14-2016 End: 12-19-2016 *BFRW - Body Fluid RBC, WBC & DIFF *BFRW - Body Fluid RBC, WBC & DIFF [facility] Work Phone: Start: 05-14-2016 End: 12-19-2016 Bacteria identified in Body fluid by Culture *CUBF- Culture, Body Fluid [facility] Work Phone: Start: 05-14-2016 End: 12-19-2016 Crystals [type] in Body fluid by Light microscopy *PATRICIA - Crystals, Body Fluid [facility] Work Phone: Start: 05-14-2016 End: 12-19-2016 Glucose *GLUBF - Glucose, Body Fluid [facility] Work Phone: Start: 05-14-2016 End: 12-19-2016 Glucose mass conc (Body fld) *GLUBF - Glucose, Body Fluid [facility] Work Phone: Start: 05-14-2016 End: 12-19-2016 Protein in fluid *PROBF - Protein, Body Fluid [facility] Work Phone: Start: 03-26-2016 End: 05-16-2016 Mri any jt lower extrem w/o contrast matrl MRI Joint Lower Extremity [facility] Work Phone: Start: 03-26-2016 End: 05-16-2016 Radiologic exam knee complete 4/more views X-Ray, Knee [facility] Work Phone: Start: 03-26-2016 End: 05-16-2016 Mri jnt of lwr extre w/o dye MRI Joint Lower Extremity [facility] Work Phone: Start: 03-26-2016 End: 05-16-2016 X-ray exam, knee, 4 or more X-Ray, Knee [facility] Work Phone: Start: 02-06-2016 End: 05-16-2016 *BFRW - Body Fluid RBC, WBC & DIFF *BFRW - Body Fluid RBC, WBC & DIFF [facility] Work Phone: Start: 02-06-2016 End: 05-16-2016 Bacteria identified Cx Nom (Body fld) *CUBF- Culture, Body Fluid [facility] Work Phone: Start: 02-06-2016 End: 05-16-2016 Crystals LM Nom (Body fld) *PATRICIA - Crystals, Body Fluid [facility] Work Phone: Start: 02-06-2016 End: 05-16-2016 Glucose mass conc (Body fld) *GLUBF - Glucose, Body Fluid [facility] Work Phone: Start: 02-06-2016 End: 05-16-2016 Protein mass conc (Body fld) *PROBF - Protein, Body Fluid [facility] Work Phone: Start: 02-06-2016 End: 05-16-2016 *BFRW - Body Fluid RBC, WBC & DIFF *BFRW - Body Fluid RBC, WBC & DIFF [facility] Work Phone: Start: 02-06-2016 End: 05-16-2016 Bacteria identified in Body fluid by Culture *CUBF- Culture, Body Fluid [facility] Work Phone: Start: 02-06-2016 End: 05-16-2016 Crystals [type] in Body fluid by Light microscopy *PATRICIA - Crystals, Body Fluid [facility] Work Phone: Start: 02-06-2016 End: 05-16-2016 Glucose *GLUBF - Glucose, Body Fluid [facility] Work Phone: Start: 02-06-2016 End: 05-16-2016 Glucose mass conc (Body fld) *GLUBF - Glucose, Body Fluid [facility] Work Phone: Start: 02-06-2016 End: 05-16-2016 Protein in fluid *PROBF - Protein, Body Fluid [facility] Work Phone: Start: 12-26-2015 End: 02-06-2016 Radiologic exam knee complete 4/more views X-Ray, Knee [facility] Work Phone: Start: 12-26-2015 End: 02-06-2016 X-ray exam, knee, 4 or more X-Ray, Knee [facility] Work Phone: Start: 2006 Screening for malignant neoplasm of lung Lung Cancer Screening [facility] Start: 2006 SHINGRIX VACCINE (1 of 2) SHINGRIX VACCINE (1 of 2) [facility] Start: 2001 COLOGUARD (FIT-DNA) COLOGUARD (FIT-DNA) [facility] Start: 2001 Colonoscopy COLONOSCOPY [facility] Start: 2001 COLORECTAL CANCER SCREENING COLORECTAL CANCER SCREENING [facility] Start: [address] COLONOGRAPHY [facility] Start: 2001 DIABETES SCREEN DIABETES SCREEN [facility] Start: 2001 Diabetes Screening Diabetes Screening [facility] Start: 2001 FECAL OCCULT BLOOD FECAL OCCULT BLOOD [facility] Start: 2001 Lipid panel Lipid Screening [facility] Start: 2001 LIPID SCREEN LIPID SCREEN [facility] Start: 2001 Screening for malignant neoplasm of colon [facility] Start: 2001 SIGMOIDOSCOPY SIGMOIDOSCOPY [facility] Start: 1996 Mammography MAMMOGRAM [facility] Start: 1996 Screening for malignant neoplasm of breast Mammogram Screening [facility] Start: 10-19-1975 Pneumococcal Vaccine: 50+ (1 of 2 - PCV) Pneumococcal Vaccine: 50+ (1 of 2 - PCV) [facility] Start: 1974 Annual PCP Team Chronic Disease Visit Annual PCP Team Chronic Disease Visit [facility] Start: 1974 Anxiety Screening Anxiety Screening [facility] Start: 1974 Depression Screening Depression Screening [facility] Start: 1974 HEPATITIS C SCREENING HEPATITIS C SCREENING [facility] Start: 1974 Hepatitis C screening Hepatitis C Screening [facility] Start: 1974 HIV SCREENING HIV SCREENING [facility] Start: 1962 Pneumococcal Vaccine: 65+ (1 of 2 - PCV) Pneumococcal Vaccine: 65+ (1 of 2 - PCV) [facility] Start: 1962 PNEUMOCOCCAL: 65+ (1 - PCV) PNEUMOCOCCAL: 65+ (1 - PCV) [facility] Start: 04-19-1957 COVID-19 VACCINE (#1) COVID-19 VACCINE (#1) [facility] Arthrp kne condyle&p latu medial&lat compartments ROBOTIC ASSISTED TOTAL KNEE ARTHROPLASTY Primary osteoarthritis of right knee [facility] End: 03-18-2025 CT Knee - right WO contrast CT KNEE WO IVCON RIGHT Radiology Routine Primary osteoarthritis of right knee Preoperative testing 1 Occurrences starting 02/17/2024 until 03/18/2025 [facility] Work Phone: Comment on above: 1 Occurrences starting 02/17/2024 until 03/18/2025 CT Knee - right WO contrast CT K NEE WO IVCON RIGHT Radiology Routine Primary osteoarthritis of right knee Preoperative testing 02/24/2024 9:06 AM EDT [facility] Work Phone: Oph bmtry prtl coher intrfrmtry io lens pwr binh OPHTHALMIC BIOMETRY BY PARTIAL COHERENCE INTERFEROMETRY W/INTRAOCULAR LENS POWER CALCULATION Nuclear sclerosis of both eyes Cortical age-related cataract of both eyes [facility] Unlisted ophthalmolo gical service/procedure REFRACTIVE SERVICES RELATED TO INTRAOCCULAR LENS IMPLANT Nuclear sclerosis of both eyes Cortical age-related cataract of both eyes [facility] Xcapsl ctrc rmvl ins j io lens prosth w/o ecp PHACOEMULSIFICATION CATARACT IMPLANT INTRAOCULAR LENS W/O ENDOSCOPIC CYCLOPHOTOCOAGULATION Nuclear sclerosis of both eyes Cortical age-related cataract of both eyes [facility] XR Knee AP and Later al and Merchants XR KNEE POST OP 3V AP/LAT/MERCHANT RIGHT Radiology Routine Right knee pain, unspecified chronicity 03/29/2024 12:44 PM EDT [facility] Work Phone: [facility] Immunizations Immunization Date Immunization Notes Care Provider Tutu butler 04-26-2018 tetanus toxoid, redu zofia diphtheria toxoid, and acellular pertussis vaccine, adsorbed Sujatha Masterson DO Work Phone: [facility] Payers Date Payer Category Payer Self-pay [id number] 2021 Medicare [id number] 2021 Medicare (Managed Care) [employer] [id number] 2021 Private Health Insurance 101 [id number] 2015 Unknown SELF PAY INSURANCE [id number] Unknown [id number] Unknown [id number] Social History Date Type Detail Facility Start: 01-24-2021 Tobacco smoking stat [facility] Unknown if ever smoked [facility] Work Phone: Start: 1955 Sex Assigned At Female W [facility] Work Phone: Start: 02-25-1984 End: 02-25-2024 Tobacco smoking status [facility] Smokes tobacco daily [facility] Start: 02-25-1984 History of tobacco use Cigarette Smo ker [facility] Start: 05-17-2022 End: 02-17-2023 Cigarettes smoked current (pack per day) - Reported 1 [facility] Start: 05-17-2022 End: 02-25-2024 Tobacco use and exposure Smokeless tobacco non-user [facility] Start: 05-17-2022 End: 11-02-2024 Alcohol intake Current non-drinker of alcohol (finding) [facility] Start: 04-26-2018 Alcohol Comment 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 [facility] Start: 1955 Sex Assigned At Not on file [facility] Start: 05-07-2022 End: 05-17-2022 Exposure to SARS-CoV-2 (event) Not sure [facility] Start: 10-25-2022 End: 02-17-2023 Tobacco use panel [facility] National Score (1-10 0), lower number is lower risk 52 [facility] Start: 02-25-2024 Tobacco Comment 0.5 pack a day [facility] Start: 02-25-2024 Alcohol Comment recoverring al coholic of 44 years [facility] Has the [employer], [employer], or water [employer] threatened to shut off services in your home in past 12Mo No [facility] (I/We) worried jesus er (my/our) food would run out before (I/we) got money to buy more. Never true [facility] Medical Equipment Procedure Code Equipment Code Equipment Origin al Text Equipment Identifier Dates Baseplate Triathalon 4 Tritanium Tibial Coated Sterile Knee - [id number] Start: 03-16-2024 Component Triathlon 4 Pa Femoral Cruciate Retain Bead Knee Right - [id number] Start: 03-16-2024 Component Tritanium 29mm Metal 9mm Patellar Asymmetric Knee - [id number] Start: 03-16-2024 Insert Triathlon 4 12mm Tibial Bearing Condylar Stabilize Sterile Knee - [id number] Start: 03-16-2024 Tecnis Eyhance W/Tecnis Simplicity Iol 17.5d [id number] Start: 06-09-2024 Tecnis Eyhance W/Tecnis Simplicity Iol 17.5d [id number] Start: 06-21-2024 Comment on above: Description: -0.33 Functional Status Date Assessment Result Facility 03-17-2024 Are you deaf, or do you have serious difficulty hearing No 03/17/2024 10:14 AM Laura Allen RN No [facility] 03-17-2024 Are you blind, or do you have serious difficulty seeing, even when wearing glasses No 03/17/2024 10:14 AM Laura Allen RN No [facility] 03-17-2024 Do you have serious difficulty walking or climbing stairs No 03/17/2024 10:14 AM Laura Allen, PATRIZIA No [facility] 03-17-2024 Do you have difficul ty dressing or bathing Yes 03/17/2024 10:14 AM Laura Allen, PATRIZIA Yes [facility] 03-17-2024 Because of a physica l, mental, or emotional condition, do you have difficulty doing errands alone such as visiting a physician's office or shopping Yes 03/17/2024 10:14 AM Laura Allen, PATRIZIA Yes [facility] Mental Status Date Assessment Result Facility 03-17-2024 Because of a physica l, mental, or emotional condition, do you have serious difficulty concentrating, remembering, or making decisions No 03/17/2024 10:14 AM Laura Allen, PATRIZIA No [facility] Clinical Notes 05-17-2022 to 11-02-2024 Kathleen Parker MD - 11/02/2024 9:38 AM Brigid Sargent MD - 08/27/2024 9:59 AM Kathleen Penn MD - 08/02/2024 9:51 AM Johanny Bernal OD - 07/20/2024 12:16 PM EST Note Date & Type Note Facility 11-02-2024 Note HNO ID: [id number] Author: KATHLEEN PARKER MD Service: ? Author Type: Physician Type: Progress Notes Filed: 11/02/2024 09:39 Note Text: Z96.1 Pseudophakia of both eyes (primary encounter diagnosis) The patient's implant(s) appear stable. There is no visually significant secondary cataract.Continued observation is recommended. 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 Observation H43.813 Vitreous degeneration, bilateral The symptoms of floaters were reviewed with the patient. The possibility of increased floaters with flashes and visual loss was discussed. The patient was to contact the office if changes occur. I have confirmed and edited as necessary the relevant ophthalmic history, ROS, and the neuro exam findings as obtained by others. I have seen and examined Leilani Harris Drakecharles. I have discussed the case and the management of this patient's care with the Resident/Fellow, if applicable. I also have reviewed the chart, including the HPI, and agree with the assessment and plan as stated above and agree with all of its relevant components. Kathleen Parker MD [facility] 11-02-2024 History of Present illness Narrative Z96.1 Pseudophakia of both eyes (primary encounter diagnosis) The patient's implant(s) appear stable. There is no visually significant secondary cataract.Continued observation is recommended. 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 Observation H43.813 Vitreous degeneration, bilateral The symptoms of floaters were reviewed with the patient. The possibility of increased floaters with flashes and visual loss was discussed. The patient was to contact the office if changes occur. I have confirmed and edited as necessary the relevant ophthalmic history, ROS, and the neuro exam findings as obtained by others. I have seen and examined Leilani Farrar. I have discussed the case and the management of this patient's care with the Resident/Fellow, if applicable. I also have reviewed the chart, including the HPI, and agree with the assessment and plan as stated above and agree with all of its relevant components. Kathleen Parker MD documented in this encounter [facility] 08-27-2024 Note HNO ID: [id number] Author: BRIGID BAILON MD Service: ? Author Type: Physician Type: Progress Notes Filed: 08/27/2024 10:02 Note Text: DR. BAILON- POST-OP KNEE Post-Op F/U Office Visit Leilani Farrar presents today for a 4-1/2 months status post Right TKA. Post-operative recovery was uneventful. Patient's rating of condition: improving Comments: None Does the Pt. still experience pain? PAIN EVALUATION 07/30/2024 0804 Pain Location: Knee-Right Description: Pressure Frequency: Intermittent Functional difficulties: Stair climbing Physical Therapy: Yes Pain Medication: None Ambulating with assistance. Medications and Allergies reviewed and verified. EXAM: GEN: AANDO x3, NAD SKIN:Appropriate postop appearance Incision intact Incision well healed RightKnee: ROM: Flexion/Extension:0 degrees to 110 degrees Pain with ROM:No Mal-alignment: No Effusion: None Tender to palpation of the medial joint line(s). Stability:Anterior/Posterior- Yes, stable and Varus/Valgus- Yes, stable Quad strength: normal HIP: range of motion no loss ROM NV: intact and Raghu's negative IMAGING: Xrays: No x-rays today IMPRESSION/PLAN: 68 year old female s/p Right TKA At normal post-operative stage of recovery. Plan: 1. Continue independent range of motion/strengthening exercises 2. Continue total knee precautions 3. Follow-up in 8 months for repeat clinical evaluation or sooner should she develop any new orthopedic issues Brigid Bailon MD Electronic Signature [facility] 08-27-2024 History of Present illness Narrative DR. BAILON- POST-OP KNEE Post-Op F/U Office Visit Leilani Farrar presents today for a 4-1/2 months status post Right TKA. Post-operative recovery was uneventful. Patient's rating of condition: improving Comments: None Does the Pt. still experience pain? PAIN EVALUATION 07/30/2024 0804 Pain Location: Knee-Right Description: Pressure Frequency: Intermittent Functional difficulties: Stair climbing Physical Therapy: Yes Pain Medication: None Ambulating with assistance. Medications and Allergies reviewed and verified. EXAM: GEN: A&O x3, NAD SKIN:Appropriate postop appearance Incision intact Incision well healed RightKnee: ROM: Flexion/Extension:0 degrees to 110 degrees Pain with ROM:No Mal-alignment: No Effusion: None Tender to palpation of the medial joint line(s). Stability:Anterior/Posterior- Yes, stable and Varus/Valgus- Yes, stable Quad strength: normal HIP: range of motion no loss ROM NV: intact and Raghu's negative IMAGING: Xrays: No x-rays today IMPRESSION/PLAN: 68 year old female s/p Right TKA At normal post-operative stage of recovery. Plan: 1. Continue independent range of motion/strengthening exercises 2. Continue total knee precautions 3. Follow-up in 8 months for repeat clinical evaluation or sooner should she develop any new orthopedic issues Brigid Bailon MD Electronic [employer] documented in this encounter [facility] 08-02-2024 Note HNO ID: [id number] Author: KATHLEEN PARKER MD Service: ? Author Type: Physician Type: Progress Notes Filed: 08/02/2024 09:53 Note Text: Z96.1 Pseudophakia (primary encounter diagnosis) Postoperative week 7 s/p Cataract extraction/intraocular lens right eye (distance) Postoperative week 4 s/p Cataract extraction/intraocular lens left eye Off of drops Small conjunctival cyst- observation. Tears as needed. F/u 3 months I have confirmed and edited as necessary the relevant ophthalmic history, ROS, and the neuro exam findings as obtained by others. I have seen and examined Leilani Farrar. I have discussed the case and the management of this patient's care with the Resident/Fellow, if applicable. I also have reviewed the chart, including the HPI, and agree with the assessment and plan as stated above and agree with all of its relevant components. Kathleen Parker MD [facility] 08-02-2024 History of Present illness Narrative Z96.1 Pseudophakia (primary encounter diagnosis) Postoperative week 7 s/p Cataract extraction/intraocular lens right eye (distance) Postoperative week 4 s/p Cataract extraction/intraocular lens left eye Off of drops Small conjunctival cyst- observation. Tears as needed. F/u 3 months I have confirmed and edited as necessary the relevant ophthalmic history, ROS, and the neuro exam findings as obtained by others. I have seen and examined Leilani Farrar. I have discussed the case and the management of this patient's care with the Resident/Fellow, if applicable. I also have reviewed the chart, including the HPI, and agree with the assessment and plan as stated above and agree with all of its relevant components. Kathleen Praker MD documented in this encounter [facility] 07-20-2024 Note HNO ID: [id number] Author: JOHANNY SANTANA OD Service: ? Author Type: OCEANOGRAPHIC METEOROLOGIST Type: Progress Notes Filed: 07/20/2024 12:22 Note Text: (Z96.1) Presence of intraocular lens (primary encounter diagnosis) (H11.442) Conjunctival cyst of left eye Cataract surgery Right eye 06/09/24 / Elena/ aim -0.25 Left eye 06/21/24/Elena/ aim -0.25 Patient noticed a clear elevated area along the iris nasally Left eye Discuss conjunctival cyst Discuss unrelated to cataract surgery Recommend observation Continue drop taper as scheduled Keep next visit as scheduled with Dr. Parker for final post op Johanny Max, OD July 20, 2024 12:16 PM [facility] 07-20-2024 History of Present illness Narrative (Z96.1) Presence of intraocular lens (primary encounter diagnosis) (H11.442) Conjunctival cyst of left eye Cataract surgery Right eye 06/09/24 / Elena/ aim -0.25 Left eye 06/21/24/Elena/ aim -0.25 Patient noticed a clear elevated area along the iris nasally Left eye Discuss conjunctival cyst Discuss unrelated to cataract surgery Recommend observation Continue drop taper as scheduled Keep next visit as scheduled with Dr. Parker for final post op Johanny Max, OD July 20, 2024 12:16 PM documented in this encounter [facility] 07-19-2024 Telephone encounter Note Appt scheduled with Dr. Santana for 07/20/24. [facility] 07-19-2024 Miscellaneous Notes Appt scheduled with Dr. Santana for 07/20/24. Patient states OS was bubbling on the white of the eye, appeared to jose like a blister. She states OS bloodshot, blurry and watering. She reports no pain or discharge. Please advise, thank you. documented in this encounter [facility] 07-19-2024 Telephone encounter Note Patient states OS was bubbling on the white of the eye, appeared to jose like a blister. She states OS bloodshot, blurry and watering. She reports no pain or discharge. Please advise, thank you. [facility] 07-17-2024 Telephone encounter Note Patient notes development of nasal chemosis in the left eye. She noticed it yesterday. She feels it has gotten flatter today but may be more spread out away from the colored part. She denies pain, but feels her distance vision is slightly less crisp. She notes she is using prednisolone + ketorolac. Discussed importance of continuing these drops. Recommended supplementing with artificial tears. Discussed that area should continue to resolve with conservative management. Instructed patient to call in if she notices any worsening of symptoms, development of pain, or significant vision changes. Je Washington MD Ophthalmology Resident, PGY-3 [facility] Work Phone: 07-17-2024 Miscellaneous Notes Patient notes development of nasal chemosis in the left eye. She noticed it yesterday. She feels it has gotten flatter today but may be more spread out away from the colored part. She denies pain, but feels her distance vision is slightly less crisp. She notes she is using prednisolone + ketorolac. Discussed importance of continuing these drops. Recommended supplementing with artificial tears. Discussed that area should continue to resolve with conservative management. Instructed patient to call in if she notices any worsening of symptoms, development of pain, or significant vision changes. Je Washington MD Ophthalmology Resident, PGY-3 documented in this encounter [facility] 07-17-2024 Telephone encounter Note Reason For Call Bubble or blister on sclera of left eye. Sclera red and vision blurry of left eye. Patient had left eye cataract surgery on 06/20. Outcome Go To Emergency Room Now (disposition given to patient) Advised patient to go to an emergency room and suggested use of [facility] [place] [facility] but may use any emergency room. Speak first with emergency services professional eye doctor if possible.You will be conferenced to [facility] glue mounter operator. Call back if no return call within 30 minutes Conferenced patient to [facility] glue mounter operator to reach emergency services professional doctor for [facility] Reason for Disposition Patient sounds very sick or weak to the triager Go To ED Now Bubble on sclera Sclera red Answer Assessment - Initial Assessment Questions 1. LOCATION: Location: Left eye has bubble on sclera 2. REDNESS OF SCLERA: Yes of left eye 3. ONSET: Yesterday. Bubble bigger today 4. EYELIDS: No sweling 5. VISION: Vison blurry of left eye 6. ITCHING: No 7. PAIN: No 8. CONTACT LENS: Implanted lens in left eye 9. CAUSE: Unknown. Cataract surgery of both eyes in June 15. OTHER SYMPTOMS: No Protocols used: Eye - Red Without [id number] [facility] 07-17-2024 Miscellaneous Notes Reason For Call Bubble or blister on sclera of left eye. Sclera red and vision blurry of left eye. Patient had left eye cataract surgery on 06/20. Outcome Go To Emergency Room Now (disposition given to patient) Advised patient to go to an emergency room and suggested use of [facility] Room but may use any emergency room. Speak first with emergency services professional eye doctor if possible.You will be conferenced to [facility] glue mounter operator. Call back if no return call within 30 minutes Conferenced patient to [facility] glue mounter operator to reach emergency services professional doctor for [facility] Reason for Disposition Patient sounds very sick or weak to the triager Go To ED Now Bubble on sclera Sclera red Answer Assessment - Initial Assessment Questions 1. LOCATION: Location: Left eye has bubble on sclera 2. REDNESS OF SCLERA: Yes of left eye 3. ONSET: Yesterday. Bubble bigger today 4. EYELIDS: No sweling 5. VISION: Vison blurry of left eye 6. ITCHING: No 7. PAIN: No 8. CONTACT LENS: Implanted lens in left eye 9. CAUSE: Unknown. Cataract surgery of both eyes in June 15. OTHER SYMPTOMS: No Protocols used: Eye - Red Without [id number] documented in this encounter [facility] 06-28-2024 Note HNO ID: [id number] Author: KATHLEEN PARKER MD Service: ? Author Type: Physician Type: Progress Notes Filed: 06/28/2024 09:46 Note Text: Z96.1 Pseudophakia (primary encounter diagnosis) Postoperative week 3 s/p Cataract extraction/intraocular lens right eye (distance) Postoperative week 1 s/p Cataract extraction/intraocular lens left eye Follow checklist for drops Shield at bedtime-d/c Activity restrictions discussed Call immediately with any new/worsening symptoms I have confirmed and edited as necessary the relevant ophthalmic history, ROS, and the neuro exam findings as obtained by others. I have seen and examined Leilani Farrar. I have discussed the case and the management of this patient's care with the Resident/Fellow, if applicable. I also have reviewed the chart, including the HPI, and agree with the assessment and plan as stated above and agree with all of its relevant components. Kathleen Parker MD [facility] 06-28-2024 History of Present illness Narrative Z96.1 Pseudophakia (primary encounter diagnosis) Postoperative week 3 s/p Cataract extraction/intraocular lens right eye (distance) Postoperative week 1 s/p Cataract extraction/intraocular lens left eye Follow checklist for drops Shield at bedtime-d/c Activity restrictions discussed Call immediately with any new/worsening symptoms I have confirmed and edited as necessary the relevant ophthalmic history, ROS, and the neuro exam findings as obtained by others. I have seen and examined Leilani Farrar. I have discussed the case and the management of this patient's care with the Resident/Fellow, if applicable. I also have reviewed the chart, including the HPI, and agree with the assessment and plan as stated above and agree with all of its relevant components. Kathleen Parker MD documented in this encounter [facility] 06-22-2024 Note HNO ID: [id number] Author: KATHLEEN PARKER MD Service: ? Author Type: Physician Type: Progress Notes Filed: 06/22/2024 09:24 Note Text: Z96.1 Pseudophakia (primary encounter diagnosis) Postoperative week 2 s/p Cataract extraction/intraocular lens right eye (distance) Postoperative day 1 s/p Cataract extraction/intraocular lens left eye Follow checklist for drops Shield at bedtime Activity restrictions discussed Call immediately with any new/worsening symptoms I have confirmed and edited as necessary the relevant ophthalmic history, ROS, and the neuro exam findings as obtained by others. I have seen and examined Leilani Farrar. I have discussed the case and the management of this patient's care with the Resident/Fellow, if applicable. I also have reviewed the chart, including the HPI, and agree with the assessment and plan as stated above and agree with all of its relevant components. Kathleen Parker MD [facility] 06-22-2024 History of Present illness Narrative Z96.1 Pseudophakia (primary encounter diagnosis) Postoperative week 2 s/p Cataract extraction/intraocular lens right eye (distance) Postoperative day 1 s/p Cataract extraction/intraocular lens left eye Follow checklist for drops Shield at bedtime Activity restrictions discussed Call immediately with any new/worsening symptoms I have confirmed and edited as necessary the relevant ophthalmic history, ROS, and the neuro exam findings as obtained by others. I have seen and examined Leilani Farrar. I have discussed the case and the management of this patient's care with the Resident/Fellow, if applicable. I also have reviewed the chart, including the HPI, and agree with the assessment and plan as stated above and agree with all of its relevant components. Kathleen Parker MD documented in this encounter [facility] 06-16-2024 Note HNO ID: [id number] Author: KATHLEEN PARKER MD Service: ? Author Type: Physician Type: Progress Notes Filed: 06/16/2024 08:43 Note Text: Z96.1 Pseudophakia (primary encounter diagnosis) Postoperative week 1 s/p Cataract extraction/intraocular lens right eye (distance) Follow checklist for drops Shield at bedtime Activity restrictions discussed Call immediately with any new/worsening symptoms Informed consent signed left eye I have confirmed and edited as necessary the relevant ophthalmic history, ROS, and the neuro exam findings as obtained by others. I have seen and examined Leilani Farrar. I have discussed the case and the management of this patient's care with the Resident/Fellow, if applicable. I also have reviewed the chart, including the HPI, and agree with the assessment and plan as stated above and agree with all of its relevant components. Kathleen Parker MD [facility] 06-16-2024 History of Present illness Narrative Z96.1 Pseudophakia (primary encounter diagnosis) Postoperative week 1 s/p Cataract extraction/intraocular lens right eye (distance) Follow checklist for drops Shield at bedtime Activity restrictions discussed Call immediately with any new/worsening symptoms Informed consent signed left eye I have confirmed and edited as necessary the relevant ophthalmic history, ROS, and the neuro exam findings as obtained by others. I have seen and examined Leilani Farrar. I have discussed the case and the management of this patient's care with the Resident/Fellow, if applicable. I also have reviewed the chart, including the HPI, and agree with the assessment and plan as stated above and agree with all of its relevant components. Kathleen Parker MD documented in this encounter [facility] 06-14-2024 Note HNO ID: [id number] Author: BRIGID BAILON MD Service: ? Author Type: Physician Type: Progress Notes Filed: 07/12/2024 21:19 Note Text: DR. BAILON- POST-OP KNEE Post-Op F/U Office Visit Leilani Farrar presents today for a 13 weeks status post Right TKA. Post-operative recovery was uneventful. Patient's rating of condition: worsening Comments: She feels as if the knee is becoming more stiff she is losing motion. She stopped taking her Mobic last week. She completed her physical therapy 3 days ago Does the Pt. still experience pain? PAIN EVALUATION 06/14/2024 1346 Pain Location: Knee-Right Description: Pressure;Stiffness;Sharp;Shooting Frequency: Intermittent Intervention/Comfort measure: Exercise;Heat mobic-stopped taking it on 06/08/24 Comments: PT completed on 06/11/24 Functional difficulties: Prolonged standing, Stair climbing, and Walking Physical Therapy: Completed course of therapy Pain Medication: Yes Ambulating without assistance. Medications and Allergies reviewed and verified. EXAM: GEN: AANDO x3, NAD SKIN:Appropriate postop appearance Incision intact Incision well healed RightKnee: ROM: Flexion/Extension:0 degrees to 105 degrees Pain with ROM:No Mal-alignment: No Effusion: None Tender to palpation of the medial joint line(s). Stability:Anterior/Posterior- Yes, stable and Varus/Valgus- Yes, stable Quad strength: normal HIP: range of motion mild decreased range of motion particularly to internal/external rotation NV: intact and Raghu's negative IMAGING: XR KNEE POST OP 3V AP/LAT/MERCHANT RIGHT Narrative: * * *Final Report* * * DATE OF EXAM: Jun 14 2024 2:19PM HIEN 5209 - XR KNEE 3V AP/LAT/MERCHANT RT / PROCEDURE REASON: Z96.651-Status post total right knee replacement * * * * Physician Interpretation * * * * EXAM(s): XR KNEE 3V AP/LAT/MERCHANT RT EXAM DATE/TIME: 06/14/2024 2:19 PM HISTORY: 68 years old Clinical information: Status post total right knee replacement right knee post op evaluation TECHNIQUE: Images: XR KNEE 3V AP/LAT/MERCHANT RT Comparison: 03/29/2024 RESULT: Findings: Right :No fractures or dislocations are seen. The components of the RIGHT total knee arthroplasty appear stable.. There is no evidence of loosening of the components. There is a low erosive change in the distal medial femur just proximal to the knee component of the arthroplasty Left :No fractures or dislocations are seen. Severe narrowing of the medial compartment Impression: IMPRESSION: 1. Small lucency in the distal medial femur of the RIGHT knee etiology uncertain discussed 2. RIGHT total knee arthroplasty appears stable Harbor Department Manager: LINDA Transcribe Date/Time: Jun 14 2024 4:51P Dictated by : EZIO MCKEON DO This examination was interpreted and the report reviewed and electronically signed by: EZIO MCKEON DO on Jun 14 2024 4:55PM EST XR HIP GENERAL 3V PELV/AP/LAT RIGHT Narrative: * * *Final Report* * * DATE OF EXAM: Jun 14 2024 2:19PM HIEN 5352 - XR HIP 3V PELV+ AP/LAT RT / PROCEDURE REASON: M25.551-Pain in right hip * * * * Physician Interpretation * * * * Pelvis and right hip HISTORY: Indication: Pain in right hip TECHNIQUE: Images: XR HIP 3V PELV+ AP/LAT RT Comparison: 05/17/2022 RESULT: Findings: Moderate bony demineralization. Marked disc space narrowing L5-S1 level. Pelvis: No fractures or dislocations are seen. Mild narrowing of the LEFT hip joint. Right hip: No fractures or dislocations are seen. There is marked narrowing of the RIGHT hip joint. Impression: IMPRESSION: Marked degenerative changes in the RIGHT hip Harbor Department Manager: LINDA Transcribe Date/Time: Jun 14 2024 4:50P Dictated by : EZIO MCKEON DO This examination was interpreted and the report reviewed and electronically signed by: EZIO MCKEON DO on Jun 14 2024 4:51PM EST IMPRESSION/PLAN: 68 year old female s/p Right TKA Slow post-operative recovery. Some of her symptoms may be referred from the osteoarthritis of her right hip. I have recommended that we start her back up on her Naprosyn which she reports has provided her with better relief in the past. Would also have her continue her independent range of motion/strengthening exercises. Will repeat clinical evaluation .If the hip remains a concern, consideration for image guided corticosteroid injection will be given. Plan: 1. As noted above 2. Follow-up for repeat clinical evaluation Brigid Bailon MD Electronic Signature [facility] 06-14-2024 History of Present illness Narrative DR. BAILON- POST-OP KNEE Post-Op F/U Office Visit Leilani Farrar presents today for a 13 weeks status post Right TKA. Post-operative recovery was uneventful. Patient's rating of condition: worsening Comments: She feels as if the knee is becoming more stiff she is losing motion. She stopped taking her Mobic last week. She completed her physical therapy 3 days ago Does the Pt. still experience pain? PAIN EVALUATION 06/14/2024 1346 Pain Location: Knee-Right Description: Pressure;Stiffness;Sharp;Shooting Frequency: Intermittent Intervention/Comfort measure: Exercise;Heat mobic-stopped taking it on 06/08/24 Comments: PT completed on 06/11/24 Functional difficulties: Prolonged standing, Stair climbing, and Walking Physical Therapy: Completed course of therapy Pain Medication: Yes Ambulating without assistance. Medications and Allergies reviewed and verified. EXAM: GEN: A&O x3, NAD SKIN:Appropriate postop appearance Incision intact Incision well healed RightKnee: ROM: Flexion/Extension:0 degrees to 105 degrees Pain with ROM:No Mal-alignment: No Effusion: None Tender to palpation of the medial joint line(s). Stability:Anterior/Posterior- Yes, stable and Varus/Valgus- Yes, stable Quad strength: normal HIP: range of motion mild decreased range of motion particularly to internal/external rotation NV: intact and Raghu's negative IMAGING: XR KNEE POST OP 3V AP/LAT/MERCHANT RIGHT Narrative: * * *Final Report* * * DATE OF EXAM: Jun 14 2024 2:19PM HIEN 5209 - XR KNEE 3V AP/LAT/MERCHANT RT / PROCEDURE REASON: Z96.651-Status post total right knee replacement * * * * Physician Interpretation * * * * EXAM(s): XR KNEE 3V AP/LAT/MERCHANT RT EXAM DATE/TIME: 06/14/2024 2:19 PM HISTORY: 68 years old Clinical information: Status post total right knee replacement right knee post op evaluation TECHNIQUE: Images: XR KNEE 3V AP/LAT/MERCHANT RT Comparison: 03/29/2024 RESULT: Findings: Right :No fractures or dislocations are seen. The components of the RIGHT total knee arthroplasty appear stable.. There is no evidence of loosening of the components. There is a low erosive change in the distal medial femur just proximal to the knee component of the arthroplasty Left :No fractures or dislocations are seen. Severe narrowing of the medial compartment Impression: IMPRESSION: 1. Small lucency in the distal medial femur of the RIGHT knee etiology uncertain discussed 2. RIGHT total knee arthroplasty appears stable Harbor [facility] Transcribe Date/Time: Jun 14 2024 4:51P Dictated by : EZIO MCKEON DO This examination was interpreted and the report reviewed and electronically signed by: EZIO MCKEON DO on Jun 14 2024 4:55PM EST XR HIP GENERAL 3V PELV/AP/LAT RIGHT Narrative: * * *Final Report* * * DATE OF EXAM: Jun 14 2024 2:19PM HIEN 5352 - XR HIP 3V PELV+ AP/LAT RT / PROCEDURE REASON: M25.551-Pain in right hip * * * * Physician Interpretation * * * * Pelvis and right hip HISTORY: Indication: Pain in right hip TECHNIQUE: Images: XR HIP 3V PELV+ AP/LAT RT Comparison: 05/17/2022 RESULT: Findings: Moderate bony demineralization. Marked disc space narrowing L5-S1 level. Pelvis: No fractures or dislocations are seen. Mild narrowing of the LEFT hip joint. Right hip: No fractures or dislocations are seen. There is marked narrowing of the RIGHT hip joint. Impression: IMPRESSION: Marked degenerative changes in the RIGHT hip Harbor Department Manager: [facility] Transcribe Date/Time: Jun 14 2024 4:50P Dictated by : EZIO MCKEON DO This examination was interpreted and the report reviewed and electronically signed by: EZIO MCKEON DO on Jun 14 2024 4:51PM EST IMPRESSION/PLAN: 68 year old female s/p Right TKA Slow post-operative recovery. Some of her symptoms may be referred from the osteoarthritis of her right hip. I have recommended that we start her back up on her Naprosyn which she reports has provided her with better relief in the past. Would also have her continue her independent range of motion/strengthening exercises. Will repeat clinical evaluation .If the hip remains a concern, consideration for image guided corticosteroid injection will be given. Plan: 1. As noted above 2. Follow-up for repeat clinical evaluation Brigid Bailon MD Electronic Signature documented in this encounter [facility] 06-10-2024 Note HNO ID: [id number] Author: KATHLEEN PARKER MD Service: ? Author Type: Physician Type: Progress Notes Filed: 06/10/2024 09:43 Note Text: Z96.1 Pseudophakia (primary encounter diagnosis) Postoperative day 1 s/p Cataract extraction/intraocular lens right eye (distance) Follow checklist for drops Shield at bedtime Activity restrictions discussed Call immediately with any new/worsening symptoms I have confirmed and edited as necessary the relevant ophthalmic history, ROS, and the neuro exam findings as obtained by others. I have seen and examined Leilani Steven Padilladirk. I have discussed the case and the management of this patient's care with the Resident/Fellow, if applicable. I also have reviewed the chart, including the HPI, and agree with the assessment and plan as stated above and agree with all of its relevant components. Kathleen Parker MD [facility] 06-10-2024 History of Present illness Narrative Z96.1 Pseudophakia (primary encounter diagnosis) Postoperative day 1 s/p Cataract extraction/intraocular lens right eye (distance) Follow checklist for drops Shield at bedtime Activity restrictions discussed Call immediately with any new/worsening symptoms I have confirmed and edited as necessary the relevant ophthalmic history, ROS, and the neuro exam findings as obtained by others. I have seen and examined Leilani Farrar. I have discussed the case and the management of this patient's care with the Resident/Fellow, if applicable. I also have reviewed the chart, including the HPI, and agree with the assessment and plan as stated above and agree with all of its relevant components. Kathleen Parker MD documented in this encounter [facility] 05-28-2024 Telephone encounter Note Spoke with the patent per Dr Chavez no need to reschedule cataract surgery Brigitte Richmond [facility] 05-28-2024 Miscellaneous Notes Spoke with the patent per Dr Chavez no need to reschedule cataract surgery Brigitte Richmond Patient called and stated she is having cataract surgery 06-09-2024 She had a knee replacement surgery a month ago and is currently having swelling , unable to bend she started physical therapy including using a pushing and pulling machine ( 20lbs weights) and electro therapy she would like to know if she is ok to do at least the electro therapy or does she have to reschedule cataract surgery ?? Brigitte Richmond documented in this encounter [facility] 05-27-2024 Telephone encounter Note Patient called and stated she is having cataract surgery 06-09-2024 She had a knee replacement surgery a month ago and is currently having swelling , unable to bend she started physical therapy including using a pushing and pulling machine ( 20lbs weights) and electro therapy she would like to know if she is ok to do at least the electro therapy or does she have to reschedule cataract surgery ?? Brigitte Richmond [facility] 05-26-2024 Telephone encounter Note Discussed with patient on the phone. She reports recent overactivity (cleaning carpet, moving furniture, etc.) Recommend knee sleeve and initiating anti-inflammatory. Discussed with patient she has NSAIDs listed as allergy in chart. The patient states she has previously tolerated taking meloxicam without issue. Meloxicam Rx has been sent to her requested pharmacy. [facility] 05-26-2024 Miscellaneous Notes Discussed with patient on the phone. She reports recent overactivity (cleaning carpet, moving furniture, etc.) Recommend knee sleeve and initiating anti-inflammatory. Discussed with patient she has NSAIDs listed as allergy in chart. The patient states she has previously tolerated taking meloxicam without issue. Meloxicam Rx has been sent to her requested pharmacy. Pt calling to discuss her recovery. She still has quite a bit of swelling that is impeding her ROM. Swelling up into her thigh and she is wondering if you would order an anti-inflammatory for her. She is taking the ibuprofen duel, but it doesn't seem to be working too much. She is getting frustrated with her recovery and is willing to be seen if need be since she doesn't have an appt until 06/14. DDM on chart documented in this encounter [facility] 05-25-2024 Telephone encounter Note Pt calling to discuss her recovery. She still has quite a bit of swelling that is impeding her ROM. Swelling up into her thigh and she is wondering if you would order an anti-inflammatory for her. She is taking the ibuprofen duel, but it doesn't seem to be working too much. She is getting frustrated with her recovery and is willing to be seen if need be since she doesn't have an appt until 06/14. DDM on chart [facility] 05-24-2024 Instructions Roselyn Reagan APRN.MARIEL - 05/24/2024 11:11 AM EST [facility] PATIENT PREOPERATIVE INSTRUCTIONS Dr. Parker has scheduled you for your procedure at this surgery center: [facility]: [phone] --[address] [address]. Please read below carefully for your personalized instructions. Arrival Time for Surgery: - The Surgery Center or hospital where you are having surgery will call the afternoon before surgery (or Friday for Friday surgery) with a scheduled arrival time. - If you have not heard by 4 pm, please contact the surgery center above. Dietary Restrictions: - No solid food after midnight. - You may have 12 ounces of clear liquids (water, clear juices such as apple juice or gatorade, carbonated beverages, clear tea, black coffee, jello) until 2 hours before scheduled arrival at facility. - Do not drink any alcohol after midnight the night before your surgery. - no milk/creamer or other additives like honey - no pulp juices Medications: Continue If you take any medications for erectile dysfunction-Cialis (Tadalafil), Levitra, Staxyn (Vardenafil) Viagra (Sildenenafil please do not take these for 48 hours before surgery. If you start any new medications after today's visit, please contact the surgeon's office. Important Reminders: - If you use CPAP/BIPAP, bring the machine with you to the surgery center. - If you are prescribed inhalers for breathing, continue using them. If you are on dialysis, please check with your dialysis center or charge operator to see if any adjustments need to be made to your schedule for the week of your surgery - Candy, mints, and tobacco products are NOT permitted the morning of surgery. - Hearing aids, dentures and glasses may be worn the morning of surgery. - NO jewelry, body piercings, makeup, hairpins or contacts are to be worn the day of surgery. If you develop symptoms such as a fever, cold, or flu, or have other changes to your health within TWO DAYS of scheduled surgery or the morning of surgery, please contact the surgery center above. Personal Belongings: -Please have photo ID and insurance cards. -If you do not have a copy of advance directives on file with us, please bring a copy with you on the day of surgery. - Leave ALL valuables and money at home or with family members. For Outpatient Procedures: - YOU MUST HAVE A RESPONSIBLE ARMORED MACHINE OPERATOR TAKE YOU HOME. A HEALTH SERVICES RN OR CLOTH STRETCHER CANNOT BE MADE A RESPONSIBLE ARMORED MACHINE OPERATOR. - We recommend that a responsible person stays with you overnight to take care of you. - You cannot stay in a hotel alone after outpatient surgery. You will not be permitted to have your surgery, if you do not have someone to take care of you. Please be aware that emergency situations arise, which may delay or change your surgical time. If this happens, we will notify you as soon as possible and regret any inconvenience. If you already have an Advance Directive, please fax a copy to [phone] or email to for it to be added to your chart. If you do not have an Advance Directive, you can find the appropriate form and more information at [email or web address]. We recommend that you complete the Advance Directive form found on the website and bring it with you the day of your surgery. It can be witnessed and scanned into your chart that day. Roselyn Reagan APRN.MARIEL documented in this encounter [facility] 05-24-2024 History and physical note Images from the original note were not included. [facility] HISTORY AND PHYSICAL EXAMINATION SERVICE DATE: 05/24/2024 SERVICE TIME: 11:25 AM PRIMARY CARE PHYSICIAN: Vernon Bolton APRN.RETAIL GROCER Assessment Patient has the following medical conditions which may affect jenelle-operative course: Hyperlipidemia Assessment: Compliant on statin therapy. Encouraged lifestyle modifications. Hypothyroidism Assessment: Compliant on levothyroxine. Denies recent dose adjustments. Following with PCP. S/p thyroidectomy. Idiopathic urticaria Assessment: chronic, on atarax. Cigarette nicotine dependence Assessment: Smokes 1/2/day. Advised cessation. No smoking DOS. Fontanez Activity Status Index: METS: Walk indoors, such as around the house (1.75 METs) Do light work around the house, such as dusting or washing dishes (2.70 METs) Take care of self; that is eating, dressing, bathing, using the toilet (2.75 METs) Walk a block or two on level ground (2.75 METs) Do moderate work around the house, such as vacuuming, sweeping floors, or carrying in groceries (3.50 METs) Do yardwork, such as raking leaves, weeding, or pushing a power mower (4.50 METs) Have sexual relations (5.25 METs) Climb a flight of stairs or walk up a hill (5.50 METs) DASI Score: 28.7 Patient denies any chest pain or undue shortness of breath with the above physical activity. Clinical Frailty Scale: 3. Well, with treated comorbid disease STOP-Bang Score: Patient over 50 years old Denies snoring loudly Denies feeling tired, fatigued, or sleepy during the daytime Has not been observed to stop breathing or choking/gasping during sleep Denies having high blood pressure BMI less than or equal to 35 kg/m^2 Does not have a large neck Non-male patient STOP-Bang Score: 1 ANESTHESIA FINDINGS: Intubation History: No history of difficult intubation. No abnormal airway history Significant Anesthesia Considerations: none Airway History: No history of difficult airway No abnormal airway history I - PHYSICAL EVALUATION AIRWAY Patient intubated: No. Tracheostomy tube not present Mallampati: IV. TM distance: >3 FB. Neck ROM: full ROM without neurological symptoms. Mouth opening: adequate. Short neck: no. Thick neck: no Microretrognathia/Micronagthia/Rec essed Chin: No DENTAL Dental findings: missing tooth/teeth. II - ANESTHESIA PLAN Anesthetic plan additional comments: *PACC/TCI - anesthesia choice. Beta Remigio Monitoring Plan Post Procedure Analgesic Plan Prepared for Surgery: optimally prepared for surgery. CONSULTS: Patient does not require consults for optimization at this time Planned Anesthetic: anesthesia choice The Following Tests/Procedures Have Been Initiated: No orders of the defined types were placed in this encounter. REASON FOR VISIT: Leilani Farrar is a 68 year old female who is scheduled for * No surgery found * at the request of Kathleen Cobb MD for consultation. My final recommendation will be communicated back to the requesting physician by way of shared medical record or letter. Subjective The patient has the following: COVID-19 Immunization Status Overdue - Covid-19 Vaccine ( season) Never done No completion, postpone, frequency change, or communication history exists for this topic. CHIEF COMPLAINT: cataract HPI: Patient is a 68 year old female presenting with b/l catarcts for the past 2 years. C/o blurry vision, floaters, difficulty seeing at night, halos. Denies any eye injury or infection. Patient denies other specific radiating, alleviating, or aggravating factors. REVIEW OF SYSTEMS: General: No weight loss, malaise or fevers. Neurological: Negative for: dementia, headaches, impaired sensorium, peripheral neuropathy, seizures, TIA and strokes. Respiratory: Positive for: tobacco use. Negative for: asthma, bronchitis, COPD, current cough, bronchodilator used daily for the last 3 months, dyspnea, home oxygen, orthopnea, pneumonia within 6 weeks, URI < 2 weeks and obstructive sleep apnea. Cardiovascular: Denies dizziness or syncope. Positive for: hyperlipidemia Negative for: abdominal aortic aneurysm, AICD/PPM, angina, anticoagulation therapy, arrhythmia, atrial fibrillation, CAD, chest pain, CHF, congenital heart defect, DVT/PE, hypertension, recent UT, murmur/valvular heart disease, PTCA, PVD, open heart surgery and valve surgery. GI: Negative for: abdominal pain, GERD, GI bleed <30 days, hepatitis, liver disease, nausea and vomiting. : Denies kidney disease Negative for: on dialysis, dysuria, frequent urination, hematuria, renal failure and urinary tract infection. 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 Endocrine: Positive for: hypothyroidism. Negative for: diabetes mellitus and hyperthyroidism. Hematology: Negative for: anemia, bruises/bleeds easily, factor V Leiden, hemophilia, thrombocytopenia, von Willebrand disease, transfusion of at least 4 units within 72 hours prior to surgery and chronic anti-coagulation/platelet meds. Oncology: No history of CA metastasis, chemo within 30 days, or radiotherapy within 90 days. No history of oncological symptoms or problems. Psych: No history of psychiatric symptoms or problems. Musculoskeletal: Positive for: joint pain. Skin: Chronic skin issues comment: +idiopathic hives Implanted Devices: No implanted devices. PAST MEDICAL HISTORY Diagnosis Date Astigmatism Corneal abrasion, right Myopia Presbyopia of both eyes Thyroid disease PAST SURGICAL HISTORY Procedure Laterality Date ORTHOPEDICS SURGERY HX shoulder,knees,foot,carpal tunnel,trigger finger THYROIDECTOMY TOTAL KNEE REPLACEMENT Right 03/16/2024 FAMILY HISTORY Problem Relation Age of Onset Anesthesia Problems No Family History Social History Tobacco Use Smoking status: Every Day Current packs/day: 0.50 Average packs/day: 0.5 packs/day for 40.2 years (20.1 ttl pk-yrs) Types: Cigarettes Start date: 02/25/1984 Smokeless tobacco: Never Tobacco comments: 0.5 pack a day Substance Use Topics Alcohol use: No Comment: 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 Taking Yes prednisoLONE acetate (PRED FORTE) 1 % ophthalmic suspension Use 1 Drop in the right eye four times daily. Taking Yes hydrOXYzine HCl (ATARAX) 10 mg tablet TAKE 1 TABLET BY MOUTH 3 TO 4 times DAILY NEEDED for anxiety Taking Yes levothyroxine (SYNTHROID) 112 mcg tablet Take 112 mcg by mouth daily before breakfast. Taking Yes ibuprofen-acetaminophen (ADVIL DUAL ACTION) 125-250 mg tab Take 1 tablet by mouth two times a day. Patient not taking: Reported on 05/24/2024 Not Taking ascorbic acid, vitamin C, (VITAMIN C) 500 mg tablet Take 1 tablet by mouth two times a day with meals for 27 doses. Patient not taking: Reported on 05/03/2024 No medication comments found. ALLERGIES Allergen Reactions Bee Pollen Anaphylaxis Cortisone Anaphylaxis Narcotics [Opioids * Mental Status Change Can only tolerate vicodin Nickel Rash Nickel, bridger silver, some gold Nsaids (Non-Steroid* Swelling Tolerated Toradol 03/16/24 Steroids [Betametha* Anaphylaxis Steroids [Corticost* Anaphylaxis Steroids [Dexametha* Anaphylaxis Wasps Shortness of Breath Objective PHYSICAL EXAM: General: alert and oriented and healthy appearance. Pertinent negatives noted - not distressed. Skin: normal color, no rash or lesions. HEENT: EOM intact, pupils equal round and pupils reactive to light. Pertinent negatives noted - no carotid bruit. Cardiovascular: regular rate and rhythm, normal S1 and S2, no rub, murmurs, or gallop. Respiratory: normal breath sounds, no wheezes or crackles. No chest wall deformity or tenderness. Abdomen: bowel sounds present and soft. Pertinent negatives noted - not tender. Extremities: no deformity, no edema or tenderness, no joint swelling or clubbing. Neurological: normal cognition and motor skills. Gait normal. No weakness or sensory deficit. PAIN ASSESSMENT: VITALS: BP 145/79 Pulse 72 Temp (Src) 97.1 (Temporal) Resp 16 Ht 5' 5 (1.65m) Wt 147 lb 14.9 oz (67.1kg) SpO2 97% BMI 24.62 kg/(m^2). Diagnostic tests reviewed for today's visit: Lab Value Units Date High Low HB 12.9 g/dL 03/17/2024 15.5 11.5 HCT 37.2 % 03/17/2024 46.0 36.0 WBC 6.40 k/uL 03/17/2024 11.00 3.70 PLT 215 k/uL 03/17/2024 400 150 NA 137 mmol/L 03/17/2024 144 136 K 4.2 mmol/L 03/17/2024 5.1 3.7 GLUC 120 mg/dL 03/17/2024 99 74 BUN 10 mg/dL 03/17/2024 21 7 CREAT 0.78 mg/dL 03/17/2024 0.96 0.58 PTSEC No results within date range. INR No results within date range. APTT No results within date range. ALT No results within date range. AST No results within date range. TBILI No results within date range. TSH No results within date range. Lab Value Units Date High Low HCGQT No results within date range. UHCG No results within date range. HCG, BODY* No results within date range. Lab Value Units Date High Low ABORHD No results within date range. ABSCREEN No results within date range. No results found for: HBA1C Recent Results (from the past 8760 hour(s)) ECG COMPLETE Collection Time: 02/25/24 9:09 AM Result Value Ventricular Rate 59 Atrial Rate 59 P-R Interval 140 QRS Duration 80 QT Interval 430 QTC Calculation (Bazett) 425 Calculated P Millstone 60 Calculated R Millstone 10 Calculated T Millstone 40 Impression SINUS BRADYCARDIA POSSIBLE LEFT ATRIAL ENLARGEMENT LOW VOLTAGE QRS BORDERLINE ECG NO PREVIOUS ECGS AVAILABLE Confirmed by MD CAMPBELL, QAB ([id number]) on 02/25/2024 4:11:09 PM No results found for this or any previous visit (from the past 11270 hour(s)). Instructions Given to Patient: Instructions located in the after visit summary. Patient given verbal and written preop instructions and voices comprehension and compliance. SIGNATURE: Roselyn Reagan APRN.CNP PATIENT NAME: Leilani Farrar DATE: May 24, 2024 TIME: 11:00 AM PAGER/CONTACT #: [facility] 05-24-2024 History and physical note Images from the original note were not included. [facility] HISTORY AND PHYSICAL EXAMINATION SERVICE DATE: 05/24/2024 SERVICE TIME: 11:25 AM PRIMARY CARE PHYSICIAN: Vernon Bolton APRN.RETAIL GROCER Assessment Patient has the following medical conditions which may affect jenelle-operative course: Hyperlipidemia Assessment: Compliant on statin therapy. Encouraged lifestyle modifications. Hypothyroidism Assessment: Compliant on levothyroxine. Denies recent dose adjustments. Following with PCP. S/p thyroidectomy. Idiopathic urticaria Assessment: chronic, on atarax. Cigarette nicotine dependence Assessment: Smokes 1/2/day. Advised cessation. No smoking DOS. Fontanez Activity Status Index: METS: Walk indoors, such as around the house (1.75 METs) Do light work around the house, such as dusting or washing dishes (2.70 METs) Take care of self; that is eating, dressing, bathing, using the toilet (2.75 METs) Walk a block or two on level ground (2.75 METs) Do moderate work around the house, such as vacuuming, sweeping floors, or carrying in groceries (3.50 METs) Do yardwork, such as raking leaves, weeding, or pushing a power mower (4.50 METs) Have sexual relations (5.25 METs) Climb a flight of stairs or walk up a hill (5.50 METs) DASI Score: 28.7 Patient denies any chest pain or undue shortness of breath with the above physical activity. Clinical Frailty Scale: 3. Well, with treated comorbid disease STOP-Bang Score: Patient over 50 years old Denies snoring loudly Denies feeling tired, fatigued, or sleepy during the daytime Has not been observed to stop breathing or choking/gasping during sleep Denies having high blood pressure BMI less than or equal to 35 kg/m^2 Does not have a large neck Non-male patient STOP-Bang Score: 1 ANESTHESIA FINDINGS: Intubation History: No history of difficult intubation. No abnormal airway history Significant Anesthesia Considerations: none Airway History: No history of difficult airway No abnormal airway history I - PHYSICAL EVALUATION AIRWAY Patient intubated: No. Tracheostomy tube not present Mallampati: IV. TM distance: >3 FB. Neck ROM: full ROM without neurological symptoms. Mouth opening: adequate. Short neck: no. Thick neck: no Microretrognathia/Micronagthia/Rec essed Chin: No DENTAL Dental findings: missing tooth/teeth. II - ANESTHESIA PLAN Anesthetic plan additional comments: *PACC/TCI - anesthesia choice. Beta Remigio Monitoring Plan Post Procedure Analgesic Plan Prepared for Surgery: optimally prepared for surgery. CONSULTS: Patient does not require consults for optimization at this time Planned Anesthetic: anesthesia choice The Following Tests/Procedures Have Been Initiated: No orders of the defined types were placed in this encounter. REASON FOR VISIT: Leilani Farrar is a 68 year old female who is scheduled for * No surgery found * at the request of Kathleen Cobb MD for consultation. My final recommendation will be communicated back to the requesting physician by way of shared medical record or letter. Subjective The patient has the following: COVID-19 Immunization Status Overdue - Covid-19 Vaccine ( season) Never done No completion, postpone, frequency change, or communication history exists for this topic. CHIEF COMPLAINT: cataract HPI: Patient is a 68 year old female presenting with b/l catarcts for the past 2 years. C/o blurry vision, floaters, difficulty seeing at night, halos. Denies any eye injury or infection. Patient denies other specific radiating, alleviating, or aggravating factors. REVIEW OF SYSTEMS: General: No weight loss, malaise or fevers. Neurological: Negative for: dementia, headaches, impaired sensorium, peripheral neuropathy, seizures, TIA and strokes. Respiratory: Positive for: tobacco use. Negative for: asthma, bronchitis, COPD, current cough, bronchodilator used daily for the last 3 months, dyspnea, home oxygen, orthopnea, pneumonia within 6 weeks, URI < 2 weeks and obstructive sleep apnea. Cardiovascular: Denies dizziness or syncope. Positive for: hyperlipidemia Negative for: abdominal aortic aneurysm, AICD/PPM, angina, anticoagulation therapy, arrhythmia, atrial fibrillation, CAD, chest pain, CHF, congenital heart defect, DVT/PE, hypertension, recent UT, murmur/valvular heart disease, PTCA, PVD, open heart surgery and valve surgery. GI: Negative for: abdominal pain, GERD, GI bleed <30 days, hepatitis, liver disease, nausea and vomiting. : Denies kidney disease Negative for: on dialysis, dysuria, frequent urination, hematuria, renal failure and urinary tract infection. 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 Endocrine: Positive for: hypothyroidism. Negative for: diabetes mellitus and hyperthyroidism. Hematology: Negative for: anemia, bruises/bleeds easily, factor V Leiden, hemophilia, thrombocytopenia, von Willebrand disease, transfusion of at least 4 units within 72 hours prior to surgery and chronic anti-coagulation/platelet meds. Oncology: No history of CA metastasis, chemo within 30 days, or radiotherapy within 90 days. No history of oncological symptoms or problems. Psych: No history of psychiatric symptoms or problems. Musculoskeletal: Positive for: joint pain. Skin: Chronic skin issues comment: +idiopathic hives Implanted Devices: No implanted devices. PAST MEDICAL HISTORY Diagnosis Date Astigmatism Corneal abrasion, right Myopia Presbyopia of both eyes Thyroid disease PAST SURGICAL HISTORY Procedure Laterality Date ORTHOPEDICS SURGERY HX shoulder,knees,foot,carpal tunnel,trigger finger THYROIDECTOMY TOTAL KNEE REPLACEMENT Right 03/16/2024 FAMILY HISTORY Problem Relation Age of Onset Anesthesia Problems No Family History Social History Tobacco Use Smoking status: Every Day Current packs/day: 0.50 Average packs/day: 0.5 packs/day for 40.2 years (20.1 ttl pk-yrs) Types: Cigarettes Start date: 02/25/1984 Smokeless tobacco: Never Tobacco comments: 0.5 pack a day Substance Use Topics Alcohol use: No Comment: 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 Taking Yes prednisoLONE acetate (PRED FORTE) 1 % ophthalmic suspension Use 1 Drop in the right eye four times daily. Taking Yes hydrOXYzine HCl (ATARAX) 10 mg tablet TAKE 1 TABLET BY MOUTH 3 TO 4 times DAILY NEEDED for anxiety Taking Yes levothyroxine (SYNTHROID) 112 mcg tablet Take 112 mcg by mouth daily before breakfast. Taking Yes ibuprofen-acetaminophen (ADVIL DUAL ACTION) 125-250 mg tab Take 1 tablet by mouth two times a day. Patient not taking: Reported on 05/24/2024 Not Taking ascorbic acid, vitamin C, (VITAMIN C) 500 mg tablet Take 1 tablet by mouth two times a day with meals for 27 doses. Patient not taking: Reported on 05/03/2024 No medication comments found. ALLERGIES Allergen Reactions Bee Pollen Anaphylaxis Cortisone Anaphylaxis Narcotics [Opioids * Mental Status Change Can only tolerate vicodin Nickel Rash Nickel, bridger silver, some gold Nsaids (Non-Steroid* Swelling Tolerated Toradol 03/16/24 Steroids [Betametha* Anaphylaxis Steroids [Corticost* Anaphylaxis Steroids [Dexametha* Anaphylaxis Wasps Shortness of Breath Objective PHYSICAL EXAM: General: alert and oriented and healthy appearance. Pertinent negatives noted - not distressed. Skin: normal color, no rash or lesions. HEENT: EOM intact, pupils equal round and pupils reactive to light. Pertinent negatives noted - no carotid bruit. Cardiovascular: regular rate and rhythm, normal S1 and S2, no rub, murmurs, or gallop. Respiratory: normal breath sounds, no wheezes or crackles. No chest wall deformity or tenderness. Abdomen: bowel sounds present and soft. Pertinent negatives noted - not tender. Extremities: no deformity, no edema or tenderness, no joint swelling or clubbing. Neurological: normal cognition and motor skills. Gait normal. No weakness or sensory deficit. PAIN ASSESSMENT: VITALS: BP 145/79 Pulse 72 Temp (Src) 97.1 (Temporal) Resp 16 Ht 5' 5 (1.65m) Wt 147 lb 14.9 oz (67.1kg) SpO2 97% BMI 24.62 kg/(m^2). Diagnostic tests reviewed for today's visit: Lab Value Units Date High Low HB 12.9 g/dL 03/17/2024 15.5 11.5 HCT 37.2 % 03/17/2024 46.0 36.0 WBC 6.40 k/uL 03/17/2024 11.00 3.70 PLT 215 k/uL 03/17/2024 400 150 NA 137 mmol/L 03/17/2024 144 136 K 4.2 mmol/L 03/17/2024 5.1 3.7 GLUC 120 mg/dL 03/17/2024 99 74 BUN 10 mg/dL 03/17/2024 21 7 CREAT 0.78 mg/dL 03/17/2024 0.96 0.58 PTSEC No results within date range. INR No results within date range. APTT No results within date range. ALT No results within date range. AST No results within date range. TBILI No results within date range. TSH No results within date range. Lab Value Units Date High Low HCGQT No results within date range. UHCG No results within date range. HCG, BODY* No results within date range. Lab Value Units Date High Low ABORHD No results within date range. ABSCREEN No results within date range. No results found for: HBA1C Recent Results (from the past 8760 hour(s)) ECG COMPLETE Collection Time: 02/25/24 9:09 AM Result Value Ventricular Rate 59 Atrial Rate 59 P-R Interval 140 QRS Duration 80 QT Interval 430 QTC Calculation (Bazett) 425 Calculated P Millstone 60 Calculated R Millstone 10 Calculated T Millstone 40 Impression SINUS BRADYCARDIA POSSIBLE LEFT ATRIAL ENLARGEMENT LOW VOLTAGE QRS BORDERLINE ECG NO PREVIOUS ECGS AVAILABLE Confirmed by MD CAMPBELL, QARAB ([id number]) on 02/25/2024 4:11:09 PM No results found for this or any previous visit (from the past 14776 hour(s)). Instructions Given to Patient: Instructions located in the after visit summary. Patient given verbal and written preop instructions and voices comprehension and compliance. SIGNATURE: Roselyn Reagan APRN.CNP PATIENT NAME: Leilani Farrar DATE: May 24, 2024 TIME: 11:00 AM PAGER/CONTACT #: documented in this encounter [facility] 05-10-2024 Telephone encounter Note Patient notified. She just got back from dentist and will be having a root canal tomorrow. [facility] 05-10-2024 Miscellaneous Notes Patient notified. She just got back from dentist and will be having a root canal tomorrow. We will defer treatment of dental abscess to dentist. Lauren developed an abscess tooth over weekend. Dentist put her on Amox 1500 and most likely will need to pull the tooth at her appt today. She is wondering if this antibiotic is ok or if you would like her on something else. Please advise. Thanks. documented in this encounter [facility] 05-10-2024 Telephone encounter Note We will defer treatment of dental abscess to dentist. [facility] 05-10-2024 Telephone encounter Note Lauren developed an abscess tooth over weekend. Dentist put her on Amox 1500 and most likely will need to pull the tooth at her appt today. She is wondering if this antibiotic is ok or if you would like her on something else. Please advise. Thanks. [facility] 05-05-2024 Note HNO ID: [id number] Author: BRIGID BAILON MD Service: ? Author Type: Physician Type: Progress Notes Filed: 06/02/2024 17:25 Note Text: DR. BAILON- POST-OP KNEE Post-Op F/U Office Visit Leilani Farrar presents today for a 7 weeks status post Right TKA. Post-operative recovery was uneventful. Patient's rating of condition: improving Comments: Patient is experiencing some sciatica type pain in the posterior pelvis Does the Pt. still experience pain? PAIN EVALUATION 05/05/2024 1609 Pain Level: 0 Pain Location: Knee-Right Functional difficulties: Stair climbing Physical Therapy: Yes Pain Medication: None narcotic ambulating without assistance. Medications and Allergies reviewed and verified. EXAM: GEN: AANDO x3, NAD SKIN:Appropriate postop appearance Incision intact Incision well healed RightKnee: ROM: Flexion/Extension:0 degrees to 105 degrees Pain with ROM:No Mal-alignment: No Effusion: None Tender to palpation of the medial and patellofemoral joint line(s). Stability:Anterior/Posterior- Yes, stable and Varus/Valgus- Yes, stable Quad strength: normal HIP: range of motion no loss ROM NV: intact and Raghu's negative IMAGING: Xrays: No x-rays today IMPRESSION/PLAN: 68 year old female s/p Right TKA At normal post-operative stage of recovery. Plan: 1. Continue range of motion/strengthening exercises 2. Continue total knee precautions 3. Follow-up 7 weeks for repeat clinical evaluation Brigid Bailon MD [employer] [facility] 05-05-2024 History of Present illness Narrative DR. BAILON- POST-OP KNEE Post-Op F/U Office Visit Leilani Farrar presents today for a 7 weeks status post Right TKA. Post-operative recovery was uneventful. Patient's rating of condition: improving Comments: Patient is experiencing some sciatica type pain in the posterior pelvis Does the Pt. still experience pain? PAIN EVALUATION 05/05/2024 1609 Pain Level: 0 Pain Location: Knee-Right Functional difficulties: Stair climbing Physical Therapy: Yes Pain Medication: None narcotic ambulating without assistance. Medications and Allergies reviewed and verified. EXAM: GEN: A&O x3, NAD SKIN:Appropriate postop appearance Incision intact Incision well healed RightKnee: ROM: Flexion/Extension:0 degrees to 105 degrees Pain with ROM:No Mal-alignment: No Effusion: None Tender to palpation of the medial and patellofemoral joint line(s). Stability:Anterior/Posterior- Yes, stable and Varus/Valgus- Yes, stable Quad strength: normal HIP: range of motion no loss ROM NV: intact and Raghu's negative IMAGING: Xrays: No x-rays today IMPRESSION/PLAN: 68 year old female s/p Right TKA At normal post-operative stage of recovery. Plan: 1. Continue range of motion/strengthening exercises 2. Continue total knee precautions 3. Follow-up 7 weeks for repeat clinical evaluation Brigid Bailon MD Electronic Signature documented in this encounter [facility] 05-03-2024 Note Date of Procedure 05/03/2024. 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 Repeated left eye 5x due to droopy eyelid. Astigmatism Right Eye Regular. Left Eye Regular. [facility] 05-03-2024 Note Date of Procedure 05/03/2024. 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 Interpretation Right Eye Normal without fluid. Left Eye Normal without fluid. [facility] 05-03-2024 Note Date of Procedure 05/03/2024. 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 Repeated left eye due to droopy eyelid. Notes Measurements only - see Procedure Record under Scanned Documents for signed results. [facility] 05-03-2024 Note HNO ID: [id number] Author: KATHLEEN PARKER MD Service: ? Author Type: Physician Type: Progress Notes Filed: 05/03/2024 11:34 Note Text: Age related Cataracts, bilateral Cataract Presurgical Documentation Referring provider: Kathleen Parker MD HISTORY: Other eye conditions: Encounter Diagnosis ICD-10-CM 1. Nuclear sclerosis of both eyes H25.13 tropicamide 1 % 1 Drop (MYDRIACYL) PHENYLephrine 2.5 % 1 Drop (AK-DILATE, SHANNON-SYNEPHRINE) fluorescein-benoxinate 0.3-0.4 % 1 Drop (FLURESS) OCT MACULA CIRRUS OU (BOTH EYES) IOL BIOMETRY W/ IOL CALC OU (BOTH EYES) CORNEAL TOPOGRAPHY PENTACAM OU (BOTH EYES) 2. Cortical age-related cataract of both eyes H25.013 3. 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 Leilani Farrar has confirmed that she is no longer able to function adequately on a day-to-day basis because of her current visual condition. Further, it is my medical opinion that the cataract is the primary cause, or at least a significantly contributory cause of her visual dysfunction. With uncomplicated cataract surgery and lens implantation, it is my expectation that her visual function and quality of life will improve, significantly. The risks, benefits, alternatives, personnel and complications of cataract surgery with lens implantation were discussed with Leilani Farrar in detail. she appeared to understand and asked that I proceed with plans for surgery. Assessment: Visually significant cataract BOTH EYES. Discussed IOL options - patient elects monofocal IOL both eyes PLAN: Phaco/IOL BOTH EYES - RIGHT EYE FIRST TOPICAL/MAC RIGHT: Target -0.25 Lens selection DIBOO +17.50 MA60AC +17.00 MTA4UO +14.50 LEFT: Target -0.25 Lens selection DIBOO +17.50 MA60AC +16.50 MTA4UO +14.50 - Dilation: 7mm - Flomax/alpha-remigio? No - Anesthesia: Topical with MAC - Diabetes Mellitus No - History of ocular trauma none - Contact lens use Yes- has been out of [facility] for over one month - History of LASIK/PRK/RK No - Discussed optimizing ocular surface for biometry/surgery with daily eyelid washes, warm compresses, and ATs surgery - instructions provided (if needed for biometry) - Special Surgical needs: deep - Other: none Patient to be scheduled for preoperative biometry if needed. B Scan ustrasound not needed Meds sent to pharmacy: start ofloxacin one day before, pred, ketorolac (Patient ok with topical steroids) Informed consent right eye signed today I have confirmed and edited as necessary the relevant ophthalmic history, ROS, and the neuro exam findings as obtained by others. I have seen and examined Leilani Farrar. I have discussed the case and the management of this patient's care with the Resident/Fellow, if applicable. I also have reviewed the chart, including the HPI, and agree with the assessment and plan as stated above and agree with all of its relevant components. Kathleen Parker MD [facility] 05-03-2024 History of Present illness Narrative Age related Cataracts, bilateral Cataract Presurgical Documentation Referring provider: Kathleen Parker MD HISTORY: Other eye conditions: Encounter Diagnosis ICD-10-CM 1. Nuclear sclerosis of both eyes H25.13 tropicamide 1 % 1 Drop (MYDRIACYL) PHENYLephrine 2.5 % 1 Drop (AK-DILATE, SHANNON-SYNEPHRINE) fluorescein-benoxinate 0.3-0.4 % 1 Drop (FLURESS) OCT MACULA CIRRUS OU (BOTH EYES) IOL BIOMETRY W/ IOL CALC OU (BOTH EYES) CORNEAL TOPOGRAPHY PENTACAM OU (BOTH EYES) 2. Cortical age-related cataract of both eyes H25.013 3. 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 Leilani Farrar has confirmed that she is no longer able to function adequately on a day-to-day basis because of her current visual condition. Further, it is my medical opinion that the cataract is the primary cause, or at least a significantly contributory cause of her visual dysfunction. With uncomplicated cataract surgery and lens implantation, it is my expectation that her visual function and quality of life will improve, significantly. The risks, benefits, alternatives, personnel and complications of cataract surgery with lens implantation were discussed with Leilani Farrar in detail. she appeared to understand and asked that I proceed with plans for surgery. Assessment: Visually significant cataract BOTH EYES. Discussed IOL options - patient elects monofocal IOL both eyes PLAN: Phaco/IOL BOTH EYES - RIGHT EYE FIRST TOPICAL/MAC RIGHT: Target -0.25 Lens selection DIBOO +17.50 MA60AC +17.00 MTA4UO +14.50 LEFT: Target -0.25 Lens selection DIBOO +17.50 MA60AC +16.50 MTA4UO +14.50 - Dilation: 7mm - Flomax/alpha-remigio? No - Anesthesia: Topical with MAC - Diabetes Mellitus No - History of ocular trauma none - Contact lens use Yes- has been out of [facility] for over one month - History of LASIK/PRK/RK No - Discussed optimizing ocular surface for biometry/surgery with daily eyelid washes, warm compresses, and ATs surgery - instructions provided (if needed for biometry) - Special Surgical needs: deep - Other: none Patient to be scheduled for preoperative biometry if needed. B Scan ustrasound not needed Meds sent to pharmacy: start ofloxacin one day before, pred, ketorolac (Patient ok with topical steroids) Informed consent right eye signed today I have confirmed and edited as necessary the relevant ophthalmic history, ROS, and the neuro exam findings as obtained by others. I have seen and examined Leilani Farrar. I have discussed the case and the management of this patient's care with the Resident/Fellow, if applicable. I also have reviewed the chart, including the HPI, and agree with the assessment and plan as stated above and agree with all of its relevant components. Kathleen Parker MD documented in this encounter [facility] 04-02-2024 Miscellaneous Notes SITUATION Spouse present during today's visit. patient reports the following since the last homecare visit: medications/allergies--no changes, no fall. patient reports she is doing really well. Reports she has already done 3 loads of laundry and the dishes so far this morning. BACKGROUND: Diagnoses (reason for Home Care):RTKA Weight Bearing/Precaution Changes: no changes ASSESSMENT: Focus of visit HEP, functional mobility, PT Agency DC. R knee ROM 104 degrees AROM. Physical therapy discharged: goals achieved. Functional performance at discharge - bed mobility independent, transfers independent, ambulation independent and stairs independent. Plan of care, goals, and discharge reviewed and agreed upon with patient and/or caregiver. RECOMMENDATION: Patient discharged from home health services. Instructions to include:home exercise program as directed, follow the recommended ambulation program, begin outpatient therapy at [facility] and follow up with provider as scheduled See intervention summary for intervention/education details. documented in this encounter [facility] 04-02-2024 Patient's home Note SITUATION Spouse present during today's visit. patient reports the following since the last homecare visit: medications/allergies--no changes, no fall. patient reports she is doing really well. Reports she has already done 3 loads of laundry and the dishes so far this morning. BACKGROUND: Diagnoses (reason for Home Care):RTKA Weight Bearing/Precaution Changes: no changes ASSESSMENT: Focus of visit HEP, functional mobility, PT Agency DC. R knee ROM 104 degrees AROM. Physical therapy discharged: goals achieved. Functional performance at discharge - bed mobility independent, transfers independent, ambulation independent and stairs independent. Plan of care, goals, and discharge reviewed and agreed upon with patient and/or caregiver. RECOMMENDATION: Patient discharged from home health services. Instructions to include:home exercise program as directed, follow the recommended ambulation program, begin outpatient therapy at [facility] and follow up with provider as scheduled See intervention summary for intervention/education details. [facility] Work Phone: 03-30-2024 Miscellaneous Notes SITUATION: spouse present during today's visit. patient reports the following since the last homecare visit: medications/allergies--no changes, no fall. patient reports she saw MD for f/u and it went well. States she is planning to go to [facility] for OP PT. agreeable to PT BACKGROUND: Diagnoses (reason for Home Care): RTKA Weight Bearing/Precaution Changes: no changes ASSESSMENT: Focus of visit HEP review, progression on RLE stretching via addition of calf stretch with positive result/stretch noted by the patient. gait training with spc with safe return demo. NOMNC issued and signed. No complaints of SOB/chest pain; patient does not appear to be in acute distress. Patient reported comfort with the visit. Plan of care, goals, and visit frequency reviewed and agreed upon with patient and/or caregiver. Current Discharge Plan: outpatient rehab Anticipate discharge by 04/02 RECOMMENDATION: Next visit to focus on possible PT d/c See intervention summary for intervention/education details. documented in this encounter [facility] 03-30-2024 Patient's home Note SITUATION: spouse present during today's visit. patient reports the following since the last homecare visit: medications/allergies--no changes, no fall. patient reports she saw MD for f/u and it went well. States she is planning to go to [facility] for OP PT. agreeable to PT BACKGROUND: Diagnoses (reason for Home Care): RTKA Weight Bearing/Precaution Changes: no changes ASSESSMENT: Focus of visit HEP review, progression on RLE stretching via addition of calf stretch with positive result/stretch noted by the patient. gait training with spc with safe return demo. NOMNC issued and signed. No complaints of SOB/chest pain; patient does not appear to be in acute distress. Patient reported comfort with the visit. Plan of care, goals, and visit frequency reviewed and agreed upon with patient and/or caregiver. Current Discharge Plan: outpatient rehab Anticipate discharge by 04/02 RECOMMENDATION: Next visit to focus on possible PT d/c See intervention summary for intervention/education details. [facility] Work Phone: 03-29-2024 Note HNO ID: [id number] Author: DENNIS BUTTS PA-C Service: ? Author Type: Physician Line Dancer Type: Progress Notes Filed: 03/29/2024 13:39 Note Text: Post-op Office Visit Leilani Farrar 68 year old March 29, 2024 12:56 PM Surgery Date: 03/16/2024 History: Leilani Farrar is now 2 weeks out from robotic assisted right TKA. Post-operative course has been without complication. No readmissions. The patient was discharged from [facility] to home with home health care on 03/17/2024. Subjective: Patient reports mild knee pain. Overall is doing well. Using walker ambulatory aid She is taking Hibernia one to two times per day. Patients rates her condition as improving. Reports compliance with DVT ppx (eliquis). Participating in home PT. Objective: Right knee: Ambulates with walker Incision well-approximated, no drainage, well-healing. Suture tails trimmed today. Knee ROM 2 - 90 degrees Distally DP/PT palpable Distally SILT S/S/SP/DP/T intact at baseline Distally DF/PF motor intact at baseline Negative raghu/calf tenderness Xrays: Well-positioned total knee replacement in appropriate alignment with no evidence of loosening Assessment and Plan: 68 year old female 2 weeks status post robotic assisted right total knee arthroplasty - continue ice, rest, and use of non-narcotic analgesia as needed - reviewed antibiotic prophylactic protocols - discussed home exercises and therapy - continue Eliquis DVT prophylaxis for 4 weeks total - WBAT on operative extremity - discussed driving requirement: 4 weeks post-op, off narcotic pain medication, adequate brake time - follow up in 4 weeks for repeat clinical evaluation with Dr. Bailon Normal post-operative course discussed with patient. Patient reassured and supported. All questions answered. Rolo Butts PA-C Orthopaedic Surgery [facility] 03-29-2024 History of Present illness Narrative Post-op Office Visit Leilani Farrar 68 year old March 29, 2024 12:56 PM Surgery Date: 03/16/2024 History: Leilani Farrar is now 2 weeks out from robotic assisted right TKA. Post-operative course has been without complication. No readmissions. The patient was discharged from [facility] to home with home health care on 03/17/2024. Subjective: Patient reports mild knee pain. Overall is doing well. Using walker ambulatory aid She is taking Hibernia one to two times per day. Patients rates her condition as improving. Reports compliance with DVT ppx (eliquis). Participating in home PT. Objective: Right knee: Ambulates with walker Incision well-approximated, no drainage, well-healing. Suture tails trimmed today. Knee ROM 2 - 90 degrees Distally DP/PT palpable Distally SILT S/S/SP/DP/T intact at baseline Distally DF/PF motor intact at baseline Negative raghu/calf tenderness Xrays: Well-positioned total knee replacement in appropriate alignment with no evidence of loosening Assessment and Plan: 68 year old female 2 weeks status post robotic assisted right total knee arthroplasty - continue ice, rest, and use of non-narcotic analgesia as needed - reviewed antibiotic prophylactic protocols - discussed home exercises and therapy - continue Eliquis DVT prophylaxis for 4 weeks total - WBAT on operative extremity - discussed driving requirement: 4 weeks post-op, off narcotic pain medication, adequate brake time - follow up in 4 weeks for repeat clinical evaluation with Dr. Bailon Normal post-operative course discussed with patient. Patient reassured and supported. All questions answered. Rolo Butts PA-C Orthopaedic Surgery documented in this encounter [facility] 03-29-2024 History of Present illness Narrative Radiology Service Progress Note PATIENT NAME: Leilani Farrar DATE OF SERVICE: March 29, 2024 TIME: 12:54 PM PATIENT IDENTITY VERIFICATION COMPLETED USING TWO (2) IDENTIFIERS: Name and Date of confirmed by patient verbally. FALL SCREENING: Has the patient had 2 falls in the last year or 1 fall with injury or currently using an Ambulatory Assistive Device (Walker, Cane, Wheelchair, Crutches, etc.)? No PATIENT GENDER DATA: Female. status: : No status: NO. PATIENT RELEVANT IMPLANT DATA REVIEWED: Not Applicable PATIENT PRESENTS WITH AN IMPLANTABLE OR ATTACHED CHILD DAY CARE TEACHER: No RADIOLOGY DEPARTMENT: General X-ray: Exam(s) Completed: Lower Extremity X-Ray(s): Knee, AP / Lat / Merchant Right and Wt. Bearing PERIPHERAL IV DATA: Not applicable SIGNED BY: Shannan Pardo March 29, 2024 12:54 PM documented in this encounter [facility] 03-29-2024 Note HNO ID: [id number] Author: LETY JUNG Tech Service: Radiology Author Type: Typo Machine Operator Type: Progress Notes Filed: 03/29/2024 12:54 Note Text: Radiology Service Progress Note PATIENT NAME: Leilani Farrar DATE OF SERVICE: March 29, 2024 TIME: 12:54 PM PATIENT IDENTITY VERIFICATION COMPLETED USING TWO (2) IDENTIFIERS: Name and Date of confirmed by patient verbally. FALL SCREENING: Has the patient had 2 falls in the last year or 1 fall with injury or currently using an Ambulatory Assistive Device (Walker, Cane, Wheelchair, Crutches, etc.)? No PATIENT GENDER DATA: Female. status: : No status: NO. PATIENT RELEVANT IMPLANT DATA REVIEWED: Not Applicable PATIENT PRESENTS WITH AN IMPLANTABLE OR ATTACHED CHILD DAY CARE TEACHER: No RADIOLOGY DEPARTMENT: General X-ray: Exam(s) Completed: Lower Extremity X-Ray(s): Knee, AP / Lat / Merchant Right and Wt. Bearing PERIPHERAL IV DATA: Not applicable SIGNED BY: Shannan Pardo March 29, 2024 12:54 PM [facility] 03-26-2024 Miscellaneous Notes SITUATION: spouse present during today's visit. patient reports the following since the last homecare visit: medications/allergies--no changes, no fall. patient reports she is doing ok and reports compliance with HEP. Patient reports I am having a lot of pain in the back of my knee. Patient states she has been sleeping all night with pillows under her R leg. Discussed using no pillows or a thin pillow at night to try and reduce posterior knee pain. BACKGROUND: Diagnoses (reason for Home Care): RTKR Weight Bearing/Precaution Changes: no changes ASSESSMENT: Focus of visit performed. Gait training w/ww, step training and step stretch. Standing exercises AAROM 2-91 post stretches. Patient states she will call [facility] to schedule OP PT to begin after [facility]. Plan of care, goals, and visit frequency reviewed and agreed upon with patient and/or caregiver. Current Discharge Plan: outpatient rehab Anticipate discharge by 04/02/24 RECOMMENDATION: Next visit to focus on stair training, trial SPC See intervention summary for intervention/education details. documented in this encounter [facility] 03-26-2024 Patient's home Note SITUATION: spouse present during today's visit. patient reports the following since the last homecare visit: medications/allergies--no changes, no fall. patient reports she is doing ok and reports compliance with HEP. Patient reports I am having a lot of pain in the back of my knee. Patient states she has been sleeping all night with pillows under her R leg. Discussed using no pillows or a thin pillow at night to try and reduce posterior knee pain. BACKGROUND: Diagnoses (reason for Home Care): RTKR Weight Bearing/Precaution Changes: no changes ASSESSMENT: Focus of visit performed. Gait training w/ww, step training and step stretch. Standing exercises AAROM 2-91 post stretches. Patient states she will call [facility] to schedule OP PT to begin after [facility]. Plan of care, goals, and visit frequency reviewed and agreed upon with patient and/or caregiver. Current Discharge Plan: outpatient rehab Anticipate discharge by 04/02/24 RECOMMENDATION: Next visit to focus on stair training, trial SPC See intervention summary for intervention/education details. [facility] Work Phone: 03-24-2024 Miscellaneous Notes SITUATION: spouse present during today's visit. patient reports the following since the last homecare visit: medications/allergies--new med, no fall. patient reports she called her surgical team d/t pain and was perscribed Hibernia. Patient states she has been walking without a walker. BACKGROUND: Diagnoses (reason for Home Care): RTKR Weight Bearing/Precaution Changes: no changes ASSESSMENT: Focus of visit performed and progressed ROM and strength ex for HEP. Gait training w/ww, step training and step stretch. AAROM 2-81 post stretches. Surgical bandage removed this date without issue, picture uploaded via [employer] with patient's verbal consent. Plan of care, goals, and visit frequency reviewed and agreed upon with patient and/or caregiver. Current Discharge Plan: outpatient rehab Anticipate discharge by 04/02/24 RECOMMENDATION: Next visit to focus on standing exercises if tolerable, remove surgical bandage. See intervention summary for intervention/education details. documented in this encounter [facility] 03-24-2024 Patient's home Note SITUATION: spouse present during today's visit. patient reports the following since the last homecare visit: medications/allergies--new med, no fall. patient reports she called her surgical team d/t pain and was perscribed Hibernia. Patient states she has been walking without a walker. BACKGROUND: Diagnoses (reason for Home Care): RTKR Weight Bearing/Precaution Changes: no changes ASSESSMENT: Focus of visit performed and progressed ROM and strength ex for HEP. Gait training w/ww, step training and step stretch. AAROM 2-81 post stretches. Surgical bandage removed this date without issue, picture uploaded via [employer] with patient's verbal consent. Plan of care, goals, and visit frequency reviewed and agreed upon with patient and/or caregiver. Current Discharge Plan: outpatient rehab Anticipate discharge by 04/02/24 RECOMMENDATION: Next visit to focus on standing exercises if tolerable, remove surgical bandage. See intervention summary for intervention/education details. [facility] Work Phone: 03-23-2024 Telephone encounter Note Pt notified and is agreeable. [facility] 03-23-2024 Miscellaneous Notes Pt notified and is agreeable. Discontinue tramadol. PDMP website reviewed and validated. Patient has been compliant and taking medication appropriately without evidence of suspicious activity. Will send Hibernia Rx. Please remind patient Alecia has Tylenol in the ingredient list. She must be careful not to exceed 3000mg (3 grams) of Tylenol, from all sources, within a single 24-hr period. Rolo Butts PA-C March 23, 2024 11:16 AM Leilani calling to see if she can get something else for pain. Tramadol is making her sick to her stomach. She has had norco in past and it worked well and wondering if that could be called to her DDM on chart. She also c/o difficult sleeping and swelling in her foot. Swelling was fine when woke up but gets worse as she is up and moving. Trying to elevate during day but hasn't been able to get comfortable with just taking tylenol. Please advise. documented in this encounter [facility] 03-23-2024 Telephone encounter Note Discontinue tramadol. PDMP website reviewed and validated. Patient has been compliant and taking medication appropriately without evidence of suspicious activity. Will send [facility]. Please remind patient Alecia has Tylenol in the ingredient list. She must be careful not to exceed 3000mg (3 grams) of Tylenol, from all sources, within a single 24-hr period. Rolo Butts PA-C March 23, 2024 11:16 AM [facility] 03-23-2024 Telephone encounter Note Leilani calling to see if she can get something else for pain. Tramadol is making her sick to her stomach. She has had norco in past and it worked well and wondering if that could be called to her DDM on chart. She also c/o difficult sleeping and swelling in her foot. Swelling was fine when woke up but gets worse as she is up and moving. Trying to elevate during day but hasn't been able to get comfortable with just taking tylenol. Please advise. [facility] 03-22-2024 Miscellaneous Notes SITUATION: spouse present during today's visit. patient reports the following since the last homecare visit: medications/allergies--no changes, no fall. patient reports she is doing ok and reports compliance with HEP. States she walked outside in the grass to go look at her garden. BACKGROUND: Diagnoses (reason for Home Care): RTKR Weight Bearing/Precaution Changes: no changes ASSESSMENT: Focus of visit performed and progressed ROM and strength ex for HEP. Gait training w/ww, step training and step stretch. AAROM 2-74 post stretches Plan of care, goals, and visit frequency reviewed and agreed upon with patient and/or caregiver. Current Discharge Plan: outpatient rehab Anticipate discharge by 04/02/24 RECOMMENDATION: Next visit to focus on standing exercises if tolerable, remove surgical bandage. See intervention summary for intervention/education details. documented in this encounter [facility] 03-22-2024 Patient's home Note SITUATION: spouse present during today's visit. patient reports the following since the last homecare visit: medications/allergies--no changes, no fall. patient reports she is doing ok and reports compliance with HEP. States she walked outside in the grass to go look at her garden. BACKGROUND: Diagnoses (reason for Home Care): RTKR Weight Bearing/Precaution Changes: no changes ASSESSMENT: Focus of visit performed and progressed ROM and strength ex for HEP. Gait training w/ww, step training and step stretch. AAROM 2-74 post stretches Plan of care, goals, and visit frequency reviewed and agreed upon with patient and/or caregiver. Current Discharge Plan: outpatient rehab Anticipate discharge by 04/02/24 RECOMMENDATION: Next visit to focus on standing exercises if tolerable, remove surgical bandage. See intervention summary for intervention/education details. [facility] Work Phone: 03-20-2024 Miscellaneous Notes SITUATION: spouse present during today's visit. patient reports the following since the last homecare visit: medications/allergies--no changes, no fall. patient reports she is doing ok. knee is tight. BACKGROUND: Diagnoses (reason for Home Care): RTKR Weight Bearing/Precaution Changes: no changes ASSESSMENT: Focus of visit performed and progressed ROM and strength ex for HEP. Gait training w/ww, step training. AAROM 2-68 post stretches Plan of care, goals, and visit frequency reviewed and agreed upon with patient and/or caregiver. Current Discharge Plan: outpatient rehab Anticipate discharge by 04/02/24 RECOMMENDATION: Next visit to focus on possibly add step flexion stretch for ROM See intervention summary for intervention/education details. documented in this encounter [facility] 03-20-2024 Patient's home Note SITUATION: spouse present during today's visit. patient reports the following since the last homecare visit: medications/allergies--no changes, no fall. patient reports she is doing ok. knee is tight. BACKGROUND: Diagnoses (reason for Home Care): RTKR Weight Bearing/Precaution Changes: no changes ASSESSMENT: Focus of visit performed and progressed ROM and strength ex for HEP. Gait training w/ww, step training. AAROM 2-68 post stretches Plan of care, goals, and visit frequency reviewed and agreed upon with patient and/or caregiver. Current Discharge Plan: outpatient rehab Anticipate discharge by 04/02/24 RECOMMENDATION: Next visit to focus on possibly add step flexion stretch for ROM See intervention summary for intervention/education details. [facility] Work Phone: 03-19-2024 Miscellaneous Notes Medication review completed. No ineffective drug therapy, significant side effects, significant drug interactions, duplicate drug therapy, or noncompliance with drug therapy noted. reported allergy contraindication Elvira Lopez RN documented in this encounter [facility] 03-19-2024 Patient's home Note Medication review completed. No ineffective drug therapy, significant side effects, significant drug interactions, duplicate drug therapy, or noncompliance with drug therapy noted. reported allergy contraindication Elvira Lopez RN [facility] Work Phone: 03-18-2024 Miscellaneous Notes SITUATION: spouse present during today's visit. patient reports she is experiencing a lot of R knee pain. Patient states she has had a lot of knee surgies but didn't expect this much swelling and pain. BACKGROUND: Diagnoses (reason for Home Care): Primary osteoarthritis of right knee [M17.11] S/P ROBOTIC ASSISTED TOTAL KNEE ARTHROPLASTY (Right) 03/16/2024 Any one of the comorbidities from the list below may have a deleterious effect on the primary home care diagnosis.- (this is from problem list)- ACTIVE PROBLEM LIST Primary Osteoarthritis of Right Knee Hyperlipidemia Hypothyroidism Postoperative Hypothyroidism Cigarette Nicotine Dependence Elevated Bp Without Diagnosis of Hypertension S/P Total Knee Arthroplasty, Right Weight Bearing or Surgical Precautions: WBAT R LE Remove Bandage POD 7-10. ASSESSMENT: Patient evaluated by [facility] Homecare physical therapy. Reviewed and explained homecare services. Plan of care, goals, and visit frequency developed, reviewed, and agreed upon with patient and/or caregiver. R knee 65 degrees AROM. Patient Goal: to get back to her independent life Patient will benefit from continued physical therapy to address the following deficits: strength, balance, gait, R knee joint ROM, transfers, stair negotiation and bed mobility. Current Discharge Plan: outpatient rehab. Anticipate discharge by 04/03/24. RECOMMENDATION: Next visit to focus on pain/edema management, progress HEp and functional mobility as tolerated. Agreeable to PT; declining NA. See intervention summary for intervention/education details. documented in this encounter [facility] 03-18-2024 Patient's home Note SITUATION: spouse present during today's visit. patient reports she is experiencing a lot of R knee pain. Patient states she has had a lot of knee surgies but didn't expect this much swelling and pain. BACKGROUND: Diagnoses (reason for Home Care): Primary osteoarthritis of right knee [M17.11] S/P ROBOTIC ASSISTED TOTAL KNEE ARTHROPLASTY (Right) 03/16/2024 Any one of the comorbidities from the list below may have a deleterious effect on the primary home care diagnosis.- (this is from problem list)- ACTIVE PROBLEM LIST Primary Osteoarthritis of Right Knee Hyperlipidemia Hypothyroidism Postoperative Hypothyroidism Cigarette Nicotine Dependence Elevated Bp Without Diagnosis of Hypertension S/P Total Knee Arthroplasty, Right Weight Bearing or Surgical Precautions: WBAT R LE Remove Bandage POD 7-10. ASSESSMENT: Patient evaluated by [facility] Homecare physical therapy. Reviewed and explained homecare services. Plan of care, goals, and visit frequency developed, reviewed, and agreed upon with patient and/or caregiver. R knee 65 degrees AROM. Patient Goal: to get back to her independent life Patient will benefit from continued physical therapy to address the following deficits: strength, balance, gait, R knee joint ROM, transfers, stair negotiation and bed mobility. Current Discharge Plan: outpatient rehab. Anticipate discharge by 04/03/24. RECOMMENDATION: Next visit to focus on pain/edema management, progress HEp and functional mobility as tolerated. Agreeable to PT; declining NA. See intervention summary for intervention/education details. [facility] Work Phone: 03-17-2024 Telephone encounter Note Images from the original note were not included. Date/Time: 03/17/2024 10:26 AM Spoke with Patient @ phone #: - Preferred # for contact: Have you received help from a home care company in the last 60 days? no Are you agreeable to [facility] services? Yes What address will we be seeing you at? [address] [address] Do you have any upcoming appointments or things we need to schedule around? No Do you have a teachable CG or can you manage your care independently? Yes spouse and sister in law will help patient at home [facility] 03-17-2024 Miscellaneous Notes Images from the original note were not included. Date/Time: 03/17/2024 10:26 AM Spoke with Patient @ phone #: - Preferred # for contact: Have you received help from a home care company in the last 60 days? no Are you agreeable to [facility] services? Yes What address will we be seeing you at? [address] [address] Do you have any upcoming appointments or things we need to schedule around? No Do you have a teachable CG or can you manage your care independently? Yes spouse and sister in law will help patient at home documented in this encounter [facility] 03-17-2024 Note HNO ID: [id number] Author: DENNIS BUTTS PA-C Service: Orthopaedic Surgery Author Type: Physician Line Dancer Type: Progress Notes Filed: 03/17/2024 09:17 Note Text: POSTOP NOTE ORTHOPAEDIC SURGERY SERVICE DATE: 03/17/2024 SERVICE TIME: 6:45 AM IMPRESSION/PLAN: S/P Procedure(s) (LRB): ROBOTIC ASSISTED TOTAL KNEE ARTHROPLASTY (Right) on 03/16/2024 Physical Therapy evaluation WBAT RLE DVT prophylaxis: Intermittent pneumatic compression device (IPCD) and Eliquis Pain control Case Management for discharge planning Plan of care discussed with: Provider, RN, Patient. Patient Active Hospital Problem List: No active hospital problems. POST OPERATIVE COMPLICATIONS: Complicated by uneventful/none SUBJECTIVE: Patient states that they are comfortable Well Controlled knee pain. Denies incisional pain. OBJECTIVE: VITAL SIGNS: BP 118/63 Pulse 68 Temp 36.8 ?C (98.2 ?F) (Axillary) Resp 18 SpO2 97% INTAKE AND OUTPUT: Intake/Output Summary (Last 24 hours) at 03/17/2024 0916 Last data filed at 03/17/2024 0835 Gross per 24 hour Intake 2886.25 ml Output 2800 ml Net 86.25 ml LABS: Hemoglobin Date Value Ref Range Status 03/17/2024 12.9 11.5 - 15.5 g/dL Final 03/16/2024 13.7 11.5 - 15.5 g/dL Final Hematocrit Date Value Ref Range Status 03/17/2024 37.2 36.0 - 46.0 % Final 03/16/2024 40.3 36.0 - 46.0 % Final Platelet Count Date Value Ref Range Status 03/17/2024 215 150 - 400 k/uL Final 02/25/2024 252 150 - 400 k/uL Final WBC Date Value Ref Range Status 03/17/2024 6.40 3.70 - 11.00 k/uL Final 02/25/2024 5.77 3.70 - 11.00 k/uL Final Creatinine Date Value Ref Range Status 03/17/2024 0.78 0.58 - 0.96 mg/dL Final 02/25/2024 0.78 0.58 - 0.96 mg/dL Final Potassium Date Value Ref Range Status 03/17/2024 4.2 3.7 - 5.1 mmol/L Final 02/25/2024 5.2 (H) 3.7 - 5.1 mmol/L Final VTE Prophylaxis: Active VTE Risk Category Order: 03/16/24 1530 VTE RISK CATEGORY: SURGICAL HIGH RISK ([place],SD) Active VTE Medication Orders: Anticoagulant AND Antiplatelet Medications (From admission, onward) Start Dose Route Frequency Last Action Ordered Stop 03/17/24 0900 apixaban 2.5 mg tab(s) (ELIQUIS) (Surgical Risk Categories) 2.5 mg ORAL 2 TIMES DAILY Given, 03/17 0803/16/24 1515 -- Active VTE Prophylaxis Orders: 03/16/24 1530 PNEUMATIC COMPRESSION STOCKINGS ([place], [place]) PHYSICAL EXAMINATION: Right Lower Extremity: Dorsalis pedis pulses palpable. Posterior tibial pulses palpable. Dorsi flexion 5/5. Plantar flexion 5/5. Extensor hallucis extension: 5/5. Sensory intact to light touch L4-S1. Dressing clean, dry, and intact. Surgical site no drainage and Silverlon intact. Problem Review and Assessment: Skin and Abdominal Wall: Patient monitored, no new events overnight Cardiovascular and Vascular: Patient monitored, no new events overnight Respiratory: Patient monitored, no new events overnight Endocrine and Metabolic: Patient monitored, no new events overnight Gastrointestinal: Patient monitored, no new events overnight Genitourinary and Nephrology: Patient monitored, no new events overnight Behavioral, Cerebrovascular and Nervous: Patient monitored, no new events overnight Infectious: Patient monitored, no new events overnight DATA: Diagnostic tests reviewed for today's visit: Most recent labs and imaging results. SIGNATURE: Dennis Butts PA-C PATIENT NAME: Leilani Farrar DATE: March 17, 2024 TIME: 9:16 AM The patient has undergone major orthopedic surgery and participating in therapy. Pain cannot be managed within an average of 30 MED per day. Patient requiring average of higher than 30 MED per day in order to control pain and allow patient to actively and safely participate in therapy and this is the lowest dose consistent with patient's medical condition. Non-narcotic medication options have been discussed. In addition, the patient has been advised of the benefits and risks of the opioid (including the potential for addiction). Patient demonstrated understanding of risks versus benefits. [facility] 03-16-2024 Note HNO ID: [id number] Author: HECTOR MCDONALD APRN.CRNA Service: Anesthesiology Author Type: Nurse Assistant Manager Airside Operations Type: Anesthesia Procedure Notes Filed: 03/16/2024 11:21 Note Text: ANESTHESIOLOGY PROCEDURE NOTE Airway General Information Procedure Start Time/Medication Administration: 03/16/2024 10:50 AM Procedure End Time: 03/16/2024 10:52 AM Patient location during procedure: OR Timeout Performed Pre-procedure: timeout performed Consent Obtained: Yes Patient identity confirmed: arm band and patient Staffing ELECTRICAL ENGINEERING DRAFTSPERSON: Hector Mcdonald APRN.ELECTRICAL ENGINEERING DRAFTSPERSON Performed by: VICKI Indications and Patient Condition Indications for airway management: anesthesia Preoxygenated: yes anesthesia circuit Patient position: sniffing Method: asleep Difficult Mask: No Final Airway Details Final airway type: supraglottic airway Number of attempts at approach: 1 Final Supraglottic Airway: i-gel Size 3 Seal Adequate: yes SIGNATURE: Hector Mcdonald APRN.CRNA PATIENT NAME: Leilani Farrar DATE: March 16, 2024 TIME: 11:21 AM CSN: [id number] [facility] 03-16-2024 Note HNO ID: [id number] Author: ALIDA NELSON MD Service: Anesthesiology Author Type: Anesthesiologist Type: Anesthesia Procedure Notes Filed: 03/16/2024 10:06 Note Text: ANESTHESIOLOGY PROCEDURE NOTE Peripheral Nerve Block General Information Procedure Start Time/Medication Administration: 03/16/2024 9:58 AM Procedure End time: 03/16/2024 10:00 AM Patient location during procedure: induction room Timeout Performed Pre-procedure: timeout performed Consent Obtained: Yes Patient identity confirmed: arm band and patient Reason for block: post-op pain management/at surgeon's request Staffing Anesthesiologist: Alida Nelson MD Performed by: anesthesiologist Preparation Sterility Preparation: hand hygiene performed prior to procedure, sterile gloves, drapes, and procedure tray, surgical cap used, mask used, sterile drape used during line insertion, skin prep agent completely dried prior to procedure Site Prep: Chloraprep Pre-Procedure Neuro Exam Location: RLE Sensory: intact Motor: intact Procedure Details Patient Position: supine Monitoring: Pulse OX, EKG and NIBP Block Type Lower Extremity: distal femoral (adductor canal) Laterality: right Injection Technique: single-shot Ultrasound Guided: Yes Image in Chart: yes Local Infiltration: Yes Needle Needle Type: echogenic Needle Gauge: 22 G Needle Length: 100 mm Needle Localization: ultrasound Assessment Injection assessment: negative aspiration, no paresthesia on injection, incremental injection and local visualized surrounding nerve on ultrasound Post-Procedure Neuro Exam Expected Regional Anesthesia: Yes Comments Exparel 10 mll and 0.5% bupivacaine 10 ml SIGNATURE: Alida Nelson MD PATIENT NAME: Leilani Farrar DATE: March 16, 2024 TIME: 10:05 AM CSN: [id number] [facility] 02-25-2024 Telephone encounter Note TOTAL JOINT COMPLETE CARE PROGRAM PRE-OPERATIVE TEACHING Service Date: 02/25/2024 Service Time: 9:03 AM Date of : 1955 Gender: female Date of Surgery: 03/16/24 Procedure: Right Total Knee Replacement Complete Care Program was discussed with the patient: Therapeutic Case Manager Identification: Patient identified a home health care physician to help when discharged to home: and sister in law. Home Environment: Home Layout: 2 story, Entry Steps: 5 with bilat rails, Bedroom Location: 1st floor, Bathroom Location: 1st floor, and walk in shower. Pt owns potty chair, grab bars in shower, walker, crutches, cane. Discussed with patient importance of attending joint education class and provided date and times of class: YES declined Patient received Joint Education Binder: Yes Patient plans discharge home with [facility]. SIGNATURE: SHARDA Mendoza PATIENT NAME: Leilani Farrar DATE: February 25, 2024 TIME: 10:01 AM [facility] 02-25-2024 Miscellaneous Notes TOTAL JOINT COMPLETE CARE PROGRAM PRE-OPERATIVE TEACHING Service Date: 02/25/2024 Service Time: 9:03 AM Date of : 1955 Gender: female Date of Surgery: 03/16/24 Procedure: Right Total Knee Replacement Complete Care Program was discussed with the patient: Therapeutic Case Manager Identification: Patient identified a home health care physician to help when discharged to home: and sister in law. Home Environment: Home Layout: 2 story, Entry Steps: 5 with bilat rails, Bedroom Location: 1st floor, Bathroom Location: 1st floor, and walk in shower. Pt owns potty chair, grab bars in shower, walker, crutches, cane. Discussed with patient importance of attending joint education class and provided date and times of class: YES declined Patient received Joint Education Binder: Yes Patient plans discharge home with [facility]. SIGNATURE: SHARDA Mendoza PATIENT NAME: Leilani Farrar DATE: February 25, 2024 TIME: 10:01 AM documented in this encounter [facility] 02-25-2024 Instructions Heidi Waddell PA-C - 02/25/2024 9:36 AM EDT Images from the original note were not included. [facility] PATIENT PREOPERATIVE INSTRUCTIONS Brigid Bailon MD has scheduled you for your procedure at this surgery center: [facility]: [phone] -- [address] [address]. Please read below carefully for your personalized instructions. Arrival Time for Surgery: - The Surgery Center or hospital where you are having surgery will call the afternoon before surgery (or Friday for Friday surgery) with a scheduled arrival time. - If you have not heard by 4 pm, please contact the surgery center above. Please be aware that emergency situations arise, which may delay or change your surgical time. If this happens, we will notify you as soon as possible and regret any inconvenience. Dietary Restrictions: - No solid food after midnight. - You may have 12 ounces of clear liquids (water, clear juices such as apple juice or gatorade, carbonated beverages, clear tea, black coffee, jello) until 2 hours before scheduled arrival at facility. - Do not drink any alcohol after midnight the night before your surgery. Medications: Unless instructed differently below, stay on all of your medications until your surgery. If you start any new medications after today's visit, please contact your surgeon. Pre-Surgery Med Instructions Medication Instructions hydrOXYzine HCl (ATARAX) 10 mg tablet OK to take as you normally do levothyroxine (SYNTHROID) 112 mcg tablet Take the day of surgery with a small sip of water If you start any new medications after today's visit, please contact the surgeon's office. Blood Thinning Medications: - Stop NSAIDS (Ibuprofen, Advil, Aleve, Motrin, Celebrex, Mobic, etc.) 7 days before surgery, as directed by your surgeon. - Stop Aspirin 7 days before surgery, as directed by your surgeon. - Stop Vitamin E, ALL multi-vitamins, herbals and dietary supplements 14 days before surgery. - You may take Tylenol (Acetaminophen) or any of your pain medications that do not contain aspirin or NSAIDS as needed. Vitamins/supplements prescribed for a specific purpose (e.g., vitamin D and calcium for osteoporosis, vitamin B12 for B12 deficiency) should be continued, but all others (especially any including vitamins A and E) should be stopped. Mupirocin Ointment Instructions Apply 1/2 inch of the mupirocin ointment with a Q-tip to both nostrils in the morning and afternoon for 5 consecutive days before surgery. If you are scheduled for a pre-op Covid-19 test, please do not apply mupirocin the morning of your test. You may apply it right after the test instead. Important Reminders: - Candy, mints, and tobacco products are NOT permitted the morning of surgery. - Hearing aids, dentures and glasses may be worn the morning of surgery. - NO jewelry, body piercings, makeup, hairpins or contacts are to be worn the day of surgery. If you develop symptoms such as a fever, cold, or flu, or have other changes to your health within TWO DAYS of scheduled surgery or the morning of surgery, please contact the surgery center above. Personal Belongings: -Please have photo ID and insurance cards. -If you do not have a copy of advance directives on file with us, please bring a copy with you on the day of surgery. - Leave ALL valuables and money at home or with family members. For Outpatient Procedures: - YOU MUST HAVE A RESPONSIBLE ARMORED MACHINE OPERATOR TAKE YOU HOME. A HEALTH SERVICES RN OR CLOTH STRETCHER CANNOT BE MADE A RESPONSIBLE ARMORED MACHINE OPERATOR. - We recommend that a responsible person stays with you overnight to take care of you. - You cannot stay in a hotel alone after outpatient surgery. You will not be permitted to have your surgery, if you do not have someone to take care of you. If you already have an Advance Directive, please fax a copy to [phone] or email to for it to be added to your chart. If you do not have an Advance Directive, you can find the appropriate form and more information at [email or web address]. We recommend that you complete the Advance Directive form found on the website and bring it with you the day of your surgery. It can be witnessed and scanned into your chart that day. Heidi Waddell PA-C documented in this encounter [facility] 02-24-2024 History and physical note HISTORY AND PHYSICAL EXAMINATION SERVICE DATE: 02/25/2024 SERVICE TIME: 1:41 PM PRIMARY CARE PHYSICIAN: Vernon oBlton APRN.RETAIL GROCER REASON FOR VISIT: Leilani Farrar is a 68 year old female who is scheduled for ROBOTIC ASSISTED TOTAL KNEE ARTHROPLASTY - Right at the request of Dr. Brigid Gonzalez MD for consultation. My final recommendation will be communicated back to the requesting physician by way of shared medical record or letter. Subjective The patient has the following: ACTIVE PROBLEM LIST Primary Osteoarthritis of Right Knee Hyperlipidemia Hypothyroidism Postoperative Hypothyroidism Cigarette Nicotine Dependence Elevated Bp Without Diagnosis of Hypertension COVID-19 Immunization Status Overdue - Covid-19 Vaccine ( season) Never done No completion, postpone, frequency change, or communication history exists for this topic. CHIEF COMPLAINT: pre op HPI: Leilani Farrar is a 68 year old female presenting for pre-anesthesia consultation. Pt has history of right knee OA. Above procedure recommended to manage symptoms. Procedure scheduled on 03/16 at [facility]. REVIEW OF SYSTEMS: General: No weight loss, malaise or fevers. Neurological: Negative for: headaches, peripheral neuropathy, seizures, TIA and strokes. Respiratory: Negative for: asthma, COPD, current cough, dyspnea, home oxygen, tobacco use, URI < 2 weeks and obstructive sleep apnea. Cardiovascular: Denies dizziness or syncope. Palpitations occ Positive for: hyperlipidemia Negative for: AICD/PPM, arrhythmia, CAD, chest pain, CHF, DVT/PE, recent UT, murmur/valvular heart disease, open heart surgery and valve surgery. GI: Negative for: abdominal pain, GERD, GI bleed <30 days, hepatitis, liver disease, nausea and vomiting. : Denies kidney disease Negative for: dysuria, frequent urination, hematuria and urinary tract infection. Endocrine: Positive for: hypothyroidism. Negative for: diabetes mellitus and hyperthyroidism. Hematology: Negative for: anemia, bruises/bleeds easily, factor V Leiden, hemophilia, thrombocytopenia and von Willebrand disease. Oncology: No history of CA metastasis, chemo within 30 days, or radiotherapy within 90 days. No history of oncological symptoms or problems. Psych: Negative for: anxiety, bipolar disorder and depression. Musculoskeletal: See HPI. Skin: Negative for lesions, rash and itching. PAST MEDICAL HISTORY No date: Astigmatism No date: Corneal abrasion, right No date: Myopia No date: Presbyopia of both eyes No date: Thyroid disease PAST SURGICAL HISTORY No date: ORTHOPEDICS SURGERY HX Comment: shoulder,knees,foot,carpal tunnel,trigger finger No date: THYROIDECTOMY FAMILY HISTORY Problem Relation Age of Onset Anesthesia Problems No Family History Social History Tobacco Use Smoking status: Every Day Current packs/day: 0.50 Average packs/day: 0.5 packs/day for 40.0 years (20.0 ttl pk-yrs) Types: Cigarettes Start date: 02/25/1984 Smokeless tobacco: Never Tobacco comments: 0.5 pack a day Substance Use Topics Alcohol use: No Comment: 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 Taking Yes mupirocin (BACTROBAN) 2 % ointment two times a day for 5 days. Apply 0.5 inch with cotton swab (Q-tip) to each nostril in the morning and evening for 5 days prior to and including day of surgery. cyclobenzaprine (FLEXERIL) 10 mg tablet Take 1 tablet by mouth three times daily. Patient not taking: Reported on 02/25/2024 Not Taking Ibuprofen 200 mg cap Take by mouth every 6 hours as needed. Patient not taking: Reported on 02/11/2024 Not Taking No medication comments found. ALLERGIES Allergen Reactions Bee Pollen Anaphylaxis Cortisone Anaphylaxis Narcotics [Opioids * Mental Status Change Can only tolerate vicodin Nickel Rash Nickel, bridger silver, some gold Nsaids (Non-Steroid* Swelling Steroids [Betametha* Anaphylaxis Steroids [Corticost* Anaphylaxis Steroids [Dexametha* Anaphylaxis Wasps Shortness of Breath Objective PHYSICAL EXAM: General: alert and oriented and healthy appearance. Pertinent negatives noted - not distressed. Skin: normal color, no rash or lesions. HEENT: EOM intact, pupils equal round and pupils reactive to light. Pertinent negatives noted - no carotid bruit. Cardiovascular: regular rate and rhythm, normal S1 and S2, no rub, murmurs, or gallop. Respiratory: normal breath sounds, no wheezes or crackles. No chest wall deformity or tenderness. Abdomen: bowel sounds present and soft. Pertinent negatives noted - not tender. Extremities: no deformity, no edema or tenderness, no joint swelling or clubbing. Neurological: normal cognition and motor skills. Gait normal. No weakness or sensory deficit. PAIN ASSESSMENT: Pain Pain Level: 2 Pain Location: Knee-Right Description: Aching, Radiating Frequency: Intermittent VITALS: BP 146/77 Pulse 67 Temp 98.2 Resp 16 Ht 5' 5 (1.65m) Wt 152 lb 8.9 oz (69.2kg) SpO2 98% BMI 25.39 kg/(m^2). Diagnostic tests reviewed for today's visit: Lab Value Units Date High Low HB 15.5 g/dL 02/25/2024 15.5 11.5 HCT 45.4 % 02/25/2024 46.0 36.0 WBC 5.77 k/uL 02/25/2024 11.00 3.70 PLT 252 k/uL 02/25/2024 400 150 NA 139 mmol/L 02/25/2024 144 136 K 5.2 mmol/L 02/25/2024 5.1 3.7 GLUC 103 mg/dL 02/25/2024 99 74 BUN 9 mg/dL 02/25/2024 21 7 CREAT 0.78 mg/dL 02/25/2024 0.96 0.58 PTSEC No results within date range. INR No results within date range. APTT No results within date range. ALT No results within date range. AST No results within date range. TBILI No results within date range. TSH No results within date range. Lab Value Units Date High Low HCGQT No results within date range. UHCG No results within date range. HCG, BODY* No results within date range. Lab Value Units Date High Low ABORHD No results within date range. ABSCREEN No results within date range. No results found for: HBA1C No results found for this or any previous visit (from the past 8760 hour(s)). No results found for this or any previous visit (from the past 80478 hour(s)). Assessment Patient has the following medical conditions which may affect jenelle-operative course: Cigarette nicotine dependence Assessment: Current everyday smoker. Encouraged cessation. No smoking DOS. Elevated BP without diagnosis of hypertension Assessment: Elevated BP today, pt endorses white coat htn. Has never been diagnosed or treated for htn. Date: BP: 02/25/2024 146/77 04/26/2018 142/92 Hyperlipidemia Assessment: Follows with PCP, not currently on rx. Postoperative hypothyroidism Assessment: On rx. Fontanez Activity Status Index: METS: Climb a flight of stairs or walk up a hill (5.50 METs) DASI Score: 5.5 Patient denies any chest pain or undue shortness of breath with the above physical activity. Clinical Frailty Scale: 3. Well, with treated comorbid disease STOP-Bang Score: Has or is being treated for high blood pressure Patient over 50 years old Denies snoring loudly Denies feeling tired, fatigued, or sleepy during the daytime Has not been observed to stop breathing or choking/gasping during sleep BMI less than or equal to 35 kg/m^2 Does not have a large neck Non-male patient STOP-Bang Score: 2 [id number] Score: Age: 65-74 Sex: female CHF history: No Hypertension history: Yes Stroke/TIA/thromboembolism history: No Vascular disease history: No Diabetes history: No [id number] Score: 3 ANESTHESIA FINDINGS: Intubation History: No history of difficult intubation. No abnormal airway history Significant Anesthesia Considerations: none Airway History: No history of difficult airway No abnormal airway history I - PHYSICAL EVALUATION AIRWAY Patient intubated: No. Tracheostomy tube not present Mallampati: II. TM distance: >3 FB. Neck ROM: full ROM without neurological symptoms. Mouth opening: adequate. Short neck: no. Thick neck: no Lip Bite Test: I Microretrognathia/Micronagthia/Rec essed Chin: No DENTAL Dental findings: teeth intact. Additional comments: + caps/crowns. II - ANESTHESIA PLAN Anesthetic Plan: other Anesthetic plan additional comments: *PACC/TCI - anesthesia choice. Beta Remigio Monitoring Plan Post Procedure Analgesic Plan Prepared for Surgery: optimally prepared for surgery. Addendum February 25, 2024 1:41 PM: Labs/ECG reviewed and accepted. Patient optimally prepared for surgery. CONSULTS: Patient does not require consults for optimization at this time Planned Anesthetic: other anesthesia choice The Following Tests/Procedures Have Been Initiated: Orders Placed This Encounter Complete Blood Count and Differential Standing Status: Future Number of Occurrences: 1 Standing Expiration Date: 05/26/2024 BMP Standing Status: Future Number of Occurrences: 1 Standing Expiration Date: 05/26/2024 mupirocin (BACTROBAN) 2 % ointment Sig: two times a day for 5 days. Apply 0.5 inch with cotton swab (Q-tip) to each nostril in the morning and evening for 5 days prior to and including day of surgery. Dispense: 22 g Refill: 0 ECG (IN OFFICE) Instructions Given to Patient: Instructions located in the after visit summary. Patient given verbal and written preop instructions and voices comprehension and compliance. SIGNATURE: Heidi Waddell PA-C PATIENT NAME: Leilani Farrar DATE: 02/25/2024 TIME: 1:41 PM PAGER/CONTACT #: [facility] 02-24-2024 History and physical note HISTORY AND PHYSICAL EXAMINATION SERVICE DATE: 02/25/2024 SERVICE TIME: 1:41 PM PRIMARY CARE PHYSICIAN: Vernon Bolton APRN.CNP REASON FOR VISIT: Leilani Farrar is a 68 year old female who is scheduled for ROBOTIC ASSISTED TOTAL KNEE ARTHROPLASTY - Right at the request of Brigid Mukherjee MD for consultation. My final recommendation will be communicated back to the requesting physician by way of shared medical record or letter. Subjective The patient has the following: ACTIVE PROBLEM LIST Primary Osteoarthritis of Right Knee Hyperlipidemia Hypothyroidism Postoperative Hypothyroidism Cigarette Nicotine Dependence Elevated Bp Without Diagnosis of Hypertension COVID-19 Immunization Status Overdue - Covid-19 Vaccine ( season) Never done No completion, postpone, frequency change, or communication history exists for this topic. CHIEF COMPLAINT: pre op HPI: Leilani Farrar is a 68 year old female presenting for pre-anesthesia consultation. Pt has history of right knee OA. Above procedure recommended to manage symptoms. Procedure scheduled on 03/16 at [facility]. REVIEW OF SYSTEMS: General: No weight loss, malaise or fevers. Neurological: Negative for: headaches, peripheral neuropathy, seizures, TIA and strokes. Respiratory: Negative for: asthma, COPD, current cough, dyspnea, home oxygen, tobacco use, URI < 2 weeks and obstructive sleep apnea. Cardiovascular: Denies dizziness or syncope. Palpitations occ Positive for: hyperlipidemia Negative for: AICD/PPM, arrhythmia, CAD, chest pain, CHF, DVT/PE, recent UT, murmur/valvular heart disease, open heart surgery and valve surgery. GI: Negative for: abdominal pain, GERD, GI bleed <30 days, hepatitis, liver disease, nausea and vomiting. : Denies kidney disease Negative for: dysuria, frequent urination, hematuria and urinary tract infection. Endocrine: Positive for: hypothyroidism. Negative for: diabetes mellitus and hyperthyroidism. Hematology: Negative for: anemia, bruises/bleeds easily, factor V Leiden, hemophilia, thrombocytopenia and von Willebrand disease. Oncology: No history of CA metastasis, chemo within 30 days, or radiotherapy within 90 days. No history of oncological symptoms or problems. Psych: Negative for: anxiety, bipolar disorder and depression. Musculoskeletal: See HPI. Skin: Negative for lesions, rash and itching. PAST MEDICAL HISTORY No date: Astigmatism No date: Corneal abrasion, right No date: Myopia No date: Presbyopia of both eyes No date: Thyroid disease PAST SURGICAL HISTORY No date: ORTHOPEDICS SURGERY HX Comment: shoulder,knees,foot,carpal tunnel,trigger finger No date: THYROIDECTOMY FAMILY HISTORY Problem Relation Age of Onset Anesthesia Problems No Family History Social History Tobacco Use Smoking status: Every Day Current packs/day: 0.50 Average packs/day: 0.5 packs/day for 40.0 years (20.0 ttl pk-yrs) Types: Cigarettes Start date: 02/25/1984 Smokeless tobacco: Never Tobacco comments: 0.5 pack a day Substance Use Topics Alcohol use: No Comment: 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 Taking Yes mupirocin (BACTROBAN) 2 % ointment two times a day for 5 days. Apply 0.5 inch with cotton swab (Q-tip) to each nostril in the morning and evening for 5 days prior to and including day of surgery. cyclobenzaprine (FLEXERIL) 10 mg tablet Take 1 tablet by mouth three times daily. Patient not taking: Reported on 02/25/2024 Not Taking Ibuprofen 200 mg cap Take by mouth every 6 hours as needed. Patient not taking: Reported on 02/11/2024 Not Taking No medication comments found. ALLERGIES Allergen Reactions Bee Pollen Anaphylaxis Cortisone Anaphylaxis Narcotics [Opioids * Mental Status Change Can only tolerate vicodin Nickel Rash Nickel, bridger silver, some gold Nsaids (Non-Steroid* Swelling Steroids [Betametha* Anaphylaxis Steroids [Corticost* Anaphylaxis Steroids [Dexametha* Anaphylaxis Wasps Shortness of Breath Objective PHYSICAL EXAM: General: alert and oriented and healthy appearance. Pertinent negatives noted - not distressed. Skin: normal color, no rash or lesions. HEENT: EOM intact, pupils equal round and pupils reactive to light. Pertinent negatives noted - no carotid bruit. Cardiovascular: regular rate and rhythm, normal S1 and S2, no rub, murmurs, or gallop. Respiratory: normal breath sounds, no wheezes or crackles. No chest wall deformity or tenderness. Abdomen: bowel sounds present and soft. Pertinent negatives noted - not tender. Extremities: no deformity, no edema or tenderness, no joint swelling or clubbing. Neurological: normal cognition and motor skills. Gait normal. No weakness or sensory deficit. PAIN ASSESSMENT: Pain Pain Level: 2 Pain Location: Knee-Right Description: Aching, Radiating Frequency: Intermittent VITALS: BP 146/77 Pulse 67 Temp 98.2 Resp 16 Ht 5' 5 (1.65m) Wt 152 lb 8.9 oz (69.2kg) SpO2 98% BMI 25.39 kg/(m^2). Diagnostic tests reviewed for today's visit: Lab Value Units Date High Low HB 15.5 g/dL 02/25/2024 15.5 11.5 HCT 45.4 % 02/25/2024 46.0 36.0 WBC 5.77 k/uL 02/25/2024 11.00 3.70 PLT 252 k/uL 02/25/2024 400 150 NA 139 mmol/L 02/25/2024 144 136 K 5.2 mmol/L 02/25/2024 5.1 3.7 GLUC 103 mg/dL 02/25/2024 99 74 BUN 9 mg/dL 02/25/2024 21 7 CREAT 0.78 mg/dL 02/25/2024 0.96 0.58 PTSEC No results within date range. INR No results within date range. APTT No results within date range. ALT No results within date range. AST No results within date range. TBILI No results within date range. TSH No results within date range. Lab Value Units Date High Low HCGQT No results within date range. UHCG No results within date range. HCG, BODY* No results within date range. Lab Value Units Date High Low ABORHD No results within date range. ABSCREEN No results within date range. No results found for: HBA1C No results found for this or any previous visit (from the past 8760 hour(s)). No results found for this or any previous visit (from the past 05262 hour(s)). Assessment Patient has the following medical conditions which may affect jenelle-operative course: Cigarette nicotine dependence Assessment: Current everyday smoker. Encouraged cessation. No smoking DOS. Elevated BP without diagnosis of hypertension Assessment: Elevated BP today, pt endorses white coat htn. Has never been diagnosed or treated for htn. Date: BP: 02/25/2024 146/77 04/26/2018 142/92 Hyperlipidemia Assessment: Follows with PCP, not currently on rx. Postoperative hypothyroidism Assessment: On rx. Fontanez Activity Status Index: METS: Climb a flight of stairs or walk up a hill (5.50 METs) DASI Score: 5.5 Patient denies any chest pain or undue shortness of breath with the above physical activity. Clinical Frailty Scale: 3. Well, with treated comorbid disease STOP-Bang Score: Has or is being treated for high blood pressure Patient over 50 years old Denies snoring loudly Denies feeling tired, fatigued, or sleepy during the daytime Has not been observed to stop breathing or choking/gasping during sleep BMI less than or equal to 35 kg/m^2 Does not have a large neck Non-male patient STOP-Bang Score: 2 [id number] Score: Age: 65-74 Sex: female CHF history: No Hypertension history: Yes Stroke/TIA/thromboembolism history: No Vascular disease history: No Diabetes history: No [id number] Score: 3 ANESTHESIA FINDINGS: Intubation History: No history of difficult intubation. No abnormal airway history Significant Anesthesia Considerations: none Airway History: No history of difficult airway No abnormal airway history I - PHYSICAL EVALUATION AIRWAY Patient intubated: No. Tracheostomy tube not present Mallampati: II. TM distance: >3 FB. Neck ROM: full ROM without neurological symptoms. Mouth opening: adequate. Short neck: no. Thick neck: no Lip Bite Test: I Microretrognathia/Micronagthia/Rec essed Chin: No DENTAL Dental findings: teeth intact. Additional comments: + caps/crowns. II - ANESTHESIA PLAN Anesthetic Plan: other Anesthetic plan additional comments: *PACC/TCI - anesthesia choice. Beta Remigio Monitoring Plan Post Procedure Analgesic Plan Prepared for Surgery: optimally prepared for surgery. Addendum February 25, 2024 1:41 PM: Labs/ECG reviewed and accepted. Patient optimally prepared for surgery. CONSULTS: Patient does not require consults for optimization at this time Planned Anesthetic: other anesthesia choice The Following Tests/Procedures Have Been Initiated: Orders Placed This Encounter Complete Blood Count and Differential Standing Status: Future Number of Occurrences: 1 Standing Expiration Date: 05/26/2024 BMP Standing Status: Future Number of Occurrences: 1 Standing Expiration Date: 05/26/2024 mupirocin (BACTROBAN) 2 % ointment Sig: two times a day for 5 days. Apply 0.5 inch with cotton swab (Q-tip) to each nostril in the morning and evening for 5 days prior to and including day of surgery. Dispense: 22 g Refill: 0 ECG (IN OFFICE) Instructions Given to Patient: Instructions located in the after visit summary. Patient given verbal and written preop instructions and voices comprehension and compliance. SIGNATURE: Heidi Waddell PA-C PATIENT NAME: Leilani Farrar DATE: 02/25/2024 TIME: 1:41 PM PAGER/CONTACT #: documented in this encounter [facility] 02-24-2024 Note HNO ID: [id number] Author: ILENE MOYA RT(Janyn) Service: ? Author Type: Technologist Type: Progress Notes Filed: 03/16/2024 13:38 Note Text: Radiology Service Progress Note PATIENT NAME: Leilani Farrar DATE OF SERVICE: March 16, 2024 TIME: 1:37 PM PATIENT IDENTITY VERIFICATION COMPLETED USING TWO (2) IDENTIFIERS: Name and Date of confirmed by identification band. FALL SCREENING: Has the patient had 2 falls in the last year or 1 fall with injury or currently using an Ambulatory Assistive Device (Walker, Cane, Wheelchair, Crutches, etc.)? Yes, Patient High Risk for Falls What interventions were put in place to prevent falls during this visit? [place] Risk Wristband Applied, Instructed Patient to Remain Seated (Not on Exam Table) Until Exam, and Increased Observations by Caregivers PATIENT GENDER DATA: Female. status: : No status: NO. PATIENT RELEVANT IMPLANT DATA REVIEWED: Not Applicable PATIENT PRESENTS WITH AN IMPLANTABLE OR ATTACHED CHILD DAY CARE TEACHER: No RADIOLOGY DEPARTMENT: General X-ray: Exam(s) Completed: Lower Extremity X-Ray(s): Knee, AP / LAT Right PERIPHERAL IV DATA: Not applicable SIGNED BY: RT Bear(R) March 16, 2024 1:37 PM [facility] 02-17-2024 Telephone encounter Note Patient scheduled for CT on 02/24/2024 Deep Aleman [facility] 02-17-2024 Miscellaneous Notes Patient scheduled for CT on 02/24/[address] order entered. Please place order and schedule ct scan for 03/16/24 Rt [place]ka [place]. documented in this encounter [facility] 02-17-[address] order entered. [facility] 02-17-2024 Telephone encounter Note Please place order and schedule ct scan for 03/16/24 Rt tka [place]. [facility] 02-11-2024 Note HNO ID: [id number] Author: BRIGID BAILON MD Service: ? Author Type: Physician Type: Progress Notes Filed: 03/02/2024 14:20 Note Text: CONSULT ORTHOPAEDIC: KNEE PRIMARY CARE PHYSICIAN: Vernon Bolton APRN.RETAIL GROCER REFERRING PROVIDER: No referring provider defined for this encounter. ASSESSMENT AND PLAN Impression: Right Knee Severe Degenerative Osteoarthritis, Primary Diagnoses: Osteoarthritis right knee Based upon the evaluation today and after discussions with Leilani Steven Charan, Leilani Farrar has significant, worsening pain at the knee. This pain is increased with activity and weight bearing, and interferes with activities of daily living. These symptoms have continued despite a number of non-surgical measures, including a trial of oral pain medication and attempted physical therapy/ structured exercise program and/or use of an assistive device/ bracing (for at least 12 weeks unless the patient was unable to tolerate these measures as discussed above). At this point, the patient will not benefit from further PT due to the severity of their condition. The patient's physical examination is consistent with limitations in range of motion, pain with passive range of motion, crepitus, and effusion/ synovitis. These examination findings are corroborated by imaging findings of joint space narrowing, periarticular osteophyte formation, and subchondral sclerosis. The patient has been treated by the practice and all reasonable treatments have failed to control the disease, which causes significant pain and limits activities of daily living. The patient has failed conservative treatment and joint replacement surgery was discussed and agreed upon by both provider and patient. We will proceed with surgical management to improve function and relieve pain refractory to non-surgical measures. Right Primary Total Knee Arthroplasty as evidenced by progressive symptoms. Progressive Symptoms Include: Pain impacting sleep or causing fatigue Pain worsened by weight bearing Pain effecting living situation Pain limiting ability to stay fit and healthy. Surgery Details Date and Location: At /[facility] on date to be determined. Implants: [place] Robotic: Yes Predicted LOS: 1 day (Outpatient candidate) Informed consent obtained in the office today. The risks and benefits of surgery were discussed at length including but not limited to the risks of infection, bleeding, nerve or blood vessel injury, deep venous thrombosis, pulmonary embolism, arthrofibrosis, reflex sympathetic dystrophy, , paralysis, knee or patellar dislocation, extensor mechanism injury, bone fracture, component loosening or failure requiring re-operation or amputation. Informed consent was obtained and the patient was scheduled for surgery. We also discussed fixation strategies including cement and cementless fixation and advantages and disadvantages of each. We discussed the details of the surgery as well as rehabilitation. All questions were answered, and the patient wishes to proceed with surgery.. The patient has been ordered: Office Visit on 02/11/24 hydrOXYzine HCl (ATARAX) 10 mg tablet No orders placed today. CONSULTS: IMPACT/PACE Consult for preoperative clearance. Total Joint Arthroplasty: Risk Calculator Leilani Farrar has a 6.81% chance of NOT returning home at discharge for a Primary total Knee replacement. Leilani's estimated Length of Stay is 1 day (Outpatient candidate). Leilani's 30 day chance of readmission is 1.29%. Readmission Probability 1.29 % (within 30 days following surgery) Estimated LOS 1 day Discharge Disposition Probability D/C to Home 93.19 % D/C to SNF 6.81 % These calculations are based on the following factors: - 68 years of age - sex is not male - BMI of 25.39 kg/m2 - [facility] score of 0 - 0 hospitalizations in the last 12 months - no history of heart disease - no history of diabetes - no history of COPD - no history of anemia - preoperative ambulation: impaired community distances - 5 step(s) to enter home - bed location is on the first floor - bath location is on the first floor - caregiver is consistent - home is not more than 150 miles away - PROMIS-10 Mental Health T score not available - Marital status: Risk Factors for Total Knee Arthroplasty (TKA) Major Risk Factors Obesity normal High: BMI > 40 Moderate: BMI 30-40 Normal: BMI < 30 Diabetes normal High: A1C > 8 Moderate: A1C 7-8 Normal: A1C < 7 Hx of DVT / PE normal High: dx of DVT / PE Normal: no dx of DVT / PE Smoking High Risk High: Current smoker Normal: Non smoker Narcotics Use normal High:NarxCare >=300 Moderate: 100-299 Normal: 0-99 Depression Unknown Risk High: PHQ-9 >14 Moderate: PHQ-9 5-14 Normal: PHQ-9 < 5 Area Deprivation Index (KATY) Moderate Risk High: KATY Score > 75 Moderate: KATY 50-75 Normal: KATY < 50 Leilani is a smoker. It is (more content not included)... [facility] 02-11-2024 History of Present illness Narrative Images from the original note were not included. CONSULT ORTHOPAEDIC: KNEE PRIMARY CARE PHYSICIAN: Vernon Bolton APRN.RETAIL GROCER REFERRING PROVIDER: No referring provider defined for this encounter. ASSESSMENT & PLAN Impression: Right Knee Severe Degenerative Osteoarthritis, Primary Diagnoses: Osteoarthritis right knee Based upon the evaluation today and after discussions with Leilani L Charan, Leilani Farrar has significant, worsening pain at the knee. This pain is increased with activity and weight bearing, and interferes with activities of daily living. These symptoms have continued despite a number of non-surgical measures, including a trial of oral pain medication and attempted physical therapy/ structured exercise program and/or use of an assistive device/ bracing (for at least 12 weeks unless the patient was unable to tolerate these measures as discussed above). At this point, the patient will not benefit from further PT due to the severity of their condition. The patient's physical examination is consistent with limitations in range of motion, pain with passive range of motion, crepitus, and effusion/ synovitis. These examination findings are corroborated by imaging findings of joint space narrowing, periarticular osteophyte formation, and subchondral sclerosis. The patient has been treated by the practice and all reasonable treatments have failed to control the disease, which causes significant pain and limits activities of daily living. The patient has failed conservative treatment and joint replacement surgery was discussed and agreed upon by both provider and patient. We will proceed with surgical management to improve function and relieve pain refractory to non-surgical measures. Right Primary Total Knee Arthroplasty as evidenced by progressive symptoms. Progressive Symptoms Include: Pain impacting sleep or causing fatigue Pain worsened by weight bearing Pain effecting living situation Pain limiting ability to stay fit and healthy. Surgery Details Date and Location: At /[facility] on date to be determined. Implants: [place] Robotic: Yes Predicted LOS: 1 day (Outpatient candidate) Informed consent obtained in the office today. The risks and benefits of surgery were discussed at length including but not limited to the risks of infection, bleeding, nerve or blood vessel injury, deep venous thrombosis, pulmonary embolism, arthrofibrosis, reflex sympathetic dystrophy, , paralysis, knee or patellar dislocation, extensor mechanism injury, bone fracture, component loosening or failure requiring re-operation or amputation. Informed consent was obtained and the patient was scheduled for surgery. We also discussed fixation strategies including cement and cementless fixation and advantages and disadvantages of each. We discussed the details of the surgery as well as rehabilitation. All questions were answered, and the patient wishes to proceed with surgery.. The patient has been ordered: Office Visit on 02/11/24 hydrOXYzine HCl (ATARAX) 10 mg tablet No orders placed today. CONSULTS: IMPACT/PACE Consult for preoperative clearance. Total Joint Arthroplasty: Risk Calculator Leilani Farrar has a 6.81% chance of NOT returning home at discharge for a Primary total Knee replacement. Leilani's estimated Length of Stay is 1 day (Outpatient candidate). Leilani's 30 day chance of readmission is 1.29%. Readmission Probability 1.29 % (within 30 days following surgery) Estimated LOS 1 day Discharge Disposition Probability D/C to Home 93.19 % D/C to SNF 6.81 % These calculations are based on the following factors: - 68 years of age - sex is not male - BMI of 25.39 kg/m2 - NarxCare score of 0 - 0 hospitalizations in the last 12 months - no history of heart disease - no history of diabetes - no history of COPD - no history of anemia - preoperative ambulation: impaired community distances - 5 step(s) to enter home - bed location is on the first floor - bath location is on the first floor - caregiver is consistent - home is not more than 150 miles away - PROMIS-10 Mental Health T score not available - Marital status: Risk Factors for Total Knee Arthroplasty (TKA) Major Risk Factors Obesity normal High: BMI > 40 Moderate: BMI 30-40 Normal: BMI < 30 Diabetes normal High: A1C > 8 Moderate: A1C 7-8 Normal: A1C < 7 Hx of DVT / PE normal High: dx of DVT / PE Normal: no dx of DVT / PE Smoking High Risk High: Current smoker Normal: Non smoker Narcotics Use normal High:NarxCare >=300 Moderate: 100-299 Normal: 0-99 Depression Unknown Risk High: PHQ-9 >14 Moderate: PHQ-9 5-14 Normal: PHQ-9 < 5 Area Deprivation Index (KATY) Moderate Risk High: KATY Score > 75 Moderate: KATY 50-75 Normal: KATY < 50 Leilani is a smoker. It is recommended that she receive a consult for smoking cessation and complete 30 days of no tobacco use prior to surgery. Area Deprivation Index (KATY) 10/25/2022 02/17/2023 KATY Score National Score 52 59 Patient Health Questionnaire (PHQ-9) No data to display (0-4) minimal depression, (5-9) mild depression, (10-14) moderate depression, (15-19) moderately severe depression, (20-27) severe depression Bone Density Risk Screen Leilani Farrar is at risk for bone loss and has not had a bone densitometry scan in the last 2 years (date of last scan: None on file). Recommend a bone densitometry scan and if indicated on the bone density results, a consult to a bone health specialist (Rheumatology, Endocrinology, or Women's Health) for bone assessment. Risk Factors: History of falls Current Smoker Additional Risk Factors Malnutrition: No Malnutrition Screening Tool (MST) score on file- please complete the MST screening tool (click here to open) and refresh the note. ACTIVE PROBLEM LIST Primary Osteoarthritis of Right Knee SUBJECTIVE CHIEF COMPLAINT: Knee Pain HPI: Leilani Farrar is a 68 year old patient with the presenting complaint of Follow Up and Pain of the Right Knee. Leilani Farrar has had progressive problems with the knee(s) most of the day over the past 6 month(s) interfering with activities which include exercise, gardening, doing christmas bell ringer, participating in family activities, enjoying hobbies, walking, rising from a sitting position, getting in and out of a car, climbing stairs, and safety-increased risk for fall. The problem began limiting activities 1-6 months ago. Leilani reports a current pain level of 4 (Knee-Right). She describes the pain as Sharp. The pain is Intermittent, and has lasted for 6 Months. Interventions tried include Other: See comment (brace). FALL RISK: Leilani is not currently at risk for falls. PROMIS Physical Function Score No data to display FUNCTIONAL STATUS: Climb a flight of stairs or walk up a hill (5.50 METs) PREVIOUS TREATMENTS: Most recent knee injection: Large Joint Arthro/Inj: R knee joint (injected on 09/19/2023 by Sujatha Masterson) Past anti-inflammatory medications (not necessarily for this reason for visit): triamcinolone acetonide Medical Treatments: OTC NSAIDS for 3 Months or Greater (Ibuprofen), Viscosupplementation Right Knee Physical Therapy: Shoe Wear, Braces, Orthotics, etc., Activities Modified, and PT Three Months or Greater 1-2 times per week Previous Surgery: Ligament Reconstruction and Knee Arthroscopy REVIEW OF SYSTEMS: PAIN ASSESSMENT: See HPI. MUSCULOSKELETAL: See HPI. No data to display PAST MEDICAL HISTORY No date: Astigmatism No date: Corneal abrasion, right No date: Myopia No date: Presbyopia of both eyes No date: Thyroid disease PAST SURGICAL HISTORY No date: ORTHOPEDICS SURGERY HX Comment: shoulder,knees,foot,carpal tunnel,trigger finger No date: THYROIDECTOMY No family history on file. Social History Tobacco Use Smoking status: Every Day Packs/day: .5 Types: Cigarettes Smokeless tobacco: Never Substance Use Topics Alcohol use: No Comment: recoverring alcoholic of 37 years Drug use: No ALLERGIES: Bee Pollen, Cortisone, Narcotics [Opioids - Morphine Analogues], Nickel, Nsaids (Non-Steroidal Anti-Inflammatory Drug), Steroids [Betamethasone Dipropionate], Steroids [Corticosteroids (Glucocorticoids)], Steroids [Dexamethasone Phos-Lidocaine], and [place] MEDICATIONS: hydrOXYzine HCl (ATARAX) 10 mg tablet TAKE 1 TABLET BY MOUTH 3 TO 4 times DAILY NEEDED for anxiety levothyroxine (SYNTHROID) 112 mcg tablet Take 112 mcg by mouth daily before breakfast. cyclobenzaprine (FLEXERIL) 10 mg tablet Take 1 tablet by mouth three times daily. Ibuprofen 200 mg cap Take by mouth every 6 hours as needed. (Patient not taking: Reported on 02/11/2024) OBJECTIVE PHYSICAL EXAM: There were no vitals taken for this visit. All other systems deferred. GENERAL: Appears healthy, well-nourished, no deformities. HABITUS: Normal GAIT: Antalgic to the right KNEE EXAM: Right: Alignment: Valgus deformity, Correctable Range of motion is 5 degrees in extension and 100 degrees of flexion. Extension Lag: < 10 degrees Pain with ROM: Yes Effusion: Mild Tender to the palpation of Lateral joint line Pain with patellar compression: Yes Stability: Anterior/Posterior stable and Varus/Valgus not stable Hip Exam: flexion to 100+ degrees, full extension, internal/external rotation adequate, and no pain with log roll Neurovascular Status: Sensation Intact, Moves foot and ankle up & down, Moves toes up and down, 2+ dorsalis pedis, and negative homans sign DATA: She was last seen in orthopaedic clinic for her knee/leg on 09/19/2023 with Sujatha Masterson. Most recent knee imaging was completed on 09/05/2023 (XR KNEE GENERAL 4V AP BOTH/PA BOTH/LAT/MERC RIGHT) . Attached is imaging for the order.The most recent knee injection was Large Joint Arthro/Inj: R knee joint, injected on 09/19/2023 by Sujatha Masterson. Diagnostic tests reviewed for today's visit: Right knee X-Ray: Lateral joint space noted to have severe degenerative changes, Patellofemoral joint noted to have severe degenerative changes, and Bone on bone contact of the lateral joint space(s) The following conditions were addressed during the office visit today: We discussed the need for a CT scan as part of the preoperative planning protocol for [place] robotic total knee arthroplasty SIGNATURE: Brigid Bailon MD PATIENT NAME: Leilani Farrar DATE: February 11, 2024 TIME: 8:19 AM documented in this encounter [facility] 11-21-2023 Instructions Renata Che MD - 11/21/2023 10:44 AM EDT Thank you for allowing us to perform patch testing for you! It has been a pleasure to meet you. Our entire staff hopes that the information we discovered during your patch testing will help your referring physician or other health care provider to better plan any needed future treatment. We recommend that you make sure you arrange follow-up with your referring provider in the next several months to discuss your results. While you can certainly shower after today's visit, we recommend that you avoid scrubbing the ink off the back for the next several days. In the rare chance that a new reaction occurs (a late reaction), residual ink can help us identify the allergen. If you notice a new small area of rash within the patch testing sites, please take several photos of the area and contact our office for additional instructions. Our telephone number is [phone]. My patch testing was negative. Now what? Negative patch testing means that we either: 1) found no positive reactions, or 2) there were no reactions that are relevant for your current problem. In these situations, the patch testing did not identify an allergic cause of your current or past dermatology problem. While this can be frustrating, be assured that your test administrator or referring provider can make use of this information as your future treatment is planned. It can help rule-out certain causes for your problem, and allow other treatments to be considered. We recommend that you follow-up with the doctor or other medical provider who referred you for patch testing for ongoing follow-up. If you were referred from an office from a specialty other than dermatology and you would like to see a test administrator for your ongoing skin complaint, we recommend you discuss an appointment with our front office java developer ([id number]) before you leave the building today. documented in this encounter [facility] 11-21-2023 History of Present illness Narrative Images from the original note were not included. Department of Dermatology Occupational and Contact D[facility]. 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 Medication Management: N/A -Discussed that sensitivity of patch testing is not 100%. -Also discussed possibility that nickel senescence could have occurred. -Would avoid scrubbing all ink from back and watch for a delayed reaction as this can occur with metals. If testing remains negative, options include: 1) Serum test for nickel allergy (not covered by insurance, ~$600) 2) Per patient preference, presume nickel allergy despite negative testing and opt for nickel-free joint 3) Opt for joint with trace nickel Additional instructions: Patient Instructions Thank you for allowing us to perform patch testing for you! It has been a pleasure to meet you. Our entire staff hopes that the information we discovered during your patch testing will help your referring physician or other health care provider to better plan any needed future treatment. We recommend that you make sure you arrange follow-up with your referring provider in the next several months to discuss your results. While you can certainly shower after today's visit, we recommend that you avoid scrubbing the ink off the back for the next several days. In the rare chance that a new reaction occurs (a late reaction), residual ink can help us identify the allergen. If you notice a new small area of rash within the patch testing sites, please take several photos of the area and contact our office for additional instructions. Our telephone number is [phone]. My patch testing was negative. Now what? Negative patch testing means that we either: 1) found no positive reactions, or 2) there were no reactions that are relevant for your current problem. In these situations, the patch testing did not identify an allergic cause of your current or past dermatology problem. While this can be frustrating, be assured that your test administrator or referring provider can make use of this information as your future treatment is planned. It can help rule-out certain causes for your problem, and allow other treatments to be considered. We recommend that you follow-up with the doctor or other medical provider who referred you for patch testing for ongoing follow-up. If you were referred from an office from a specialty other than dermatology and you would like to see a test administrator for your ongoing skin complaint, we recommend you discuss an appointment with our front office java developer ([id number]) before you leave the building today. Return for follow up with Dr. Bailon. CC: Final patch test reading and interpretation. HPI: Ms. Farrar presents for final patch test reading. Patches removed 2 days ago. Tolerated the patch test process well. No flare of dermatitis. PMH: Unchanged from previous visit ROS: Patient feels generally well. No additional skin complaints. PE: Patient appears generally well. Results from Patch Tests are documented in the photos and in the Results Smartform links below. 48 hour photograph hyperlinks (if submitted by patient or obtained in the office: On patient's phone Photographs from today's visit (96 hours) Hyperlinks to Results Smartform: Allergy Testing Row Name 11/21/23 1053 11/19/23 1054 Test Information Select Antigens Select -MO Select -MO Environmental Allergen Environmental Allergen -- -MO -- Environmental Allergen -- -MO -- All Metals Tray Vancomycin 10% aq. Negative -MO Negative -MO Tobramycin 20% aq Negative -MO Negative -MO Benzoyl peroxide 1% pet. Negative -MO Negative -MO Hydroquinone 1% pet. Negative -MO Negative -MO N,A-daerseaz-w-toluidine 2% pet. Negative -MO Negative -MO Ethyl cyanoacrylate 10% pet. Negative -MO Negative -MO Aluminum chloride hexahydrate 2% Negative -MO Negative -MO Aluminum hydroxide 10% pet. Negative -MO Negative -MO Potassium dichromate 0.5% pet. Negative -MO Negative -MO Copper (II) Sulfate Pentahydrate 2% pet Negative -MO Negative -MO Gallium Oxide 1% pet Negative -MO Negative -MO Ferric (III) Chloride 2% aq Negative -MO Negative -MO Ethyl acrylate 0.1% pet. Negative -MO Negative -MO Molybdenum Chloride 0.5% pet. Negative -MO Negative -MO Ammonium Heptamolybdate (IV) 1% pet Negative -MO Negative -MO Nickel Sulfate Hexahydrate 5% pet. Negative -MO Negative -MO Niobium (V) Chloride 0.2% pet Negative -MO Negative -MO Ruthenium 0.1% pet Negative -MO Negative -MO Tantal 1% pet. Negative -MO Negative -MO Tin (II) Chloride 0.5% pet. Negative -MO Negative -MO Titanium nitride 5% pet. Negative -MO Negative -MO Titanium (IV) Oxide 0.1% pet Negative -MO Negative -MO Titanium dioxide 10% pet. Negative -MO Negative -MO Tungsten 5% pet. Negative -MO Negative -MO Tungstic acid sodium salt dihydrate 2% aq. Negative -MO Negative -MO Vanadium Pentoxide 10% pet Negative -MO Negative -MO vanadium(iii) chloride 1% pet Negative -MO Negative -MO ZInc Chloride 1% pet Negative -MO Negative -MO Zirconium chloride 1% pet. Negative -MO Negative -MO Manganese Chloride 2.0% pet Negative -MO Negative -MO GENTAMICIN SULFATE 20% PET Negative -MO Negative -MO Potassium dichromate 0.25% pet. Negative -MO Negative -MO Neomycin sulfate 20% pet. Negative -MO Negative -MO Nickel suldfate hexahydrate 2.5% pet. Negative -MO Negative -MO Bacitracin 20% pet. Negative -MO Negative -MO 2-hydroxyehtyl hquokqmsijar-tvf-7% Negative -MO Negative -MO [place] (ii) chloride hexahydrate 1% pet. Negative -MO Negative -MO Methyl methacrylate 2% pet. Negative -MO Negative -MO Chlorhexidine Jrddmkysutt-khqdi-8.5% Negative -MO Negative -MO xddpxqdv-ysv-3% Negative -MO -- titanium(iv)oxalate wnjcict-dsr-4% Negative -MO -- Gold sodium thiosulfate 0.5% pet. Negative -MO Negative -MO Silver nitrate 1% aq. Negative -MO Negative -MO In the above table, the first column represents final reading (at 96 hours) and the second column represents the first reading (at 48 hours). Resident: Renata Che MD Attending: Hilario Cummings MD This note is completed at 11:09 AM on 12/10/2023 and reflects the services provided at the time of the appointment. I agree with the Chief Complaint, ROS, and Past Histories independently gathered by the clinical product support sales representative. I have seen and examined Ms. Farrar. I have discussed the case and the management of this patient's care with the Resident. I also have reviewed and agree with the assessment and plan as stated above and agree with all of its relevant components. There were no procedures performed during this patient's visit. Hilario Cummings MD I spent a total of 21 minutes on the date of the service which included preparing to see the patient, ywpl-qz-wzrt patient care, performing a medically appropriate examination, counseling and educating the patient/family/caregiver, independently interpreting results (not separately reported), and communicating results to the patient/family/caregiver. documented in this encounter [facility] 11-21-2023 Note HNO ID: [id number] Author: HILARIO CUMMINGS MD Service: ? Author Type: Physician Type: Progress Notes Filed: 12/10/2023 11:10 Note Text: Department of Dermatology Occupational [facility]. 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 Medication Management: N/A -Discussed that sensitivity of patch testing is not 100%. -Also discussed possibility that nickel senescence could have occurred. -Would avoid scrubbing all ink from back and watch for a delayed reaction as this can occur with metals. If testing remains negative, options include: 1) Serum test for nickel allergy (not covered by insurance, ~$600) 2) Per patient preference, presume nickel allergy despite negative testing and opt for nickel-free joint 3) Opt for joint with trace nickel Additional instructions: Patient Instructions Thank you for allowing us to perform patch testing for you! It has been a pleasure to meet you. Our entire staff hopes that the information we discovered during your patch testing will help your referring physician or other health care provider to better plan any needed future treatment. We recommend that you make sure you arrange follow-up with your referring provider in the next several months to discuss your results. While you can certainly shower after today's visit, we recommend that you avoid scrubbing the ink off the back for the next several days. In the rare chance that a new reaction occurs (a late reaction), residual ink can help us identify the allergen. If you notice a new small area of rash within the patch testing sites, please take several photos of the area and contact our office for additional instructions. Our telephone number is [phone]. My patch testing was negative. Now what? Negative patch testing means that we either: 1) found no positive reactions, or 2) there were no reactions that are relevant for your current problem. In these situations, the patch testing did not identify an allergic cause of your current or past dermatology problem. While this can be frustrating, be assured that your test administrator or referring provider can make use of this information as your future treatment is planned. It can help rule-out certain causes for your problem, and allow other treatments to be considered. We recommend that you follow-up with the doctor or other medical provider who referred you for patch testing for ongoing follow-up. If you were referred from an office from a specialty other than dermatology and you would like to see a test administrator for your ongoing skin complaint, we recommend you discuss an appointment with our front office java developer ([id number]) before you leave the building today. Return for follow up with Dr. Bailon. CC: Final patch test reading and interpretation. HPI: Ms. Farrar presents for final patch test reading. Patches removed 2 days ago. Tolerated the patch test process well. No flare of dermatitis. PMH: Unchanged from previous visit ROS: Patient feels generally well. No additional skin complaints. PE: Patient appears generally well. Results from Patch Tests are documented in the photos and in the Results Smartform links below. 48 hour photograph hyperlinks (if submitted by patient or obtained in the office: On patient's phone Photographs from today's visit (96 hours) Hyperlinks to Results Smartform: Allergy Testing Row Name 11/21/23 1053 11/19/23 1055 Test Information Select Antigens Select -MO Select -MO Environmental Allergen Environmental Allergen -- -MO -- Environmental Allergen -- -MO -- All Metals Tray Vancomycin 10% aq. Negative -MO Negative -MO Tobramycin 20% aq Negative -MO Negative -MO Benzoyl peroxide 1% pet. Negative -MO Negative -MO Hydroquinone 1% pet. Negative -MO Negative -MO N,W-rgvkawzy-b-toluidine 2% pet. Negative -MO Negative -MO Ethyl cyanoacrylate 10% pet. Negative -MO Negative -MO Aluminum chloride hexahydrate 2% Negative -MO Negative -MO Aluminum hydroxide 10% pet. Negative -MO Negative -MO Potassium dichromate 0.5% pet. Negative -MO Negative -MO Copper (II) Sulfate Pentahydrate 2% pet Negative -MO Negative -MO Gallium Oxide 1% pet Negative -MO Negative -MO Ferric (III) Chloride 2% aq Negative -MO Negative -MO Ethyl acrylate 0.1% pet. Negative -MO Negative -MO Molybdenum Chloride 0.5% pet. Negative -MO Negative -MO Ammonium Heptamolybdate (IV) 1% pet Negative -MO Negative -MO Nickel Sulfate Hexahydrate 5% pet. Negative -MO Negative -MO Niobium (V) Chloride 0.2% pet Negative -MO Negative -MO Ruthenium 0.1% pet Negative -MO Negative -MO Tantal 1% pet. Negative -MO Negative -MO Tin (II) Chloride 0.5% pet. Negative -MO Negative -MO Titanium nitride 5% pet. Negative -MO Negativ (more content not included)... [facility] 11-20-2023 Note HNO ID: [id number] Author: KATHLEEN PARKER MD Service: ? Author Type: Physician Type: Progress Notes Filed: 11/20/2023 11:12 Note Text: H25.13 Nuclear sclerosis of both eyes (primary encounter diagnosis) H25.013 Cortical age-related cataract of both eyes Visually significant Myopic shift both eyes Patient is Rigid gas permeable lens wearer. Discussed she will need to stay out of lenses at minimum 1 month for measurements Patient does not like monovision. Has tried multifocal lenses in the past but due to lid positioning, the lens would not stay centered Patient now having difficulty using Rigid gas permeable lens Glare at night- patient does not feel safe driving at night Need more light to read H43.813 Vitreous degeneration, bilateral The symptoms of floaters were reviewed with the patient. The possibility of increased floaters with flashes and visual loss was discussed. The patient was to contact the office if changes occur. H52.13 Myopia of both eyes H52.4 Presbyopia Updated prescription provided I have confirmed and edited as necessary the relevant ophthalmic history, ROS, and the neuro exam findings as obtained by others. I have seen and examined Leilani Steven Padilladirk. I have discussed the case and the management of this patient's care with the Resident/Fellow, if applicable. I also have reviewed the chart, including the HPI, and agree with the assessment and plan as stated above and agree with all of its relevant components. Kathleen Parker MD [facility] 11-20-2023 History of Present illness Narrative H25.13 Nuclear sclerosis of both eyes (primary encounter diagnosis) H25.013 Cortical age-related cataract of both eyes Visually significant Myopic shift both eyes Patient is Rigid gas permeable lens wearer. Discussed she will need to stay out of lenses at minimum 1 month for measurements Patient does not like monovision. Has tried multifocal lenses in the past but due to lid positioning, the lens would not stay centered Patient now having difficulty using Rigid gas permeable lens Glare at night- patient does not feel safe driving at night Need more light to read H43.813 Vitreous degeneration, bilateral The symptoms of floaters were reviewed with the patient. The possibility of increased floaters with flashes and visual loss was discussed. The patient was to contact the office if changes occur. H52.13 Myopia of both eyes H52.4 Presbyopia Updated prescription provided I have confirmed and edited as necessary the relevant ophthalmic history, ROS, and the neuro exam findings as obtained by others. I have seen and examined Leilani Farrar. I have discussed the case and the management of this patient's care with the Resident/Fellow, if applicable. I also have reviewed the chart, including the HPI, and agree with the assessment and plan as stated above and agree with all of its relevant components. Kathleen Parker MD documented in this encounter [facility] 11-17-2023 Note HNO ID: [id number] Author: LUCILA CALERO RN Service: ? Author Type: Registered Nurse Type: Progress Notes Filed: 11/17/2023 10:48 Note Text: Patient presents today for patch test application. A total of 44 patches applied to patient's upper back. Advised patient to keep back dry until after Friday appointment. Patch test procedure and removal of patches reviewed. Print offs of instruction provided to patient. All questions/concerns addressed. Lucila Calero RN [facility] 11-17-2023 History of Present illness Narrative Patient presents today for patch test application. A total of 44 patches applied to patient's upper back. Advised patient to keep back dry until after Friday appointment. Patch test procedure and removal of patches reviewed. Print offs of instruction provided to patient. All questions/concerns addressed. Lucila Calero RN documented in this encounter [facility] 10-13-2023 History of Present illness Narrative Images from the original note were not included. DEPARTMENT OF ORTHOPAEDICS HISTORY OF PRESENT ILLNESS: This is a pleasant 67 year old female, who presents today with a chief complaint of right knee pain. She complains of sharp and aching pain about the anterior and lateral aspect of approximately many months duration. This pain is intermittent. She denies trauma. She complains that the pain is 0/10. She denies nocturnal pain. The pain is exacerbated by walking, managing stairs, prolonged standing, and prolonged sitting. Previous treatments have included steroid injections and knee brace. She denies proximal radiation. She denies distal radiation. She denies numbness, tingling, or electric shocks. She reports giving way. She reports swelling and/or warmth. PAIN EVALUATION 09/17/2023 0832 Pain Level: 0 Pain Location: Knee-Right PAST MEDICAL HISTORY Diagnosis Date Astigmatism Corneal abrasion, right Myopia Presbyopia of both eyes Thyroid disease PAST SURGICAL HISTORY Procedure Laterality Date ORTHOPEDICS SURGERY HX shoulder,knees,foot,carpal tunnel,trigger finger THYROIDECTOMY Current Outpatient Medications Medication Sig Dispense Refill cyclobenzaprine (FLEXERIL) 10 mg tablet Take 1 tablet by mouth three times daily. 20 tablet 1 Ibuprofen 200 mg cap Take by mouth every 6 hours as needed. levothyroxine (SYNTHROID) 112 mcg tablet Take 112 mcg by mouth daily before breakfast. No current facility-administered medications for this visit. ALLERGIES Allergen Reactions Bee Pollen Anaphylaxis Cortisone Anaphylaxis Narcotics [Opioids * Mental Status Change Can only tolerate vicodin Nickel Rash Nickel, bridger silver, some gold Nsaids (Non-Steroid* Swelling Steroids [Betametha* Anaphylaxis Steroids [Corticost* Anaphylaxis Steroids [Dexametha* Anaphylaxis Wasps Shortness of Breath No family history on file. 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 MUSCULOSKELETAL: See HPI. PSYCH: Negative for sleep disturbance, mood disorder and recent psychosocial stressors. HEMATOLOGY Negative for prolonged bleeding, bruising easily, and swollen nodes. ENDOCRINE: Negative for cold or heat intolerance, polyuria, polydipsia and goiter. NEURO: negative for lightheadedness, dizziness, tremor, gait imbalance, syncope and seizures. RADIOGRAPHS: Last XR Knee - Impression Only XR KNEE GENERAL 4V AP BOTH/PA BOTH/LAT/MERC RIGHT Exam End: 09/05/2023 9:25 AM (Final result) Impression: IMPRESSION: Advanced tricompartment osteoarthritis, only slightly progressed since previous. [place] Department Manager: LINDA Transcribe Date/Time: Sep 05 2023 9:45A Dictated by : RAJ PHILIP MD... OTHER STUDIES: Last MRI Knee - Impression Only No resulted procedures found. PHYSICAL EXAM: Ht 5' 5 (1.65m) Wt 154 lb 5.2 oz (70.0kg) BMI 25.68 kg/(m^2). General: Appears stated age, well built, in no apparent distress. Psychiatric: Mood and affect appropriate. Alert and oriented x3. Musculoskeletal Exam: Gait and Station antalgic: right. RIGHT KNEE EXAM: Inspection Skin Positive: Valgus alignment. Incision Positive: Well healed arthroscopic incision. Atrophy No evidence of muscular atrophy. Range of Motion Knee 5-120 degrees Patella Decreased patellar mobility Palpation Effusion No effusion Tenderness lateral joint line, medial patellar facet, and lateral patellar facet Crepitance Positive palpable patellofemoral crepitance Meniscus Negative medial and lateral Jose's test Stability Positive varus instability, remainder of stability exam is normal Lumbar Spine: Lumbar spine normal to inspection, palpation and motion. Negative straight leg raise and nerve root tension signs. Negative Raghu's, calf tenderness or palpable cords. Bilateral lower extremities show equal motion of the hips and ankles. Normal strength, tone, and stability of both lower extremities distally. Neurologic Exam: Intact medial leg and foot(L4), lateral leg and 1st web space(L5), lateral foot(S1) sensation in both lower extremities. Intact patellar tendon(L4), and Achilles(S1) reflexes in both lower extremities. Vascular: 2+ pedal pulses of both lower extremities. PROCEDURE: Not applicable IMPRESSION: 1. right knee severe degenerative joint disease. She is jymk-[id number] in the lateral compartment. She is having episodes of instability. Only she is receiving viscosupplementation injections which are providing her with a little relief but have not helped with the giving way sensation. We discussed the various treatment options possibility of arthroplasty. She reports that she has metal allergies possibly nickel. At this point I recommend we obtain get metal testing for her is allergic to nickel then an Oxinium knee from [facility] would be indicated. If she is not allergic to metal and we could proceed with a [place] knee performed robotically PLAN: 1. Medication: Continue current medications. 2. Test(s)/Imaging/Referral(s): Dermatology referral for medical testing. 3. Intervention: Continue conservative treatment, WBAT, and continue knee bracing. 4. Follow-up: All testing has been completed. Brigid Bailon MD I would like to thank you for the kind referral of . I appreciate the opportunity to be involved in her care. Please do not hesitate to call upon me if I may be of further assistance. documented in this encounter [facility] 09-22-2023 Instructions Hilario Cummings MD - 09/22/2023 11:42 AM EDT We are looking forward to assisting you with patch testing. During your visit, we discussed many important aspects of the patch testing. The potential benefits of patch testing, including the identification of possible contributing factors to the your dermatologic complaints. This may help us to provide you with information about how to avoid certain causes of your skin condition and recommend safe products for you. The potential moderate, but rare, risks of testing, which include: severe inflammation at the patch test sites pigmentary changes at the patch test sites (most often temporary) the possibility that a strong test reaction could flare your underlying skin condition a very rare, strong reaction will make it difficult or impossible to accurately interpret your response (occasionally, further testing may be required in these situations at a later date) the extremely rare possibility (estimated at 1 in 5,000) that testing may actually sensitize you (induce an allergy) to a substance to which you are tested. the extremely rare risk of anaphylaxis (a severe immediate allergic reaction -- we minimize your risk of this complication by limiting the patch testing only to certain types of rashes and by a careful history prior to testing) We spoke about the possibility that testing may be negative (no positive reactions) or non-relevant (the reactions that occur are not related to your underlying skin problem). We discussed that this may still be very valuable information to the provider who referred you to us for testing. You should avoid oral (by mouth) or injectable steroids and other immune suppressants until the final reading is completed, unless previously discussed with the patch test team. Topical steroids can continue to be used on other parts of the body, but the back or other areas discussed at the time of the visit should be avoided. Antihistamines by mouth may be continued, as they are acceptable for use during patch testing. You must avoid all sources of ultraviolet exposure to the back (or other test sites) starting today and lasting until at least 14 days after the patch testing is complete. (Shirt/blouse must cover the back when outdoors and testing must be scheduled to avoid conflicts with any vacations where sun exposure is expected.) Additionally, it is our belief that long-term ultraviolet exposure that causes a deep/persistent edwards, whether artificial or natural, significantly increases the risks of falsely negative results. Depending upon your insurance, [facility] may submit a prior authorization request on your behalf to your insurance company. You may also choose to contact your insurance company to understand any deductibles or [id number] expenses that may apply to your particular situation. In general, once the patch testing process is complete, you will follow-up with your referring provider for ongoing care. Information about your patch testing results will be forwarded to the individual who referred you to us. As a teaching hospital, you will be cared for by a team which includes nurses, dermatology residents, other [id number], and other healthcare trainees. Please refer to the separate handout provided by our patch testing staff for additional information about the process. For questions or concerns regarding your patch testing, call [phone] (the direct line to our patch testing office) OR You may also send a [facility] message (please type ATTN: Patch testing team near the top of the message). documented in this encounter [facility] 09-22-2023 History of Present illness Narrative Department of Dermatology Contact Dermatitis and Patch Testing 09/22/[address] Bailon found for an opinion regarding patch testing. My final recommendations will be communicated back to the requesting physician by way of shared medical record or letter via [place] mail Patient has acknowledged and agreed to participate in a Shared Medical Consultation in the Department of Dermatology Patch Testing Clinic Assessment/Plan Problem List Items Addressed This Visit None Visit Diagnoses Contact dermatitis and other eczema, due to unspecified cause - Primary Discussion: patient has history of multiple allergies, has history of anaphylaxis, but not due to contactants. Has never had a problem secondary to a product applied to the skin. Can tolerate hydrocortisone cream. Cannot tolerate oral steroids, however. History of idiopathic urticaria. Plan: Patch testing with Metal Implant Tray and Other, add silver nitrate and gold sodiumthiosulfate. Patient Instructions Patient Instructions We are looking forward to assisting you with patch testing. During your visit, we discussed many important aspects of the patch testing. The potential benefits of patch testing, including the identification of possible contributing factors to the your dermatologic complaints. This may help us to provide you with information about how to avoid certain causes of your skin condition and recommend safe products for you. The potential moderate, but rare, risks of testing, which include: severe inflammation at the patch test sites pigmentary changes at the patch test sites (most often temporary) the possibility that a strong test reaction could flare your underlying skin condition a very rare, strong reaction will make it difficult or impossible to accurately interpret your response (occasionally, further testing may be required in these situations at a later date) the extremely rare possibility (estimated at 1 in 5,000) that testing may actually sensitize you (induce an allergy) to a substance to which you are tested. the extremely rare risk of anaphylaxis (a severe immediate allergic reaction -- we minimize your risk of this complication by limiting the patch testing only to certain types of rashes and by a careful history prior to testing) We spoke about the possibility that testing may be negative (no positive reactions) or non-relevant (the reactions that occur are not related to your underlying skin problem). We discussed that this may still be very valuable information to the provider who referred you to us for testing. You should avoid oral (by mouth) or injectable steroids and other immune suppressants until the final reading is completed, unless previously discussed with the patch test team. Topical steroids can continue to be used on other parts of the body, but the back or other areas discussed at the time of the visit should be avoided. Antihistamines by mouth may be continued, as they are acceptable for use during patch testing. You must avoid all sources of ultraviolet exposure to the back (or other test sites) starting today and lasting until at least 14 days after the patch testing is complete. (Shirt/blouse must cover the back when outdoors and testing must be scheduled to avoid conflicts with any vacations where sun exposure is expected.) Additionally, it is our belief that long-term ultraviolet exposure that causes a deep/persistent edwards, whether artificial or natural, significantly increases the risks of falsely negative results. Depending upon your insurance, [facility] may submit a prior authorization request on your behalf to your insurance company. You may also choose to contact your insurance company to understand any deductibles or cwy-dt-bossvt expenses that may apply to your particular situation. In general, once the patch testing process is complete, you will follow-up with your referring provider for ongoing care. Information about your patch testing results will be forwarded to the individual who referred you to us. As a teaching hospital, you will be cared for by a team which includes nurses, dermatology residents, other [id number], and other healthcare trainees. Please refer to the separate handout provided by our patch testing staff for additional information about the process. For questions or concerns regarding your patch testing, call [phone] (the direct line to our patch testing office) OR You may also send a [facility] message (please type ATTN: Patch testing team near the top of the message). Follow-up as noted below or as needed. Chief Complaint: Consultation for patch testing Subjective and Objective HPI: Leilani Farrar is a 67 year old female who presents for: Consideration of patch testing Description / symptoms: redness, swelling, skin weeping Duration: till I remove objet Sites: spreads Previously patch tested: No Better with : removal of object Worse with: wearing object Topical allergies: Fragrance/ cosmetics: : YES white diamonds Dyes: No Rubber/plastic: No Glues/adhesives: No Topical Medications: No Other: No Metals: YES all metals -- patient has had reactions to costume jewelry, bridger silver in the past. Past or upcoming surgery: YES Type of surgery: knee replacement H/o atopy: Asthma: No Seasonal allergies: YES Childhood eczema: No H/o latex allergy: No Pertinent Social History: Job: retired Hobbies: garden, ice skate Improvement on weekends/vacations: No Sunburn or ultraviolet exposure to the back in the last 30 days? No PAST MEDICAL HISTORY Diagnosis Date Astigmatism Corneal abrasion, right Myopia Presbyopia of both eyes Thyroid disease Current Outpatient Medications on File Prior to Visit Medication Sig cyclobenzaprine (FLEXERIL) 10 mg tablet Take 1 tablet by mouth three times daily. Ibuprofen 200 mg cap Take by mouth every 6 hours as needed. levothyroxine (SYNTHROID) 112 mcg tablet Take 112 mcg by mouth daily before breakfast. No current facility-administered medications on file prior to visit. ROS: Patient feels generally well Denies other rashes or pruritus Denies other worrisome skin lesions Physical exam (pertinent): Today, no active dermatitis. Attending attestation: Hilario Cummings MD This note is completed at 11:43 AM on 09/22/2023 and reflects the services provided at the time of the appointment. I agree with the Chief Complaint, ROS, and Past Histories independently gathered by the clinical product support sales representative. Medical Decision Making: Problems: Moderate: 1+ chronic illnesses with change Risk: Moderate: Moderate risk from testing/treatment Medical Decision Making Level: 4 - Moderate documented in this encounter [facility] 09-19-2023 Miscellaneous Notes The knee composition contains multiple metals. The ones typically that are an issue are cobalt and chromium. I will check with Dr. Bailon and see if it is ok to change the testing. Tin Null PA-C Patient is here for appt with Dr Masterson and expressed concern about the cost of the metal testing. She is asking if they can test only for the specific metals that are in the knee replacement. Please advise. documented in this encounter [facility] 09-19-2023 History of Present illness Narrative Associated Order(s): Large Joint Arthro/Inj: R knee joint Post-Procedure Diagnose(s): Primary osteoarthritis of right knee Images from the original note were not included. Follow Up Visit Chief Complaint Leilani Farrar is a 67 year old female who presents today for follow up office visit. Patient presents with: Right Knee - Follow Up, Knee Pain, Injections History of Present Illness PAIN EVALUATION 09/19/2023 0940 Pain Level: 0 Pain Location: Knee-Right Description: Sore Duration Units: Years Frequency: Intermittent Intervention/Comfort measure: -- gel injections HPI: Leilani Farrar is a 67 year old female for a follow up visit right knee synvisc injection 09/06. Patient states that she has been doing very well lately. No pain today. Pain history is noted as above. Denies calf pain, numbness, tingling, fever, chills or other constitutional symptoms. Is there any overall improvement in your condition? Yes, with gel injections Any new injury, since being seen last: No REVIEW OF SYMPTOMS: Patient did not have, and does not currently have, any weight loss, malaise, fever, chills, headache, chest pain, chest pressure, palpitations, cough, shortness of breath, orthopnea, paroxsymal nocturnal dyspnea, nausea, vomiting, diarrhea, constipation, melena, hematochezia, urinary difficulties, prolonged bleeding, easily bruising, heat or cold intolerance, new onset joint pain or swelling, new onset extremity weakness or numbness, new onset auditory or visual disturbances, lightheadedness, dizziness, partial loss of consciousness or full loss of consciousness. Current Outpatient Medications Medication Sig cyclobenzaprine (FLEXERIL) 10 mg tablet Take 1 tablet by mouth three times daily. Ibuprofen 200 mg cap Take by mouth every 6 hours as needed. levothyroxine (SYNTHROID) 112 mcg tablet Take 112 mcg by mouth daily before breakfast. No current facility-administered medications for this visit. Physical Exam Vitals: There were no vitals taken for this visit. Psych: Pleasant, good affect and mood General Appearance: Well appearing, alert, in no acute distress, well-hydrated, well nourished.. Skin: Skin color, texture, turgor normal, no suspicious rashes or lesions. Peripheral Pulses: Normal. Neurologic: Gait normal. Reflexes normal and symmetric. Sensation grossly intact.. Lymph Nodes: No cervical lymphadenopathy, No supraclavicular lymphadenopathy, No axillary lymphadenopathy., and No inguinal lymphadenopathy.. Respiratory: No recent pulmonary infection, hemoptysis, chronic cough, or shortness of breath at rest Rheumatologic: Joint deformities: right knee pain Right Knee Exam Tenderness The patient is experiencing tenderness in the lateral joint line. Range of Motion Extension: abnormal Flexion: abnormal Tests Jose: Lateral - positive Isael: Anterior - negative Posterior - negative Drawer: Anterior - negative Posterior - negative Other Erythema: absent Sensation: normal Pulse: present Swelling: mild Left Knee Exam Left knee exam is normal. Muscle Strength The patient has normal left knee strength. Tenderness The patient is experiencing no tenderness. Range of Motion Extension: normal Flexion: normal Tests Isael: Anterior - negative Posterior - negative Drawer: Anterior - negative Posterior - negative Other Erythema: absent Sensation: normal Pulse: present Swelling: none Comments: Neg homans bilaterally Assessment and Plan Radiographs: No imaging to review. Impression: No diagnosis found. Today, in detail, through a thorough evaluation, we discussed possible etiologies of pain and our plans for further diagnostic and therapeutic interventions. We discussed strategies for decreasing pain and improving strength, stability and motion. Patient's questions were answered in detailed. Patient verbalizes understanding and agrees with the treatment plan as discussed. Discussed with patient possible options for treatment. Patient elected proceed with injection. Patient told not to submerge the injected area for 24 hours in a hot tub, or bath, injection may take 2 weeks for improvement to be noticed, follow-up in 2 -6 weeks if symptoms do not resolve. All questions answered patient agreement of plan. Apply ice Limit activities as discussed Rest Do not submerge limb in water for 24 hours Cont current meds Watch sugars/decrease carbs Call if warm/hot/red Discussed with patient that if the injection does not work after 2 to 4 weeks to come back for reevaluation. Discussed the next 3 days may feel worse before it feels better. Discussed if having continued pain to return. May get injection every 3 months Large Joint Arthro/Inj: R knee joint Informed Consent Consent Obtained: Verbal [place] Protocol A moment to CARE was completed. SIGN IN Personnel directly involved with the procedure wore the appropriate PPE. Special Equipment: Yes Patient/Surrogate Stated/Verified: Date of , Relevant allergies, Intended procedure and Patient name TIME OUT Intended patient and procedure match the source document(s). Consent documented and matches the intended procedure. Relevant labs, photos, and/or imaging studies have been reviewed. Correct side/site marked and visible. Medications required for procedure verified. Fire risk assessed and interventions discussed. No implant(s) inserted. 09/19/2023 9:59 AM The procedure site was prepped in the usual sterile fashion. Site: R knee joint Medications: 2 mL hylan G-F 20 16 mg/2 mL Outcome: Tolerated well, no immediate complications Post-injection instructions were reviewed with the patient and the patient voiced understanding of these instructions. SIGN OUT All instruments, equipment, possible retained foreign bodies accounted for. Sujatha Masterson D.O. M.P.H. documented in this encounter [facility] 09-18-2023 Miscellaneous Notes Patient has history of nickel allergy and needs metal testing prior to a knee replacement. Called patient to discuss consult and purpose of the consultation before testing at a later date. Also discussed the shared medical aspect of consult appointment. All questions and concerns addressed at this time. Patient scheduled for 09/21/22 @ 10:00 AM. Lucila Calero RN ----- Message from Catalina Pitts sent at 09/17/2023 9:11 AM EDT ----- Regarding: Metal Allergy Patient has been identified by name and Date of : Yes Patient: Leilani Farrar Date of : 1955 Provider for this encounter : Dr. Adamaris Bolton, CLERK ENTRY LEVEL.RETAIL GROCER Reason for call: patient need to be schedule for metal allergy Was an appointment scheduled: No Reason for requesting visit (RFV/signs and symptoms/diagnosis) : Metal allergy Person calling: self Return call to: self Call patient at: at home [phone] (home) [phone] (work) [phone] (cell) Payor: [employer] MEDICARE / Plan: [employer] MEDICARE PPO / Product Type: PPO / Catalina Pitts documented in this encounter [facility] 09-05-2023 Note IMPRESSION: Advanced tricompartment osteoarthritis, only slightly progressed since previous. [place] Department Manager: LINDA Transcribe Date/Time: Sep 05 2023 9:45A Dictated by : RAJ PHILIP MD This examination was interpreted and the report reviewed and electronically signed by: RAJ PHILIP MD on Sep 05 2023 9:46AM EST [facility] 09-05-2023 History of Present illness Narrative Associated Order(s): Large Joint Arthro/Inj: R knee joint Post-Procedure Diagnose(s): Primary osteoarthritis of right knee Images from the original note were not included. Follow Up Visit Chief Complaint Leilani Farrar is a 67 year old female who presents today for follow up office visit. Patient presents with: Right Knee - Knee Pain, Follow Up, Injections History of Present Illness PAIN EVALUATION 09/05/2023 0935 Pain Level: 4 Pain Location: Knee-Right Description: Stiffness;Dull;Aching;Throbbing Duration Units: Years Frequency: Intermittent Intervention/Comfort measure: -- gel injections, pillow support HPI: Leilani Farrar is a 67 year old female for a follow up visit right knee pain. Patient is having severe pain and locking. She is here for synvisc injection 07/09. Patient has an upcoming appointment to discuss total replacement for her knee as they are starting to interfere with her daily activities. Pain history is noted as above. Denies calf pain, numbness, tingling, fever, chills or other constitutional symptoms. Is there any overall improvement in your condition? No Any new injury, since being seen last: No REVIEW OF SYMPTOMS: Patient did not have, and does not currently have, any weight loss, malaise, fever, chills, headache, chest pain, chest pressure, palpitations, cough, shortness of breath, orthopnea, paroxsymal nocturnal dyspnea, nausea, vomiting, diarrhea, constipation, melena, hematochezia, urinary difficulties, prolonged bleeding, easily bruising, heat or cold intolerance, new onset joint pain or swelling, new onset extremity weakness or numbness, new onset auditory or visual disturbances, lightheadedness, dizziness, partial loss of consciousness or full loss of consciousness. Current Outpatient Medications Medication Sig cyclobenzaprine (FLEXERIL) 10 mg tablet Take 1 tablet by mouth three times daily. levothyroxine (SYNTHROID) 112 mcg tablet Take 112 mcg by mouth daily before breakfast. Ibuprofen 200 mg cap Take by mouth every 6 hours as needed. No current facility-administered medications for this visit. Physical Exam Vitals: There were no vitals taken for this visit. Psych: Pleasant, good affect and mood General Appearance: Well appearing, alert, in no acute distress, well-hydrated, well nourished.. Skin: Skin color, texture, turgor normal, no suspicious rashes or lesions. Peripheral Pulses: Normal. Neurologic: Gait normal. Reflexes normal and symmetric. Sensation grossly intact.. Lymph Nodes: No cervical lymphadenopathy, No supraclavicular lymphadenopathy, No axillary lymphadenopathy., and No inguinal lymphadenopathy.. Respiratory: No recent pulmonary infection, hemoptysis, chronic cough, or shortness of breath at rest Rheumatologic: Joint deformities: right knee pain Ortho Exam Assessment and Plan Radiographs: No imaging to review. Impression: No diagnosis found. Today, in detail, through a thorough evaluation, we discussed possible etiologies of pain and our plans for further diagnostic and therapeutic interventions. We discussed strategies for decreasing pain and improving strength, stability and motion. Patient's questions were answered in detailed. Patient verbalizes understanding and agrees with the treatment plan as discussed. Discussed with patient possible options for treatment. Patient elected proceed with injection. Patient told not to submerge the injected area for 24 hours in a hot tub, or bath, injection may take 2 weeks for improvement to be noticed, follow-up in 2 -6 weeks if symptoms do not resolve. All questions answered patient agreement of plan. Apply ice Limit activities as discussed Rest Do not submerge limb in water for 24 hours Cont current meds Watch sugars/decrease carbs Call if warm/hot/red Discussed with patient that if the injection does not work after 2 to 4 weeks to come back for reevaluation. Discussed the next 3 days may feel worse before it feels better. Discussed if having continued pain to return. May get injection every 3 months Ms. Leilani Farrar presents today for right knee injection. Sujatha Masterson DO Large Joint Arthro/Inj: R knee joint Informed Consent Consent Obtained: Verbal [place] Protocol A moment to CARE was completed. SIGN IN Personnel directly involved with the procedure wore the appropriate PPE. Special Equipment: Yes Patient/Surrogate Stated/Verified: Date of , Relevant allergies, Intended procedure and Patient name TIME OUT Intended patient and procedure match the source document(s). Consent documented and matches the intended procedure. Relevant labs, photos, and/or imaging studies have been reviewed. Correct side/site marked and visible. Medications required for procedure verified. Fire risk assessed and interventions discussed. No implant(s) inserted. 09/05/2023 3:31 PM The procedure site was prepped in the usual sterile fashion. Site: R knee joint Medications: 20 mg sodium hyaluronate 10 mg/mL(mw 2.4 -3.6 million); 2 mL hylan G-F 20 16 mg/2 mL Outcome: Tolerated well, no immediate complications Post-injection instructions were reviewed with the patient and the patient voiced understanding of these instructions. SIGN OUT All instruments, equipment, possible retained foreign bodies accounted for. Sujatha Masterson DAmyO. M.P.H. documented in this encounter [facility] 09-05-2023 History of Present illness Narrative Radiology Service Progress Note PATIENT NAME: Leilani Farrar DATE OF SERVICE: September 05, 2023 TIME: 9:26 AM PATIENT IDENTITY VERIFICATION COMPLETED USING TWO (2) IDENTIFIERS: Name and Date of confirmed by patient verbally. FALL SCREENING: Has the patient had 2 falls in the last year or 1 fall with injury or currently using an Ambulatory Assistive Device (Walker, Cane, Wheelchair, Crutches, etc.)? No PATIENT GENDER DATA: Female. status: : No status: NO. PATIENT RELEVANT IMPLANT DATA REVIEWED: Not Applicable PATIENT PRESENTS WITH AN IMPLANTABLE OR ATTACHED CHILD DAY CARE TEACHER: No RADIOLOGY DEPARTMENT: General X-ray: Exam(s) Completed: Lower Extremity X-Ray(s): Knee, AP / Lat / Tunne / Merchant Right and Wt. Bearing PERIPHERAL IV DATA: Not applicable SIGNED BY: Shannan Pardo September 05, 2023 9:26 AM documented in this encounter [facility] 09-05-2023 Note HNO ID: [id number] Author: LETY JUNG Tech Service: Radiology Author Type: Typo Machine Operator Type: Progress Notes Filed: 09/05/2023 09:27 Note Text: Radiology Service Progress Note PATIENT NAME: Leilani Farrar DATE OF SERVICE: September 05, 2023 TIME: 9:26 AM PATIENT IDENTITY VERIFICATION COMPLETED USING TWO (2) IDENTIFIERS: Name and Date of confirmed by patient verbally. FALL SCREENING: Has the patient had 2 falls in the last year or 1 fall with injury or currently using an Ambulatory Assistive Device (Walker, Cane, Wheelchair, Crutches, etc.)? No PATIENT GENDER DATA: Female. status: : No status: NO. PATIENT RELEVANT IMPLANT DATA REVIEWED: Not Applicable PATIENT PRESENTS WITH AN IMPLANTABLE OR ATTACHED CHILD DAY CARE TEACHER: No RADIOLOGY DEPARTMENT: General X-ray: Exam(s) Completed: Lower Extremity X-Ray(s): Knee, AP / Lat / Tunne / Merchant Right and Wt. Bearing PERIPHERAL IV DATA: Not applicable SIGNED BY: Shnanan Pardo September 05, 2023 9:26 AM [facility] 08-20-2023 Miscellaneous Notes Patient has been contacted and scheduled. LVM to have pt call back to schedule Synvisc gel ink for her right knee. AB Patient's insurance has authorized Synvisc gel injections(s) for the patient's right knee. Patient last had an injection of Orthovisc on 03/03/23. These injections can be scheduled anytime after 09/03/23 . These are scheduled once a week for 3 week(s) in a row. These can be scheduled with or Tin Null PA-C for a sooner appointment. Referral for Synvisc placed (euflexxa is on back order) Patient is calling to get injections for her knee again. Last injection was given 03/03/2023. Patient will need a new referral put in for them. documented in this encounter [facility] 03-03-2023 History of Present illness Narrative Associated Order(s): Large Joint Arthro/Inj: R knee joint Post-Procedure Diagnose(s): Primary osteoarthritis of right knee Ms. Leilani Farrar presents today for right knee orthovisc injection #3/3. Today she rates her pain a 0 on a scale of 0 to 10. Large Joint Arthro/Inj: R knee joint Informed Consent Consent Obtained: Verbal [place] Protocol A moment to CARE was completed. SIGN IN Personnel directly involved with the procedure wore the appropriate PPE. Special Equipment: N/A Patient/Surrogate Stated/Verified: Patient name, Date of , Relevant allergies and Intended procedure TIME OUT Intended patient and procedure match the source document(s). Consent documented and matches the intended procedure. Relevant labs, photos, and/or imaging studies have been reviewed. Correct side/site marked and visible. Medications required for procedure verified. No fire risk assessment and interventions applicable. No implant(s) inserted. 03/03/2023 1:30 PM The procedure site was prepped in the usual sterile fashion. Site: R knee joint Medications: 30 mg Sodium Hyaluronate 30 mg/2 mL Outcome: Tolerated well, no immediate complications Post-injection instructions were reviewed with the patient and the patient voiced understanding of these instructions. SIGN OUT No instruments, equipment or retained foreign bodies applicable. Nidia Humphreys PA-C documented in this encounter [facility] 02-24-2023 History of Present illness Narrative Associated Order(s): Large Joint Arthro/Inj: R knee joint Post-Procedure Diagnose(s): Primary osteoarthritis of right knee Ms. Leilani Farrar presents today for right knee orthovisc injection #2/3. Today she rates her pain a 3 on a scale of 0 to 10. Large Joint Arthro/Inj: R knee joint Informed Consent Consent Obtained: Verbal [place] Protocol A moment to CARE was completed. SIGN IN Personnel directly involved with the procedure wore the appropriate PPE. Special Equipment: N/A Patient/Surrogate Stated/Verified: Patient name, Date of , Relevant allergies and Intended procedure TIME OUT Intended patient and procedure match the source document(s). Consent documented and matches the intended procedure. Relevant labs, photos, and/or imaging studies have been reviewed. Correct side/site marked and visible. Medications required for procedure verified. No fire risk assessment and interventions applicable. No implant(s) inserted. 02/24/2023 1:18 PM The procedure site was prepped in the usual sterile fashion. Site: R knee joint Medications: 30 mg Sodium Hyaluronate 30 mg/2 mL Outcome: Tolerated well, no immediate complications Post-injection instructions were reviewed with the patient and the patient voiced understanding of these instructions. SIGN OUT No instruments, equipment or retained foreign bodies applicable. Nidia Humphreys PA-C documented in this encounter [facility] 02-17-2023 History of Present illness Narrative Associated Order(s): Large Joint Arthro/Inj: R knee joint Post-Procedure Diagnose(s): Primary osteoarthritis of right knee Ms. Leilani Farrar presents today for right knee orthovisc injection #1/3. She has known right knee osteoarthritis and has been treated with orthovisc injections in the past. Her last series ended on 08/02/2022. Large Joint Arthro/Inj: R knee joint Informed Consent Consent Obtained: Verbal [place] Protocol A moment to CARE was completed. SIGN IN Personnel directly involved with the procedure wore the appropriate PPE. Special Equipment: N/A Patient/Surrogate Stated/Verified: Patient name, Date of , Relevant allergies and Intended procedure TIME OUT Intended patient and procedure match the source document(s). Consent documented and matches the intended procedure. Relevant labs, photos, and/or imaging studies have been reviewed. Correct side/site marked and visible. Medications required for procedure verified. No fire risk assessment and interventions applicable. No implant(s) inserted. 02/17/2023 1:31 PM The procedure site was prepped in the usual sterile fashion. Site: R knee joint Medications: 30 mg Sodium Hyaluronate 30 mg/2 mL Outcome: Tolerated well, no immediate complications Post-injection instructions were reviewed with the patient and the patient voiced understanding of these instructions. SIGN OUT No instruments, equipment or retained foreign bodies applicable. Nidia Humphreys PA-C documented in this encounter [facility] 02-13-2023 Miscellaneous Notes Contacted patient and got her scheduled with Lidia Humphreys PA-C. Orthovisc has been approved Please binh pt and help with an appt Referral submitted for right knee Orthovisc Also, [employer] previously denied per last ones [facility] a note into he referral to have them look at that Pt called wanting to get Gel Injections. She wasn't sure if she needed to have an appt w/ Dr Masterson prior to an appt for the injections. Please advise. documented in this encounter [facility] 07-26-2022 History of Present illness Narrative Denies calf pain, fever, chills or other constitutional symptoms. Has numbness and tingling in 4th and 5th toes of Right Foot Associated Order(s): Large Joint Arthro/Inj: R knee joint Post-Procedure Diagnose(s): Arthritis of knee; Chronic pain of right knee Images from the original note were not included. Follow Up Visit Chief Complaint Leilani Farrar is a 66 year old female who presents today for follow up office visit. Patient presents with: Right Knee - Follow Up, Knee Pain, Injections History of Present Illness PAIN EVALUATION 07/26/2022 0943 Pain Level: 4 Pain Location: -- R Knee Description: Stabbing Frequency: Continuous HPI: Leilani Farrar is a 66 year old female for a follow up visit . Pain history is noted as above. R Knee Injection Is there any overall improvement in your condition? Yes, improved Any new injury, since being seen last: No REVIEW OF SYMPTOMS: Patient did not have, and does not currently have, any weight loss, malaise, fever, chills, headache, chest pain, chest pressure, palpitations, cough, shortness of breath, orthopnea, paroxsymal nocturnal dyspnea, nausea, vomiting, diarrhea, constipation, melena, hematochezia, urinary difficulties, prolonged bleeding, easily bruising, heat or cold intolerance, new onset joint pain or swelling, new onset extremity weakness or numbness, new onset auditory or visual disturbances, lightheadedness, dizziness, partial loss of consciousness or full loss of consciousness. Current Outpatient Medications Medication Sig cyclobenzaprine (FLEXERIL) 10 mg tablet Take 1 tablet by mouth three times daily. Ibuprofen 200 mg cap Take by mouth every 6 hours as needed. levothyroxine (SYNTHROID) 112 mcg tablet Take 112 mcg by mouth daily before breakfast. No current facility-administered medications for this visit. Physical Exam Vitals: There were no vitals taken for this visit. Psych: Pleasant, good affect and mood General Appearance: Well appearing, alert, in no acute distress, well-hydrated, well nourished.. Skin: Skin color, texture, turgor normal, no suspicious rashes or lesions. Peripheral Pulses: Normal. Neurologic: Gait normal. Reflexes normal and symmetric. Sensation grossly intact.. Lymph Nodes: No cervical lymphadenopathy, No supraclavicular lymphadenopathy, No axillary lymphadenopathy., and No inguinal lymphadenopathy.. Respiratory: No recent pulmonary infection, hemoptysis, chronic cough, or shortness of breath at rest Rheumatologic: Joint deformities: right knee pain Right Knee Exam Tenderness The patient is experiencing tenderness in the medial joint line and lateral joint line. Range of Motion Extension: abnormal Flexion: abnormal Tests Jose: Medial - positive Lateral - positive Isael: Anterior - negative Posterior - negative Drawer: Anterior - negative Posterior - negative Other Erythema: absent Sensation: decreased Pulse: present Swelling: mild Left Knee Exam Left knee exam is normal. Muscle Strength The patient has normal left knee strength. Tenderness The patient is experiencing no tenderness. Range of Motion Extension: normal Flexion: normal Tests Isael: Anterior - negative Posterior - negative Drawer: Anterior - negative Posterior - negative Other Erythema: absent Sensation: normal Pulse: present Swelling: none Comments: Neg homans bilaterally Assessment and Plan Radiographs: I have independently reviewed films and my findings are the same. Impression: Encounter Diagnosis ICD-10-CM 1. Chronic pain of right knee M25.561 G89.29 2. Arthritis of knee M17.10 Today, in detail, through a thorough evaluation, we discussed possible etiologies of pain and our plans for further diagnostic and therapeutic interventions. We discussed strategies for decreasing pain and improving strength, stability and motion. Patient's questions were answered in detailed. Patient verbalizes understanding and agrees with the treatment plan as discussed. Discussed with patient possible options for treatment. Patient elected proceed with injection. Patient told not to submerge the injected area for 24 hours in a hot tub, or bath, injection may take 2 weeks for improvement to be noticed, follow-up in 2 -6 weeks if symptoms do not resolve. All questions answered patient agreement of plan. Apply ice Limit activities as discussed Rest Do not submerge limb in water for 24 hours Cont current meds Watch sugars/decrease carbs Call if warm/hot/red Discussed with patient that if the injection does not work after 2 to 4 weeks to come back for reevaluation. Discussed the next 3 days may feel worse before it feels better. Discussed if having continued pain to return. May get injection every 3 months Large Joint Arthro/Inj: R knee joint Informed Consent Consent Obtained: Verbal [place] Protocol A moment to CARE was completed. SIGN IN Personnel directly involved with the procedure wore the appropriate PPE. Special Equipment: N/A Patient/Surrogate Stated/Verified: Patient name, Date of , Relevant allergies and Intended procedure TIME OUT Intended patient and procedure match the source document(s). Consent documented and matches the intended procedure. Relevant labs, photos, and/or imaging studies have been reviewed. No correct side/site applicable for marking and visibility. Medications required for procedure verified. Fire risk assessed and interventions discussed. No implant(s) inserted. 07/31/2022 1:06 PM The procedure site was prepped in the usual sterile fashion. Site: R knee joint Medications: 80 mg triamcinolone acetonide 40 mg/mL; 30 mg Sodium Hyaluronate 30 mg/2 mL Anesthetics: 8 mL ropivacaine (PF) 5 mg/mL (0.5 %) Outcome: Tolerated well, no immediate complications Post-injection instructions were reviewed with the patient and the patient voiced understanding of these instructions. SIGN OUT All specimen containers correctly labeled. All instruments, equipment, possible retained foreign bodies accounted for. Post-procedure follow-up management communicated and Plan of Care Visit completed when applicable documented in this encounter [facility] 07-19-2022 History of Present illness Narrative Associated Order(s): Large Joint Arthro/Inj: R knee joint Post-Procedure Diagnose(s): Arthritis of knee Follow Up Visit Chief Complaint Leilani Farrar is a 66 year old female who presents today for follow up office visit. Patient presents with: Right Knee - Established Patient, Follow Up, Orthovisc gel injection #1 , Knee Pain History of Present Illness PAIN EVALUATION 07/19/2022 0940 Pain Level: 3 Pain Location: Knee-Right Description: Aching;Sore;Stiffness;Tightness HPI: Leilani Farrar is a 66 year old female for a follow up visit Right knee Orthovisc gel injection #1. Pain history is noted as above. Denies calf pain, numbness, tingling, fever, chills or other constitutional symptoms. Is there any overall improvement in your condition? Yes, Any new injury, since being seen last: No REVIEW OF SYMPTOMS: Patient did not have, and does not currently have, any weight loss, malaise, fever, chills, headache, chest pain, chest pressure, palpitations, cough, shortness of breath, orthopnea, paroxsymal nocturnal dyspnea, nausea, vomiting, diarrhea, constipation, melena, hematochezia, urinary difficulties, prolonged bleeding, easily bruising, heat or cold intolerance, new onset joint pain or swelling, new onset extremity weakness or numbness, new onset auditory or visual disturbances, lightheadedness, dizziness, partial loss of consciousness or full loss of consciousness. Current Outpatient Medications Medication Sig cyclobenzaprine (FLEXERIL) 10 mg tablet Take 1 tablet by mouth three times daily. Ibuprofen 200 mg cap Take by mouth every 6 hours as needed. levothyroxine (SYNTHROID) 112 mcg tablet Take 112 mcg by mouth daily before breakfast. No current facility-administered medications for this visit. Physical Exam Vitals: There were no vitals taken for this visit. Psych: Pleasant, good affect and mood General Appearance: Well appearing, alert, in no acute distress, well-hydrated, well nourished.. Skin: Skin color, texture, turgor normal, no suspicious rashes or lesions. Peripheral Pulses: Normal. Neurologic: Gait normal. Reflexes normal and symmetric. Sensation grossly intact.. Lymph Nodes: No cervical lymphadenopathy, No supraclavicular lymphadenopathy, No axillary lymphadenopathy., and No inguinal lymphadenopathy.. Respiratory: No recent pulmonary infection, hemoptysis, chronic cough, or shortness of breath at rest Rheumatologic: Joint deformities: Right knee pain Right Knee Exam Tenderness The patient is experiencing tenderness in the medial joint line and lateral joint line. Range of Motion Extension: abnormal Flexion: abnormal Tests Jose: Medial - positive Lateral - positive Isael: Anterior - negative Posterior - negative Drawer: Anterior - negative Posterior - negative Other Erythema: absent Sensation: decreased Pulse: present Swelling: mild Left Knee Exam Left knee exam is normal. Muscle Strength The patient has normal left knee strength. Tenderness The patient is experiencing no tenderness. Range of Motion Extension: normal Flexion: normal Tests Isael: Anterior - negative Posterior - negative Drawer: Anterior - negative Posterior - negative Other Erythema: absent Sensation: normal Pulse: present Swelling: none Comments: Neg homans bilaterally Large Joint Arthro/Inj: R knee joint Informed Consent Consent Obtained: Verbal [place] Protocol A moment to CARE was completed. SIGN IN Personnel directly involved with the procedure wore the appropriate PPE. Special Equipment: Yes Patient/Surrogate Stated/Verified: Date of , Relevant allergies, Intended procedure and Patient name TIME OUT Intended patient and procedure match the source document(s). Consent documented and matches the intended procedure. Relevant labs, photos, and/or imaging studies have been reviewed. Correct side/site marked and visible. Medications required for procedure verified. Fire risk assessed and interventions discussed. No implant(s) inserted. 07/19/2022 10:11 AM The procedure site was prepped in the usual sterile fashion. Site: R knee joint Aspirate: 13 mL yellowMedications: 30 mg Sodium Hyaluronate 30 mg/2 mL Outcome: Tolerated well, no immediate complications Post-injection instructions were reviewed with the patient and the patient voiced understanding of these instructions. SIGN OUT All specimen containers correctly labeled. All instruments, equipment, possible retained foreign bodies accounted for. Post-procedure follow-up management communicated and Plan of Care Visit completed when applicable Assessment and Plan Radiographs: I have independently reviewed films and my findings are the same. and I have reviewed the images with the patient and family. Impression: Encounter Diagnosis ICD-10-CM 1. Arthritis of knee M17.10 2. Primary osteoarthritis of right hip M16.11 Discussed imaging of hip and knee Today, in detail, through a thorough evaluation, we discussed possible etiologies of pain and our plans for further diagnostic and therapeutic interventions. We discussed strategies for decreasing pain and improving strength, stability and motion. Patient's questions were answered in detailed. Patient verbalizes understanding and agrees with the treatment plan as discussed. Discussed with patient possible options for treatment. Patient elected proceed with injection. Patient told not to submerge the injected area for 24 hours in a hot tub, or bath, injection may take 2 weeks for improvement to be noticed, follow-up in 2 -6 weeks if symptoms do not resolve. All questions answered patient agreement of plan. Apply ice Limit activities as discussed Rest Do not submerge limb in water for 24 hours Cont current meds Watch sugars/decrease carbs Call if warm/hot/red Discussed with patient that if the injection does not work after 2 to 4 weeks to come back for reevaluation. Discussed the next 3 days may feel worse before it feels better. Discussed if having continued pain to return. May get injection every 3 months Orthovisc injection documented in this encounter [facility] 07-10-2022 Miscellaneous Notes Patient has been contacted and scheduled. Fax came from [facility] approving Orthovisc from 07/03/22 - 10/01/22. Scanned to scanned documents. Please contact the patient to schedule with Dr. Masterson. Electronically signed by Tiffanie Trejo [facility] at 07/09/2022 2:43 PM EST Patient calling in wanting to know the status of her injection referral. I informed her it is still pending, and says additional clinical info needed. Please advise, patient stated she is in a lot of pain. Thank you documented in this encounter [facility] 06-19-2022 Miscellaneous Notes Message left for the patient, auth tab says clinical faxed for an appeal. Electronically signed by Tiffanie Trejo [facility] at 06/19/2022 10:51 AM EST Patient called in asking about injection referral. Requesting phone call back. documented in this encounter [facility] 05-17-2022 Miscellaneous Notes Patient asked me on the way out of her appointment if she could have order for flexeril placed to take at night. Not taking ibuprofen anymore. Pharmacy confirmed. Thank you! Martha Patel documented in this encounter [facility] 05-17-2022 Miscellaneous Notes Radiology Service Progress Note PATIENT NAME: Leilani Farrar DATE OF SERVICE: May 17, 2022 TIME: 10:50 AM PATIENT IDENTITY VERIFICATION COMPLETED USING TWO (2) IDENTIFIERS: Name and Date of confirmed by patient verbally. FALL SCREENING: Has the patient had 2 falls in the last year or 1 fall with injury or currently using an Ambulatory Assistive Device (Walker, Cane, Wheelchair, Crutches, etc.)? No PATIENT GENDER DATA: Female. status: : No status: NO. PATIENT RELEVANT IMPLANT DATA REVIEWED: Not Applicable RADIOLOGY DEPARTMENT: General X-ray: Exam(s) Completed: Pelvis X-Ray: Pelvis with Hip Right PERIPHERAL IV DATA: Not applicable SIGNED BY: RT Elder(R) May 17, 2022 10:50 AM documented in this encounter [facility] 05-17-2022 Progress note Formatting of t his note might be different from the original. Radiology Service Progress Note PATIENT NAME: Leilani Farrar DATE OF SERVICE: May 17, 2022 TIME: 10:50 AM PATIENT IDENTITY VERIFICATION COMPLETED USING TWO (2) IDENTIFIERS: Name and Date of confirmed by patient verbally. FALL SCREENING: Has the patient had 2 falls in the last year or 1 fall with injury or currently using an Ambulatory Assistive Device (Walker, Cane, Wheelchair, Crutches, etc.)? No PATIENT GENDER DATA: Female. status: : No status: NO. PATIENT RELEVANT IMPLANT DATA REVIEWED: Not Applicable RADIOLOGY DEPARTMENT: General X-ray: Exam(s) Completed: Pelvis X-Ray: Pelvis with Hip Right PERIPHERAL IV DATA: Not applicable SIGNED BY: RT Elder(R) May 17, 2022 10:50 AM [facility] 05-17-2022 History of Present illness Narrative Images from the original note were not included. Follow Up Visit Chief Complaint Leilani Farrar is a 66 year old female who presents today for follow up office visit. Patient presents with: Right Knee - Follow Up, Knee Pain History of Present Illness PAIN EVALUATION 05/17/2022 1004 Pain Level: 6 Pain Location: Knee-Right Description: Aching;Dull;Sore;Throbbing Duration Amount of Time: -- ongoing Frequency: Intermittent Intervention/Comfort measure: Reposition;Relaxation;Cold;Medicat ion;Other: See comment gel injections, cortisone injections HPI: Leilani Farrar is a 66 year old female for a follow up visit right knee pain. Pain history is noted as above. Right knee and hip pain. Denies calf pain, numbness, tingling, fever, chills or other constitutional symptoms. Is there any overall improvement in your condition? No Any new injury, since being seen last: No REVIEW OF SYMPTOMS: Patient did not have, and does not currently have, any weight loss, malaise, fever, chills, headache, chest pain, chest pressure, palpitations, cough, shortness of breath, orthopnea, paroxsymal nocturnal dyspnea, nausea, vomiting, diarrhea, constipation, melena, hematochezia, urinary difficulties, prolonged bleeding, easily bruising, heat or cold intolerance, new onset joint pain or swelling, new onset extremity weakness or numbness, new onset auditory or visual disturbances, lightheadedness, dizziness, partial loss of consciousness or full loss of consciousness. Current Outpatient Medications Medication Sig Ibuprofen 200 mg cap Take by mouth every 6 hours as needed. levothyroxine (SYNTHROID) 112 mcg tablet Take 112 mcg by mouth daily before breakfast. No current facility-administered medications for this visit. Physical Exam Vitals: There were no vitals taken for this visit. Psych: Pleasant, good affect and mood General Appearance: Well appearing, alert, in no acute distress, well-hydrated, well nourished.. Skin: Skin color, texture, turgor normal, no suspicious rashes or lesions. Peripheral Pulses: Normal. Neurologic: Gait normal. Reflexes normal and symmetric. Sensation grossly intact.. Lymph Nodes: No cervical lymphadenopathy, No supraclavicular lymphadenopathy, No axillary lymphadenopathy., and No inguinal lymphadenopathy.. Respiratory: No recent pulmonary infection, hemoptysis, chronic cough, or shortness of breath at rest Rheumatologic: Joint deformities: right knee and hip pain Right Knee Exam Tenderness The patient is experiencing tenderness in the medial joint line and lateral joint line. Range of Motion Extension: abnormal Flexion: abnormal Tests Isael: Anterior - negative Posterior - negative Drawer: Anterior - negative Posterior - negative Other Erythema: absent Sensation: normal Pulse: present Swelling: moderate Left Knee Exam Left knee exam is normal. Muscle Strength The patient has normal left knee strength. Tenderness The patient is experiencing no tenderness. Range of Motion Extension: normal Flexion: normal Tests Isael: Anterior - negative Posterior - negative Drawer: Anterior - negative Posterior - negative Other Erythema: absent Sensation: normal Pulse: present Swelling: none Comments: Neg homans bilaterally Right Hip Exam Tenderness The patient is experiencing tenderness in the anterior. Range of Motion Abduction: abnormal Adduction: abnormal Extension: abnormal Flexion: abnormal External rotation: abnormal Internal rotation: abnormal Muscle Strength The patient has normal right hip strength. Other Erythema: absent Sensation: normal Pulse: present Left Hip Exam Left hip exam is normal. Tenderness The patient is experiencing no tenderness. Range of Motion The patient has normal left hip ROM. Muscle Strength The patient has normal left hip strength. Other Erythema: absent Sensation: normal Pulse: present Assessment and Plan Radiographs: I have independently reviewed films and my findings are the same. and I have reviewed the images with the patient and family. Last XR Knee - Impression Only XR KNEE GENERAL 4V AP BOTH/PA BOTH/LAT/MERC BILAT Exam End: 05/18/2021 11:50 AM (Final result) Impression: IMPRESSION: Degenerative changes as discussed [place] Department Manager: LINDA Transcribe Date/Time: May 18 2021 12:06P Dictated by : EZIO MCKEON DO... Last XR Hip/Pelvis - Impression Only XR HIP GENERAL 3V PELV/AP/LAT RIGHT Exam End: 05/17/2022 10:47 AM (Final result) Impression: IMPRESSION: Degenerative changes as discussed Harbor Department Manager: LINDA Transcribe Date/Time: May 17 2022 12:05P Dictated by : EZIO MCKEON DO... Impression: Encounter Diagnosis ICD-10-CM 1. Pain in right hip M25.551 XR HIP GENERAL 3V PELV/AP/LAT RIGHT 2. Arthritis of knee M17.10 3. Primary osteoarthritis of right hip M16.11 Today, in detail, through a thorough evaluation, we discussed possible etiologies of pain and our plans for further diagnostic and therapeutic interventions. We discussed strategies for decreasing pain and improving strength, stability and motion. Patient's questions were answered in detailed. Patient verbalizes understanding and agrees with the treatment plan as discussed. Rationale for Viscosupplementation: Renewal Request As a part of a multimodal treatment plan, we are requesting authorization of hyaluronic acid viscosupplementation injections for the improvement of symptoms related to osteoarthritis. Authorization is being requested for treatment of the Right knee. Rationale for authorization of these injections is based on the following elements: Signs and Symptoms Length of symptoms > 3 months Pain interferes with ADLs? Yes Radiographic evidence of OA? Yes Previous Treatments Bracing attempted? Yes Formal Physical Therapy (PT)/ Home Exercise Program (HEP) attempted? Patient completed a comprehensive PT program with compliance to HEP NSAID medication attempted? Yes Corticosteroid injection attempted? Weight management attempted? No (Normal BMI) Prior Viscosupplementation Prior viscosupplementation? Yes Prior viscosupplementation improved symptoms? Prior viscosupplementation improved symptoms at least 6 months? Patient continues to be symptomatic despite above treatment attempts. Requested Viscosupplementation Preferred product: Orthovisc Alternative product: Durolane or payor preferred Has brace at home, doing HEP Xrays right hip Gel injection right knee Sujatha Masterson DO documented in this encounter [facility] Evaluation note Diagnosis Onset Date Hyperlipidemia acute Hypothyroidism acute [facility] Work Phone: Evaluation note* Diagnosis Pain in right hip- Primary Pain in joint, pelvic region and thigh Arthritis of knee Unspecified arthropathy, lower leg Primary osteoarthritis of right hip Primary localized osteoarthrosis, pelvic region and thigh [facility] Arthritis of knee- Primary Unspecified arthropathy, lower leg Primary osteoarthritis of right hip Primary localized osteoarthrosis, pelvic region and thigh [facility] Chronic pain of right knee- Primary Arthritis of knee Unspecified arthropathy, lower leg [facility] Diagnosis Primary osteoarthritis of right knee- Primary Primary localized osteoarthrosis, lower leg [facility] Diagnosis Primary osteoarthritis of right knee- Primary Primary localized osteoarthrosis, lower leg [facility] Diagnosis Primary osteoarthritis of right knee- Primary Primary localized osteoarthrosis, lower leg [facility] Primary osteoarthritis of right knee- Primary Primary localized osteoarthrosis, lower leg [facility] Diagnosis Primary osteoarthritis of right knee- Primary Primary localized osteoarthrosis, lower leg [facility]* Diagnosis Contact dermatitis and other eczema, due to unspecified cause- Primary [facility]* Diagnosis History of metal allergy- Primary Other allergy, other than to medicinal agents Primary osteoarthritis of right knee Primary localized osteoarthrosis, lower leg [facility] this [facility]* Diagnosis Nuclear sclerosis of both eyes- Primary Cortical age-related cataract of both eyes Cortical senile cataract Vitreous degeneration, bilateral Myopia of both eyes Myopia Presbyopia [facility] this 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* Diagnosis Primary osteoarthritis of right knee- Primary Primary localized osteoarthrosis, lower leg documented in this encounter [facility] note* Diagnosis Primary osteoarthritis of right knee- Primary Primary localized osteoarthrosis, lower leg Preoperative testing Preoperative examination, unspecified Primary osteoarthritis of right knee Primary localized osteoarthrosis, lower leg [facility] in this [facility]* Diagnosis Primary osteoarthritis of right knee Primary localized osteoarthrosis, lower leg Preoperative testing Preoperative examination, unspecified Pre-op evaluation- Primary Preoperative examination, unspecified Primary osteoarthritis of right knee Primary localized osteoarthrosis, lower leg [facility] in this [facility]* Diagnosis Pre-op evaluation- Primary Preoperative examination, unspecified Postoperative hypothyroidism Postsurgical hypothyroidism Cigarette nicotine dependence without complication Tobacco use disorder Elevated BP without diagnosis of hypertension Hyperlipidemia, unspecified hyperlipidemia type Primary osteoarthritis of right knee Primary localized osteoarthrosis, lower leg * Assessment & Plan Note - Heidi Waddell PA-C - 02/25/2024 10:11 AM EDT Associated Problem(s): Postoperative hypothyroidism Assessment: On rx. * Assessment & Plan Note - Heidi Waddell PA-C - 02/25/2024 10:11 AM EDT Associated Problem(s): Hyperlipidemia Assessment: Follows with PCP, not currently on rx. * Assessment & Plan Note - Heidi Waddell PA-C - 02/25/2024 9:41 AM EDT Associated Problem(s): Elevated BP without diagnosis of hypertension Assessment: Elevated BP today, pt endorses white coat htn. Has never been diagnosed or treated for htn. Date: BP: 02/25/2024 146/77 04/26/2018 142/92 * Assessment & Plan Note - Heidi Waddell PA-C - 02/25/2024 9:38 AM EDT Associated Problem(s): Cigarette nicotine dependence Assessment: Current everyday smoker. Encouraged cessation. No smoking DOS. [facility] Diagnosis Primary osteoarthritis of right knee- Primary Primary localized osteoarthrosis, lower leg Pre-op evaluation- Primary Preoperative examination, unspecified Postoperative hypothyroidism Postsurgical hypothyroidism Cigarette nicotine dependence without complication Tobacco use disorder Elevated BP without diagnosis of hypertension Hyperlipidemia, unspecified hyperlipidemia type Primary osteoarthritis of right knee Primary localized osteoarthrosis, lower leg [facility] Diagnosis Primary osteoarthritis of right knee Primary localized osteoarthrosis, lower leg [facility] Diagnosis Pre-op evaluation- Primary Preoperative examination, unspecified Postoperative hypothyroidism Postsurgical hypothyroidism Cigarette nicotine dependence without complication Tobacco use disorder Elevated BP without diagnosis of hypertension Hyperlipidemia, unspecified hyperlipidemia type S/P total knee arthroplasty, right- Primary [facility] Diagnosis Pre-op evaluation- Primary Preoperative examination, unspecified Postoperative hypothyroidism Postsurgical hypothyroidism Cigarette nicotine dependence without complication Tobacco use disorder Elevated BP without diagnosis of hypertension Hyperlipidemia, unspecified hyperlipidemia type S/P total knee arthroplasty, right- Primary [facility] Diagnosis Pre-op evaluation- Primary Preoperative examination, unspecified Postoperative hypothyroidism Postsurgical hypothyroidism Cigarette nicotine dependence without complication Tobacco use disorder Elevated BP without diagnosis of hypertension Hyperlipidemia, unspecified hyperlipidemia type Right knee pain, unspecified chronicity [facility] Diagnosis Pain in right hip Pain in joint, pelvic region and thigh [facility] Diagnosis Pre-op evaluation- Primary Preoperative examination, unspecified Postoperative hypothyroidism Postsurgical hypothyroidism Cigarette nicotine dependence without complication Tobacco use disorder Elevated BP without diagnosis of hypertension Hyperlipidemia, unspecified hyperlipidemia type Nuclear sclerosis of both eyes- Primary Cortical age-related cataract of both eyes Cortical senile cataract Vitreous degeneration, bilateral Nuclear sclerosis of both eyes Cortical age-related cataract of both eyes Cortical senile cataract Nuclear sclerosis of both eyes [facility] Diagnosis Pre-op evaluation- Primary Preoperative examination, unspecified Postoperative hypothyroidism Postsurgical hypothyroidism Cigarette nicotine dependence without complication Tobacco use disorder Elevated BP without diagnosis of hypertension Hyperlipidemia, unspecified hyperlipidemia type Pre-op evaluation- Primary Preoperative examination, unspecified Hyperlipidemia, unspecified hyperlipidemia type Postoperative hypothyroidism Postsurgical hypothyroidism Idiopathic urticaria Cigarette nicotine dependence without complication Tobacco use disorder Nuclear sclerosis of both eyes Cortical age-related cataract of both eyes Cortical senile cataract Nuclear sclerosis of both eyes * Assessment & Plan Note - Roselyn Reagan APRN.CNP - 05/24/2024 11:16 AM EST Associated Problem(s): Cigarette nicotine dependence Assessment: Smokes 1/2/day. Advised cessation. No smoking DOS. * Assessment & Plan Note - Roselyn Reagan APRN.CNP - 05/24/2024 11:16 AM EST Associated Problem(s): Idiopathic urticaria Assessment: chronic, on atarax. * Assessment & Plan Note - Roselyn Reagan APRN.CNP - 05/24/2024 11:00 AM EST Associated Problem(s): Hypothyroidism Assessment: Compliant on levothyroxine. Denies recent dose adjustments. Following with PCP. S/p thyroidectomy. * Assessment & Plan Note - Roselyn Reagan APRN.CNP - 05/24/2024 11:00 AM EST Associated Problem(s): Hyperlipidemia Assessment: Compliant on statin therapy. Encouraged lifestyle modifications. [facility] Diagnosis Pre-op evaluation- Primary Preoperative examination, unspecified Postoperative hypothyroidism Postsurgical hypothyroidism Cigarette nicotine dependence without complication Tobacco use disorder Elevated BP without diagnosis of hypertension Hyperlipidemia, unspecified hyperlipidemia type Aftercare following right knee joint replacement surgery- Primary Pre-op evaluation- Primary Preoperative examination, unspecified Hyperlipidemia, unspecified hyperlipidemia type Postoperative hypothyroidism Postsurgical hypothyroidism Idiopathic urticaria Cigarette nicotine dependence without complication Tobacco use disorder Nuclear sclerosis of both eyes Cortical age-related cataract of both eyes Cortical senile cataract Nuclear sclerosis of both eyes [facility] Diagnosis Pre-op evaluation- Primary Preoperative examination, unspecified Postoperative hypothyroidism Postsurgical hypothyroidism Cigarette nicotine dependence without complication Tobacco use disorder Elevated BP without diagnosis of hypertension Hyperlipidemia, unspecified hyperlipidemia type Pre-op evaluation- Primary Preoperative examination, unspecified Hyperlipidemia, unspecified hyperlipidemia type Postoperative hypothyroidism Postsurgical hypothyroidism Idiopathic urticaria Cigarette nicotine dependence without complication Tobacco use disorder Pseudophakia- Primary Lens replaced by other means Nuclear sclerosis of both eyes [facility] Diagnosis Pre-op evaluation- Primary Preoperative examination, unspecified Postoperative hypothyroidism Postsurgical hypothyroidism Cigarette nicotine dependence without complication Tobacco use disorder Elevated BP without diagnosis of hypertension Hyperlipidemia, unspecified hyperlipidemia type Pre-op evaluation- Primary Preoperative examination, unspecified Hyperlipidemia, unspecified hyperlipidemia type Postoperative hypothyroidism Postsurgical hypothyroidism Idiopathic urticaria Cigarette nicotine dependence without complication Tobacco use disorder Status post total right knee replacement Pain in right hip Pain in joint, pelvic region and thigh Nuclear sclerosis of both eyes [facility] Diagnosis Pre-op evaluation- Primary Preoperative examination, unspecified Postoperative hypothyroidism Postsurgical hypothyroidism Cigarette nicotine dependence without complication Tobacco use disorder Elevated BP without diagnosis of hypertension Hyperlipidemia, unspecified hyperlipidemia type Pre-op evaluation- Primary Preoperative examination, unspecified Hyperlipidemia, unspecified hyperlipidemia type Postoperative hypothyroidism Postsurgical hypothyroidism Idiopathic urticaria Cigarette nicotine dependence without complication Tobacco use disorder Pseudophakia- Primary Lens replaced by other means Nuclear sclerosis of both eyes [facility] Diagnosis Pre-op evaluation- Primary Preoperative examination, unspecified Postoperative hypothyroidism Postsurgical hypothyroidism Cigarette nicotine dependence without complication Tobacco use disorder Elevated BP without diagnosis of hypertension Hyperlipidemia, unspecified hyperlipidemia type Pre-op evaluation- Primary Preoperative examination, unspecified Hyperlipidemia, unspecified hyperlipidemia type Postoperative hypothyroidism Postsurgical hypothyroidism Idiopathic urticaria Cigarette nicotine dependence without complication Tobacco use disorder Pseudophakia- Primary Lens replaced by other means documented in this encounter [facility] note* Diagnosis Pre-op evaluation- Primary Preoperative examination, unspecified Postoperative hypothyroidism Postsurgical hypothyroidism Cigarette nicotine dependence without complication Tobacco use disorder Elevated BP without diagnosis of hypertension Hyperlipidemia, unspecified hyperlipidemia type Pre-op evaluation- Primary Preoperative examination, unspecified Hyperlipidemia, unspecified hyperlipidemia type Postoperative hypothyroidism Postsurgical hypothyroidism Idiopathic urticaria Cigarette nicotine dependence without complication Tobacco use disorder Pseudophakia of both eyes- Primary Lens replaced by other means documented in this encounter [facility] note* Diagnosis Pre-op evaluation- Primary Preoperative examination, unspecified Postoperative hypothyroidism Postsurgical hypothyroidism Cigarette nicotine dependence without complication Tobacco use disorder Elevated BP without diagnosis of hypertension Hyperlipidemia, unspecified hyperlipidemia type Pre-op evaluation- Primary Preoperative examination, unspecified Hyperlipidemia, unspecified hyperlipidemia type Postoperative hypothyroidism Postsurgical hypothyroidism Idiopathic urticaria Cigarette nicotine dependence without complication Tobacco use disorder Status post total right knee replacement- Primary Pain in right hip Pain in joint, pelvic region and thigh Status post total right knee replacement Pain in right hip Pain in joint, pelvic region and thigh documented in this encounter [facility] note* Diagnosis Pre-op evaluation- Primary Preoperative examination, unspecified Postoperative hypothyroidism Postsurgical hypothyroidism Cigarette nicotine dependence without complication Tobacco use disorder Elevated BP without diagnosis of hypertension Hyperlipidemia, unspecified hyperlipidemia type Pre-op evaluation- Primary Preoperative examination, unspecified Hyperlipidemia, unspecified hyperlipidemia type Postoperative hypothyroidism Postsurgical hypothyroidism Idiopathic urticaria Cigarette nicotine dependence without complication Tobacco use disorder Presence of intraocular lens- Primary Lens replaced by other means Conjunctival cyst of left eye Conjunctival cysts documented in this encounter [facility] note* Diagnosis Pre-op evaluation- Primary Preoperative examination, unspecified Postoperative hypothyroidism Postsurgical hypothyroidism Cigarette nicotine dependence without complication Tobacco use disorder Elevated BP without diagnosis of hypertension Hyperlipidemia, unspecified hyperlipidemia type Pre-op evaluation- Primary Preoperative examination, unspecified Hyperlipidemia, unspecified hyperlipidemia type Postoperative hypothyroidism Postsurgical hypothyroidism Idiopathic urticaria Cigarette nicotine dependence without complication Tobacco use disorder Pseudophakia of both eyes- Primary Lens replaced by other means Conjunctival cyst of left eye Conjunctival cysts [facility] Diagnosis Pre-op evaluation- Primary Preoperative examination, unspecified Postoperative hypothyroidism Postsurgical hypothyroidism Cigarette nicotine dependence without complication Tobacco use disorder Elevated BP without diagnosis of hypertension Hyperlipidemia, unspecified hyperlipidemia type Pre-op evaluation- Primary Preoperative examination, unspecified Hyperlipidemia, unspecified hyperlipidemia type Postoperative hypothyroidism Postsurgical hypothyroidism Idiopathic urticaria Cigarette nicotine dependence without complication Tobacco use disorder Aftercare following right knee joint replacement surgery- Primary [facility] Diagnosis Pre-op evaluation- Primary Preoperative examination, unspecified Postoperative hypothyroidism Postsurgical hypothyroidism Cigarette nicotine dependence without complication Tobacco use disorder Elevated BP without diagnosis of hypertension Hyperlipidemia, unspecified hyperlipidemia type Pre-op evaluation- Primary Preoperative examination, unspecified Hyperlipidemia, unspecified hyperlipidemia type Postoperative hypothyroidism Postsurgical hypothyroidism Idiopathic urticaria Cigarette nicotine dependence without complication Tobacco use disorder Pseudophakia of both eyes- Primary Lens replaced by other means Conjunctival cyst of left eye Conjunctival cysts Vitreous degeneration, bilateral documented in this encounter [facility] home Plan of care note* Visit Details Visit Type -PT SOC Discipline -Physical Therapy Problems Problem Description Start Date Status Goals Interve ntions PT Impaired muscle performance and/or ROM Disciplines: PT 03/18/2024 Active 1 goal linked to scheduled/document ed intervention 1 goal intervention scheduled/document ed in this visit PT Impaired mobility Disciplines: PT 03/18/2024 Active 2 goals linked to scheduled/document ed interventions 2 goal interventions scheduled/document ed in this visit PT Impaired gait Disciplines: PT 03/18/2024 Active 2 goals linked to scheduled/document ed interventions 2 goal interventions scheduled/document ed in this visit PT Orthopedic Condition Disciplines: PT 03/18/2024 Active 1 goal linked to scheduled/document ed intervention 2 goal interventions scheduled/document ed in this visit PT Learning Assessment Disciplines: PT 03/18/2024 Active 1 goal linked to scheduled/document ed intervention 1 goal intervention scheduled/document ed in this visit Medication Education Disciplines: Skilled Services 03/18/2024 Resolved on 03/18/2024 1 goal linked to scheduled/document ed intervention 1 goal intervention scheduled/document ed in this visit Sepsis Disciplines: Skilled Services 03/18/2024 Active 1 goal linked to scheduled/document ed intervention 1 goal intervention scheduled/document ed in this visit Physician Specific Parameters Disciplines: Skilled Services 03/18/2024 Active 1 goal linked to scheduled/document ed intervention 1 goal intervention scheduled/document ed in this visit Risk for Falls Disciplines: Skilled Services 03/18/2024 Active 1 goal linked to scheduled/document ed intervention 1 goal intervention scheduled/document ed in this visit Pain Disciplines: Skilled Services 03/18/2024 Active 1 goal linked to scheduled/document ed intervention 1 goal intervention scheduled/document ed in this visit High Risk Medications Disciplines: Skilled Services 03/18/2024 Active 1 goal linked to scheduled/document ed intervention 2 goal interventions scheduled/document ed in this visit Discharge Disciplines: Skilled Services 03/18/2024 Active 1 goal linked to scheduled/document ed intervention 1 goal intervention scheduled/document ed in this visit Advance Directives Disciplines: Skilled Services 03/18/2024 Resolved on 03/18/2024 1 goal linked to scheduled/document ed intervention 1 goal intervention scheduled/document ed in this visit Goals Goal Associated Problem Outcome Goal Met? Visit Notes Improved Muscle Performance and/or ROM Description: Short term goal: Patient will demonstrate improved muscle performance to meet functional goals, to be achieved by 04/03/24. Short term goal: Patient will demonstrate improved R knee ROM to 0-90 degress of AROM or greater, to be achieved by 04/03/24. PT Impaired muscle performance and/or ROM No Improved Transfers Description: Short term goal: Patient will demonstrate safe transfers to/from bed, chair and toilet independently, to be achieved by 03/27/24. PT Impaired mobility No Improved Bed Mobility Description: STG: Patient will demonstrate improved bed mobility, ability to position self and supine <> sit independently to be achieved by 03/27/24. PT Impaired mobility No Improved Stair Climbing Description: STG:: Patient will demonstrate improved stair negotiation as evidenced by ascend/descend 1 step with FWW with supervision, to be achieved by 03/27/24. LTG: Patient will demonstrate improved stair negotiation as evidenced by ascend/descend 8 steps with railing Independently to safely access all areas of the home, to be achieved by 04/03/24. PT Impaired gait No Improved Gait Description: STG: Patient will demonstrate improved gait ability as evidenced by ambulation 150 feet with front wheeled walker with supervision, in order to access all areas of the home, to be achieved by 03/27/24. LTG: Patient will demonstrate improved gait ability as evidenced by ambulation 300 feet with LRAD independently with AD, to return to safe community ambulation, to be achieved by 04/03/24. PT Impaired gait No Manage Orthopedic Condition Description: Improve patient and/or caregiver understanding of post surgical and/or non-surgical orthopedic intervention management as evidenced by patient and/or caregiver able to verbalize, demonstrate, and teach back instruction, to be achieved by 04/03/24. PT Orthopedic Condition No Demonstrate understanding of education Description: Patient and/or caregiver will understand educational instruction to be achieved by 04/03/24. PT Learning Assessment No Patient/caregiver will demonstrate ability to obtain, store, identify and administer ordered medications, keep accurate medication list in home, and adhere to medication schedule Description: Patient/caregiver will demonstrate ability to obtain, store, identify and administer ordered medications, keep accurate medication list in home, and adhere to medication schedule by 05/16/24. Medication Education Completed Yes Goal met Patient/caregiver will be able to identify and report symptoms of sepsis Description: Patient/caregiver will be able to identify signs/symptoms of sepsis infection and will verbalize actions to take if suspected by 05/16/24. Sepsis No Patient to maintain parameters within physician-specified ranges throughout certification period Physician Specific Parameters No Manage Risk for falls Description: Patient/caregiver will verbalize knowledge of individualized fall prevention strategies by 05/16/24. Risk for Falls No Manage Pain Description: Patient and/or caregiver will verbalize knowledge and understanding of appropriate techniques to control pain, including pain medication and non-pharmacological techniques. Patient will verbalize or demonstrate an acceptable level of pain as evidenced by pain of 2/10 or less at rest. To be achieved by 04/03/24. Pain No Patient/caregiver will teach back high risk medication side effect and precaution education Description: STG Patient/caregiver will verbalize understanding of high risk medication side effects and precautions to be achieved by 05/16/24. LTG Patient/caregiver will continue to verbalize understanding of high risk medication side effects and precautions throughout certification period. High Risk Medications No Manage discharge planning Description: Patient/caregiver will verbalize understanding of ongoing discharge plan provided related to disease management, arrangements for outpatient and/or community services, obtaining medications, supplies, and DME, as needed throughout certification period. Discharge No Patient/caregiver will make healthcare providers aware of and any changes to Advance Directives throughout certification period Advance Directives Completed Yes Goal met Interventions Intervention Associated Problem/Goal Status Variance Visit Notes Physical Therapy Therapeutic Exercises Problem:PT Impaired muscle performance and/or ROM Goal:Improved Muscle Performance and/or ROM Completed Developed, implemented, and instructed patient and/or caregiver on strengthening exercises: Ankle pumps, quad sets, gluteal squeez, heel slides and seated knee flexion all x 10 reps. Developed, implemented, and instructed patient and/or caregiver on range of motion exercises: right knee flexion. Instructed patient and/or caregiver to perform HEP three times a day. Physical Therapy Transfer Training Problem:PT Impaired mobility Goal:Improved Transfers Completed Transfer training and instruction to patient on safe transfers to and from chair with supervision and verbal, tactile and visual cues for sequencing extremities and to promote anterior weight shifting. Recommended the following adaptive equipment/durable medical equipment: walker. Physical Therapy Bed Mobility Training Problem:PT Impaired mobility Goal:Improved Bed Mobility Completed Bed mobility training and instruction to patient, including rolling, supine<>sit and repositioning self with supervision and verbal cues to control invloved extremity. Physical Therapy Stair Training Problem:PT Impaired gait Goal:Improved Stair Climbing Completed Stair training and instruction to patient on safe stair climbing, ascend/descend 1 step, with FWW with SBA and verbal cues for sequencing. Physical Therapy Gait Training Problem:PT Impaired gait Goal:Improved Gait Completed Gait training and instruction to patient on safe ambulation with front wheeled walker for 60 feet with supervision, with verbal cues for corrections of gait deviations including increase BL step length, increase heel strike/toe off and to reduce reliance on BL LEs. Instruct on orthopedic precautions and weight bearing restrictions Description: Orthopedic precautions including right total knee: no crossing legs, no knee flexed over pillow at rest, no kneeling, no squatting and no twisting. Weight bearing restrictions include: WBAT of involved extremity. Problem:PT Orthopedic Condition Goal:Manage Orthopedic Condition Completed patient and caregiver instructed on orthopedic precautions and weight bearing restrictions. Instruct on management of edema Problem:PT Orthopedic Condition Goal:Manage Orthopedic Condition Completed Instruct patient on management of edema including elevation above the level of the heart, ice and benefits of activity. Instruct and educate on knowledge deficits Problem:PT Learning Assessment Goal:Demonstrate understanding of education Completed patient and caregiver verbalize and/or demonstrate understanding of physical therapy education including orthopedic condition management, weight bearing precautions, surgical precautions, pain management, fall prevention strategies, home safety, functional activity and home exercise program. Medication Education Description: Evaluate/instruct patient/caregiver on obtaining, storing, identifying and administering ordered medications as well as keeping accurate medication list in the home and adhereing to medication schedule Problem:Medication Education Goal:Patient/caregive r will demonstrate ability to obtain, store, identify and administer ordered medications, keep accurate medication list in home, and adhere to medication schedule Completed Patient and Caregiver instructed on importance of keeping accurate medication list in home, need to take up-to-date medication list to all medical provider appointments, adhering to medication schedule, proper storage of medications and medication, route, dose, frequency, purpose, and side effects of medications. Risk of Sepsis Description: Patient is at risk for sepsis. Monitor closely for s/s of sepsis. Problem:Sepsis Goal:Patient/caregive r will be able to identify and report symptoms of sepsis Completed SPO2 Description: Notify Dr. Bailon if pulse ox is <92% at rest. Problem:Physician Specific Parameters Goal:Patient to maintain parameters within physician-specified ranges throughout certification period Completed Instruct on individual fall risk factors and strategies to prevent falls and injuries caused by falls. Problem:Risk for Falls Goal:Manage Risk for falls Completed Interventions implemented and instructions provided this visit to reduce risk of falls:Assistive devices to be used: FWW. Instruct on pain and instruct on strategies to control pain Problem:Pain Goal:Manage Pain Completed patient instructed on techniques to control pain including Pharmacological measures and Non-Pharmacological measures; rest, positioning/elevation, mobility/therapeutic exercise, use of DME/assistive devices and use of thermal modalities, apply ice to affected area. Opioids- educated on high risk medication Problem:High Risk Medications Goal:Patient/caregive r will teach back high risk medication side effect and precaution education Completed patient and caregiver educated on taking medication(s) as prescribed by provider. Do not stop medication or alter doses without speaking with your provider. Discuss medication effectiveness or side effect concerns with your provider and home care team. Only take opioids as prescribed, do not share your medications, and take proper precautions in storing and properly disposing of opioids once no longer needed. Possible side effects of opioid medication including sedation, decreased rate of breathing, and constipation. Report over sedation to prescribing provider and practice deep breathing techniques every hour while awake. Prevent constipation by increasing water and fiber intake, increasing activity as tolerated, and use stool softener(s) as prescribed. Anticoagulant- educated on high risk medication Problem:High Risk Medications Goal:Patient/caregive r will teach back high risk medication side effect and precaution education Completed patient and caregiver educated on anticoagulant medication. Instruct on ongoing discharge plan Problem:Discharge Goal:Manage discharge planning Completed Ongoing Discharge plan: Discharge plan discussed with patient and caregiver including frequency and duration for home PT and plan for transition to: outpatient therapy. Determine patient's Advance Directive Status Description: Patient does not have advance directives. Patient/Caregiver provided Advance Directive information in SOC booklet. Problem:Advance Directives Goal:Patient/caregive r will make healthcare providers aware of and any changes to Advance Directives throughout certification period Completed Discussed Advance Directives with Patient and/or Caregiver. Referred patient to Home Care handbook for further information on Healthcare DPOA & Living Will. documented in this encounter [facility] home Plan of care note* Visit Details Visit Type -GUM REMOVER ROUTINE Discipline -Physical Therapy Problems Problem Description Start Date Status Goals Interve ntions PT Impaired muscle performance and/or ROM Disciplines: PT 03/18/2024 Active 1 goal linked to scheduled/document ed intervention 1 goal intervention scheduled/document ed in this visit PT Impaired gait Disciplines: PT 03/18/2024 Active 2 goals linked to scheduled/document ed interventions 2 goal interventions scheduled/document ed in this visit PT Orthopedic Condition Disciplines: PT 03/18/2024 Active 1 goal linked to scheduled/document ed intervention 2 goal interventions scheduled/document ed in this visit PT Learning Assessment Disciplines: PT 03/18/2024 Active 1 goal linked to scheduled/document ed intervention 1 goal intervention scheduled/document ed in this visit Sepsis Disciplines: Skilled Services 03/18/2024 Active 1 goal linked to scheduled/document ed intervention 1 goal intervention scheduled/document ed in this visit Physician Specific Parameters Disciplines: Skilled Services 03/18/2024 Active 1 goal linked to scheduled/document ed intervention 1 goal intervention scheduled/document ed in this visit Risk for Falls Disciplines: Skilled Services 03/18/2024 Active 1 goal linked to scheduled/document ed intervention 1 goal intervention scheduled/document ed in this visit Pain Disciplines: Skilled Services 03/18/2024 Active 1 goal linked to scheduled/document ed intervention 1 goal intervention scheduled/document ed in this visit High Risk Medications Disciplines: Skilled Services 03/18/2024 Active 1 goal linked to scheduled/document ed intervention 1 goal intervention scheduled/document ed in this visit Discharge Disciplines: Skilled Services 03/18/2024 Active 1 goal linked to scheduled/document ed intervention 1 goal intervention scheduled/document ed in this visit Goals Goal Associated Problem Outcome Goal Met? Visit Notes Improved Muscle Performance and/or ROM Description: Short term goal: Patient will demonstrate improved muscle performance to meet functional goals, to be achieved by 04/03/24. Short term goal: Patient will demonstrate improved R knee ROM to 0-90 degress of AROM or greater, to be achieved by 04/03/24. PT Impaired muscle performance and/or ROM No Improved Stair Climbing Description: STG:: Patient will demonstrate improved stair negotiation as evidenced by ascend/descend 1 step with FWW with supervision, to be achieved by 03/27/24. LTG: Patient will demonstrate improved stair negotiation as evidenced by ascend/descend 8 steps with railing Independently to safely access all areas of the home, to be achieved by 04/03/24. PT Impaired gait No Improved Gait Description: STG: Patient will demonstrate improved gait ability as evidenced by ambulation 150 feet with front wheeled walker with supervision, in order to access all areas of the home, to be achieved by 03/27/24. LTG: Patient will demonstrate improved gait ability as evidenced by ambulation 300 feet with LRAD independently with AD, to return to safe community ambulation, to be achieved by 04/03/24. PT Impaired gait No Manage Orthopedic Condition Description: Improve patient and/or caregiver understanding of post surgical and/or non-surgical orthopedic intervention management as evidenced by patient and/or caregiver able to verbalize, demonstrate, and teach back instruction, to be achieved by 04/03/24. PT Orthopedic Condition No Demonstrate understanding of education Description: Patient and/or caregiver will understand educational instruction to be achieved by 04/03/24. PT Learning Assessment No Patient/caregiver will be able to identify and report symptoms of sepsis Description: Patient/caregiver will be able to identify signs/symptoms of sepsis infection and will verbalize actions to take if suspected by 05/16/24. Sepsis No Patient to maintain parameters within physician-specified ranges throughout certification period Physician Specific Parameters No Manage Risk for falls Description: Patient/caregiver will verbalize knowledge of individualized fall prevention strategies by 05/16/24. Risk for Falls No Manage Pain Description: Patient and/or caregiver will verbalize knowledge and understanding of appropriate techniques to control pain, including pain medication and non-pharmacological techniques. Patient will verbalize or demonstrate an acceptable level of pain as evidenced by pain of 2/10 or less at rest. To be achieved by 04/03/24. Pain No Patient/caregiver will teach back high risk medication side effect and precaution education Description: STG Patient/caregiver will verbalize understanding of high risk medication side effects and precautions to be achieved by 05/16/24. LTG Patient/caregiver will continue to verbalize understanding of high risk medication side effects and precautions throughout certification period. High Risk Medications No Manage discharge planning Description: Patient/caregiver will verbalize understanding of ongoing discharge plan provided related to disease management, arrangements for outpatient and/or community services, obtaining medications, supplies, and DME, as needed throughout certification period. Discharge No Interventions Intervention Associated Problem/Goal Status Variance Visit Notes Physical Therapy Therapeutic Exercises Problem:PT Impaired muscle performance and/or ROM Goal:Improved Muscle Performance and/or ROM Completed patient instructed on strengthening and range of motion exercises including ankle pumps, quad and gut sets, hip abd and add, saq w/ manual assist, heel slides x's 10 each. supine ext hang x;s5min. seated heel slides x's 10 with verbal, visual and written cues for form and hold times. patient instructed to perform home exercise program twice a day which included above ex. Physical Therapy Stair Training Problem:PT Impaired gait Goal:Improved Stair Climbing Completed Stair training and instruction to patient on safe stair climbing, ascend/descend 1 steps, without railing and with ww with supervision and verbal cues for safety. Physical Therapy Gait Training Problem:PT Impaired gait Goal:Improved Gait Completed Gait training and instruction to patient on safe ambulation with front wheeled walker for 2x's 50 feet with supervision, with verbal cues for corrections of gait deviations including heel to toe pattern. Instruct on orthopedic precautions and weight bearing restrictions Description: Orthopedic precautions including right total knee: no crossing legs, no knee flexed over pillow at rest, no kneeling, no squatting and no twisting. Weight bearing restrictions include: WBAT of involved extremity. Problem:PT Orthopedic Condition Goal:Manage Orthopedic Condition Completed patient instructed on orthopedic precautions. Instruct on management of edema Problem:PT Orthopedic Condition Goal:Manage Orthopedic Condition Completed Instruct patient on management of edema including elevation of RLE above the level of the heart and ice. Instruct and educate on knowledge deficits Problem:PT Learning Assessment Goal:Demonstrate understanding of education Completed patient verbalize and/or demonstrate understanding of physical therapy education including pain management and home exercise program. Education methods include: verbal cues. Further education required to improve knowledge and compliance with home exercise program. Risk of Sepsis Description: Patient is at risk for sepsis. Monitor closely for s/s of sepsis. Problem:Sepsis Goal:Patient/caregive r will be able to identify and report symptoms of sepsis Completed SPO2 Description: Notify Dr. Bailon if pulse ox is <92% at rest. Problem:Physician Specific Parameters Goal:Patient to maintain parameters within physician-specified ranges throughout certification period Completed Instruct on individual fall risk factors and strategies to prevent falls and injuries caused by falls. Problem:Risk for Falls Goal:Manage Risk for falls Completed PT: Patient instructed on Managing Impaired Functional Mobility: Use assistive device(s): front wheeled walker Managing Pain Instruct on pain and instruct on strategies to control pain Problem:Pain Goal:Manage Pain Completed patient instructed on techniques to control pain including Pharmacological measures and Non-Pharmacological measures; positioning/elevation, mobility/therapeutic exercise and use of thermal modalities, apply ice to affected area for the following prescribed frequency: prn. Opioids- educated on high risk medication Problem:High Risk Medications Goal:Patient/caregive r will teach back high risk medication side effect and precaution education Completed patient educated on taking medication(s) as prescribed by provider. Do not stop medication or alter doses without speaking with your provider. Discuss medication effectiveness or side effect concerns with your provider and home care team. Only take opioids as prescribed, do not share your medications, and take proper precautions in storing and properly disposing of opioids once no longer needed. Possible side effects of opioid medication including sedation, decreased rate of breathing, and constipation. Report over sedation to prescribing provider and practice deep breathing techniques every hour while awake. Prevent constipation by increasing water and fiber intake, increasing activity as tolerated, and use stool softener(s) as prescribed. Instruct on ongoing discharge plan Problem:Discharge Goal:Manage discharge planning Completed Ongoing Discharge plan: Discharge plan discussed with patient including frequency and duration for home PT and plan for transition to: outpatient therapy. [facility] Visit Details Visit Type -PT ROUTINE Discipline -Physical Therapy Problems Problem Description Start Date Status Goals Interve ntions PT Impaired muscle performance and/or ROM Disciplines: PT 03/18/2024 Active 1 goal linked to scheduled/document ed intervention 1 goal intervention scheduled/document ed in this visit PT Impaired mobility Disciplines: PT 03/18/2024 Active 2 goals linked to scheduled/document ed interventions 2 goal interventions scheduled/document ed in this visit PT Impaired gait Disciplines: PT 03/18/2024 Active 2 goals linked to scheduled/document ed interventions 2 goal interventions scheduled/document ed in this visit PT Orthopedic Condition Disciplines: PT 03/18/2024 Active 1 goal linked to scheduled/document ed intervention 1 goal intervention scheduled/document ed in this visit PT Learning Assessment Disciplines: PT 03/18/2024 Active 1 goal linked to scheduled/document ed intervention 1 goal intervention scheduled/document ed in this visit Sepsis Disciplines: Skilled Services 03/18/2024 Active 1 goal linked to scheduled/document ed intervention 1 goal intervention scheduled/document ed in this visit Physician Specific Parameters Disciplines: Skilled Services 03/18/2024 Active 1 goal linked to scheduled/document ed intervention 1 goal intervention scheduled/document ed in this visit Risk for Falls Disciplines: Skilled Services 03/18/2024 Active 1 goal linked to scheduled/document ed intervention 1 goal intervention scheduled/document ed in this visit Pain Disciplines: Skilled Services 03/18/2024 Active 1 goal linked to scheduled/document ed intervention 1 goal intervention scheduled/document ed in this visit Discharge Disciplines: Skilled Services 03/18/2024 Active 1 goal linked to scheduled/document ed intervention 1 goal intervention scheduled/document ed in this visit Goals Goal Associated Problem Outcome Goal Met? Visit Notes Improved Muscle Performance and/or ROM Description: Short term goal: Patient will demonstrate improved muscle performance to meet functional goals, to be achieved by 04/03/24. Short term goal: Patient will demonstrate improved R knee ROM to 0-90 degress of AROM or greater, to be achieved by 04/03/24. PT Impaired muscle performance and/or ROM No Improved Transfers Description: Short term goal: Patient will demonstrate safe transfers to/from bed, chair and toilet independently, to be achieved by 03/27/24. PT Impaired mobility No Improved Bed Mobility Description: STG: Patient will demonstrate improved bed mobility, ability to position self and supine <> sit independently to be achieved by 03/27/24. PT Impaired mobility No Improved Stair Climbing Description: STG:: Patient will demonstrate improved stair negotiation as evidenced by ascend/descend 1 step with FWW with supervision, to be achieved by 03/27/24. LTG: Patient will demonstrate improved stair negotiation as evidenced by ascend/descend 8 steps with railing Independently to safely access all areas of the home, to be achieved by 04/03/24. PT Impaired gait No Improved Gait Description: STG: Patient will demonstrate improved gait ability as evidenced by ambulation 150 feet with front wheeled walker with supervision, in order to access all areas of the home, to be achieved by 03/27/24. LTG: Patient will demonstrate improved gait ability as evidenced by ambulation 300 feet with LRAD independently with AD, to return to safe community ambulation, to be achieved by 04/03/24. PT Impaired gait No Manage Orthopedic Condition Description: Improve patient and/or caregiver understanding of post surgical and/or non-surgical orthopedic intervention management as evidenced by patient and/or caregiver able to verbalize, demonstrate, and teach back instruction, to be achieved by 04/03/24. PT Orthopedic Condition No Demonstrate understanding of education Description: Patient and/or caregiver will understand educational instruction to be achieved by 04/03/24. PT Learning Assessment No Patient/caregiver will be able to identify and report symptoms of sepsis Description: Patient/caregiver will be able to identify signs/symptoms of sepsis infection and will verbalize actions to take if suspected by 05/16/24. Sepsis No Patient to maintain parameters within physician-specified ranges throughout certification period Physician Specific Parameters No Manage Risk for falls Description: Patient/caregiver will verbalize knowledge of individualized fall prevention strategies by 05/16/24. Risk for Falls No Manage Pain Description: Patient and/or caregiver will verbalize knowledge and understanding of appropriate techniques to control pain, including pain medication and non-pharmacological techniques. Patient will verbalize or demonstrate an acceptable level of pain as evidenced by pain of 2/10 or less at rest. To be achieved by 04/03/24. Pain No Manage discharge planning Description: Patient/caregiver will verbalize understanding of ongoing discharge plan provided related to disease management, arrangements for outpatient and/or community services, obtaining medications, supplies, and DME, as needed throughout certification period. Discharge No Interventions Intervention Associated Problem/Goal Status Variance Visit Notes Physical Therapy Therapeutic Exercises Problem:PT Impaired muscle performance and/or ROM Goal:Improved Muscle Performance and/or ROM Completed Developed, implemented, and instructed patient and/or caregiver on strengthening exercises: Ankle pumps, quad sets, gluteal squeez, heel slides, hip abd/add, standing knee flexion on stair and seated knee flexion with forward scoot all x 10 reps. Developed, implemented, and instructed patient and/or caregiver on range of motion exercises: right knee flexion. Instructed patient and/or caregiver to perform HEP three times a day. Physical Therapy Transfer Training Problem:PT Impaired mobility Goal:Improved Transfers Completed Transfer training and instruction to patient on safe transfers to and from chair with supervision and verbal, tactile and visual cues for sequencing extremities and to promote anterior weight shifting. Recommended the following adaptive equipment/durable medical equipment: walker. Physical Therapy Bed Mobility Training Problem:PT Impaired mobility Goal:Improved Bed Mobility Completed Bed mobility training and instruction to patient, including rolling, supine<>sit and repositioning self with David and verbal cues to control invloved extremity. Physical Therapy Stair Training Problem:PT Impaired gait Goal:Improved Stair Climbing Completed Stair training and instruction to patient on safe stair climbing, ascend/descend 1 step, with FWW with supervision and verbal cues for sequencing. Physical Therapy Gait Training Problem:PT Impaired gait Goal:Improved Gait Completed Gait training and instruction to patient on safe ambulation with front wheeled walker for 150 feet with supervision, with verbal cues for corrections of gait deviations including increase BL step length, increase heel strike/toe off and to reduce reliance on BL LEs. Instruct on management of edema Problem:PT Orthopedic Condition Goal:Manage Orthopedic Condition Completed Instruct patient on management of edema including elevation above the level of the heart, ice and benefits of activity. Instruct and educate on knowledge deficits Problem:PT Learning Assessment Goal:Demonstrate understanding of education Completed patient and caregiver verbalize and/or demonstrate understanding of physical therapy education including orthopedic condition management, surgical precautions, pain management, fall prevention strategies, infection control precautions and functional activity. Risk of Sepsis Description: Patient is at risk for sepsis. Monitor closely for s/s of sepsis. Problem:Sepsis Goal:Patient/caregive r will be able to identify and report symptoms of sepsis Completed SPO2 Description: Notify Dr. Bailon if pulse ox is <92% at rest. Problem:Physician Specific Parameters Goal:Patient to maintain parameters within physician-specified ranges throughout certification period Completed Instruct on individual fall risk factors and strategies to prevent falls and injuries caused by falls. Problem:Risk for Falls Goal:Manage Risk for falls Completed Interventions implemented and instructions provided this visit to reduce risk of falls:Assistive devices to be used: FWW. Instruct on pain and instruct on strategies to control pain Problem:Pain Goal:Manage Pain Completed patient instructed on techniques to control pain including Pharmacological measures and Non-Pharmacological measures; rest, positioning/elevation, mobility/therapeutic exercise, use of DME/assistive devices and use of thermal modalities, apply ice to affected area. Instruct on ongoing discharge plan Problem:Discharge Goal:Manage discharge planning Completed Ongoing Discharge plan: Discharge plan discussed with patient and caregiver including frequency and duration for home PT and plan for transition to: outpatient therapy. documented in this encounter [facility] home Plan of care note* Visit Details Visit Type -PT ROUTINE Discipline -Physical Therapy Problems Problem Description Start Date Status Goals Interve ntions PT Impaired muscle performance and/or ROM Disciplines: PT 03/18/2024 Active 1 goal linked to scheduled/document ed intervention 1 goal intervention scheduled/document ed in this visit PT Impaired mobility Disciplines: PT 03/18/2024 Active 1 goal linked to scheduled/document ed intervention 1 goal intervention scheduled/document ed in this visit PT Impaired gait Disciplines: PT 03/18/2024 Active 1 goal linked to scheduled/document ed intervention 1 goal intervention scheduled/document ed in this visit PT Orthopedic Condition Disciplines: PT 03/18/2024 Active 1 goal linked to scheduled/document ed intervention 2 goal interventions scheduled/document ed in this visit PT Learning Assessment Disciplines: PT 03/18/2024 Active 1 goal linked to scheduled/document ed intervention 1 goal intervention scheduled/document ed in this visit Sepsis Disciplines: Skilled Services 03/18/2024 Active 1 goal linked to scheduled/document ed intervention 1 goal intervention scheduled/document ed in this visit Physician Specific Parameters Disciplines: Skilled Services 03/18/2024 Active 1 goal linked to scheduled/document ed intervention 1 goal intervention scheduled/document ed in this visit Risk for Falls Disciplines: Skilled Services 03/18/2024 Active 1 goal linked to scheduled/document ed intervention 1 goal intervention scheduled/document ed in this visit Pain Disciplines: Skilled Services 03/18/2024 Active 1 goal linked to scheduled/document ed intervention 1 goal intervention scheduled/document ed in this visit Discharge Disciplines: Skilled Services 03/18/2024 Active 1 goal linked to scheduled/document ed intervention 1 goal intervention scheduled/document ed in this visit Goals Goal Associated Problem Outcome Goal Met? Visit Notes Improved Muscle Performance and/or ROM Description: Short term goal: Patient will demonstrate improved muscle performance to meet functional goals, to be achieved by 04/03/24. Short term goal: Patient will demonstrate improved R knee ROM to 0-90 degress of AROM or greater, to be achieved by 04/03/24. PT Impaired muscle performance and/or ROM No Improved Transfers Description: Short term goal: Patient will demonstrate safe transfers to/from bed, chair and toilet independently, to be achieved by 03/27/24. PT Impaired mobility No Improved Gait Description: STG: Patient will demonstrate improved gait ability as evidenced by ambulation 150 feet with front wheeled walker with supervision, in order to access all areas of the home, to be achieved by 03/27/24. LTG: Patient will demonstrate improved gait ability as evidenced by ambulation 300 feet with LRAD independently with AD, to return to safe community ambulation, to be achieved by 04/03/24. PT Impaired gait No Manage Orthopedic Condition Description: Improve patient and/or caregiver understanding of post surgical and/or non-surgical orthopedic intervention management as evidenced by patient and/or caregiver able to verbalize, demonstrate, and teach back instruction, to be achieved by 04/03/24. PT Orthopedic Condition No Demonstrate understanding of education Description: Patient and/or caregiver will understand educational instruction to be achieved by 04/03/24. PT Learning Assessment No Patient/caregiver will be able to identify and report symptoms of sepsis Description: Patient/caregiver will be able to identify signs/symptoms of sepsis infection and will verbalize actions to take if suspected by 05/16/24. Sepsis No Patient to maintain parameters within physician-specified ranges throughout certification period Physician Specific Parameters No Manage Risk for falls Description: Patient/caregiver will verbalize knowledge of individualized fall prevention strategies by 05/16/24. Risk for Falls No Manage Pain Description: Patient and/or caregiver will verbalize knowledge and understanding of appropriate techniques to control pain, including pain medication and non-pharmacological techniques. Patient will verbalize or demonstrate an acceptable level of pain as evidenced by pain of 2/10 or less at rest. To be achieved by 04/03/24. Pain No Manage discharge planning Description: Patient/caregiver will verbalize understanding of ongoing discharge plan provided related to disease management, arrangements for outpatient and/or community services, obtaining medications, supplies, and DME, as needed throughout certification period. Discharge No Interventions Intervention Associated Problem/Goal Status Variance Visit Notes Physical Therapy Therapeutic Exercises Problem:PT Impaired muscle performance and/or ROM Goal:Improved Muscle Performance and/or ROM Completed instructed patient and/or caregiver on strengthening exercises: Ankle pumps, quad sets, gluteal squeez, heel slides, hip abd/add, standing knee flexion on stair and seated knee flexion with forward scoot all x 10 reps. Developed, implemented, and instructed patient and/or caregiver on range of motion exercises: right knee flexion. Instructed patient and/or caregiver to perform HEP three times a day. Physical Therapy Transfer Training Problem:PT Impaired mobility Goal:Improved Transfers Completed Transfer training and instruction to patient on safe transfers to and from chair Independently Physical Therapy Gait Training Problem:PT Impaired gait Goal:Improved Gait Completed Gait training and instruction to patient on safe ambulation with front wheeled walker for 150 feet with supervision, with verbal cues for corrections of gait deviations including increase BL step length and to facilitate equal step lengths. Instruct on management of edema Problem:PT Orthopedic Condition Goal:Manage Orthopedic Condition Completed Instruct patient on management of edema including elevation above the level of the heart, ice and benefits of activity. Physical therapy to perform surgical incision/wound management Description: Removal of post-op dressing on POD 7-10 (03/23 - 03/26). If no drainage is present, leave open to air; if drainage is present, cover with clean dressing and contact provider. Problem:PT Orthopedic Condition Goal:Manage Orthopedic Condition Completed Intervention completed this date. Instruct and educate on knowledge deficits Problem:PT Learning Assessment Goal:Demonstrate understanding of education Completed patient and caregiver verbalize and/or demonstrate understanding of physical therapy education including orthopedic condition management, pain management, fall prevention strategies, functional activity and home exercise program. Risk of Sepsis Description: Patient is at risk for sepsis. Monitor closely for s/s of sepsis. Problem:Sepsis Goal:Patient/caregive r will be able to identify and report symptoms of sepsis Completed SPO2 Description: Notify Dr. Bailon if pulse ox is <92% at rest. Problem:Physician Specific Parameters Goal:Patient to maintain parameters within physician-specified ranges throughout certification period Completed Instruct on individual fall risk factors and strategies to prevent falls and injuries caused by falls. Problem:Risk for Falls Goal:Manage Risk for falls Completed Interventions implemented and instructions provided this visit to reduce risk of falls:Assistive devices to be used: FWW. Instruct on pain and instruct on strategies to control pain Problem:Pain Goal:Manage Pain Completed patient instructed on techniques to control pain including Pharmacological measures and Non-Pharmacological measures; rest, positioning/elevation, mobility/therapeutic exercise, use of DME/assistive devices and use of thermal modalities, apply ice to affected area. Instruct on ongoing discharge plan Problem:Discharge Goal:Manage discharge planning Completed Ongoing Discharge plan: Discharge plan discussed with patient and caregiver including frequency and duration for home PT and plan for transition to: outpatient therapy. documented in this encounter [facility]'s home Plan of care note* Visit Details Visit Type -PT ROUTINE Discipline -Physical Therapy Problems Problem Description Start Date Status Goals Interve ntions PT Impaired muscle performance and/or ROM Disciplines: PT 03/18/2024 Active 1 goal linked to scheduled/document ed intervention 1 goal intervention scheduled/document ed in this visit PT Impaired mobility Disciplines: PT 03/18/2024 Resolved on 03/26/2024 2 goals linked to scheduled/document ed interventions 2 goal interventions scheduled/document ed in this visit PT Impaired gait Disciplines: PT 03/18/2024 Active 1 goal linked to scheduled/document ed intervention 1 goal intervention scheduled/document ed in this visit PT Impaired balance Disciplines: PT 03/18/2024 Active 1 goal linked to scheduled/document ed intervention 1 goal intervention scheduled/document ed in this visit PT Orthopedic Condition Disciplines: PT 03/18/2024 Active 1 goal linked to scheduled/document ed intervention 2 goal interventions scheduled/document ed in this visit PT Learning Assessment Disciplines: PT 03/18/2024 Active 1 goal linked to scheduled/document ed intervention 1 goal intervention scheduled/document ed in this visit Sepsis Disciplines: Skilled Services 03/18/2024 Active 1 goal linked to scheduled/document ed intervention 1 goal intervention scheduled/document ed in this visit Physician Specific Parameters Disciplines: Skilled Services 03/18/2024 Active 1 goal linked to scheduled/document ed intervention 1 goal intervention scheduled/document ed in this visit Risk for Falls Disciplines: Skilled Services 03/18/2024 Active 1 goal linked to scheduled/document ed intervention 1 goal intervention scheduled/document ed in this visit Pain Disciplines: Skilled Services 03/18/2024 Active 1 goal linked to scheduled/document ed intervention 1 goal intervention scheduled/document ed in this visit Discharge Disciplines: Skilled Services 03/18/2024 Active 1 goal linked to scheduled/document ed intervention 1 goal intervention scheduled/document ed in this visit Goals Goal Associated Problem Outcome Goal Met? Visit Notes Improved Muscle Performance and/or ROM Description: Short term goal: Patient will demonstrate improved muscle performance to meet functional goals, to be achieved by 04/03/24. Short term goal: Patient will demonstrate improved R knee ROM to 0-90 degress of AROM or greater, to be achieved by 04/03/24. PT Impaired muscle performance and/or ROM No Improved Transfers Description: Short term goal: Patient will demonstrate safe transfers to/from bed, chair and toilet independently, to be achieved by 03/27/24. PT Impaired mobility Completed Yes Goal met Improved Bed Mobility Description: STG: Patient will demonstrate improved bed mobility, ability to position self and supine <> sit independently to be achieved by 03/27/24. PT Impaired mobility Completed Yes Goal met Improved Gait Description: STG: Patient will demonstrate improved gait ability as evidenced by ambulation 150 feet with front wheeled walker with supervision, in order to access all areas of the home, to be achieved by 03/27/24. LTG: Patient will demonstrate improved gait ability as evidenced by ambulation 300 feet with LRAD independently with AD, to return to safe community ambulation, to be achieved by 04/03/24. PT Impaired gait No Improved Balance Description: Short term goal: Patient will demonstrate improved standing balance and functional ability as evidenced by TUGscore of 20 seconds or less, to be achieved by 04/03/24. PT Impaired balance No Manage Orthopedic Condition Description: Improve patient and/or caregiver understanding of post surgical and/or non-surgical orthopedic intervention management as evidenced by patient and/or caregiver able to verbalize, demonstrate, and teach back instruction, to be achieved by 04/03/24. PT Orthopedic Condition No Demonstrate understanding of education Description: Patient and/or caregiver will understand educational instruction to be achieved by 04/03/24. PT Learning Assessment No Patient/caregiver will be able to identify and report symptoms of sepsis Description: Patient/caregiver will be able to identify signs/symptoms of sepsis infection and will verbalize actions to take if suspected by 05/16/24. Sepsis No Patient to maintain parameters within physician-specified ranges throughout certification period Physician Specific Parameters No Manage Risk for falls Description: Patient/caregiver will verbalize knowledge of individualized fall prevention strategies by 05/16/24. Risk for Falls No Manage Pain Description: Patient and/or caregiver will verbalize knowledge and understanding of appropriate techniques to control pain, including pain medication and non-pharmacological techniques. Patient will verbalize or demonstrate an acceptable level of pain as evidenced by pain of 2/10 or less at rest. To be achieved by 04/03/24. Pain No Manage discharge planning Description: Patient/caregiver will verbalize understanding of ongoing discharge plan provided related to disease management, arrangements for outpatient and/or community services, obtaining medications, supplies, and DME, as needed throughout certification period. Discharge No Interventions Intervention Associated Problem/Goal Status Variance Visit Notes Physical Therapy Therapeutic Exercises Problem:PT Impaired muscle performance and/or ROM Goal:Improved Muscle Performance and/or ROM Completed patient instructed on strengthening exercises including at countertop with verbal, visual and written cues for sequencing and to maintain upright posture. patient instructed to perform home exercise program three times a day which included standing: hip flexion, hip extension, hip abduction, heel/toe raises and standing knee flexion stretch and standing knee extension stretch both on step. Performed seated R knee flexion with forward scoot. Physical Therapy Transfer Training Problem:PT Impaired mobility Goal:Improved Transfers Completed Transfer training and instruction to patient on safe transfers to and from chair Independently. Physical Therapy Bed Mobility Training Problem:PT Impaired mobility Goal:Improved Bed Mobility Completed Bed mobility training and instruction to patient, including rolling, supine<>sit and repositioning self Indepedently. Physical Therapy Gait Training Problem:PT Impaired gait Goal:Improved Gait Completed Gait training and instruction to patient on safe ambulation with front wheeled walker for 150 feet with supervision, with verbal cues for corrections of gait deviations including increase BL step length, increase heel strike/toe off and to reduce reliance on BL LEs. Physical Therapy Balance Training Problem:PT Impaired balance Goal:Improved Balance Completed Developed, implemented, and instructed patient and/or caregiver on standing balance exercises, including static/dynamic activities with and without UE support and weight shifting with narrow VON and SLS activities. Instruct on orthopedic precautions and weight bearing restrictions Description: Orthopedic precautions including right total knee: no crossing legs, no knee flexed over pillow at rest, no kneeling, no squatting and no twisting. Weight bearing restrictions include: WBAT of involved extremity. Problem:PT Orthopedic Condition Goal:Manage Orthopedic Condition Completed patient instructed on orthopedic precautions. Instruct on management of edema Problem:PT Orthopedic Condition Goal:Manage Orthopedic Condition Completed Instruct patient on management of edema including elevation above the level of the heart, ice and benefits of activity. Instruct and educate on knowledge deficits Problem:PT Learning Assessment Goal:Demonstrate understanding of education Completed patient verbalize and/or demonstrate understanding of physical therapy education including orthopedic condition management, pain management, fall prevention strategies, functional activity and home exercise program. Risk of Sepsis Description: Patient is at risk for sepsis. Monitor closely for s/s of sepsis. Problem:Sepsis Goal:Patient/caregive r will be able to identify and report symptoms of sepsis Completed SPO2 Description: Notify Dr. Bailon if pulse ox is <92% at rest. Problem:Physician Specific Parameters Goal:Patient to maintain parameters within physician-specified ranges throughout certification period Completed Instruct on individual fall risk factors and strategies to prevent falls and injuries caused by falls. Problem:Risk for Falls Goal:Manage Risk for falls Completed Interventions implemented and instructions provided this visit to reduce risk of falls:Assistive devices to be used: FWW. Instruct on pain and instruct on strategies to control pain Problem:Pain Goal:Manage Pain Completed patient instructed on techniques to control pain including Pharmacological measures and Non-Pharmacological measures; rest, positioning/elevation, mobility/therapeutic exercise, use of DME/assistive devices and use of thermal modalities, apply ice to affected area. Instruct on ongoing discharge plan Problem:Discharge Goal:Manage discharge planning Completed Ongoing Discharge plan: Discharge plan discussed with patient including frequency and duration for home PT and plan for transition to: outpatient therapy. [facility] Visit Details Visit Type -GUM REMOVER ROUTINE Discipline -Physical Therapy Problems Problem Description Start Date Status Goals Interve ntions PT Impaired muscle performance and/or ROM Disciplines: PT 03/18/2024 Active 1 goal linked to scheduled/document ed intervention 1 goal intervention scheduled/document ed in this visit PT Impaired gait Disciplines: PT 03/18/2024 Active 2 goals linked to scheduled/document ed interventions 2 goal interventions scheduled/document ed in this visit PT Impaired balance Disciplines: PT 03/18/2024 Active 1 goal linked to scheduled/document ed intervention 1 goal intervention scheduled/document ed in this visit PT Orthopedic Condition Disciplines: PT 03/18/2024 Active 1 goal linked to scheduled/document ed intervention 2 goal interventions scheduled/document ed in this visit PT Learning Assessment Disciplines: PT 03/18/2024 Active 1 goal linked to scheduled/document ed intervention 1 goal intervention scheduled/document ed in this visit Sepsis Disciplines: Skilled Services 03/18/2024 Active 1 goal linked to scheduled/document ed intervention 1 goal intervention scheduled/document ed in this visit Physician Specific Parameters Disciplines: Skilled Services 03/18/2024 Active 1 goal linked to scheduled/document ed intervention 1 goal intervention scheduled/document ed in this visit Risk for Falls Disciplines: Skilled Services 03/18/2024 Active 1 goal linked to scheduled/document ed intervention 1 goal intervention scheduled/document ed in this visit Pain Disciplines: Skilled Services 03/18/2024 Active 1 goal linked to scheduled/document ed intervention 1 goal intervention scheduled/document ed in this visit Discharge Disciplines: Skilled Services 03/18/2024 Active 1 goal linked to scheduled/document ed intervention 2 goal interventions scheduled/document ed in this visit Goals Goal Associated Problem Outcome Goal Met? Visit Notes Improved Muscle Performance and/or ROM Description: Short term goal: Patient will demonstrate improved muscle performance to meet functional goals, to be achieved by 04/03/24. Short term goal: Patient will demonstrate improved R knee ROM to 0-90 degress of AROM or greater, to be achieved by 04/03/24. PT Impaired muscle performance and/or ROM No Improved Stair Climbing Description: STG:: Patient will demonstrate improved stair negotiation as evidenced by ascend/descend 1 step with FWW with supervision, to be achieved by 03/27/24. LTG: Patient will demonstrate improved stair negotiation as evidenced by ascend/descend 8 steps with railing Independently to safely access all areas of the home, to be achieved by 04/03/24. PT Impaired gait No Improved Gait Description: STG: Patient will demonstrate improved gait ability as evidenced by ambulation 150 feet with front wheeled walker with supervision, in order to access all areas of the home, to be achieved by 03/27/24. LTG: Patient will demonstrate improved gait ability as evidenced by ambulation 300 feet with LRAD independently with AD, to return to safe community ambulation, to be achieved by 04/03/24. PT Impaired gait No Improved Balance Description: Short term goal: Patient will demonstrate improved standing balance and functional ability as evidenced by TUGscore of 20 seconds or less, to be achieved by 04/03/24. PT Impaired balance No Manage Orthopedic Condition Description: Improve patient and/or caregiver understanding of post surgical and/or non-surgical orthopedic intervention management as evidenced by patient and/or caregiver able to verbalize, demonstrate, and teach back instruction, to be achieved by 04/03/24. PT Orthopedic Condition No Demonstrate understanding of education Description: Patient and/or caregiver will understand educational instruction to be achieved by 04/03/24. PT Learning Assessment No Patient/caregiver will be able to identify and report symptoms of sepsis Description: Patient/caregiver will be able to identify signs/symptoms of sepsis infection and will verbalize actions to take if suspected by 05/16/24. Sepsis No Patient to maintain parameters within physician-specified ranges throughout certification period Physician Specific Parameters No Manage Risk for falls Description: Patient/caregiver will verbalize knowledge of individualized fall prevention strategies by 05/16/24. Risk for Falls No Manage Pain Description: Patient and/or caregiver will verbalize knowledge and understanding of appropriate techniques to control pain, including pain medication and non-pharmacological techniques. Patient will verbalize or demonstrate an acceptable level of pain as evidenced by pain of 2/10 or less at rest. To be achieved by 04/03/24. Pain No Manage discharge planning Description: Patient/caregiver will verbalize understanding of ongoing discharge plan provided related to disease management, arrangements for outpatient and/or community services, obtaining medications, supplies, and DME, as needed throughout certification period. Discharge No Interventions Intervention Associated Problem/Goal Status Variance Visit Notes Physical Therapy Therapeutic Exercises Problem:PT Impaired muscle performance and/or ROM Goal:Improved Muscle Performance and/or ROM Completed patient instructed on strengthening and range of motion exercises including lunge stretch on step, seated chair scoots, long sit ham string stretch, all 5 x 20secs with verbal, tactile, visual and written cues for slow pace and hold times. patient instructed to perform home exercise program three times a day which included the above and balance items as tolerated, stop if SOB/chest pain and report to provider. Physical Therapy Stair Training Problem:PT Impaired gait Goal:Improved Stair Climbing Patient independent reports ind. Physical Therapy Gait Training Problem:PT Impaired gait Goal:Improved Gait Completed Gait training and instruction to patient on safe ambulation with single point cane for 100 feet x 3 with supervision and stand by assist, with verbal and visual cues for corrections of gait deviations including good step through, decr toe off RLE, no LOB. Physical Therapy Balance Training Problem:PT Impaired balance Goal:Improved Balance Completed Developed, implemented, and instructed patient on standing balance exercises including calf riases, toe raises, RLE ham curls/hip ext/hip abd x 10-12 Instruct on orthopedic precautions and weight bearing restrictions Description: Orthopedic precautions including right total knee: no crossing legs, no knee flexed over pillow at rest, no kneeling, no squatting and no twisting. Weight bearing restrictions include: WBAT of involved extremity. Problem:PT Orthopedic Condition Goal:Manage Orthopedic Condition Completed patient instructed on orthopedic precautions and weight bearing restrictions. Instruct on management of edema Problem:PT Orthopedic Condition Goal:Manage Orthopedic Condition Completed Instruct patient on management of edema including elevation of RLE above the level of the heart, ice and benefits of activity. Instruct and educate on knowledge deficits Problem:PT Learning Assessment Goal:Demonstrate understanding of education Completed patient verbalize and/or demonstrate understanding of physical therapy education including orthopedic condition management, weight bearing precautions, surgical precautions, pain management, fall prevention strategies, functional activity and home exercise program. Education methods include: verbal cues, tactile cues, written instructions and visual cues. Further education required to improve knowledge and compliance with orthopedic condition management. Risk of Sepsis Description: Patient is at risk for sepsis. Monitor closely for s/s of sepsis. Problem:Sepsis Goal:Patient/caregi george will be able to identify and report symptoms of sepsis Completed SPO2 Description: Notify Dr. Bailon if pulse ox is <92% at rest. Problem:Physician Specific Parameters Goal:Patient to maintain parameters within physician-specified ranges throughout certification period Completed Instruct on individual fall risk factors and strategies to prevent falls and injuries caused by falls. Problem:Risk for Falls Goal:Manage Risk for falls Completed PT: Patient instructed on Managing Impaired Functional Mobility: Use assistive device(s): front wheeled walker and single point cane(only during the day indoors) and Caregiver to provide assist with: Ambulation, Steps, Transfers and ADL/IADLs Managing Pain Instruct on pain and instruct on strategies to control pain Problem:Pain Goal:Manage Pain Completed patient instructed on techniques to control pain including Pharmacological measures and Non-Pharmacological measures; rest, positioning/elevatio n, mobility/therapeutic exercise and use of DME/assistive devices. Deliver [facility] Problem:Discharge Goal:Manage discharge planning Completed Delivered [facility] on 03/30 for discharge date of 04/02. Instruct on ongoing discharge plan Problem:Discharge Goal:Manage discharge planning Completed Ongoing Discharge plan: Discharge plan discussed with patient including frequency and duration for home PT and plan for transition to: outpatient therapy. [facility] Visit Details Visit Type -PT AGENCY DC W V ISIT Discipline -Physical Therapy Problems Problem Description Start Date Status Goals Interve ntions PT Impaired muscle performance and/or ROM Disciplines: PT 03/18/2024 Resolved on 04/02/2024 1 goal linked to scheduled/document ed intervention 1 goal intervention scheduled/document ed in this visit PT Impaired gait Disciplines: PT 03/18/2024 Resolved on 04/02/2024 2 goals linked to scheduled/document ed interventions 1 goal intervention scheduled/document ed in this visit PT Impaired balance Disciplines: PT 03/18/2024 Resolved on 04/02/2024 1 goal linked to scheduled/document ed intervention 1 goal intervention scheduled/document ed in this visit PT Orthopedic Condition Disciplines: PT 03/18/2024 Resolved on 04/02/2024 1 goal linked to scheduled/document ed intervention 1 goal intervention scheduled/document ed in this visit PT Learning Assessment Disciplines: PT 03/18/2024 Resolved on 04/02/2024 1 goal linked to scheduled/document ed intervention 1 goal intervention scheduled/document ed in this visit Sepsis Disciplines: Skilled Services 03/18/2024 Resolved on 04/02/2024 1 goal linked to scheduled/document ed intervention 1 goal intervention scheduled/document ed in this visit Physician Specific Parameters Disciplines: Skilled Services 03/18/2024 Resolved on 04/02/2024 1 goal linked to scheduled/document ed intervention 1 goal intervention scheduled/document ed in this visit Risk for Falls Disciplines: Skilled Services 03/18/2024 Resolved on 04/02/2024 1 goal linked to scheduled/document ed intervention 1 goal intervention scheduled/document ed in this visit Pain Disciplines: Skilled Services 03/18/2024 Resolved on 04/02/2024 1 goal linked to scheduled/document ed intervention 1 goal intervention scheduled/document ed in this visit Nutrition/Hydrat ion Disciplines: Skilled Services 03/18/2024 Resolved on 04/02/2024 1 goal linked to scheduled/document ed intervention High Risk Medications Disciplines: Skilled Services 03/18/2024 Resolved on 04/02/2024 1 goal linked to scheduled/document ed intervention Discharge Disciplines: Skilled Services 03/18/2024 Resolved on 04/02/2024 1 goal linked to scheduled/document ed intervention 2 goal interventions scheduled/document ed in this visit Goals Goal Associated Problem Outcome Goal Met? Visit Notes Improved Muscle Performance and/or ROM Description: Short term goal: Patient will demonstrate improved muscle performance to meet functional goals, to be achieved by 04/03/24. Short term goal: Patient will demonstrate improved R knee ROM to 0-90 degress of AROM or greater, to be achieved by 04/03/24. PT Impaired muscle performance and/or ROM Completed Yes Goal met Improved Stair Climbing Description: STG:: Patient will demonstrate improved stair negotiation as evidenced by ascend/descend 1 step with FWW with supervision, to be achieved by 03/27/24. LTG: Patient will demonstrate improved stair negotiation as evidenced by ascend/descend 8 steps with railing Independently to safely access all areas of the home, to be achieved by 04/03/24. PT Impaired gait Completed Yes Goal met Improved Gait Description: STG: Patient will demonstrate improved gait ability as evidenced by ambulation 150 feet with front wheeled walker with supervision, in order to access all areas of the home, to be achieved by 03/27/24. LTG: Patient will demonstrate improved gait ability as evidenced by ambulation 300 feet with LRAD independently with AD, to return to safe community ambulation, to be achieved by 04/03/24. PT Impaired gait Completed Yes Goal met Improved Balance Description: Short term goal: Patient will demonstrate improved standing balance and functional ability as evidenced by TUGscore of 20 seconds or less, to be achieved by 04/03/24. PT Impaired balance Completed Yes Goal met Manage Orthopedic Condition Description: Improve patient and/or caregiver understanding of post surgical and/or non-surgical orthopedic intervention management as evidenced by patient and/or caregiver able to verbalize, demonstrate, and teach back instruction, to be achieved by 04/03/24. PT Orthopedic Condition Completed Yes Goal met Demonstrate understanding of education Description: Patient and/or caregiver will understand educational instruction to be achieved by 04/03/24. PT Learning Assessment Completed Yes Goal met Patient/caregiver will be able to identify and report symptoms of sepsis Description: Patient/caregiver will be able to identify signs/symptoms of sepsis infection and will verbalize actions to take if suspected by 05/16/24. Sepsis Completed Yes Goal met Patient to maintain parameters within physician-specified ranges throughout certification period Physician Specific Parameters Completed Yes Goal met Manage Risk for falls Description: Patient/caregiver will verbalize knowledge of individualized fall prevention strategies by 05/16/24. Risk for Falls Completed Yes Goal met Manage Pain Description: Patient and/or caregiver will verbalize knowledge and understanding of appropriate techniques to control pain, including pain medication and non-pharmacological techniques. Patient will verbalize or demonstrate an acceptable level of pain as evidenced by pain of 2/10 or less at rest. To be achieved by 04/03/24. Pain Completed Yes Goal met Manage Nutrition/Hydration Description: Patient/caregiver will verbalize/demonstrate knowledge of prescribed diet and/or healthy nutrition to be achieved by 05/16/24. Nutrition/Hydration Completed Yes Goal met Patient/caregiver will teach back high risk medication side effect and precaution education Description: STG Patient/caregiver will verbalize understanding of high risk medication side effects and precautions to be achieved by 05/16/24. LTG Patient/caregiver will continue to verbalize understanding of high risk medication side effects and precautions throughout certification period. High Risk Medications Completed Yes Goal met Manage discharge planning Description: Patient/caregiver will verbalize understanding of ongoing discharge plan provided related to disease management, arrangements for outpatient and/or community services, obtaining medications, supplies, and DME, as needed throughout certification period. Discharge Completed Yes Goal met Interventions Intervention Associated Problem/Goal Status Variance Visit Notes Physical Therapy Therapeutic Exercises Problem:PT Impaired muscle performance and/or ROM Goal:Improved Muscle Performance and/or ROM Completed patient instructed on strengthening and range of motion exercises including lunge stretch on step, seated chair scoots, long sit ham string stretch, all 5 x 20secs with verbal, tactile, visual and written cues for slow pace and hold times. patient instructed to perform home exercise program three times a day which included the above and balance items as tolerated, stop if SOB/chest pain and report to provider. Physical Therapy Gait Training Problem:PT Impaired gait Goal:Improved Gait Completed Patient ambulated 400ft with SPC Independently with AD over a variety of floor surfaces with no LOB. Physical Therapy Balance Training Problem:PT Impaired balance Goal:Improved Balance Completed Developed, implemented, and instructed patient and/or caregiver on standing balance exercises, including static/dynamic activities with and without UE support and weight shifting with narrow VON and SLS activities. Instruct on management of edema Problem:PT Orthopedic Condition Goal:Manage Orthopedic Condition Completed Instruct patient on management of edema including elevation above the level of the heart, ice and benefits of activity. Instruct and educate on knowledge deficits Problem:PT Learning Assessment Goal:Demonstrate understanding of education Completed patient and caregiver verbalize and/or demonstrate understanding of physical therapy education including orthopedic condition management, fall prevention strategies, functional activity and home exercise program. Risk of Sepsis Description: Patient is at risk for sepsis. Monitor closely for s/s of sepsis. Problem:Sepsis Goal:Patient/caregive r will be able to identify and report symptoms of sepsis Completed SPO2 Description: Notify Dr. Bailon if pulse ox is <92% at rest. Problem:Physician Specific Parameters Goal:Patient to maintain parameters within physician-specified ranges throughout certification period Completed Instruct on individual fall risk factors and strategies to prevent falls and injuries caused by falls. Problem:Risk for Falls Goal:Manage Risk for falls Completed Interventions implemented and instructions provided this visit to reduce risk of falls:Assistive devices to be used: FWW. Instruct on pain and instruct on strategies to control pain Problem:Pain Goal:Manage Pain Completed patient instructed on techniques to control pain including Pharmacological measures and Non-Pharmacological measures; rest, positioning/elevation, mobility/therapeutic exercise, use of DME/assistive devices and use of thermal modalities, apply ice to affected area. Instruct on final discharge plan and deliver discharge instructions Problem:Discharge Goal:Manage discharge planning Completed Delivered Discharge plan: Discharge plan discussed with patient and caregiver for plan for transition to: outpatient therapy Instruct on importance of follow-up appts and continued monitoring with medical provider &/or chronic care clinic Problem:Discharge Goal:Manage discharge planning Completed Education provided on importance of compliance with follow-up appointment(s). documented in this encounter [facility] for referral (narrative)* Diagnostic Procedure Only (Routine) - Closed Specialty Diagnoses / Procedures Referred By Shira sandhu Referred To Contact XR IMAGING Diagnoses Pain in right hip Procedures XR HIP GENERAL 3V PELV/AP/LAT RIGHT RADEX HIP UNILATERAL WITH PELVIS 2-3 VIEWS Sujatha Masterson DO [address] [id number] Xr Imaging Referral ID Status Reason Start Date Expiration Date V isits Requested Visits Authorized [id number] Closed Auto-Generate d Referral 05/17/2022 06/16/2023 1 1 [facility] for referral (narrative)* Outpatient Procedure (Routine) - New Request Specialty Diagnoses / Procedures Referred By Contac t Referred To Contact [facility] Diagnoses Pre-op evaluation Procedures ECG COMPLETE ECG ROUTINE ECG W/LEAST 12 LDS W/I&R Heidi Waddell PA-C [address] [place] [address] [facility] [address] [place] [address] Referral ID Status Reason Start Date Expiration Date Visits Requested Visits Authorized [id number] New Request Auto-Generat ed Referral 02/24/2024 02/23/2025 1 1 [facility] for referral (narrative)* Diagnostic Procedure Only (Routine) - Closed Specialty Diagnoses / Procedures Referred By Contac t Referred To Contact XR IMAGING Diagnoses Primary osteoarthritis of right knee Procedures XR KNEE GENERAL 4V AP BOTH/PA BOTH/LAT/MERC RIGHT RADIOLOGIC EXAM KNEE COMPLETE 4/MORE VIEWS Sujatha Masterson DO [address] [place] [address] [place] [address] Referral ID Status Reason Start Date Expiration Date V isits Requested Visits Authorized [id number] Closed Auto-Generate d Referral 08/21/2023 09/19/2024 1 1 [facility] for referral (narrative)* Diagnostic Procedure Only (Routine) - Closed Specialty Diagnoses / Procedures Referred By Contac t Referred To Contact XR IMAGING Diagnoses Pain in right hip Procedures XR HIP GENERAL 3V PELV/AP/LAT RIGHT RADEX HIP UNILATERAL WITH PELVIS 2-3 VIEWS Sujatha Masterson DO [address] [place] [address] [place] [address] Referral ID Status Reason Start Date Expiration Date V isits Requested Visits Authorized [id number] Closed Auto-Generate d Referral 05/17/2022 06/16/2023 1 1 [facility] for referral (narrative)* Diagnostic Procedure Only (Routine) - Closed Specialty Diagnoses / Procedures Referred By Contac t Referred To Contact XR IMAGING Diagnoses Pain in right hip Procedures XR HIP GENERAL 3V PELV/AP/LAT RIGHT RADEX HIP UNILATERAL WITH PELVIS 2-3 VIEWS Brigid Bailon MD [address] [address] [place] [address] Referral ID Status Reason Start Date Expiration Date V isits Requested Visits Authorized [id number] Closed Auto-Generate d Referral 06/14/2024 07/14/2025 1 1 * Diagnostic Procedure Only (Routine) - Closed Specialty Diagnoses / Procedures Referred By Contac t Referred To Contact XR IMAGING Diagnoses Status post total right knee replacement Procedures XR KNEE POST OP 3V AP/LAT/MERCHANT RIGHT RADIOLOGIC EXAMINATION KNEE 3 VIEWS Brigid Bailon MD [address] [phone] [place] [address] Referral ID Status Reason Start Date Expiration Date V isits Requested Visits Authorized [id number] Closed Auto-Generate d Referral 06/14/2024 07/14/2025 1 1 [facility] for referral (narrative)* Diagnostic Procedure Only (Routine) - Closed Specialty Diagnoses / Procedures Referred By Contac t Referred To Contact XR IMAGING Diagnoses Pain in right hip Procedures XR HIP GENERAL 3V PELV/AP/LAT RIGHT RADEX HIP UNILATERAL WITH PELVIS 2-3 VIEWS Brigid Bailon MD [address] [address] [place] [address] Referral ID Status Reason Start Date Expiration Date V isits Requested Visits Authorized [id number] Closed Auto-Generate d Referral 06/14/2024 07/14/2025 1 1 * Diagnostic Procedure Only (Routine) - Closed Specialty Diagnoses / Procedures Referred By Shira t Referred To Contact XR IMAGING Diagnoses Status post total right knee replacement Procedures XR KNEE POST OP 3V AP/LAT/MERCHANT RIGHT RADIOLOGIC EXAMINATION KNEE 3 VIEWS Brigid Bailon MD [address] [address] [place] [address] Referral ID Status Reason Start Date Expiration Date V isits Requested Visits Authorized [id number] Closed Auto-Generate d Referral 06/14/2024 07/14/2025 1 1 [facility] for visit Narrative* Diagnostic Procedure Only (Routine) - Closed Specialty Diagnoses / Procedures Referred By Shira t Referred To Contact XR IMAGING Diagnoses Primary osteoarthritis of right knee Procedures XR KNEE GENERAL 4V AP BOTH/PA BOTH/LAT/MERC RIGHT RADIOLOGIC EXAM KNEE COMPLETE 4/MORE VIEWS Sujatha Masterson, [address] [place] [address] [place] [address] Referral ID Status Reason Start Date Expiration Date V isits Requested Visits Authorized [id number] Closed Auto-Generate d Referral 08/21/2023 09/19/2024 1 1 [facility] for visit Narrative* Diagnostic Procedure Only (Routine) - Closed Specialty Diagnoses / Procedures Referred By Contac t Referred To Contact XR IMAGING Diagnoses Right knee pain, unspecified chronicity Procedures XR KNEE POST OP 3V AP/LAT/MERCHANT RIGHT RADIOLOGIC EXAMINATION KNEE 3 VIEWS Dennis Butts PA-C [address] [place] [address] [place] [address] Referral ID Status Reason Start Date Expiration Date V isits Requested Visits Authorized [id number] Closed Auto-Generate d Referral 03/18/2024 04/17/2025 1 1 [facility] for visit Narrative* Diagnostic Procedure Only (Routine) - Closed Specialty Diagnoses / Procedures Referred By Contac t Referred To Contact XR IMAGING Diagnoses Pain in right hip Procedures XR HIP GENERAL 3V PELV/AP/LAT RIGHT RADEX HIP UNILATERAL WITH PELVIS 2-3 VIEWS Sujatha Masterson, [address] [place] [address] [place] [address] Referral ID Status Reason Start Date Expiration Date V isits Requested Visits Authorized [id number] Closed Auto-Generate d Referral 05/17/2022 06/16/2023 1 1 [facility] Summary Purpose Family History No Family History Records Found Relationship Condition Age at Onset Recorded Date/T sony Not Specified Malignant neoplasm of throat Unknown Diabetes mellitus Unknown Cardiac disease Unknown Family history of thyroid disease Unknown Hypertension Unknown Advance Directives No Advanced Directives Records Found Advance Directive Response Recorded Date/ Time Living Will Yes March 27, 2020 3:27pm Power of Cat Swamper No March 3:27pm Date Activated Date Inactivated Comments 03/18/2024 11:59 AM Date Activated Date Inactivated Comments 03/18/2024 11:59 AM Date Activated Date Inactivated Comments 03/18/2024 11:59 AM 06/09/2024 8:26 AM Date Activated Date Inactivated Comments 03/18/2024 11:59 AM 06/09/2024 8:26 AM Chief Complaint and Reason for Visit Chief Complaint medication refills Reason for Visit Hyperlipidemia Hypothyroidism Medications Administered Section Inactive Administered Medications - up to 3 most recent administrations Medication Order MAR Action Action Date Dose Rate Site Sodium Hyaluronate 30 mg (ORTHOVISC) 30 mg, Injection - FOR ORTHO USE ONLY, ONE TIME INJECTION, 1 dose, Starting on Fri07/19/22 at 1011, Until Fri07/19/22 at 1011 Given 07/19/2022 10:11 AM EST 30 mg Knee, Right Inactive Administered Medications - up to 3 most recent administrations Medication Order MAR Action Action Date Dose Rate Site ropivacaine (PF) 5 mg/mL (0.5 %) 8 mL injection (NAROPIN) 8 mL, Injection - FOR ORTHO USE ONLY, ONE TIME INJECTION, 1 dose, Starting on Fri07/31/22 at 1306, Until Fri07/31/22 at 1306 Given 07/31/2022 1:06 PM EST 8 mL Knee, Right Sodium Hyaluronate 30 mg (ORTHOVISC) 30 mg, Injection - FOR ORTHO USE ONLY, ONE TIME INJECTION, 1 dose, Starting on Fri07/31/22 at 1306, Until Fri07/31/22 at 1306 Given 07/31/2022 1:06 PM EST 30 mg Knee, Right triamcinolone acetonide 80 mg injection (KeNALog 40) 80 mg, Injection - FOR ORTHO USE ONLY, ONE TIME INJECTION, 1 dose, Starting on Fri07/31/22 at 1306, Until Fri07/31/22 at 1306 Given 07/31/2022 1:06 PM EST 80 mg Knee, Right Inactive Administered Medications - up to 3 most recent administrations Medication Order MAR Action Action Date Dose Rate Site Sodium Hyaluronate 30 mg (ORTHOVISC) 30 mg, Injection - FOR ORTHO USE ONLY, ONE TIME INJECTION, 1 dose, Starting on Fri02/17/23 at 1331, Until Fri02/17/23 at 1331 Given 02/17/2023 1:31 PM EDT 30 mg Knee, Right Inactive Administered Medications - up to 3 most recent administrations Medication Order MAR Action Action Date Dose Rate Site Sodium Hyaluronate 30 mg (ORTHOVISC) 30 mg, Injection - FOR ORTHO USE ONLY, ONE TIME INJECTION, 1 dose, Starting on Fri02/24/23 at 1318, Until Fri02/24/23 at 1318 Given 02/24/2023 1:18 PM EDT 30 mg Knee, Right Inactive Administered Medications - up to 3 most recent administrations Medication Order MAR Action Action Date Dose Rate Site Sodium Hyaluronate 30 mg (ORTHOVISC) 30 mg, Injection - FOR ORTHO USE ONLY, ONE TIME INJECTION, 1 dose, Starting on Fri03/03/23 at 1330, Until Fri03/03/23 at 1330 Given 03/03/2023 1:30 PM EDT 30 mg Knee, Right Reason for Referral Specialty Diagnoses / Procedures Referred By Contjamila t Referred To Contact Dermatology Diagnoses History of metal allergy Procedures CONSULT TO DERMATOLOGY OFFICE/[facility] 60 MINUTES Brigid Bailon MD [address] [address] Hilario Cummings MD [address] [address] Referral ID Status Reason Start Date Expiration Date Visits Requested Visits Authorized [id number] Authorized PCP Requested Referral 09/17/2023 09/16/2024 1 1 Specialty Diagnoses / Procedures Referred By Contac t Referred To Contact CT IMAGING Diagnoses Primary osteoarthritis of right knee Preoperative testing Procedures CT KNEE WO IVCON RIGHT CT LOWER EXTREMITY W/O CONTRAST MATERIAL Dennis Butts PA-C [address] [place] [address] [facility] Referral ID Status Reason Start Date Expiration Date Visits Requested Visits Authorized [id number] Authorized Auto-Generat ed Referral 02/17/2024 03/18/2025 1 1 Specialty Diagnoses / Procedures Referred By Contac t Referred To Contact [facility] Diagnoses S/P total knee arthroplasty, right Procedures CONSULT TO PHYSICAL THERAPY PHYSICAL THERAPY EVALUATION HIGH COMPLEX 45 MINS Dennis Butts PA-C [address] [place] [address] [facility] [address] [place] [address] Referral ID Status Reason Start Date Expiration Date Visits Requested Visits Authorized [id number] Pending Review Auto-Generat ed Referral 03/29/2024 03/29/2025 1 1 Additional Source Comments INFORMATION SOURCE (unrecogn ized section and content) DATE CREATED AUTHOR 11/19/2019 [facility] DATE CREATED AUTHOR AUTHOR'S ORGANIZ ATION 06/17/2024 [facility] DATE CREATED AUTHOR AUTHOR'S ORGANIZ ATION 06/23/2024 [facility] DATE CREATED AUTHOR AUTHOR'S ORGANIZ ATION 11/10/2024 [facility] DATE CREATED AUTHOR AUTHOR'S ORGANIZ ATION 11/11/2024 [facility] Goals (unrecognized section and content) Goals may be documented in a n alternate section Source Comments (unrecognize d section and content) In the event this informatio n is protected by the Federal Confidentiality of Alcohol and Drug Abuse Patient Records regulations: The Federal rules restrict any use of the information to criminally investigate or prosecute any alcohol or drug abuse patient.[facility] the event this information is protected by the Federal Confidentiality of Alcohol and Drug Abuse Patient Records regulations: The Federal rules restrict any use of the information to criminally investigate or prosecute any alcohol or drug abuse patient.[facility] the event this information is protected by the Federal Confidentiality of Alcohol and Drug Abuse Patient Records regulations: The Federal rules restrict any use of the information to criminally investigate or prosecute any alcohol or drug abuse patient.[facility] the event this information is protected by the Federal Confidentiality of Alcohol and Drug Abuse Patient Records regulations: The Federal rules restrict any use of the information to criminally investigate or prosecute any alcohol or drug abuse patient.[facility] the event this information is protected by the Federal Confidentiality of Alcohol and Drug Abuse Patient Records regulations: The Federal rules restrict any use of the information to criminally investigate or prosecute any alcohol or drug abuse patient.[facility] the event this information is protected by the Federal Confidentiality of Alcohol and Drug Abuse Patient Records regulations: The Federal rules restrict any use of the information to criminally investigate or prosecute any alcohol or drug abuse patient.[facility] the event this information is protected by the Federal Confidentiality of Alcohol and Drug Abuse Patient Records regulations: The Federal rules restrict any use of the information to criminally investigate or prosecute any alcohol or drug abuse patient.[facility] the event this information is protected by the Federal Confidentiality of Alcohol and Drug Abuse Patient Records regulations: The Federal rules restrict any use of the information to criminally investigate or prosecute any alcohol or drug abuse patient.[facility] the event this information is protected by the Federal Confidentiality of Alcohol and Drug Abuse Patient Records regulations: The Federal rules restrict any use of the information to criminally investigate or prosecute any alcohol or drug abuse patient.[facility] the event this information is protected by the Federal Confidentiality of Alcohol and Drug Abuse Patient Records regulations: The Federal rules restrict any use of the information to criminally investigate or prosecute any alcohol or drug abuse patient.[facility] the event this information is protected by the Federal Confidentiality of Alcohol and Drug Abuse Patient Records regulations: The Federal rules restrict any use of the information to criminally investigate or prosecute any alcohol or drug abuse patient.[facility] the event this information is protected by the Federal Confidentiality of Alcohol and Drug Abuse Patient Records regulations: The Federal rules restrict any use of the information to criminally investigate or prosecute any alcohol or drug abuse patient.[facility] the event this information is protected by the Federal Confidentiality of Alcohol and Drug Abuse Patient Records regulations: The Federal rules restrict any use of the information to criminally investigate or prosecute any alcohol or drug abuse patient.[facility] the event this information is protected by the Federal Confidentiality of Alcohol and Drug Abuse Patient Records regulations: The Federal rules restrict any use of the information to criminally investigate or prosecute any alcohol or drug abuse patient.[facility] the event this information is protected by the Federal Confidentiality of Alcohol and Drug Abuse Patient Records regulations: The Federal rules restrict any use of the information to criminally investigate or prosecute any alcohol or drug abuse patient.[facility] the event this information is protected by the Federal Confidentiality of Alcohol and Drug Abuse Patient Records regulations: The Federal rules restrict any use of the information to criminally investigate or prosecute any alcohol or drug abuse patient.[facility] the event this information is protected by the Federal Confidentiality of Alcohol and Drug Abuse Patient Records regulations: The Federal rules restrict any use of the information to criminally investigate or prosecute any alcohol or drug abuse patient.[facility] the event this information is protected by the Federal Confidentiality of Alcohol and Drug Abuse Patient Records regulations: The Federal rules restrict any use of the information to criminally investigate or prosecute any alcohol or drug abuse patient.[facility] the event this information is protected by the Federal Confidentiality of Alcohol and Drug Abuse Patient Records regulations: The Federal rules restrict any use of the information to criminally investigate or prosecute any alcohol or drug abuse patient.[facility] the event this information is protected by the Federal Confidentiality of Alcohol and Drug Abuse Patient Records regulations: The Federal rules restrict any use of the information to criminally investigate or prosecute any alcohol or drug abuse patient.[facility] the event this information is protected by the Federal Confidentiality of Alcohol and Drug Abuse Patient Records regulations: The Federal rules restrict any use of the information to criminally investigate or prosecute any alcohol or drug abuse patient.[facility] the event this information is protected by the Federal Confidentiality of Alcohol and Drug Abuse Patient Records regulations: The Federal rules restrict any use of the information to criminally investigate or prosecute any alcohol or drug abuse patient.[facility] the event this information is protected by the Federal Confidentiality of Alcohol and Drug Abuse Patient Records regulations: The Federal rules restrict any use of the information to criminally investigate or prosecute any alcohol or drug abuse patient.[facility] the event this information is protected by the Federal Confidentiality of Alcohol and Drug Abuse Patient Records regulations: The Federal rules restrict any use of the information to criminally investigate or prosecute any alcohol or drug abuse patient.[facility] the event this information is protected by the Federal Confidentiality of Alcohol and Drug Abuse Patient Records regulations: The Federal rules restrict any use of the information to criminally investigate or prosecute any alcohol or drug abuse patient.[facility] HospitalIn the event this information is protected by the Federal Confidentiality of Alcohol and Drug Abuse Patient Records regulations: The Federal rules restrict any use of the information to criminally investigate or prosecute any alcohol or drug abuse patient.[facility] HospitalIn the event this information is protected by the Federal Confidentiality of Alcohol and Drug Abuse Patient Records regulations: The Federal rules restrict any use of the information to criminally investigate or prosecute any alcohol or drug abuse patient.[facility] HospitalIn the event this information is protected by the Federal Confidentiality of Alcohol and Drug Abuse Patient Records regulations: The Federal rules restrict any use of the information to criminally investigate or prosecute any alcohol or drug abuse patient.[facility] HospitalIn the event this information is protected by the Federal Confidentiality of Alcohol and Drug Abuse Patient Records regulations: The Federal rules restrict any use of the information to criminally investigate or prosecute any alcohol or drug abuse patient.[facility] HospitalIn the event this information is protected by the Federal Confidentiality of Alcohol and Drug Abuse Patient Records regulations: The Federal rules restrict any use of the information to criminally investigate or prosecute any alcohol or drug abuse patient.[facility] HospitalIn the event this information is protected by the Federal Confidentiality of Alcohol and Drug Abuse Patient Records regulations: The Federal rules restrict any use of the information to criminally investigate or prosecute any alcohol or drug abuse patient.[facility] HospitalIn the event this information is protected by the Federal Confidentiality of Alcohol and Drug Abuse Patient Records regulations: The Federal rules restrict any use of the information to criminally investigate or prosecute any alcohol or drug abuse patient.[facility] HospitalIn the event this information is protected by the Federal Confidentiality of Alcohol and Drug Abuse Patient Records regulations: The Federal rules restrict any use of the information to criminally investigate or prosecute any alcohol or drug abuse patient.[facility] HospitalIn the event this information is protected by the Federal Confidentiality of Alcohol and Drug Abuse Patient Records regulations: The Federal rules restrict any use of the information to criminally investigate or prosecute any alcohol or drug abuse patient.[facility] HospitalIn the event this information is protected by the Federal Confidentiality of Alcohol and Drug Abuse Patient Records regulations: The Federal rules restrict any use of the information to criminally investigate or prosecute any alcohol or drug abuse patient.[facility] HospitalIn the event this information is protected by the Federal Confidentiality of Alcohol and Drug Abuse Patient Records regulations: The Federal rules restrict any use of the information to criminally investigate or prosecute any alcohol or drug abuse patient.[facility] HospitalIn the event this information is protected by the Federal Confidentiality of Alcohol and Drug Abuse Patient Records regulations: The Federal rules restrict any use of the information to criminally investigate or prosecute any alcohol or drug abuse patient.[facility] HospitalIn the event this information is protected by the Federal Confidentiality of Alcohol and Drug Abuse Patient Records regulations: The Federal rules restrict any use of the information to criminally investigate or prosecute any alcohol or drug abuse patient.[facility] HospitalIn the event this information is protected by the Federal Confidentiality of Alcohol and Drug Abuse Patient Records regulations: The Federal rules restrict any use of the information to criminally investigate or prosecute any alcohol or drug abuse patient.[facility] HospitalIn the event this information is protected by the Federal Confidentiality of Alcohol and Drug Abuse Patient Records regulations: The Federal rules restrict any use of the information to criminally investigate or prosecute any alcohol or drug abuse patient.[facility] HospitalIn the event this information is protected by the Federal Confidentiality of Alcohol and Drug Abuse Patient Records regulations: The Federal rules restrict any use of the information to criminally investigate or prosecute any alcohol or drug abuse patient.[facility] HospitalIn the event this information is protected by the Federal Confidentiality of Alcohol and Drug Abuse Patient Records regulations: The Federal rules restrict any use of the information to criminally investigate or prosecute any alcohol or drug abuse patient.[facility] HospitalIn the event this information is protected by the Federal Confidentiality of Alcohol and Drug Abuse Patient Records regulations: The Federal rules restrict any use of the information to criminally investigate or prosecute any alcohol or drug abuse patient.[facility] HospitalIn the event this information is protected by the Federal Confidentiality of Alcohol and Drug Abuse Patient Records regulations: The Federal rules restrict any use of the information to criminally investigate or prosecute any alcohol or drug abuse patient.[facility] HospitalIn the event this information is protected by the Federal Confidentiality of Alcohol and Drug Abuse Patient Records regulations: The Federal rules restrict any use of the information to criminally investigate or prosecute any alcohol or drug abuse patient.[facility] HospitalIn the event this information is protected by the Federal Confidentiality of Alcohol and Drug Abuse Patient Records regulations: The Federal rules restrict any use of the information to criminally investigate or prosecute any alcohol or drug abuse patient.[facility] HospitalIn the event this information is protected by the Federal Confidentiality of Alcohol and Drug Abuse Patient Records regulations: The Federal rules restrict any use of the information to criminally investigate or prosecute any alcohol or drug abuse patient.[facility] HospitalIn the event this information is protected by the Federal Confidentiality of Alcohol and Drug Abuse Patient Records regulations: The Federal rules restrict any use of the information to criminally investigate or prosecute any alcohol or drug abuse patient.[facility] HospitalIn the event this information is protected by the Federal Confidentiality of Alcohol and Drug Abuse Patient Records regulations: The Federal rules restrict any use of the information to criminally investigate or prosecute any alcohol or drug abuse patient.[facility] HospitalIn the event this information is protected by the Federal Confidentiality of Alcohol and Drug Abuse Patient Records regulations: The Federal rules restrict any use of the information to criminally investigate or prosecute any alcohol or drug abuse patient.[facility] HospitalIn the event this information is protected by the Federal Confidentiality of Alcohol and Drug Abuse Patient Records regulations: The Federal rules restrict any use of the information to criminally investigate or prosecute any alcohol or drug abuse patient.[facility] HospitalIn the event this information is protected by the Federal Confidentiality of Alcohol and Drug Abuse Patient Records regulations: The Federal rules restrict any use of the information to criminally investigate or prosecute any alcohol or drug abuse patient.[facility] HospitalIn the event this information is protected by the Federal Confidentiality of Alcohol and Drug Abuse Patient Records regulations: The Federal rules restrict any use of the information to criminally investigate or prosecute any alcohol or drug abuse patient.[facility] HospitalIn the event this information is protected by the Federal Confidentiality of Alcohol and Drug Abuse Patient Records regulations: The Federal rules restrict any use of the information to criminally investigate or prosecute any alcohol or drug abuse patient.[facility] HospitalIn the event this information is protected by the Federal Confidentiality of Alcohol and Drug Abuse Patient Records regulations: The Federal rules restrict any use of the information to criminally investigate or prosecute any alcohol or drug abuse patient.[facility] HospitalIn the event this information is protected by the Federal Confidentiality of Alcohol and Drug Abuse Patient Records regulations: The Federal rules restrict any use of the information to criminally investigate or prosecute any alcohol or drug abuse patient.[facility] HospitalIn the event this information is protected by the Federal Confidentiality of Alcohol and Drug Abuse Patient Records regulations: The Federal rules restrict any use of the information to criminally investigate or prosecute any alcohol or drug abuse patient.[facility] HospitalIn the event this information is protected by the Federal Confidentiality of Alcohol and Drug Abuse Patient Records regulations: The Federal rules restrict any use of the information to criminally investigate or prosecute any alcohol or drug abuse patient.[facility] HospitalIn the event this information is protected by the Federal Confidentiality of Alcohol and Drug Abuse Patient Records regulations: The Federal rules restrict any use of the information to criminally investigate or prosecute any alcohol or drug abuse patient.[facility] Reason for Visit (unrecogniz ed section and content) Reason Comments Established Patient Injections Specialty Diagnoses / Procedures Referred By Contac t Referred To Contact ORTHOPAEDIC SURGERY Diagnoses Osteoarthritis of right knee Procedures ORTHOVISC INJ PER DOSE INJECTION KNEE Sujatha Masterson [facility] [place] [address] [facility] [place] [address] [place] [address] Referral ID Status Reason Start Date Expiration Date V isits Requested Visits Authorized [id number] Authorized 02/11/2023 05/14/2023 99 99 Reason Comments Follow Up Knee Pain Injections Specialty Diagnoses / Procedures Referred By Contac t Referred To Contact ORTHOPAEDIC SURGERY Diagnoses Unilateral primary osteoarthritis, unspecified knee Procedures ORTHOVISC INJ PER DOSE ORTHOVISC OR PAYOR PREFERRED Sujatha Masterson [facility] [place] [address] [address] [place] [address] [place] [address] Referral ID Status Reason Start Date Expiration Date V isits Requested Visits Authorized [id number] Authorized 07/03/2022 10/01/2022 3 3 Reason Comments Follow Up Knee Pain Reason Comments Patient Question Reason Comments Injections Reason Comments Established Patient Follow Up Orthovisc gel injection #1 Knee Pain Reason Comments Follow Up Knee Pain Swelling Injections Reason Comments Injections Reason Comments Knee Pain Follow Up Injections Specialty Diagnoses / Procedures Referred By Contac t Referred To Contact ORTHOPAEDIC SURGERY Diagnoses Osteoarthritis of right knee Procedures SYNVISC OR SYNVISC-ONE INJECTION KNEE or Euflexxa Sujatha Masterson [facility] [place] [address] [address] [place] [address] [place] [address] Referral ID Status Reason Start Date Expiration Date V isits Requested Visits Authorized [id number] Authorized 09/04/2023 09/03/2024 99 99 Reason Comments Consult Reason Comments New Pain Reason Comments Patch Testing (allergy) Reason Comments Cataract Follow Up Reason Comments Appointment Specialty Diagnoses / Procedures Referred By Contac t Referred To Contact CT IMAGING Diagnoses Primary osteoarthritis of right knee Preoperative testing Procedures CT KNEE WO IVCON RIGHT CT LOWER EXTREMITY W/O CONTRAST MATERIAL Dennis Butts PA-C [address] [place] [address] Ct Imaging [facility] Referral ID Status Reason Start Date Expiration Date V isits Requested Visits Authorized [id number] Closed Auto-Generate d Referral 02/17/2024 03/18/2025 1 1 Reason Comments Anesthesia Consult Reason Comments Pre-Op Teaching Reason Comments Follow Up Pain Reason Comments Home Care Confirmation Call Specialty Diagnoses / Procedures Referred By Contac t Referred To Contact [facility] [address] [place] [address] Referral ID Status Reason Start Date Expiration Date Visits Re quested Visits Authorized [id number] 1 1 Reason Comments Established Patient Follow Up Knee Replacement Post Op Reason Comments Cataract Evaluation Reason Comments Anesthesia Consult Reason Comments Post Op Knee Replacement Reason Comments Follow Up For 1 day S/P PCIOL RIGH T EYE aim -0.25. first eye on 06/09/[address] Parker Reason Comments Radiology XR Right knee and hip p ain Specialty Diagnoses / Procedures Referred By Contac t Referred To Contact XR IMAGING Diagnoses Status post total right knee replacement Procedures XR KNEE POST OP 3V AP/LAT/MERCHANT RIGHT RADIOLOGIC EXAMINATION KNEE 3 VIEWS Brigid Bailon MD [address] [address] [place] [id number] Referral ID Status Reason Start Date Expiration Date V isits Requested Visits Authorized [id number] Closed Auto-Generate d Referral 06/14/2024 07/14/2025 1 1 Reason Comments Post-op (Ophthalmology) OD Reason Comments Post-op Cataract OS Reason Comments Established Patient Follow Up Post Op Knee Replacement Reason Comments Eye Problem Reason Comments Established Patient Follow Up Post Op Knee Replacement Reason Comments Small conjunctival cyst left eye follow up F/U 3 months Care Teams (unrecognized sec tion and content) Student Union Consultant Relationship Specialty Start Date End Date Vernon Bolton, CLERK ENTRY LEVEL.RETAIL GROCER PCP - General Family Medicine 04/26/18 Student Union Consultant Relationship Specialty Start Date End Date Vernon Bolton CLERK ENTRY LEVEL.RETAIL GROCER PCP - General Family Medicine 04/26/18 Student Union Consultant Relationship Specialty Start Date End Date Vernon Bolton, CLERK ENTRY LEVEL.RETAIL GROCER PCP - General Family Medicine 04/26/18 Student Union Consultant Relationship Specialty Start Date End Date Vernon Bolton CLERK ENTRY LEVEL.RETAIL GROCER [address] [place] [address] PCP - General Family Medicine 04/26/18 Student Union Consultant Relationship Specialty Start Date End Date Vernon Bolton, CLERK ENTRY LEVEL.RETAIL GROCER [address] [place] [address] PCP - General Family Medicine 04/26/18 Student Union Consultant Relationship Specialty Start Date End Date Vernon Bolton, CLERK ENTRY LEVEL.RETAIL GROCER [address] [place] [address] PCP - General Family Medicine 04/26/18 Student Union Consultant Relationship Specialty Start Date End Date Vernon Bolton, CLERK ENTRY LEVEL.RETAIL GROCER [address] [facility] [place] [address] PCP - General Family Medicine 04/26/18 Student Union Consultant Relationship Specialty Start Date End Date Vernon Bolton, CLERK ENTRY LEVEL.RETAIL GROCER [address] [facility] [place] [address] PCP - General Family Medicine 04/26/18 Student Union Consultant Relationship Specialty Start Date End Date Vernon Bolton, CLERK ENTRY LEVEL.RETAIL GROCER [address] [place] [address] PCP - General Family Medicine 04/26/18 Student Union Consultant Relationship Specialty Start Date End Date Vernon Bolton, CLERK ENTRY LEVEL.RETAIL GROCER [address] [place] [address] PCP - General Family Medicine 04/26/18 Student Union Consultant Relationship Specialty Start Date End Date Vernon Bolton, CLERK ENTRY LEVEL.RETAIL GROCER [address] [place] [address] PCP - General Family Medicine 04/26/18 Student Union Consultant Relationship Specialty Start Date End Date Vernon Bolton, CLERK ENTRY LEVEL.RETAIL GROCER [address] [place] [address] PCP - General Family Medicine 04/26/18 Student Union Consultant Relationship Specialty Start Date End Date Vernon Bolton, CLERK ENTRY LEVEL.RETAIL GROCER [address] [place] [address] PCP - General Family Medicine 04/26/18 Student Union Consultant Relationship Specialty Start Date End Date Vernon Bolton, CLERK ENTRY LEVEL.RETAIL GROCER [address] [place] [address] PCP - General Family Medicine 04/26/18 Student Union Consultant Relationship Specialty Start Date End Date Vernon Bolton, CLERK ENTRY LEVEL.RETAIL GROCER [address] [place] [address] PCP - General Family Medicine 04/26/18 Student Union Consultant Relationship Specialty Start Date End Date Vernon Bolton, CLERK ENTRY LEVEL.RETAIL GROCER [address] [place] [address] PCP - General Family Medicine 04/26/18 Student Union Consultant Relationship Specialty Start Date End Date Vernon Bolton, CLERK ENTRY LEVEL.RETAIL GROCER [address] [place] [address] PCP - General Family Medicine 04/26/18 Student Union Consultant Relationship Specialty Start Date End Date Vernon Bolton, CLERK ENTRY LEVEL.RETAIL GROCER [address] [place], [place] [id number] PCP - General Family Medicine 04/26/18 Student Union Consultant Relationship Specialty Start Date End Date Vernon Bolton, CLERK ENTRY LEVEL.RETAIL GROCER [address] [place] [address] PCP - General Family Medicine 04/26/18 Soheila Pisano, P[facility] [address] [place] [address] Specialty [facility] 02/17/24 04/20/24 Student Union Consultant Relationship Specialty Start Date End Date Vernon Bolton, CLERK ENTRY LEVEL.RETAIL GROCER [address] [place] [address] PCP - General Family Medicine 04/26/18 Soheila Pisano, PSS [facility] [address] [place] [address] Specialty [facility] 02/17/24 04/20/24 Student Union Consultant Relationship Specialty Start Date End Date Vernon Bolton, CLERK ENTRY LEVEL.RETAIL GROCER [address] [place] [address] PCP - General Family Medicine 04/26/18 Soheila Pisano, PSS [facility] [address] [place] [address] Specialty [facility] 02/17/24 04/20/24 Student Union Consultant Relationship Specialty Start Date End Date Vernon Bolton, CLERK ENTRY LEVEL.RETAIL GROCER [address] [place] [address] PCP - General Family Medicine 04/26/18 Soheila Pisano, [facility] [address] [place] [address] Specialty [facility] 02/17/24 04/20/24 Student Union Consultant Relationship Specialty Start Date End Date Vernon Bolton, CLERK ENTRY LEVEL.RETAIL GROCER [address] [place] [address] PCP - General Family Medicine 04/26/18 Student Union Consultant Relationship Specialty Start Date End Date Vernon Bolton, CLERK ENTRY LEVEL.RETAIL GROCER [address] [place] [address] PCP - General Family Medicine 04/26/18 Soheila Pisano, [facility] [address] [place] [address] Specialty [facility] 02/17/24 04/20/24 Brgiid Bailon MD [address] [address] Referring Orthopedics 03/17/24 Brigid Bailon MD [address] [address] Home Care Provider Orthopedics 03/17/24 Chandler Red, PT [address] [place] [address] [employer] Post Acute Care 03/17/24 Student Union Consultant Relationship Specialty Start Date End Date Vernon Bolton, CLERK ENTRY LEVEL.RETAIL GROCER [address] [place] [address] PCP - General Family Medicine 04/26/18 Soheila Pisano, P[facility] [address] [place] [address] Specialty [facility] 02/17/24 04/20/24 Brigid Bailon MD [address] [address] Referring Orthopedics 03/17/24 Brigid Bailon MD [address] [address] Home Care Provider Orthopedics 03/17/24 Chandler Red, PT [address] [place] [id number] [employer] Post Acute Care 03/17/24 Student Union Consultant Relationship Specialty Start Date End Date Vernon Bolton, CLERK ENTRY LEVEL.RETAIL GROCER [address] [place] [address] PCP - General Family Medicine 04/26/18 Student Union Consultant Relationship Specialty Start Date End Date Vernon Bolton, CLERK ENTRY LEVEL.RETAIL GROCER [address] [place] [address] PCP - General Family Medicine 04/26/18 Soheila Pisano, P[facility] [address] [place] [address] Specialty [facility] 02/17/24 04/20/24 Brigid Bailon MD [address] [address] Referring Orthopedics 03/17/24 Brigid Bailon MD [address] [address] Home Care Provider Orthopedics 03/17/24 Chandler Red, PT [address] [place] [address] [employer] Post Acute Care 03/17/24 Student Union Consultant Relationship Specialty Start Date End Date Vernon Bolton, CLERK ENTRY LEVEL.RETAIL GROCER [address] [place] [address] PCP - General Family Medicine 04/26/18 Soheila Pisano, P[facility] [address] [place] [address] Specialty [facility] 02/17/24 04/20/24 Brigid Bailon MD [address] [address] Referring Orthopedics 03/17/24 Brigid Bailon MD [address] [address] Home Care Provider Orthopedics 03/17/24 Chandler Red, PT [address] [place] [address] [employer] Post Acute Care 03/17/24 Student Union Consultant Relationship Specialty Start Date End Date Vernon Bolton, CLERK ENTRY LEVEL.RETAIL GROCER [address] [place] [address] PCP - General Family Medicine 04/26/18 Soheila Pisano, P[facility] [address] [place] [address] Specialty [facility] 02/17/24 04/20/24 Brigid Bailon MD [address] [address] Referring Orthopedics 03/17/24 Brigid Bailon MD [address] [address] Home Care Provider Orthopedics 03/17/24 Chandler Red, PT [address] [place] [address] [employer] Post Acute Care 03/17/24 Student Union Consultant Relationship Specialty Start Date End Date Vernon Bolton, CLERK ENTRY LEVEL.RETAIL GROCER [address] [place] [address] PCP - General Family Medicine 04/26/18 Soheila Pisano [facility] [address] [place] [address] Specialty [facility] 02/17/24 04/20/24 Brigid Bailon MD [address] [address] Referring Orthopedics 03/17/24 Brigid Bailon MD [address] [address] Home Care Provider Orthopedics 03/17/24 Chandler Red, PT [address] [place] [address] [employer] Post Acute Care 03/17/24 Student Union Consultant Relationship Specialty Start Date End Date Vernon Bolton, CLERK ENTRY LEVEL.RETAIL GROCER [address] [place] [address] PCP - General Family Medicine 04/26/18 Student Union Consultant Relationship Specialty Start Date End Date Vernon Bolton, CLERK ENTRY LEVEL.RETAIL GROCER [address] [place] [address] PCP - General Family Medicine 04/26/18 Soheila Pisano, [facility] [address] [place] [address] Specialty [employer] [facility] 02/17/24 04/20/24 Brigid Bailon MD [address] [address] Referring Orthopedics 03/17/24 Brigid Bailon MD [address] [address] Home Care Provider Orthopedics 03/17/24 Chandler Red, PT [address] [place] [address] [employer] Post Acute Care 03/17/24 Student Union Consultant Relationship Specialty Start Date End Date Vernon Bolton, CLERK ENTRY LEVEL.RETAIL GROCER [address] [place] [address] PCP - General Family Medicine 04/26/18 Brigid Bailon MD [address] [address] [address] Referring Orthopedics 03/17/24 Brigid Bailon MD [address] [address] Home Care Provider Orthopedics 03/17/24 Chandler Red, PT [address] [place] [address] [employer] Post Acute Care 03/17/24 Student Union Consultant Relationship Specialty Start Date End Date Vernon Bolton, CLERK [employer] [address] [place] [address] PCP - General Family Medicine 04/26/18 Brigid Balion MD [address] [address] Referring Orthopedics 03/17/24 Brigid Bailon MD [address] [address] Home Care Provider Orthopedics 03/17/24 Chandler Red, PT [address] [place] [address] [employer] Post Acute Care 03/17/24 Student Union Consultant Relationship Specialty Start Date End Date Vernon Bolton, CLERK EN[employer]TAIL [employer]ER [address] [place] [address] PCP - General Family Medicine 04/26/18 Brigid Bailon MD [address] [address] Referring Orthopedics 03/17/24 Brigid Bailon MD [address] [address] Home Care Provider Orthopedics 03/17/24 Chandler Red, PT [address] [place] [address] [employer] Post Acute Care 03/17/24 Student Union Consultant Relationship Specialty Start Date End Date Vernon Bolton, CLERK EN[employer]TAIL [employer] [address] [place], [place] [id number] PCP - General Family Medicine 04/26/18 Brigid Bailon MD [address] [address] Referring Orthopedics 03/17/24 Brigid Bailon MD [address] [address] Home Care Provider Orthopedics 03/17/24 Chandler Red, PT [address] [place] [address] [employer] Post Acute Care 03/17/24 Student Union Consultant Relationship Specialty Start Date End Date Vernon Bolton, CLERK [employer]TAIL [employer] [address] [place] [address] PCP - General Family Medicine 04/26/18 Brigid Bailon MD [address] [address] Referring Orthopedics 03/17/24 Brigid Bailon MD [address] [address] Home Care Provider Orthopedics 03/17/24 Chandler Red, PT [address] [place] [address] [employer] Post Acute Care 03/17/24 Student Union Consultant Relationship Specialty Start Date End Date Vernon Bolton, CLERK EN[employer]TA[employer] [address] [place] [address] PCP - General Family Medicine 04/26/18 Brigid Bailon MD [address] [address] Referring Orthopedics 03/17/24 Brigid Bailon MD [address] [address] Home Care Provider Orthopedics 03/17/24 Chandler Red, PT [address] [place] [address] [employer] Post Acute Care 03/17/24 Student Union Consultant Relationship Specialty Start Date End Date Vernon Bolton, CLERK EN[employer].RETAIL [employer]ER [address] [place] [address] PCP - General Family Medicine 04/26/18 Brigid Bailon MD [address] [address] Referring Orthopedics 03/17/24 Brigid Bailon MD [address] [address] Home Care Provider Orthopedics 03/17/24 Chandler Red, PT [address] [place] [address] [employer] Post Acute Care 03/17/24 Student Union Consultant Relationship Specialty Start Date End Date Vernon Bolton, CLERK EN[employer]TAIL [employer] [address] [place] [address] PCP - General Family Medicine 04/26/18 Brigid Bailon MD [address] [address] Referring Orthopedics 03/17/24 Brigid Bailon MD [address] [address] Home Care Provider Orthopedics 03/17/24 Chandler Red, PT [address] [place] [address] [employer] Post Acute Care 03/17/24 Student Union Consultant Relationship Specialty Start Date End Date Vernon Bolton, CLERK EN[employer].RETAIL [employer]ER [address] [address] PCP - General Family Medicine 04/26/18 Brigid Bailon MD [address] [address] Referring Orthopedics 03/17/24 Brigid Bailon MD [address] [address] Home Care Provider Orthopedics 03/17/24 Chandler Red, PT [address] [facility] [address] [employer] Post Acute Care 03/17/24 Student Union Consultant Relationship Specialty Start Date End Date Vernon Bolton, CLERK ENTRY LEVEL.RETAIL [employer]ER [address] [id number] PCP - General Family Medicine 04/26/18 Brigid Bailon MD [address] [address] Referring Orthopedics 03/17/24 Brigid Bailon MD [address] [address] Home Care Provider Orthopedics 03/17/24 Chandler Red, PT [address] [place] [address] [employer] Post Acute Care 03/17/24 Student Union Consultant Relationship Specialty Start Date End Date Vernon Bolton, CLERK ENTRY [employer]EVEL.RETAIL [employer]ER [address] [place] [address] PCP - General Family Medicine 04/26/18 Brigid Bailon MD [address] [address] Referring Orthopedics 03/17/24 Brigid Bailon MD [address] [address] Home Care Provider Orthopedics 03/17/24 Chandler Red, PT [address] [place] [address] [employer] Post Acute Care 03/17/24 Student Union Consultant Relationship Specialty Start Date End Date Vernon Bolton, CLERK ENTRY LEVEL.RETAIL [employer]ER [address] [address] PCP - General Family Medicine 04/26/18 Brigid Bailon MD [address] [address] Referring Orthopedics 03/17/24 Brigid Bailon MD [address] [address] Home Care Provider Orthopedics 03/17/24 Chandler Red, PT [address] [place] [address] [employer] Post Acute Care 03/17/24 Student Union Consultant Relationship Specialty Start Date End Date Vernon Bolton, CLERK ENTRY LEVEL.RETAIL GR[employer]ER [address] [place] [address] PCP - General Family Medicine 04/26/18 Brigid Bailon MD [address] [address] Referring Orthopedics 03/17/24 Brigid Bailon MD [address] [address] Home Care Provider Orthopedics 03/17/24 Chandler Red, PT [address] [place] [address] [employer] Post Acute Care 03/17/24 Student Union Consultant Relationship Specialty Start Date End Date Vernon Bolton, CLERK ENTRY LEVEL.RETAIL [employer]ER [address] [address] PCP - General Family Medicine 04/26/18 Brigid Bailon MD [address] [address] Referring Orthopedics 03/17/24 Brigid Bailon MD [address] [address] Home Care Provider Orthopedics 03/17/24 Chandler Red, PT [address] [facility] [address] [employer] Post Acute Care 03/17/24 Student Union Consultant Relationship Specialty Start Date End Date Vernon Bolton, CLERK ENTRY LEVEL.RETAIL [employer]ER [address] [place] [address] PCP - General Family Medicine 04/26/18 Brigid Bailon MD [address] [address] Referring Orthopedics 03/17/24 Brigid Bailon MD [address] [address] Home Care Provider Orthopedics 03/17/24 Chandler Red, PT [address] [place] [address] [employer] Post Acute Care 03/17/24 Student Union Consultant Relationship Specialty Start Date End Date Vernon Bolton, CLERK ENTRY [employer]EVEL.RETAIL [employer]ER [address] [place] [address] PCP - General Family Medicine 04/26/18 Brigid Bailon MD [address] [address] Referring Orthopedics 03/17/24 Brigid Bailon MD [address] [address] Home Care Provider Orthopedics 03/17/24 Chandler Red, PT [address] [place] [address] [employer] Post Acute Care 03/17/24 Inactive Administered Medications - up to 3 most recent administrations Administered Medications (un recognized section and content) Medication Order MAR Action Action Date Dose Rate Site hylan G-F 20 2 mL injection (SYNVISC) 2 mL, Injection - FOR ORTHO USE ONLY, ONCE, 1 dose, Starting on 09/05/23 at 1531, Until Fri09/05/23 at 1531 Given 09/05/2023 3:31 PM EST 2 mL Knee, Right sodium hyaluronate 20 mg injection (EUFLEXXA) 20 mg, Injection - FOR ORTHO USE ONLY, ONCE, 1 dose, Starting on 09/05/23 at 1531, Until Fri09/05/23 at 1531 Given 09/05/2023 3:31 PM EST 20 mg Knee, Right Inactive Administered Medications - up to 3 most recent administrations Medication Order MAR Action Action Date Dose Rate Site hylan G-F 20 2 mL injection (SYNVISC) 2 mL, Injection - FOR ORTHO USE ONLY, ONCE, 1 dose, Starting on Fri09/19/23 at 0959, Until Fri09/19/23 at 0959 Given 09/19/2023 9:59 AM EDT 2 mL Knee, Right FOR RECORDS PERTAINING TO PATIENTS WHO ARE OR HAVE BEEN ENROLLED IN A CHEMICAL DEPENDENCY/SUBSTANCEABUSE PROGRAM, SOME INFORMATION MAY BE OMITTED. This clinical summary was aggregated from multiple sources. Caution should be exercised in using it in the provision of clinical care. This summary normalizes information from multiple sources, and as a consequence, information in this document may materially change the coding, format and clinical context of patient data. In addition, data may be omitted in some cases. CLINICAL DECISIONS SHOULD BE BASED ON THE PRIMARY CLINICAL RECORDS. [facility]. provides no warranty or guarantee of the accuracy or completeness of information in this document.
== END | disposition home or self-care (01) ==
PROVIDERS: Referring Provider Nurse Practitioner; Visit Provider Nurse Practitioner
DX: E03.9 Hypothyroidism, unspecified (principal)
CPT/HCPCS: 84439; 84443